=== PATIENT | female | born 1940 | race Caucasian/White ===

== ENCOUNTER → 2022-01-24 10:39 | Outpatient (CLI) | payer MEDICARE, OTHER, SELFPAY ==
--- NOTE | 2022-01-24 10:43 | DI.MRI.S_ITS ---
PROCEDURE: MR LUMBAR SPINE WO CON INDICATIONS: Lumbago with sciatica, right side TECHNIQUE: Noncontrast sagittal T1 spin echo and T2 fast echo, sagittal STIR, and T2 fast spin echo through the lumbar spine. In cases with scoliosis, additional coronal T2 fast spin echo may be performed. COMPARISON: CT, L-SPINE WITHOUT CONTRAST, 07/30/2016, 12:16. FINDINGS: Image quality: Excellent. Alignment and Curvature: There is trace anterolisthesis of L3 on L4, L4 on L5. Bone Marrow: Marrow is of normal overall signal. No acute vertebral body compression fractures. Spinal Cord: Conus medullaris terminates at the L1 level. Visualized cord demonstrates normal signal and size. Paraspinous Soft Tissues: No paravertebral masses. Discs: Severe desiccation is present at L2-3, mild to moderate throughout the remainder of the lumbar spine. L1-L2: No disc bulge or spinal stenosis. Mild bilateral foraminal narrowing, left greater than right with facet and ligamentum flavum hypertrophy. L2-L3: Mild disc bulge including a left foraminal/lateral component. Mild spinal stenosis. Severe left and moderate right foraminal narrowing with facet and ligamentum flavum hypertrophy. There is mild flattening of the left L2 nerve root. L3-L4: Mild disc bulge with moderate to severe spinal stenosis. Moderate to severe bilateral foraminal narrowing with facet and ligamentum flavum hypertrophy. L4-L5: Mild disc bulge with disc extension to the right lateral recess as well as foramina. There is severe right and moderate to severe left foraminal narrowing with nerve root compression of the exiting right L4 nerve roots. Epidural lipomatosis is present as well as significant facet and ligamentum flavum hypertrophy. Severe spinal stenosis is present. L5-S1: Mild disc bulge without spinal stenosis. [id number] left foraminal narrowing with facet hypertrophy. IMPRESSION: Prominent multilevel degenerative changes. Multilevel spinal stenosis most severe at L4-5 secondary to disc bulge with contributing affective facet/ligamentum flavum arthropathy and epidural lipomatosis. Multilevel foraminal narrowing is present most severe at L4-5 secondary to facet arthropathy. Dictated by: Peg Delgado M.D. on 01/25/2022 at 16:08 Approved by: Peg Delgado M.D. on 01/25/2022 at 16:15
== END ==
PROVIDERS: Referring Provider Physical Medicine & Rehabilitation Pain Medicine; Visit Provider Physical Medicine & Rehabilitation Pain Medicine
DX: M48.061 Spinal stenosis, lumbar region without neurogenic claudication (principal); M51.16 Intervertebral disc disorders with radiculopathy, lumbar region; M47.26 Other spondylosis with radiculopathy, lumbar region
CPT/HCPCS: 72148

== ENCOUNTER → 2022-08-13 11:24 | Outpatient (CLI) | payer MEDICARE, OTHER, SELFPAY ==
[2022-08-13 12:52] LABS: COVID19 -Nasal RAPID Negative (Negative)
== END ==
PROVIDERS: PCP Family Medicine; Referring Provider Internal Medicine; Visit Provider Internal Medicine
DX: Z20.822 Contact with and (suspected) exposure to COVID-19 (principal)
CPT/HCPCS: 87635; C9803

== ENCOUNTER → 2022-08-13 11:26 | Outpatient (CLI) | payer MEDICARE, OTHER, SELFPAY ==
--- NOTE | 2022-08-23 14:03 | PM.PFT.1 ---
Pulmonary Function Test Referral & Results Date Patient Seen: 08/13/22 Requesting provider: Rody Mijares Results: The spirometry demonstrates an FVC of 1.99 L which is 80% of predicted. The FEV1 was measured at 1.59 L which is 86% of predicted. The FEV1/FVC ratio was 80 which is 107% of predicted. Following the administration of bronchodilator there was a 27% improvement in FEF 25-75%. Lung volumes show an SVC of 2.80 L which is 109% of predicted. The diffusing capacity was measured at 12.90 which is 56% of predicted. No hemoglobin value was provided, so no correction for potential anemia could be made, if appropriate. The maximum voluntary ventilation was normal Interpretation: This study demonstrates probably normal forced spirometry although there is some minimal improvement in small airway flow after bronchodilator as noted above based on improvement in FEF 25-75% Lung volumes are normal There is a moderate reduction in diffusing capacity suggesting disease at the capillary alveolar level Clinical correlation suggested
== END ==
PROVIDERS: PCP Family Medicine; Referring Provider Family Medicine; Visit Provider Family Medicine
DX: R05.3 Chronic cough (principal); Z87.891 Personal history of nicotine dependence; Z20.822 Contact with and (suspected) exposure to COVID-19; J98.8 Other specified respiratory disorders
CPT/HCPCS: 87635; 94060; 94726; 94729; C9803

== ENCOUNTER → 2022-08-17 12:16 | Outpatient (CLI) | payer MEDICARE, OTHER, SELFPAY ==
--- NOTE | 2022-08-17 12:17 | DI.RAD.S_ITS ---
PROCEDURE: XR KNEE RT 3V INDICATIONS: pain TECHNIQUE: 3 views of the knee were acquired. COMPARISON: None. FINDINGS: Bones: Degenerative changes with tricompartmental osteophytes and medial joint space narrowing. Chondrocalcinosis is seen in the medial and lateral joint space. No fractures or dislocations. There is a well corticated ossification superior to the patella. No suspicious bony lesions. Soft tissues: No joint effusion. No suspicious soft tissue calcifications. IMPRESSION: 1. Tricompartmental degenerative changes consistent with osteoarthritis. 2. Chondrocalcinosis in the medial and lateral joint space. Dictated by: Eren Hoang M.D. on 08/17/2022 at 16:41 Approved by: Eren Hoang M.D. on 08/17/2022 at 16:42
== END ==
PROVIDERS: PCP Family Medicine; Referring Provider Family Medicine; Visit Provider Family Medicine
DX: M11.261 Other chondrocalcinosis, right knee (principal); M25.561 Pain in right knee
CPT/HCPCS: 73562

== ENCOUNTER → 2022-08-24 11:49 | Outpatient (CLI) | payer MEDICARE, OTHER, SELFPAY ==
[2022-08-24 12:38] LABS: Hemoglobin A1C% w Est Avg Glu 9.1 % (4.0-6.0)
--- NOTE | 2022-09-01 11:34 | DIAB.MNT ---
Initial Diabetes Medical Nutrition Therapy Assessment Name: Francia Moeller (Francia (11ah)) Date: 08/24/22 Time: 108-208p Dx: Type II Diabetes Provider: Tahirharsha Francia presents for initial diabetes visit. PMH of DM since 1993 per report. +FH of DM with paternal grandfather, maternal grandmother and uncle, unsure of mother since she young. Reports d/c of Metformin due to progressing CKD. GFR of 35 and GFR 1.5 in 05/2022. Endorses 40# weight lossin one year d/t daughter not allowing carb heavy snacks in the house, ie pretzels, ice cream, cheese. Worries about rising HgA1c recently, up from 8.6% to 9.1%, likely r/t d/c of Metformin to protect kidneys. In process of titrating Dm meds with PCP. Does not like insulin pens, uses syringe. Diet Recall: 630a: coffee with splenda, toast and PB OR soup OR fast food breakfast sausage with cheese no bread 12p: apple OR cottage cheese x0.5c with pineapple x 1/3c OR leftovers OR soup x 1c with crackers x2 5p: soup OR chicken with veggies and sometimes small potato OR 3/4c fried rice with chx or tofu OR pasta 8p: 2-4 crackers with one fruit Beverages; 24-32oz water, diet tonic water, 2-3c coffee, 1c tea Anthropometrics: Ht: 63 Wt: 239# Physical Activity: chair yoga 5 days per week, tires to walk. Barrier is knee/back pain. usually 2000 steps per day and aiming for more. Self-Monitoring Blood Glucose: Checks FBG once per week and sometimes later in the day. Sometimes after eating BG may be up to 200mg/dl per report. Date Pre Post Pre Post Pre Post HS 08/18 169 08/19 154 08/20 152 08/21 134 08/22 152 08/23 165 08/24 174 Diabetes Medications: 5mg Glipizide XR 48 (inc to 50 today) morning and 45u evening 70/30 NPH Pertinent Labs: Hemoglobin A1c 9.1 % (4.0-6.0) H 08/24/22 11:55 Past Medical History: (Last Updated 08/31/22 @ 16:03 by Everton Ibarra MD) Abnormal Pap smear of cervix (~1992) Adrenal adenoma Rt. Observation Asthma (~1989) Benign essential HTN Breast cancer (~2016) Bulimia (~1959) Carpal tunnel syndrome (~1991) Chicken pox (~1945) Chronic back pain (~1989) CKD (chronic kidney disease) CPAP (continuous positive airway pressure) dependence (~1999) Shallow breathing Diabetes mellitus type 2, insulin dependent (~1993) Fracture (~1986) Hemorrhoid (~1989) History of stent insertion of renal artery Rt. History of urinary incontinence (~1994) Hyperlipidemia Kidney stones (~2001) Knee osteoarthritis Measles (~1944) Mumps (~1970) OAB (overactive bladder) Sacrococcygeal disorders, not elsewhere classified Thyroid nodule Thyromegaly Nutrition Rx: Plate Method, CCD, CKD diet Nutrition Diagnosis: - Physical inactivity r/t back and knee pain aeb pt report - Predicted inadequate water intake r/t sub other beverages during the day aeb diet recall - Intervention: This participant was very receptive. Provided appropriate educational handouts. Discussed the following topics: Completed intake assessment. Discussed barriers to care. Pathophysiology of T2DM HgA1c, its correlation to blood glucose numbers, and rationale for goal Importance of self-monitoring, how often, and when to check. Suggested checking at different times to evaluate meals Plate Method, impact of macronutrients on blood sugar, meal timing, carbohydrate counting, pairing macronutrients and spreading out carbohydrates for better blood glucose management Recommended servings for carbohydrates at meals and snacks Heart health nutrition Brainstormed appropriate meal plan based on food preferences Role of physical activity and following provider guidelines for safety Created SMART goals for patient self-care and success. 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
== END ==
PROVIDERS: PCP Family Medicine; Referring Provider Family Medicine; Visit Provider Family Medicine
DX: E11.9 Type 2 diabetes mellitus without complications (principal)
CPT/HCPCS: 36415; 83036; 97802

== ENCOUNTER → 2022-08-26 13:54 | Outpatient (CLI) | payer MEDICARE, OTHER, SELFPAY ==
--- NOTE | 2022-08-26 13:56 | DI.ECHO.S_ITS ---
[facility] +---------+ : : [address] : : : : [id number] : : : : Phone: [phone]+ Echocardiogram Report + + :Name: ÁNGELA OSBORNE Study Date: 08/26/2022 Height: 63 in : :[facility] ReadingLocation: Weight: 235 lb : : Gender: Female BSA: 2.1 m2 : :: 1940 Age: 82 yrs BP: 148/92 mmHg: :Reason For Study: Dyspnea on exertion, hypertension : :Ordering Physician: HAL, : :TITI Performed By: Ofelia White : :Referring: TITI HONG : + + Interpretation Summary Normal sinus rhythm and uncontrolled hypertension. Normal LV size; mild concentric LVH; normal wall motion and LV systolic function. EF is 60-65%. Stage II diastolic dysfunction. Mild LA enlargement; otherwise normal chamber sizes. No significant valvular abnormalities. Estimated PA systolic pressure is 56 mm Hg assuming RA pressure of 15 mm Hg. No prior study available for comparison. Procedure: A two-dimensional transthoracic echocardiogram with color flow and Doppler was performed. The patient was in sinus rhythm with heart rates between 69-74 bpm during the exam. Left Ventricle: The left ventricle is normal in size. There is mild concentric left ventricular hypertrophy. The ejection fraction is estimated to be 60-65%. Diastolic parameters suggest a pseudonormalization pattern, consistent with probable elevated filling pressures. Right Ventricle: The right ventricle is normal in size and function. The right ventricular systolic function is normal. Atria: The left atrium is mildly dilated. The right atrium is normal in size. There is no Doppler evidence for an interatrial shunt. Mitral Valve: The mitral valve is normal in structure and function. There is mild mitral regurgitation. Aortic Valve: The aortic valve is normal in structure and function. There is trace aortic regurgitation. Tricuspid Valve: The tricuspid valve is normal in structure and function. Pulmonic Valve: The pulmonic valve leaflets are thin and pliable; valve motion is normal. There is a trace or physiologic amount of pulmonic regurgitation. Great Vessels: The ascending aorta is normal in size. The IVC is dilated (diameter is greater than 2.1 cm) and it collapses less than 50% with a sniff. This suggests a high right atrial pressure of 15 mm Hg. Pericardium/ Pleura There is a trivial to small pericardial effusion noted. There is no pleural effusion. MMode/2D Measurements & Calculations LVIDd: 5.3 cm LVOT diam: 2.0 cm LVIDs: 3.2 cm Ao root diam: 3.2 cm FS: 39.7 % asc Aorta Diam: 3.4 cm IVSd: 1.2 cm LVPWd: 1.2 cm LV hernadez. diameter/BSA (cm/m^2): 2.5 LV sys. diameter/BSA (cm/m^2): 1.5 LA A2 area: 19.5 cm2 RA long axis: 4.8 cm LA A4 area: 23.4 cm2 RA area: 16.9 cm2 LA length (vol): 5.6 cm RA vol: 50.3 ml LA vol: 69.6 ml RA : 24.3 ml/m2 LA vol index: 33.6 ml/m2 RVD1 (basal): 4.2 cm TAPSE: 1.3 cm Doppler Measurements & Calculations Ao V2 max: 139.8 cm/sec LVOT Max Ozzy: 106.5 cm/sec Ao V2 mean: 99.1 cm/sec LV V1 max P.5 mmHg Ao max P.8 mmHg LV V1 VTI: 23.8 cm Ao mean P.4 mmHg NAYELI(I,D): 2.2 cm2 Ao V2 VTI: 33.9 cm NAYELI(V,D): 2.4 cm2 sev ratio: 0.70 NAYELI indexed to BSA (cm^2/m^2): 1.1 MV E max ozzy: 114.0 cm/sec TR max ozzy: 307.5 cm/sec MV A max ozzy: 68.0 cm/sec TR max P.9 mmHg MV E/A: 1.7 PA V2 max: 104.5 cm/sec Med Peak E' Ozzy: 5.0 cm/sec PA V2 mean: 78.5 cm/sec E/E' med: 23.0 PA mean P.6 mmHg Lat Peak E' Ozzy: 8.0 cm/sec E/E' lat: 14.2 E/e' average: 18.6 MV dec time: 0.25 sec MVA(VTI): 1.9 cm2 MV V2 mean: 72.9 cm/sec SV(LVOT): 75.0 ml MV mean P.5 mmHg MV V2 VTI: 38.6 cm Electronically signed by: Mag Nguyen M.D. on Reading Physician:08/27/2022 03:39 AM
--- NOTE | 2022-08-26 13:56 | DI.MRI.S_ITS ---
PROCEDURE: MR LUMBAR SPINE WO CON INDICATIONS: low back pain, radiculopathy TECHNIQUE: Noncontrast sagittal T1 spin echo and T2 fast echo, sagittal STIR, and T2 fast spin echo through the lumbar spine. In cases with scoliosis, additional coronal T2 fast spin echo may be performed. COMPARISON: None. FINDINGS: Image quality: Excellent. Alignment and Curvature: Degenerative anterolisthesis of L4 on L5 measuring 3 millimeters. Otherwise normal alignment. Vertebral body heights maintained. Bone Marrow: No suspicious bone marrow signal abnormality or bone marrow edema. Spinal Cord: C normal position and appearance of the conus. Regional Soft Tissues: Prevertebral and paraspinous soft tissues are normal. T12-L1: No spinal canal or neural foraminal stenosis. L1-L2: No spinal canal or neural foraminal stenosis. L2-L3: Severe spinal canal stenosis due to diffuse disc bulge and a superimposed broad-based posterior disc protrusion along with buckling of the ligamentum flavum and bulky facet hypertrophy. These factors combine to produce severe left and moderate right neural foraminal narrowing. L3-L4: Severe spinal canal stenosis due to a combination of diffuse disc bulge and a superimposed broad-based posterior disc protrusion along with bulky facet hypertrophy and buckling of the ligamentum flavum. Moderate bilateral neural foraminal narrowing due to these factors. L4-L5: Moderate spinal canal and severe bilateral subarticular zone stenosis due to a diffuse disc bulge and superimposed broad-based posterior disc protrusion along with contribution from bulky facet hypertrophy and buckling of the ligamentum flavum. Severe bilateral neural foraminal narrowing due to these factors. L5-S1: Disc bulge flattens the ventral thecal sac and mildly displaces the descending S1 nerve roots in both subarticular zones. No neural foraminal stenosis. IMPRESSION: Severe spinal canal stenosis at L2-L3 and L3-L4. Moderate spinal canal and severe bilateral subarticular zone stenosis at L4-L5. Severe neural foraminal narrowing on the left at L2-L3 and bilaterally at L4-L5. Moderate neural foraminal narrowing on the right at L2-L3 and bilaterally at L3-L4. Dictated by: Thien Nelson M.D. on 08/27/2022 at 8:50 Approved by: Thien Nelson M.D. on 08/27/2022 at 8:53
--- NOTE | 2022-08-26 13:56 | DI.US.S_ITS ---
PROCEDURE: US THYROID INDICATIONS: THYROMEGALY TECHNIQUE: Real-time scanning was performed of the thyroid gland, with image documentation. COMPARISON: None. FINDINGS: Right: Thyroid lobe measures 9.2 x 4 x 3.9 cm, and is heterogeneous in echotexture. Left: Thyroid lobe measures 5.2 x 2.1 x 1.7 cm, and is heterogeneous in echotexture. Isthmus: 2.7 cm thick Nodule number: 1 Location: Right superior Size: 2.9 x 2.7 x 2.4 cm. Composition: Solid Echogenicity: Hypoechoic Shape: wider than tall. Margins: Smooth Echogenic foci: None Total points: 4 ACR TI-RADS category: TR 4, moderately suspicious Nodule number: 2 Location: Right mid Size: 3.8 x 2.9 x 2.9 cm. Composition: Mixed cystic and solid Echogenicity: Isoechoic Shape: wider than tall. Margins: Smooth Echogenic foci: None Total points: 2 ACR TI-RADS category: TR 2, not suspicious Nodule number: 3 Location: Left mid Size: 2 x 1.4 x 0.9 cm. Composition: Solid Echogenicity: Isoechoic Shape: wider than tall. Margins: Smooth Echogenic foci: None Total points: 3 ACR TI-RADS category: TR 3, mildly suspicious Nodule number: 4 Location: Isthmus Size: 3.5 x 2.5 x 2.4 cm. Composition: Solid Echogenicity: Isoechoic Shape: wider than tall. Margins: Smooth Echogenic foci: None Total points: 3 ACR TI-RADS category: TR 3, mildly suspicious. No enlarged lymph nodes. Incidental carotid bulb atherosclerotic plaque. IMPRESSION: 1. Enlarged heterogeneous thyroid gland. 2. Right superior thyroid nodule measuring 2.9 cm. TR 4, moderately suspicious. FNA recommended. 3. Isthmus thyroid nodule measuring 3.5 cm. TR 3, mildly suspicious. FNA is recommended. ACR TI-RADS definitions and recommendations: TI-RADS 1 (benign): 0 points. FNA not needed. TI-RADS 2 (not suspicious): 2 points. FNA not needed. TI-RADS 3 (mildly suspicious): 3 points. * FNA if 2.5 cm or larger, follow up if 1.5 cm or larger (at 1, 3, and 5 years). TI-RADS 4 (moderately suspicious): 4-6 points. * FNA if 1.5 cm or larger, follow up if 1 cm or larger (at 1, 2, 3, and 5 years). TI-RADS 5 (highly suspicious): 7 points or more. * FNA if 1 cm or larger, follow up if 0.5 cm or larger (every year for 5 years). Dictated by: Colin Corona M.D. on 08/31/2022 at 8:03 Approved by: Colin Corona M.D. on 08/31/2022 at 8:12
== END ==
PROVIDERS: PCP Family Medicine; Referring Provider Family Medicine; Visit Provider Family Medicine
DX: I34.0 Nonrheumatic mitral (valve) insufficiency (principal); I10 Essential (primary) hypertension; R06.09 Other forms of dyspnea; M48.061 Spinal stenosis, lumbar region without neurogenic claudication; M54.41 Lumbago with sciatica, right side; E01.0 Iodine-deficiency related diffuse (endemic) goiter; G89.29 Other chronic pain
CPT/HCPCS: 72148; 76536; 93306

== ENCOUNTER → 2022-09-14 07:56 | Outpatient (CLI) | payer MEDICARE, OTHER, SELFPAY ==
--- NOTE | 2022-09-14 07:58 | DI.NM.S_ITS ---
PROCEDURE: NM BONE 3 PHASE RADIOPHARMACEUTICAL: 21.8 mCi Tc-99m MDP IV. INDICATIONS: Right SIJ abnormality on MRI TECHNIQUE: Multiple bone scintigrams were obtained after intravenous injection of Tc-99m MDP, including flow, blood pool, and delayed images centered to the region of interest. COMPARISON: [facility], CR, XR LUMBAR SPINE WITH OBLIQUES PLUS FLEXION EXTENSION, 01/19/2022, 9:53. [facility], MR, MR LUMBAR SPINE WO CON, 01/24/2022, 11:03. [facility], CR, XR SACROILIAC JOINT MIN 3V, 09/14/2022, 8:00. [facility], MR, MR LUMBAR SPINE WO CON, 08/26/2022, 16:01. FINDINGS: The flow and blood pool images centered to the pelvis demonstrate symmetrical vascular activity. Delayed images demonstrate increased uptake in the right sacroiliac joint, correlating with radiographic and MRI abnormality. Lesser degree of increased activity is also seen left sacroiliac joint. Foci of increased uptake in lower lumbar spine is most likely secondary to degenerative disc and facet disease. IMPRESSION: 1. There is increased activity in the right sacroiliac joint compared to the left. The scintigraphic finding is nonspecific. Given the disease process appears to be centered to the joint, and inflammatory type arthritis is most likely. Recommend clinical correlation and follow-up. If clinically indicated, contrast-enhanced MRI may be helpful. Dictated by: Ham Handley M.D. on 09/14/2022 at 15:46 Approved by: Ham Handley M.D. on 09/16/2022 at 10:02
--- NOTE | 2022-09-14 07:58 | DI.RAD.S_ITS ---
PROCEDURE: XR SACROILIAC JOINT MIN 3V INDICATIONS: failed right SI fusion TECHNIQUE: 3 views of the sacroiliac joints were acquired. COMPARISON: None. FINDINGS: Bones: Dose partial ankylosis of the mid right SI joint. Both joints do show subchondral sclerosis without marginal osteophytes. Degenerative changes noted lower lumbar spine Soft tissues: Overlying bowel gas pattern is normal. No suspicious soft tissue densities. IMPRESSION: Partial mid right SI joint ankylosis Approved by: Elroy Conte M.D. on 09/14/2022 at 13:03
[2022-09-14 08:37] LABS: Add Manual Diff / Slide Review NO; Basophils Absolute Auto 100 /uL (0-100); Basophils Percent Auto 0.9 % (0-2); Eosinophils Absolute Auto 500 /uL (0-450); Eosinophils Percent Auto 4.9 % (2-4); Hematocrit 36.6 % (36-46); Hemoglobin 11.8 g/dL (12.0-16.0); Lymphocytes Absolute Auto 2200 /uL (1100-4500); Lymphocytes Percent Auto 22.6 % (25-40); Mean Corpuscular HGB Conc 32.3 % (30-36); Mean Corpuscular Hemoglobin 26.1 PG (26-34); Mean Corpuscular Volume 80.9 fL (80-100); Monocytes Absolute Auto 1200 /uL (0-900); Monocytes Percent Auto 12.4 % (3-14); Neutrophils Absolute Auto 5800 /uL (1500-7000); Neutrophils Percent Auto 59.2 % (50-75); Platelet Count 214 X10^3/uL (150-400); Red Blood Cell Count 4.53 X10^6/uL (4.0-5.2); Red Cell Distribution Width 15.6 % (11.6-14.8); White Blood Cell Count 9.7 X10^3/uL (4.5-11.0)
[2022-09-14 08:53] LABS: Erythrocyte Sedimentation Rate 19 MM/HR (0-20)
[2022-09-14 09:27] LABS: C-Reactive Protein Quant < 0.5 mg/dL (<1.0)
== END ==
PROVIDERS: PCP Family Medicine; Referring Provider Anesthesiology; Visit Provider Anesthesiology
DX: M54.41 Lumbago with sciatica, right side (principal); M53.3 Sacrococcygeal disorders, not elsewhere classified; M43.28 Fusion of spine, sacral and sacrococcygeal region; M47.816 Spondylosis without myelopathy or radiculopathy, lumbar region; G89.29 Other chronic pain
CPT/HCPCS: 36415; 72202; 78315; 85025; 85651; 86140; A9503

== ENCOUNTER → 2022-09-20 11:27 | Outpatient (CLI) | payer MEDICARE, OTHER, SELFPAY ==
[2022-09-20 12:47] LABS: BUN Creatinine Ratio 31.1 (6-22); Blood Urea Nitrogen 42 mg/dL (7-17); Calcium 9.3 mg/dL (8.4-10.2); Carbon Dioxide 27 mmol/L (22-32); Chloride 107 mmol/L (98-107); Estimated Glomerular Filt Rate 40 mL/min (>60); Glucose 71 mg/dL (80-110); HEMOLYSIS < 15 (0-50); Potassium 4.6 mmol/L (3.4-5.1); Sodium 142 mmol/L (137-145)
== END ==
PROVIDERS: PCP Family Medicine; Referring Provider Anesthesiology; Visit Provider Anesthesiology
DX: N18.9 Chronic kidney disease, unspecified (principal); M48.062 Spinal stenosis, lumbar region with neurogenic claudication; M53.3 Sacrococcygeal disorders, not elsewhere classified; M54.41 Lumbago with sciatica, right side; G89.29 Other chronic pain
CPT/HCPCS: 36415; 80048; 99214

== ENCOUNTER → 2022-09-21 08:14 | Outpatient (CLI) | payer MEDICARE, OTHER, SELFPAY ==
--- NOTE | 2022-09-21 | PATH_ITS ---
Note [facility] Accession Number: [id number] TESTS RESULT FLAG UNITS REF RANGE LAB Clinician Provided Cytology Information No. of containers..01 Other (Miscellaneous) No. of containers..02 Previously Prepared Cytology Slide Source: RIGHT SUPERIOR THYROID DIAGNOSIS: RIGHT SUPERIOR THYROID NEGATIVE FOR MALIGNANT CELLS. BETHESDA CATEGORY II. SPECIMEN CONSISTS OF BENIGN FOLLICULAR CELLS, HEMOSIDERIN-LADEN MACROPHAGES, COLLOID, AND BLOOD. THIS PATTERN IS MOST CONSISTENT WITH A BENIGN FOLLICULAR NODULE. Pathologist ICD10: 01 E04.1 Signed out by: Beronica Lara MD, Pathologist NPI- [id number] Performed by: Seamus Pierce, Cabinet Builder ([facility]) Gross description: 30 CC, PINK, HAZY RECEIVED IN CYTOLYT WHITE CAP CONTAINER RECEIVED 6 ALCOHOL FIXED SLIDES IN 2 GREEN CAP COFFINS RECEIVED 6 FIXED SLIDES IN 2 SLIDE HOLDERS RECEIVED 1 RNA VIAL /RZA 09/22/2022 1057 Local FLAG LEGEND: L-Low Normal,H-High Normal,LL-Alert Low,HH-Alert High <-Panic Low,>-Panic High,A-Abnormal,AA-Critical Abnormal Performed at: 01 =[facility] [address], [place] [address] Michael Contreras MD, Specimen Comment: [id number] Performed at: 01 [facility] [address] [place] [address] [address], [place], [place] [id number] MD Michael Contreras MD Phone: [phone]
--- NOTE | 2022-09-21 | PATH_ITS ---
Note [facility] Accession Number: [id number] TESTS RESULT FLAG UNITS REF RANGE LAB Clinician Provided Cytology Information No. of containers..01 Other (Miscellaneous) No. of containers..02 Previously Prepared Cytology Slide Source: ISTHMUS NODULE DIAGNOSIS: ISTHMUS NODULE NEGATIVE FOR MALIGNANT CELLS. BETHESDA CATEGORY II. SPECIMEN CONSISTS OF BENIGN FOLLICULAR CELLS, COLLOID, AND BLOOD. THIS PATTERN IS MOST CONSISTENT WITH A BENIGN FOLLICULAR NODULE. Pathologist ICD10: E04.1 Signed out by: Beronica Lara MD, Pathologist NPI- [id number] Performed by: Cesar Ghotra, Collateral Clerk ([facility]) Gross description: 30 CC, PINK, HAZY RECEIVED IN CYTOLYT WHITE CAP CONTAINER RECEIVED 6 ALOCHOL FIXED SLIDES IN 2 GREEN CAP COFFINS RECEIVED 6 FIXED SLIDES IN SLIDE HOLDERS RECEIVED 1 RNA VIAL /RZA 09/22/[address] [place] [address] FLAG LEGEND: L-Low Normal,H-High Normal,LL-Alert Low,HH-Alert High <-Panic Low,>-Panic High,A-Abnormal,AA-Critical Abnormal Performed at: 01 =[facility] [address], [place] [address] Michael Contreras MD, Specimen Comment: [id number] Performed at: 01 [facility] Cyt[facility] [address] [place] [address] [address], [place], [place] [id number] MD Michael Contreras MD Phone: [phone]
--- NOTE | 2022-09-21 08:15 | DI.US.S_ITS ---
PROCEDURE: US FINE NEEDLE ASPIRATION INDICATIONS: RIGHT SUPERIOR THYROID NODULE AND ISTHMUS NODULES TECHNIQUE: The indications, alternatives, benefits, risks, and complications of the procedure were explained to the patient. Written informed consent was obtained and placed in the chart. The thyroid region was examined sonographically and a site was chosen for ultrasound guided percutaneous sampling. The skin was prepared and draped in the usual fashion, and anesthetized with 1% lidocaine infiltrated from the skin down to the thyroid gland. Multiple passes were then performed, with contents emptied into an appropriate pathology specimen container. A bandage was applied to the area of access at completion of the study. COMPARISON: [facility], US, US THYROID, 08/26/2022, 15:12. FINDINGS: Location(s) of lesion(s) sampled: Nodule #1 (right upper thyroid) and nodule #5 (isthmus) described on the comparison ultrasound. [place]: 25 gauge hypodermic needles. Number of passes: 6 x each nodule Medications: 1% lidocaine for local anaesthesia. Complications: None. IMPRESSION: Successful ultrasound-guided thyroid nodule fine needle aspiration, with cytology results pending. Please see chart below for management recommendations based on cytology results. [facility] ReportingRecommendationsNon-diagnostic* Repeat US-guided FNA, with on-site cytology evaluation if possible. * Repeated non-diagnostic nodules without high suspicion US features: close observation vs surgical consult. * Consider surgery if nodule has high suspicion US features, grows >20% in 2 dimensions on followup, or patient has clinical risk factors for malignancy. Benign* If nodule has high suspicion US features: repeat US and FNA within 12 months. * If nodule has low to intermediate suspicion US features: repeat US at 12-24 months. If nodule grows (20% increase in at least 2 dimensions, with minimal increase of 2 mm or >50% change in volume), or development of new suspicious US features, then repeat FNA or continue followup. * If nodule has very low suspicion US features: followup US at >24 months. Atypia of undetermined significance, follicular lesion of undetermined significanceRepeat FNA, molecular testing, followup US, or surgical consult.Follicular neoplasm, suspicious for follicular neoplasmSurgical consult; also consider molecular testing. Suspicious for malignancySurgical consult.MalignantSurgical consult. Dictated by: Ham Handley M.D. on 09/21/2022 at 10:41 Approved by: Ham Handley M.D. on 09/21/2022 at 10:44
== END ==
PROVIDERS: PCP Family Medicine; Referring Provider Family Medicine; Visit Provider Family Medicine
DX: E04.1 Nontoxic single thyroid nodule (principal)
CPT/HCPCS: 10005; 10006

== ENCOUNTER → 2022-10-02 10:11 | Outpatient (CLI) | payer MEDICARE, OTHER, SELFPAY ==
--- NOTE | 2022-10-02 10:12 | DI.MRI.S_ITS ---
PROCEDURE: MR PELIS WO/W CON INDICATIONS: R SIJ ankylosis/inflammation; Sacrococcygeal disorders, NEC TECHNIQUE: Noncontrast axial and oblique coronal T1 spin echo and STIR through the sacroiliac joints. After the administration of intravenous contrast material, fat-suppressed T1 spin echo sequences were obtained in the axial and oblique coronal planes COMPARISON: [facility], NM, NM BONE 3 PHASE, 09/14/2022, 9:18. [facility], CR, XR SACROILIAC JOINT MIN 3V, 09/14/2022, 8:00. FINDINGS: Image quality: Excellent. Bones: Linear signal abnormality and foci of micro metallic artifact are seen in the right sacrum adjacent to the sacroiliac joint, corresponding to an area of sclerosis on prior radiographs. A subcutaneous tract is seen in the posterior skin. Findings are compatible with prior surgical instrumentation. No definite osseous bridging or ankylosis is seen across the sacroiliac joints. There are small foci of D2P-wzqdsbhkvwlc signal adjacent to the sacroiliac joints. Degenerative disc disease and facet hypertrophy are seen in the included lumbar spine with least moderate spinal canal narrowing. The left transverse process of L5 articulates with the left [place] sacrum without associated osseous edema. Soft tissues: No presacral masses. Rectum appears normal in caliber and wall thickness. No pathologic free pelvic fluid. No enhancing soft tissue mass. IMPRESSION: 1. Small foci of G4P-zwfaimdqpump signal along the sacroiliac joints are favored to represent mild degenerative changes rather than active sacroiliitis. No bony ankylosis is seen. 2. Signal abnormality in the lateral right [place] sacrum with micrometallic artifact is most likely related to prior surgical instrumentation. Approved by: Tanner Thompson M.D. on 10/04/2022 at 16:02
== END ==
PROVIDERS: PCP Family Medicine; Referring Provider Anesthesiology; Visit Provider Anesthesiology
DX: M53.3 Sacrococcygeal disorders, not elsewhere classified (principal)
CPT/HCPCS: 72197; A9579

== ENCOUNTER 2022-10-18 17:04 | Observation (INO) | payer MEDICARE, OTHER, SELFPAY ==
[2022-10-18] VITALS (20 sets, daily range): BP systolic 145–212; BP diastolic 63–98; PULSE 67–99; RESP 14–20; TEMP 37; O2SAT 89–95; BMI 41.6
--- NOTE | 2022-10-18 17:18 | DI.RAD.S_ITS ---
PROCEDURE: XR CHEST 1V INDICATIONS: Shortness of breath TECHNIQUE: One view of the chest was acquired. COMPARISON: [facility], , CHEST 1 VIEW, 09/28/2016, 21:32. FINDINGS: Surgical changes and devices: None. Lungs and pleura: Bilateral perihilar infiltrate. No pleural effusions or pneumothorax. Mediastinum: Mediastinal contours appear normal. Heart size is mildly increased. Bones and chest wall: No suspicious bony lesions. Overlying soft tissues appear unremarkable. IMPRESSION: 1. Bilateral perihilar infiltrates may be secondary to pulmonary edema or bilateral pneumonia. Dictated by: Ham Handley M.D. on 10/18/2022 at 17:35 Approved by: Ham Handley M.D. on 10/18/2022 at 17:35
--- NOTE | 2022-10-18 17:48 | PC.NURSE ---
Pt complains of pounding heart for the past couple of weeks, and chronic cough for past year. Pt becomes a little breathless with talking, but at rest is fine. RR 16, 95% on RA. Pt reports history of either asthma or COPD, I can't remember which. Denies chest pain. Encouraged to use call light. Call light within reach.
[2022-10-18 18:01] LABS: Add Manual Diff / Slide Review NO; Basophils Absolute Auto 100 /uL (0-100); Basophils Percent Auto 1.2 % (0-2); Eosinophils Absolute Auto 400 /uL (0-450); Eosinophils Percent Auto 3.4 % (2-4); Hematocrit 36.7 % (36-46); Hemoglobin 12.2 g/dL (12.0-16.0); Lymphocytes Absolute Auto 2200 /uL (1100-4500); Lymphocytes Percent Auto 21.4 % (25-40); Mean Corpuscular HGB Conc 33.2 % (30-36); Mean Corpuscular Hemoglobin 26.4 PG (26-34); Mean Corpuscular Volume 79.4 fL (80-100); Monocytes Absolute Auto 1500 /uL (0-900); Monocytes Percent Auto 14.4 % (3-14); Neutrophils Absolute Auto 6200 /uL (1500-7000); Neutrophils Percent Auto 59.6 % (50-75); Platelet Count 237 X10^3/uL (150-400); Red Blood Cell Count 4.62 X10^6/uL (4.0-5.2); White Blood Cell Count 10.4 X10^3/uL (4.5-11.0)
--- NOTE | 2022-10-18 18:10 | ED_ITS ---
HPI - Arrhythmia/Palpitations General Chief Complaint: Shortness of Breath/Dyspnea Stated Complaint: POUNDING [id number], HIGH BP, POXEMIA Time Seen by Provider: 10/18/22 17:50 Source: patient Mode of arrival: Wheelchair History of Present Illness HPI narrative: Patient is an 82-year-old female history of insulin-dependent diabetes hypert ension, remote history of breast cancer with bilateral mastectomy presenting today at the request of her physician for ongoing palpitations and increasing shortness of breath. She says over last 2 weeks she is had some palpitations both at rest and with exertion she gets short of breath slightly dizzy when this occurs. She says it lasts for only a couple minutes. She denies any fever chills or cough. She does not really have any chest pain. Nursing reports that with ambulation from triage to the room she got very short of breath. Patient denies any orthopnea she reports she might have some mild swelling in her legs. She had an echocardiogram in 08/26/2022 which showed an EF of 60-65% Related Data Home Medications Medication Instructions Recorded Confirmed montelukast 10 mg tablet 10 mg PO QDAY ##0 09/28/16 10/18/22 (Singulair) carboxymethylcellulose sodium 0.5 drp ophthalmic (eye) .prn 06/16/22 10/18/22 % eye drops (Refresh Tears) labetalol 100 mg tablet 100 mg PO BID 06/16/22 10/18/22 tamoxifen 20 mg tablet 20 mg PO DAILY 06/16/22 10/18/22 insulin human U-100 NPH-regulr 95 unit SUBCUT BID 10/06/22 10/18/22 70-30 mix 100 unit/mL subcutaneous susp (Novolin 70/30 U-100 Insulin) losartan 100 mg tablet 100 mg PO DAILY 10/06/22 10/18/22 Previous Rx's Medication Instructions Recorded atorvastatin 20 mg tablet (Lipitor) 20 mg PO BEDTIME cholesterol #90 06/16/22 tabs amlodipine 10 mg tablet (Norvasc) 10 mg PO DAILY #90 tabs 07/27/22 furosemide 40 mg tablet 40 mg PO DAILY PRN edema #90 tabs 08/24/22 glipizide 5 mg tablet, extended 5 mg PO DAILY diabetes #90 tabs 09/10/22 release 24 hr hydrochlorothiazide 25 mg tablet 25 mg PO BID for blood pressure 09/10/22 #180 tabs hydralazine 25 mg tablet 25 mg PO Q8H blood pressure #270 09/17/22 tabs Complex Power Wheelchair #1 ea 09/20/22 gabapentin 100 mg capsule 100 mg PO BID #60 caps 09/20/22 scopolamine base 1 mg over 3 days 1 patch transdermal Q3D PRN motion 09/28/22 transdermal patch sickness 1 month #4 ea oxybutynin chloride 5 mg 5 mg PO BID #180 tabs 10/18/22 tablet,extended release 24 hr (Ditropan XL) Allergies Allergy/AdvReac Type Severity Reaction Status Date / Time Sulfa (Sulfonamide Allergy Unknown Verified 10/18/22 17:17 Antibiotics) [SULFA (SULFONAMIDE ANTIBIOTICS)] Review of Systems Review of Systems ROS Unobtainable: All systems reviewed & are unremarkable except as noted in HPI and below Patient History Medical History Abnormal Pap smear of cervix (~1992) Adrenal adenoma Asthma (~1989) Benign essential HTN Breast cancer (~2016) Bulimia (~1959) Carpal tunnel syndrome (~1991) Chicken pox (~1945) Chronic back pain (~1989) CKD (chronic kidney disease) CPAP (continuous positive airway pressure) dependence (~1999) Diabetes mellitus type 2, insulin dependent (~1993) Fracture (~1986) Hemorrhoid (~1989) History of stent insertion of renal artery History of urinary incontinence (~1994) Hyperlipidemia Kidney stones (~2001) Knee osteoarthritis Measles (~1944) Mumps (~1970) OAB (overactive bladder) Sacrococcygeal disorders, not elsewhere classified Spinal stenosis, lumbar region with neurogenic claudication Thyroid nodule Thyromegaly Surgical History Anesthesia H/O bilateral mastectomy H/O umbilical hernia repair H/O: hysterectomy Hx of cholecystectomy S/P fusion of sacroiliac joint Status post hysterectomy Family History Father History of heart disease Hypertension Mother Cancer Brother Hypertension Brother Hypertension Brother History of heart disease Hypertension Grandfather History of heart disease Social History Smoking Status: Former smoker Smoking Status: Former smoker alcohol intake frequency: other Substance Use Type: does not use Exam Initial Vital Signs Initial Vital Signs: Vital Signs Temperature 98.6 F 10/18/22 17:14 Pulse Rate 77 10/18/22 17:14 Respiratory Rate 18 10/18/22 17:14 Blood Pressure 212/85 H 10/18/22 17:14 Pulse Oximetry 95 10/18/22 17:14 Oxygen Delivery Method Room Air 10/18/22 17:14 GENERAL: Alert pleasant 82-year-old female HEENT: Head atraumatic,EOMI, pupils reactive, face symmetric, [moist] mucous membranes CARDIOVASCULAR: Regular rate and rhythm without murmurs, rubs or gallops. RESPIRATORY: Breath sounds equal bilaterally, no wheezes rales or rhonchi. Mild conversational dyspnea ABDOMEN: Soft, nontender. Normoactive bowel sounds all 4 quadrants. No guarding or rebound. EXTREMITIES: Normal range of motion, no clubbing. No significant edema Neurovascularly intact NEUROLOGICAL: Alert and oriented x4.Normal gait and speec SKIN: Warm, dry, no laceration, no petechiae, no rashes or lesions. Course Orders Ordered: ED Orders 10/18/22 17:18 XR chest 1V Stat EKG-12 Lead Stat Measure peak expiratory flow ONCE RT Consult Eval and Treat NOW 10/18/22 17:36 Complete Blood Count AUTO DIFF Stat Comprehensive Metabolic Panel Stat Covid-19 + FLU A/B + RSV - PCR Stat D Dimer Stat Lactate (Lactic Acid) Stat NT-proBNP (BNP-Adult 18+) Stat Procalcitonin Stat Prothrombin Time INR Stat Troponin I Stat 10/18/22 18:48 CT angio chest PE protocol Stat 10/18/22 22:30 Lactate (Lactic Acid) Stat Discontinued Medications Furosemide (Furosemide 40 Mg/4 Ml Vial) 40 mg IV NOW ONE Stop: 10/18/22 18:49 Last Admin: 10/18/22 19:10 Dose: 40 mg Documented By: VALORIE Vital Signs Vital signs: Vital Signs - 8 hr 10/18/22 18:30 10/18/22 18:30 10/18/22 19:08 Pulse Rate 81 81 Respiratory Rate 19 Blood Pressure 169/72 H Pulse Oximetry 94 93 10/18/22 19:20 10/18/22 19:20 10/18/22 19:30 Pulse Rate 68 Respiratory Rate 20 Blood Pressure 184/73 H 186/79 H Pulse Oximetry 92 10/18/22 19:30 10/18/22 20:00 10/18/22 20:22 Pulse Rate 81 78 Respiratory Rate 20 Blood Pressure 206/98 H Pulse Oximetry 92 10/18/22 20:37 10/18/22 20:46 10/18/22 21:00 Pulse Rate 99 H 73 Respiratory Rate Blood Pressure 191/79 H Pulse Oximetry 93 10/18/22 21:30 10/18/22 22:00 10/18/22 20:00 Pulse Rate 68 84 Respiratory Rate Blood Pressure Pulse Oximetry 94 94 89 L 10/18/22 22:31 10/18/22 22:56 10/18/22 22:56 Pulse Rate 85 67 Respiratory Rate Blood Pressure 157/71 H Pulse Oximetry 91 92 10/18/22 22:57 10/18/22 22:57 10/18/22 23:00 Pulse Rate 69 Respiratory Rate Blood Pressure 148/66 H 146/65 H Pulse Oximetry 92 10/18/22 23:00 10/18/22 23:30 10/19/22 00:00 Pulse Rate 67 79 76 Respiratory Rate Blood Pressure Pulse Oximetry 92 93 MDM - Arrhythmia/Palpitations Lab Data 10/18/22 17:36 10/18/22 17:36 Labs: Lab Results 10/18/22 10/18/22 10/18/22 Range/Units 17:36 17:36 17:36 WBC 10.4 (4.5-11.0) X10^3/uL RBC 4.62 (4.0-5.2) X10^6/uL Hgb 12.2 (12.0-16.0) g/dL Hct 36.7 (36-46) % MCV 79.4 L (80-100) fL MCH 26.4 (26-34) PG MCHC 33.2 (30-36) % RDW 16.0 H (11.6-14.8) % Plt Count 237 (150-400) X10^3/uL Neut % (Auto) 59.6 (50-75) % Lymph % (Auto) 21.4 L (25-40) % [place] % (Auto) 14.4 H (3-14) % Eos % (Auto) 3.4 (2-4) % Baso % (Auto) 1.2 (0-2) % Neut # (Auto) 6200 (2982-9355) /uL Lymph # (Auto) 2200 (3948-3149) /uL [place] # (Auto) 1500 H (0-900) /uL Eos # (Auto) 400 (0-450) /uL Baso # (Auto) 100 (0-100) /uL PT 11.3 (10.1-12.7) SECONDS INR 1.0 (0.9-1.3) D-Dimer (<500) ng/ml Sodium 138 (137-145) mmol/L Potassium 3.9 (3.4-5.1) mmol/L Chloride 107 (98-107) mmol/L Carbon Dioxide 23 (22-32) mmol/L BUN 41 H (7-17) mg/dL Creatinine 1.23 H (0.52-1.04) mg/dL Estimated GFR 44 L (>60) mL/min BUN/Creatinine Ratio 33.3 H (6-22) Glucose 233 H (80-110) mg/dL Lactate (0.7-2.1) mmol/L Calcium 8.9 (8.4-10.2) mg/dL Total Bilirubin 0.3 (0.2-1.3) mg/dL AST 20 (14-36) IU/L ALT 20 (<35) IU/L Alkaline Phosphatase 95 (38-126) U/L Troponin I < 0.012 (0.01-0.034) ng/mL NT-Pro-B Natriuret Pep 1260 H (<450) pg/mL Total Protein 6.7 (6.3-8.2) g/dL Albumin 3.9 (3.5-5.0) g/dL Globulin 2.8 (1.7-4.1) g/dL Albumin/Globulin Ratio 1.4 (1.0-2.8) Procalcitonin (<0.5) ng/mL SARS-CoV-2 (PCR) (Negative) Influenza A (RT-PCR) (NEGATIVE) Influenza B (RT-PCR) (NEGATIVE) RSV (PCR) (Negative) 10/18/22 10/18/22 10/18/22 Range/Units 17:36 17:36 17:36 WBC (4.5-11.0) X10^3/uL RBC (4.0-5.2) X10^6/uL Hgb (12.0-16.0) g/dL Hct (36-46) % MCV (80-100) fL MCH (26-34) PG MCHC (30-36) % RDW (11.6-14.8) % Plt Count (150-400) X10^3/uL Neut % (Auto) (50-75) % Lymph % (Auto) (25-40) % [place] % (Auto) (3-14) % Eos % (Auto) (2-4) % Baso % (Auto) (0-2) % Neut # (Auto) (7094-9781) /uL Lymph # (Auto) (3880-5574) /uL [place] # (Auto) (0-900) /uL Eos # (Auto) (0-450) /uL Baso # (Auto) (0-100) /uL PT (10.1-12.7) SECONDS INR (0.9-1.3) D-Dimer 879 H (<500) ng/ml Sodium (137-145) mmol/L Potassium (3.4-5.1) mmol/L Chloride (98-107) mmol/L Carbon Dioxide (22-32) mmol/L BUN (7-17) mg/dL Creatinine (0.52-1.04) mg/dL Estimated GFR (>60) mL/min BUN/Creatinine Ratio (6-22) Glucose (80-110) mg/dL Lactate 1.5 (0.7-2.1) mmol/L Calcium (8.4-10.2) mg/dL Total Bilirubin (0.2-1.3) mg/dL AST (14-36) IU/L ALT (<35) IU/L Alkaline Phosphatase (38-126) U/L Troponin I (0.01-0.034) ng/mL NT-Pro-B Natriuret Pep (<450) pg/mL Total Protein (6.3-8.2) g/dL Albumin (3.5-5.0) g/dL Globulin (1.7-4.1) g/dL Albumin/Globulin Ratio (1.0-2.8) Procalcitonin (<0.5) ng/mL SARS-CoV-2 (PCR) Negative (Negative) Influenza A (RT-PCR) Flu a negative (NEGATIVE) Influenza B (RT-PCR) Flu b negative (NEGATIVE) RSV (PCR) Negative (Negative) 10/18/22 10/18/22 Range/Units 17:36 22:30 WBC (4.5-11.0) X10^3/uL RBC (4.0-5.2) X10^6/uL Hgb (12.0-16.0) g/dL Hct (36-46) % MCV (80-100) fL MCH (26-34) PG MCHC (30-36) % RDW (11.6-14.8) % Plt Count (150-400) X10^3/uL Neut % (Auto) (50-75) % Lymph % (Auto) (25-40) % [place] % (Auto) (3-14) % Eos % (Auto) (2-4) % Baso % (Auto) (0-2) % Neut # (Auto) (2457-4021) /uL Lymph # (Auto) (7032-7235) /uL [place] # (Auto) (0-900) /uL Eos # (Auto) (0-450) /uL Baso # (Auto) (0-100) /uL PT (10.1-12.7) SECONDS INR (0.9-1.3) D-Dimer (<500) ng/ml Sodium (137-145) mmol/L Potassium (3.4-5.1) mmol/L Chloride (98-107) mmol/L Carbon Dioxide (22-32) mmol/L BUN (7-17) mg/dL Creatinine (0.52-1.04) mg/dL Estimated GFR (>60) mL/min BUN/Creatinine Ratio (6-22) Glucose (80-110) mg/dL Lactate 0.9 (0.7-2.1) mmol/L Calcium (8.4-10.2) mg/dL Total Bilirubin (0.2-1.3) mg/dL AST (14-36) IU/L ALT (<35) IU/L Alkaline Phosphatase (38-126) U/L Troponin I (0.01-0.034) ng/mL NT-Pro-B Natriuret Pep (<450) pg/mL Total Protein (6.3-8.2) g/dL Albumin (3.5-5.0) g/dL Globulin (1.7-4.1) g/dL Albumin/Globulin Ratio (1.0-2.8) Procalcitonin 0.07 (<0.5) ng/mL SARS-CoV-2 (PCR) (Negative) Influenza A (RT-PCR) (NEGATIVE) Influenza B (RT-PCR) (NEGATIVE) RSV (PCR) (Negative) Point of Care Testing Glucose POC 174 Urine Dip Bedside Urine Glucose Negative Bedside Urine Bilirubin - Negative Bedside Urine Ketone - Negative Urine Specific [place] 1.010 Bedside Urine Occult Blood - Negative Bedside Urine pH 6.0 Bedside Urine Protein - Negative Bedside Urine Urobilinogen - Negative Bedside Urine Nitrite - Negative Bedside Urine Leukocytes - Negative Esterase Imaging Data Chest x-ray: Radiologist's Impresson: PROCEDURE:? XR CHEST 1V ? INDICATIONS:? Shortness of breath ? TECHNIQUE:? One view of the chest was acquired.? ? COMPARISON:? [facility], CHEST 1 VIEW, 09/28/2016, 21:32. ? FINDINGS:? ? Surgical changes and devices:? None.? ? Lungs and pleura:? Bilateral perihilar infiltrate.? No pleural effusions or pneu mothorax. ? ? Mediastinum:? Mediastinal contours appear normal.? Heart size is mildly increased.? ? Bones and chest wall:? No suspicious bony lesions.? Overlying soft tissues appear unremarkable.? ? IMPRESSION:? ? 1. Bilateral perihilar infiltrates may be secondary to pulmonary edema or bilateral pneumonia. ? ? Dictated by: Ham Handley M.D. on 10/18/2022 at 17:35? CT scan - chest: Radiologist's Impresson: PROCEDURE:? CT ANGIO CHEST PE PROTOCOL ? INDICATIONS:? short of breath, hx cancer ? TECHNIQUE:? After the administration of intravenous contrast, 2 mm thick sections acquired from the pulmonary apices to the posterior costophrenic angles.? 3-dimensional maximum intensity projection (MIP) coronal and sagittal reformats were then acquired through the thorax.? For radiation dose reduction, the following was used:? automated exposure control, adjustment of mA and/or kV according to patient size.? ? COMPARISON:? [facility], CR, CHEST 1 VIEW, 09/28/2016, 21:32.? [facility], US, US THYROID, 08/26/2022, 15:12.? [facility], CR, XR CHEST 1V, 10/18/2022, 17:22. ? FINDINGS:? Image quality:? Excellent.? ? Pulmonary arteries:? Pulmonary arteries are normal in size, and demonstrate no intraluminal filling defects to suggest central pulmonary embolism.? There is narrowing of the right main pulmonary artery, as well as the right upper lobe and middle lobe lobar artery by enlarged right hilar lymph nodes. ? Lungs and pleura:? There is an irregular right hilar/suprahilar mass, causing narrowing of the right bronchus measuring approximately 2.9 x 4.4 cm, suspicious for primary lung cancer.? There is obstruction of the right upper and right middle lobe bronchi and associated atelectasis.? Enhancing soft tissue along the right medial lobe bronchovascular bundle is suspicious for lymphangitic spread of tumor.? Multiple small lung nodules are seen lungs bilaterally, suspicious for pulmonary metastases.? For example, there is a 9 mm nodule in the right middle lobe (series 5, image 160).? A 0.8 x 1.2 cm nodule is seen in the right lower lobe.? There is a 6 mm nodule in the left upper lobe anterior medially (series 5, image 85). ? ? There are small pleural effusions bilaterally.? No? pneumothorax.? ? Mediastinum:? Heart size is normal.? There is a small pericardial effusion.? ? There is mediastinal and bilateral hilar consistent with metastasis.? For example, there is a 2 cm right hilar lymph node.? Mildly enlarged left hilar lymph node measures 1.3 cm. A 2 cm right paratracheal lymph node is identified.? There is a 1.4 x 2.6 cm AP window lymph node.? ? Thoracic aorta is normal in caliber and enhancement.? Esophagus is normal in caliber, without hiatal hernia.? ? Bones and chest wall:? There are small sclerotic lesions in sternum and manubrium, suspicious for osseous metastasis.? Ribs and thoracic spine appear intact throughout.? The right thyroid lobe is enlarged mass and heterogeneous suspicious for mass or masses.? No axillary or supraclavicular adenopathy.? ? Abdomen:? There is a 2.6 x 4.0 cm right adrenal mass.? Mild left adrenal thickening.? A 1.4 cm indeterminate hypodense nodule is seen in the right superior pole demonstrating CT density suggesting cyst ? IMPRESSION:? ? 1. There is an irregular mass in the right hilar/suprahilar area suspicious for primary lung cancer. ? 2. A linear soft tissue with enhancement along the right middle lobe bronchovascular bundle suspicious for lymphangitic spread of cancer. ? 3. Small pulmonary nodules are present bilaterally, suspicious for pulmonary metastases. ? 4. Small pleural effusions bilaterally. ? 5. Mosaic attenuation in lungs bilaterally, there may be mild superimposed pneumonitis or pulmonary edema. ? 6. Mediastinal and bilateral lymphadenopathy consistent with metastasis. ? 7. There is a right adrenal nodule suspicious for metastasis. ? 8. No evidence for acute pulmonary emboli.? There is external compression causing narrowing of the right upper lobe and middle lobe lobar pulmonary arteries by enlarged right hilar lymph nodes. ? 9. Large right thyroid mass.? Please correlate with thyroid ultrasound and fine- needle aspiration results. ? 10. Small sclerotic lesions in sternum and manubrium suspicious for osseous metastases. ? 11. Mild bilateral? Dictated by: Ham Handley M.D. on 10/18/2022 at 19:29 ? ? Approved by: Ham Handley M.D. on 10/18/2022 at 19:47? ECG Data Interpretation: Sinus rhythm rate 71 right bundle-branch block new from previous EKG in 2017 PVCs noted no obvious ST changes MDM Narrative Medical decision making narrative: Patient 82-year-old female history of diabetes, hypertension hyperlipidemia remote history of breast cancer with bilateral mastectomy presenting today with increasing shortness of breath and palpitations. She is little bit of dizziness. No leukocytosis or anemia. No electrolyte abnormality creatinine is 1.23 previous is 1.35 no significant change troponin is negative prior hemoglobin A1c in August was 9.1 she has a negative lactate negative procalcitonin. BNP today is 1260. She reports that she is Lasix at home that she supposed to take as needed but does not CT angio was done secondary to some shortness of breath and prior history of cancer. CT is concerning for new onset lung cancer with possible lymphatic s pread and possible bone involvement. There is also concerning for external compression causing narrowing of right upper lobe and middle lobe lobar pulmonary arteries by enlarged right hilar lymph nodes. Thyroid mass is also seen patient knows about the thyroid mass and there is already been a biopsy. Patient ambulation trial and up to commode O2 drops 89% at rest 93-94% Symptoms are likely combination of CT findings probable new lung cancer with possible obstruction, potential pulmonary hypertension, along with possible congestive heart failure with elevated BNP. Patient does report that she is supposed to take Lasix on a PRN basis she does not take it daily she has not taken it in a long time. Spoke with Dr. Camilo a concern that this is not purely congestive heart failure that shortness of breath may be secondary to compression and beginnings of pulmonary hypertension. Fluids status maybe difficult recommends talking to pin game machine inspector [facility]-does not have pulmonology on-call and does not have any beds available Count includes the [facility] does not have pulmonology on-call no beds available [place] attempting to call pin game machine inspector, no beds available. St[employer]rick Operator is not a pin game machine inspector on. Unable to speak with pin game machine inspector in regards to possible obstruction causing hypoxia. Dr. Camilo accepts patient Discharge Plan Departure Patient Disposition: Admitted as Observation Clinical Impression: Mass of lung, Congestive heart failure, Thyroid mass Admit Date/Time: 10/19/22 00:47 Admit Provider: Dat Camilo
[2022-10-18 18:13] LABS: Prothrombin Time 11.3 SECONDS (10.1-12.7)
[2022-10-18 18:19] LABS: Lactate (Lactic Acid) 1.5 mmol/L (0.7-2.1)
[2022-10-18 18:21] LABS: Alanine Aminotransferase 20 IU/L (<35); Albumin 3.9 g/dL (3.5-5.0); Albumin Globulin Ratio 1.4 (1.0-2.8); Alkaline Phosphatase 95 U/L (38-126); Aspartate Aminotransferase 20 IU/L (14-36); BUN Creatinine Ratio 33.3 (6-22); Bilirubin Total 0.3 mg/dL (0.2-1.3); Blood Urea Nitrogen 41 mg/dL (7-17); Calcium 8.9 mg/dL (8.4-10.2); Carbon Dioxide 23 mmol/L (22-32); Chloride 107 mmol/L (98-107); Estimated Glomerular Filt Rate 44 mL/min (>60); Globulin 2.8 g/dL (1.7-4.1); Glucose 233 mg/dL (80-110); HEMOLYSIS < 15 (0-50); Potassium 3.9 mmol/L (3.4-5.1); Sodium 138 mmol/L (137-145); Total Protein 6.7 g/dL (6.3-8.2)
[2022-10-18 18:32] LABS: D Dimer 879 ng/ml (<500)
[2022-10-18 18:33] LABS: NT-proBNP (BNP-Adult 18+) 1260 pg/mL (<450); Troponin I < 0.012 ng/mL (0.01-0.034)
[2022-10-18 18:37] LABS: Influenza A - CEPHEID Flu A NEGATIVE (NEGATIVE); Influenza B - CEPHEID Flu B NEGATIVE (NEGATIVE); Respiratory Syncytial Virus Negative (Negative)
--- NOTE | 2022-10-18 18:48 | DI.CT.S_ITS ---
PROCEDURE: CT ANGIO CHEST PE PROTOCOL INDICATIONS: short of breath, hx cancer TECHNIQUE: After the administration of intravenous contrast, 2 mm thick sections acquired from the pulmonary apices to the posterior costophrenic angles. 3-dimensional maximum intensity projection (MIP) coronal and sagittal reformats were then acquired through the thorax. For radiation dose reduction, the following was used: automated exposure control, adjustment of mA and/or kV according to patient size. COMPARISON: [facility], , CHEST 1 VIEW, 09/28/2016, 21:32. [facility], US, US THYROID, 08/26/2022, 15:12. [facility], CR, XR CHEST 1V, 10/18/2022, 17:22. FINDINGS: Image quality: Excellent. Pulmonary arteries: Pulmonary arteries are normal in size, and demonstrate no intraluminal filling defects to suggest central pulmonary embolism. There is narrowing of the right main pulmonary artery, as well as the right upper lobe and middle lobe lobar artery by enlarged right hilar lymph nodes. Lungs and pleura: There is an irregular right hilar/suprahilar mass, causing narrowing of the right bronchus measuring approximately 2.9 x 4.4 cm, suspicious for primary lung cancer. There is obstruction of the right upper and right middle lobe bronchi and associated atelectasis. Enhancing soft tissue along the right medial lobe bronchovascular bundle is suspicious for lymphangitic spread of tumor. Multiple small lung nodules are seen lungs bilaterally, suspicious for pulmonary metastases. For example, there is a 9 mm nodule in the right middle lobe (series 5, image 160). A 0.8 x 1.2 cm nodule is seen in the right lower lobe. There is a 6 mm nodule in the left upper lobe anterior medially (series 5, image 85). There are small pleural effusions bilaterally. No pneumothorax. Mediastinum: Heart size is normal. There is a small pericardial effusion. There is mediastinal and bilateral hilar consistent with metastasis. For example, there is a 2 cm right hilar lymph node. Mildly enlarged left hilar lymph node measures 1.3 cm. A 2 cm right paratracheal lymph node is identified. There is a 1.4 x 2.6 cm AP window lymph node. Thoracic aorta is normal in caliber and enhancement. Esophagus is normal in caliber, without hiatal hernia. Bones and chest wall: There are small sclerotic lesions in sternum and manubrium, suspicious for osseous metastasis. Ribs and thoracic spine appear intact throughout. The right thyroid lobe is enlarged mass and heterogeneous suspicious for mass or masses. No axillary or supraclavicular adenopathy. Abdomen: There is a 2.6 x 4.0 cm right adrenal mass. Mild left adrenal thickening. A 1.4 cm indeterminate hypodense nodule is seen in the right superior pole demonstrating CT density suggesting cyst IMPRESSION: 1. There is an irregular mass in the right hilar/suprahilar area suspicious for primary lung cancer. 2. A linear soft tissue with enhancement along the right middle lobe bronchovascular bundle suspicious for lymphangitic spread of cancer. 3. Small pulmonary nodules are present bilaterally, suspicious for pulmonary metastases. 4. Small pleural effusions bilaterally. 5. Mosaic attenuation in lungs bilaterally, there may be mild superimposed pneumonitis or pulmonary edema. 6. Mediastinal and bilateral lymphadenopathy consistent with metastasis. 7. There is a right adrenal nodule suspicious for metastasis. 8. No evidence for acute pulmonary emboli. There is external compression causing narrowing of the right upper lobe and middle lobe lobar pulmonary arteries by enlarged right hilar lymph nodes. 9. Large right thyroid mass. Please correlate with thyroid ultrasound and fine-needle aspiration results. 10. Small sclerotic lesions in sternum and manubrium suspicious for osseous metastases. 11. Mild bilateral Dictated by: Ham Handley M.D. on 10/18/2022 at 19:29 Approved by: Ham Handley M.D. on 10/18/2022 at 19:47
[2022-10-18 19:03] LABS: COVID-19 CEPHEID 4-PLEX PCR Negative (Negative)
[2022-10-18] MEDS: FUROSEMIDE 40 MG/4 ML VIAL IV (19:10)
[2022-10-18 22:21] LABS: Procalcitonin 0.07 ng/mL (<0.5)
--- NOTE | 2022-10-18 22:27 | PC.NURSE ---
Provider OK with patient taking home meds that she brought. Pt requests 1000 mg of Tylenol and 70/30 Novolin insulin, 45 units, that she normally takes at home, but does not have. Provider made aware. POC blood glucose is 174.
[2022-10-18 22:51] LABS: Lactate (Lactic Acid) 0.9 mmol/L (0.7-2.1)
[2022-10-19] VITALS (11 sets, daily range): BP systolic 148–173; BP diastolic 65–77; PULSE 66–76; RESP 18–35; TEMP 36.6–36.9; O2SAT 91–93; BMI 41.6
--- NOTE | 2022-10-19 00:24 | PC.NURSE ---
Bed linens changed.
--- NOTE | 2022-10-19 02:18 | DI.ECHO.S_ITS ---
[facility]---------+ [facility] +---------+ : : [address] : : : : [id number] : : : : Phone: [phone]+ Echocardiogram Report + + :Name: ÁNGELA OSBORNE Study Date: 10/19/2022 Height: 63 in : :[facility] ReadingLocation: Weight: 235 lb : : Gender: Female BSA: 2.1 m2 : :: 1940 Age: 82 yrs BP: 171/77 mmHg: :Reason For Study: CHF? NEW LUNG CANCER, PULMONARY ARTERY : :OBSTRUCTION, PULMONARY HYPERTENSION : :Ordering Physician: KRYSTAL, : :BRODIE Performed By: Ofelia Loredo : :Referring: BRODIE RICE : + + Interpretation Summary The left ventricle is normal in size and wall thickness. Left ventricular systolic function appears normal without focal wall motion abnormalities. The ejection fraction is estimated to be 65-70%. Diastolic parameters suggest probable normal left ventricular diastolic function and normal filling pressures. The right ventricle is normal in size and function. The right ventricular systolic pressure is estimated to be at least 34 mmHg based on an estimated right atrial pressure of 8 mm Hg. The left atrium is mildly dilated. Right atrial size is normal. There is no significant valvular heart disease. The aortic root is normal size. Procedure: A two-dimensional transthoracic echocardiogram with color flow and Doppler was performed. The study quality was technically adequate. Comparison is made with the echocardiogram of 08/26/2022. The patient was in sinus rhythm with heart rates between 58-68 bpm during the exam. Left Ventricle: The left ventricle is normal in size and wall thickness. Left ventricular systolic function appears normal without focal wall motion abnormalities. The ejection fraction is estimated to be 65-70%. Diastolic parameters suggest probable normal left ventricular diastolic function and normal filling pressures. Right Ventricle: The right ventricle is normal in size and function. Atria: The left atrium is mildly dilated. Right atrial size is normal. There is no Doppler evidence for an interatrial shunt. Mitral Valve: The mitral valve is normal in structure and function. There is trace mitral regurgitation. Aortic Valve: The aortic valve is trileaflet. The aortic valve opens well. There is no aortic valve stenosis. There is trace aortic regurgitation. Tricuspid Valve: The tricuspid valve is normal in structure and function. There is mild tricuspid regurgitation. The right ventricular systolic pressure is estimated to be at least 34 mmHg based on an estimated right atrial pressure of 8 mm Hg. Pulmonic Valve: The pulmonic valve leaflets are thin and pliable; valve motion is normal. There is trace pulmonic regurgitation. There is no significant valvular heart disease. Great Vessels: The aortic root is normal size. The dimensions of the ascending aorta are normal. The IVC is dilated (diameter is greater than 2.1 cm) yet it collapses greater than 50% with a sniff. This suggests a right atrial pressure of 8 mm Hg. Pericardium/ Pleura There is no pericardial effusion. There is no pleural effusion. MMode/2D Measurements & Calculations LVIDd: 5.3 cm LVOT diam: 2.0 cm LVIDs: 3.1 cm Ao root diam: 3.0 cm FS: 41.6 % asc Aorta Diam: 3.5 cm EPSS: 0.81 cm Ao Arch Diam (Prox Trans): 3.2 cm IVSd: 0.98 cm LVPWd: 0.94 cm LV hernadez. diameter/BSA (cm/m^2): 2.6 LV sys. diameter/BSA (cm/m^2): 1.5 LA A2 area: 28.4 cm2 RA long axis: 6.0 cm LA A4 area: 21.3 cm2 RA area: 18.3 cm2 LA length (vol): 5.9 cm RA vol: 47.6 ml LA vol: 87.7 ml RA : 23.0 ml/m2 LA vol index: 42.4 ml/m2 IVC diam: 2.1 cm RVD1 (basal): 3.0 cm RVD2 (mid): 2.8 cm TAPSE: 1.7 cm Doppler Measurements & Calculations Ao V2 max: 171.1 cm/sec LVOT Max Ozzy: 114.4 cm/sec Ao V2 mean: 123.1 cm/sec LV V1 max P.2 mmHg Ao max P.7 mmHg LV V1 VTI: 25.0 cm Ao mean P.6 mmHg NAYELI(I,D): 2.1 cm2 Ao V2 VTI: 38.4 cm NAYELI(V,D): 2.1 cm2 sev ratio: 0.65 NAYELI indexed to BSA (cm^2/m^2): 0.99 MV E max ozzy: 85.6 cm/sec TR max ozzy: 252.7 cm/sec MV A max ozzy: 70.1 cm/sec TR max P.5 mmHg MV E/A: 1.2 PA V2 max: 107.9 cm/sec Med Peak E' Ozzy: 4.7 cm/sec PA V2 mean: 75.2 cm/sec E/E' med: 18.3 PA mean P.5 mmHg Lat Peak E' Ozzy: 7.3 cm/sec PA pr(Accel): 37.9 mmHg E/E' lat: 11.8 E/e' average: 15.0 MV dec time: 0.24 sec SV(LVOT): 79.1 ml Reading Physician:10:29 AM
[2022-10-19] MEDS: ACETAMINOPHEN 325 MG TABLET 650 MG PO (03:21)
--- NOTE | 2022-10-19 04:21 | P.HP_ITS ---
History of Present Illness History of Present Illness Date Patient Seen: 10/19/22 Time Patient Seen: 05:00 Chief complaint: POUNDING [id number], HIGH BP, POXEMIA Narrative: Ms. Moeller is a 82W with PMH Type 2 diabetes on insulin, htn, ckd stage 2, breast cancer s/p mastectomies bilaterally who presents to the hospital with dizziness and shortness of breath. She went to see her PCP who directed her to the ED. She notes for the last coupdl weeks that she has been getting palpitations and along with this she is getting short of breath an dizzy. She has no chest pain. No fevers/chills, no cough. She has mild edema in her legs. She notes shortness of breath worsened with exertion. In the ED workup was done, vitals notable for afebrile, heart rate 70s-80, blood pressure elevated, sats dropped to the 80s with exertion. Labs notable for WBC 10.4, hgb 12.2, plts 237. Creatinine 1.23. Trop negative. BNP 1260. D-dimer 879. Lactate 1.5. Procal 0.07. UA negative. Chest xray read as bilateral perihilar infiltrates. CTA chest shows irregular mass in the right hilar area concerning for lung cancer with concern for pulmonary and bony metastases. Small pleural effusions bilaterally. Compression of right main, upper and middle pulmonary arteries. Obstruction of right upper and middle lobe bronchi with atelectasis. She was ordered for lasix and admitted for further treatment. Patient History Medical History Abnormal Pap smear of cervix (~1992) Adrenal adenoma Asthma (~1989) Benign essential HTN Breast cancer (~2016) Bulimia (~1959) Carpal tunnel syndrome (~1991) Chicken pox (~194) Chronic back pain (~1989) CKD (chronic kidney disease) CPAP (continuous positive airway pressure) dependence (~1999) Diabetes mellitus type 2, insulin dependent (~1993) Fracture (~1986) Hemorrhoid (~1989) History of stent insertion of renal artery History of urinary incontinence (~1994) Hyperlipidemia Kidney stones (~2001) Knee osteoarthritis Measles (~194) Mumps (~1970) OAB (overactive bladder) Sacrococcygeal disorders, not elsewhere classified Spinal stenosis, lumbar region with neurogenic claudication Thyroid nodule Thyromegaly Surgical History Anesthesia H/O bilateral mastectomy H/O umbilical hernia repair H/O: hysterectomy Hx of cholecystectomy S/P fusion of sacroiliac joint Status post hysterectomy Family & Social History Family History Father History of heart disease Hypertension Mother Cancer Brother Hypertension Brother Hypertension Brother History of heart disease Hypertension Grandfather History of heart disease Social History: household members children Prior Living Arrangements House Safety & Behavioral: Feels Safe in Current Yes Environment Been Physically Hurt or No Threatened By a Person Tobacco & Substance use: Smoking Status Former smoker alcohol intake frequency other Substance Use Type does not use Meds Home Medications and Allergies Home Medications Medication Instructions Recorded Confirmed Type montelukast 10 mg tablet 10 mg PO QDAY ##0 09/28/16 10/19/22 History (Singulair) atorvastatin 20 mg tablet (Lipitor) 20 mg PO BEDTIME cholesterol #90 06/16/22 10/19/22 Rx tabs carboxymethylcellulose sodium 0.5 1 drp ophthalmic (eye) .prn 06/16/22 10/19/22 History % eye drops (Refresh Tears) labetalol 100 mg tablet 100 mg PO BID 06/16/22 10/19/22 History tamoxifen 20 mg tablet 20 mg PO DAILY 06/16/22 10/19/22 History amlodipine 10 mg tablet (Norvasc) 10 mg PO DAILY #90 tabs 07/27/22 10/19/22 Rx furosemide 40 mg tablet 40 mg PO DAILY PRN edema #90 tabs 08/24/22 10/19/22 Rx glipizide 5 mg tablet, extended 5 mg PO DAILY diabetes #90 tabs 09/10/22 10/19/22 Rx release 24 hr hydrochlorothiazide 25 mg tablet 25 mg PO BID for blood pressure 09/10/22 10/19/22 Rx #180 tabs hydralazine 25 mg tablet 25 mg PO Q8H blood pressure #270 09/17/22 10/19/22 Rx tabs Complex Power Wheelchair #1 ea 09/20/22 10/19/22 Rx gabapentin 100 mg capsule 100 mg PO BID #60 caps 09/20/22 10/19/22 Rx scopolamine base 1 mg over 3 days 1 patch transdermal Q3D PRN motion 09/28/22 10/19/22 Rx transdermal patch sickness 1 month #4 ea insulin human U-100 NPH-regulr 95 unit SUBCUT BID 10/06/22 10/19/22 History 70-30 mix 100 unit/mL subcutaneous susp (Novolin 70/30 U-100 Insulin) losartan 100 mg tablet 100 mg PO DAILY 10/06/22 10/19/22 History oxybutynin chloride 5 mg 5 mg PO BID #180 tabs 10/18/22 10/19/22 Rx tablet,extended release 24 hr (Ditropan XL) Allergies Allergy/AdvReac Type Severity Reaction Status Date / Time Sulfa (Sulfonamide Allergy Unknown Verified 10/18/22 17:17 Antibiotics) [SULFA (SULFONAMIDE ANTIBIOTICS)] Review of Systems Review of Systems Narrative: 14 systems reviewed and negative aside from what is noted in HPI Exam Vital Signs (past 8 hours): - 10/18/22 20:22 10/18/22 20:37 10/18/22 20:46 Temperature Pulse Rate 99 H Respiratory Rate Blood Pressure 206/98 H 191/79 H Pulse Oximetry Oxygen Delivery Method Oxygen Flow Rate 10/18/22 21:00 10/18/22 21:30 10/18/22 22:00 Temperature Pulse Rate 73 68 84 Respiratory Rate Blood Pressure Pulse Oximetry 93 94 94 Oxygen Delivery Method Oxygen Flow Rate 10/18/22 22:31 10/18/22 22:56 10/18/22 22:56 Temperature Pulse Rate 85 67 Respiratory Rate Blood Pressure 157/71 H Pulse Oximetry 91 92 Oxygen Delivery Method Oxygen Flow Rate 10/18/22 22:57 10/18/22 22:57 10/18/22 23:00 Temperature Pulse Rate 69 Respiratory Rate Blood Pressure 148/66 H 146/65 H Pulse Oximetry 92 Oxygen Delivery Method Oxygen Flow Rate 10/18/22 23:00 10/18/22 23:30 10/19/22 00:00 Temperature Pulse Rate 67 79 76 Respiratory Rate Blood Pressure Pulse Oximetry 92 93 Oxygen Delivery Method Oxygen Flow Rate 10/19/22 01:13 10/19/22 01:14 10/19/22 01:14 Temperature Pulse Rate 69 70 Respiratory Rate Blood Pressure 148/65 H Pulse Oximetry 93 Oxygen Delivery Method Oxygen Flow Rate 10/19/22 01:54 10/19/22 02:18 10/19/22 01:30 Temperature 98.4 F Pulse Rate 68 66 Respiratory Rate 18 35 H Blood Pressure 171/77 H Pulse Oximetry 92 91 Oxygen Delivery Method Room Air Oxygen Flow Rate 0 Oxygen Delivery Method Room Air Oxygen Flow Rate 0 Narrative Exam Narrative: GEN: in respiratory distress HEENT: miost mucous membranes, PERRL Neck: trache midline, no JVD PULM: dyspneic with speaking, coarse sounds bilaterally CV: regular rate and rhythm, no murmurs ABD: soft, nontender, nondistended, no organomegaly EXT: warm and well perfused with no edema NEURO: awake, alert, oriented with no focal deficits Objective Labs 10/18/22 17:36 10/18/22 17:36 Labs: Laboratory Results - last 24 hr 10/18/22 10/18/22 10/18/22 17:36 17:36 17:36 WBC 10.4 RBC 4.62 Hgb 12.2 Hct 36.7 MCV 79.4 L MCH 26.4 MCHC 33.2 RDW 16.0 H Plt Count 237 Neut % (Auto) 59.6 Lymph % (Auto) 21.4 L [place] % (Auto) 14.4 H Eos % (Auto) 3.4 Baso % (Auto) 1.2 Neut # (Auto) 6200 Lymph # (Auto) 2200 [place] # (Auto) 1500 H Eos # (Auto) 400 Baso # (Auto) 100 PT 11.3 INR 1.0 D-Dimer Sodium 138 Potassium 3.9 Chloride 107 Carbon Dioxide 23 BUN 41 H Creatinine 1.23 H Estimated GFR 44 L BUN/Creatinine Ratio 33.3 H Glucose 233 H Lactate Calcium 8.9 Total Bilirubin 0.3 AST 20 ALT 20 Alkaline Phosphatase 95 Troponin I < 0.012 NT-Pro-B Natriuret Pep 1260 H Total Protein 6.7 Albumin 3.9 Globulin 2.8 Albumin/Globulin Ratio 1.4 Procalcitonin SARS-CoV-2 (PCR) Influenza A (RT-PCR) Influenza B (RT-PCR) RSV (PCR) 10/18/22 10/18/22 10/18/22 17:36 17:36 17:36 WBC RBC Hgb Hct MCV MCH MCHC RDW Plt Count Neut % (Auto) Lymph % (Auto) [place] % (Auto) Eos % (Auto) Baso % (Auto) Neut # (Auto) Lymph # (Auto) [place] # (Auto) Eos # (Auto) Baso # (Auto) PT INR D-Dimer 879 H Sodium Potassium Chloride Carbon Dioxide BUN Creatinine Estimated GFR BUN/Creatinine Ratio Glucose Lactate 1.5 Calcium Total Bilirubin AST ALT Alkaline Phosphatase Troponin I NT-Pro-B Natriuret Pep Total Protein Albumin Globulin Albumin/Globulin Ratio Procalcitonin SARS-CoV-2 (PCR) Negative Influenza A (RT-PCR) Flu a negative Influenza B (RT-PCR) Flu b negative RSV (PCR) Negative 10/18/22 10/18/22 17:36 22:30 WBC RBC Hgb Hct MCV MCH MCHC RDW Plt Count Neut % (Auto) Lymph % (Auto) [place] % (Auto) Eos % (Auto) Baso % (Auto) Neut # (Auto) Lymph # (Auto) [place] # (Auto) Eos # (Auto) Baso # (Auto) PT INR D-Dimer Sodium Potassium Chloride Carbon Dioxide BUN Creatinine Estimated GFR BUN/Creatinine Ratio Glucose Lactate 0.9 Calcium Total Bilirubin AST ALT Alkaline Phosphatase Troponin I NT-Pro-B Natriuret Pep Total Protein Albumin Globulin Albumin/Globulin Ratio Procalcitonin 0.07 SARS-CoV-2 (PCR) Influenza A (RT-PCR) Influenza B (RT-PCR) RSV (PCR) Assessment & Plan Assessment & Plan narrative: 1. Acute hypoxemic respiratory failure due to 2. Probable acute CHF exacerbation 3. Probable metastatic cancer with lung mass and likely mets to bone, lung and adrenal 4. Bronchial obstruction from malignancy 5. Pulmonary artery narrowing/obstruction -presented with o2 sats below 90% with exertion -imaging concerning for pleural effusions, pulmonary edema, and elevated bnp possibly consistent with chf exacerbation -however CT scan also showed probable lung mass and lung nodules with concern for lymphangitic spread and bony mets -previous ECHO showed RA pressure of 15, concern for possible RV dysfunction from pulmonary artery obstruction secondary to mass leading to pulmonary artery hypertension which may be the cause of her volume overload -order echo to evaluate if right sided dysfunction and evidence of PAH -start lasix 20IV BID -pleural effusions may be secondary to malignancy, too small to tap -atelectasis noted from bronchial obstruction and collapse, will order incentive spirometry, but may need bronch -will need oncology and pulmonary follow up 6. Type 2 Diabetes on insulin -ordered for 45U BID NPH, also start insulin sliding scale -appears she may be on 50U NPH in AM, 45PM so may need to increase dose -last a1c >8 -check glucose achs 7. Hypertension -continue amlodipine, losartan, labetalol, hydralazine -hold hctz as will be diuresing with lasix 8. CKD stage 2 -creatinine 1.23 on admit -appears at baseline of 1.1-1.3 based on previous labs 5. Hyperlipidemia -continue statin 6. History of breast cancer -s/p bilateral mastectomies -continue tamoxifen I have obtained history and discussed plan with the patient. I have discussed plan of care with ED physician and bedside nurse. I have reviewed labs, previous records, and chest xray and CT imaging. CODE: DNR/DNI Proxy: Velma Moeller, daughter Time Spent With Patient Critical Care time: I spent a total of [] minutes of critical care time on this patient's care today; this time is exclusive of procedural time. Quality [facility] - Meds 'Current medications' to include all prescriptions, [id number] products, herbals, cannabis/cannabidiol products, and vitamin/mineral/dietary (nutr itional) supplements. I have utilized all available resources to obtain, update, or review the patient?s current medications. [If Yes, STOP here]: Yes
[2022-10-19 05:49] LABS: Add Manual Diff / Slide Review NO; Basophils Absolute Auto 100 /uL (0-100); Basophils Percent Auto 1.2 % (0-2); Eosinophils Absolute Auto 300 /uL (0-450); Eosinophils Percent Auto 2.6 % (2-4); Hematocrit 33.9 % (36-46); Hemoglobin 11.1 g/dL (12.0-16.0); Lymphocytes Absolute Auto 2200 /uL (1100-4500); Lymphocytes Percent Auto 21.2 % (25-40); Mean Corpuscular HGB Conc 32.8 % (30-36); Mean Corpuscular Hemoglobin 26.2 PG (26-34); Mean Corpuscular Volume 79.8 fL (80-100); Monocytes Absolute Auto 1500 /uL (0-900); Monocytes Percent Auto 15.1 % (3-14); Neutrophils Absolute Auto 6100 /uL (1500-7000); Neutrophils Percent Auto 59.9 % (50-75); Platelet Count 204 X10^3/uL (150-400); Red Blood Cell Count 4.25 X10^6/uL (4.0-5.2); Red Cell Distribution Width 16.2 % (11.6-14.8); White Blood Cell Count 10.2 X10^3/uL (4.5-11.0)
[2022-10-19 06:03] LABS: BUN Creatinine Ratio 33.9 (6-22); Blood Urea Nitrogen 41 mg/dL (7-17); Calcium 8.9 mg/dL (8.4-10.2); Carbon Dioxide 23 mmol/L (22-32); Chloride 106 mmol/L (98-107); Estimated Glomerular Filt Rate 45 mL/min (>60); Glucose 242 mg/dL (80-110); HEMOLYSIS 17 (0-50); Magnesium 1.5 mg/dL (1.6-2.3); Potassium 3.7 mmol/L (3.4-5.1); Sodium 138 mmol/L (137-145)
[2022-10-19] MEDS: HYDRALAZINE 25 MG TABLET PO (07:07)
[2022-10-19] MEDS: INSULIN NPH/REG 70-30 100 UNIT/ML 3ML VIAL 45 UNIT SUBCUT (07:13)
[2022-10-19] MEDS: INSULIN LISPRO 100 UNIT/ML 3ML VIAL SUBCUT (07:14)
[2022-10-19] MEDS: FUROSEMIDE 20 MG/2 ML VIAL 40 MG IV (08:33)
[2022-10-19] MEDS: HEPARIN 5,000 UNIT/ML VIAL 5000 UNIT SUBCUT (08:34)
[2022-10-19] MEDS: AMLODIPINE 5 MG TABLET 10 MG PO (08:34)
[2022-10-19] MEDS: LOSARTAN 50 MG TABLET 100 MG PO (08:34)
[2022-10-19] MEDS: MONTELUKAST 10 MG TABLET PO (08:34)
--- NOTE | 2022-10-19 09:01 | PM.DS.1 ---
History of Present Illness History of Present Illness Date Patient Seen: 10/19/22 Time Patient Seen: 09:01 Chief complaint: POUNDING [id number], HIGH BP, POXEMIA Narrative: Per admitting provider, Ms. Moeller is a 82W with PMH Type 2 diabetes on insulin, htn, ckd stage 2, breast cancer s/p mastectomies bilaterally who presents to the hospital with dizziness and shortness of breath. She went to see her PCP who directed her to the ED. She notes for the last coupdl weeks that she has been getting palpitations and along with this she is getting short of breath an dizzy. She has no chest pain. No fevers/chills, no cough. She has mild edema in her legs. She notes shortness of breath worsened with exertion. In the ED workup was done, vitals notable for afebrile, heart rate 70s-80, blood pressure elevated, sats dropped to the 80s with exertion. Labs notable for WBC 10.4, hgb 12.2, plts 237. Creatinine 1.23. Trop negative. BNP 1260. D-dimer 879. Lactate 1.5. Procal 0.07. UA negative. Chest xray read as bilateral perihilar infiltrates. CTA chest shows irregular mass in the right hilar area concerning for lung cancer with concern for pulmonary and bony metastases. Small pleural effusions bilaterally. Compression of right main, upper and middle pulmonary arteries. Obstruction of right upper and middle lobe bronchi with atelectasis. She was ordered for lasix and admitted for further treatment. Discharge Providers Provider Date of admission: 10/19/22 00:47 Discharge Date: 10/19/22 Primary care physician: Rody Mijares DO Discharge provider: Julian Shen DO Summary Hospital Course Discharge Diagnosis: 1. Acute hypoxemic respiratory failure due to #2. 2. Acute diastolic heart failure 3. Probable metastatic cancer with lung mass and likely mets to bone 4. Bronchial obstruction from malignancy 5. Pulmonary artery narrowing/obstruction 6. Type 2 Diabetes on insulin 7. Hypertension 8. CKD stage 2 9. Hyperlipidemia 10. History of breast cancer Hospital Course: This is an 82 year old female admitted for acute respiratory failure with hypoxia, imaging showed findings consistent with CHF exacerbation, but also probable lung mass with lung nodules and bony metastases. Patient had rapid improvement in symptoms with diuresis, and the following morning she no longer was short of breath with exertion and O2 saturations with ambulation were >95% consistently. I recommend she hold hctz and take her home furosemide for a few days, and try to switch to this nursing home instead of HCTZ, but she is hesitant due to lifestyle difficulties with urination when going out in public after taking furosemide. Recommend further discussion as an outpatient with PCP. Echocardiogram did not show evidence of right ventricular failure, and was generally unremarkable despite concern given her lung findings. I recommend outpatient evaluation of her lung mass for probable malignancy, possible oncology referral but likely will need biopsy. Given improvement in symptoms with diuresis and normal appearing echocardiogram, and patient's desire to return home, this was not persued as an inpatient. Time Spent with Patient Time spent: Greater than 30 minutes Exam Vital Signs (past 8 hours): - 10/19/22 01:13 10/19/22 01:14 10/19/22 01:14 Temperature Pulse Rate 69 70 Respiratory Rate Blood Pressure 148/65 H Pulse Oximetry 93 Oxygen Delivery Method Oxygen Flow Rate 10/19/22 01:54 10/19/22 02:18 10/19/22 01:30 Temperature 98.4 F Pulse Rate 68 66 Respiratory Rate 18 35 H Blood Pressure 171/77 H Pulse Oximetry 92 91 Oxygen Delivery Method Room Air Oxygen Flow Rate 0 10/19/22 04:00 10/19/22 07:07 10/19/22 07:08 Temperature 98 F Pulse Rate 68 67 Respiratory Rate 19 Blood Pressure 160/69 H 160/69 H Pulse Oximetry 92 93 Oxygen Delivery Method Room Air Oxygen Flow Rate 0 10/19/22 07:00 10/19/22 07:57 10/19/22 08:34 Temperature 98.4 F Pulse Rate 72 69 Respiratory Rate 19 Blood Pressure 173/72 H 173/72 H Pulse Oximetry 92 Oxygen Delivery Method Room Air Oxygen Flow Rate 10/19/22 08:00 Temperature Pulse Rate Respiratory Rate Blood Pressure Pulse Oximetry 92 Oxygen Delivery Method Room Air Oxygen Flow Rate Oxygen Delivery Method Room Air Oxygen Flow Rate 0 Narrative Exam Narrative: GEN: elderly female, no acute distress HEENT: miost mucous membranes, PERRL Neck: trachea midline, no JVD PULM: CTA b/l no wheezing rhonchi or rales. CV: regular rate and rhythm, no murmurs ABD: soft, nontender, nondistended, no organomegaly EXT: warm and well perfused with no edema NEURO: awake, alert, oriented with no focal deficits Objective Labs 10/19/22 05:41 10/19/22 05:41 Labs: Laboratory Results - last 24 hr 10/18/22 10/18/22 10/18/22 17:36 17:36 17:36 WBC 10.4 RBC 4.62 Hgb 12.2 Hct 36.7 MCV 79.4 L MCH 26.4 MCHC 33.2 RDW 16.0 H Plt Count 237 Neut % (Auto) 59.6 Lymph % (Auto) 21.4 L Morehouse % (Auto) 14.4 H Eos % (Auto) 3.4 Baso % (Auto) 1.2 Neut # (Auto) 6200 Lymph # (Auto) 2200 [place]house # (Auto) 1500 H Eos # (Auto) 400 Baso # (Auto) 100 PT 11.3 INR 1.0 D-Dimer Sodium 138 Potassium 3.9 Chloride 107 Carbon Dioxide 23 BUN 41 H Creatinine 1.23 H Estimated GFR 44 L BUN/Creatinine Ratio 33.3 H Glucose 233 H Lactate Calcium 8.9 Magnesium Total Bilirubin 0.3 AST 20 ALT 20 Alkaline Phosphatase 95 Troponin I < 0.012 NT-Pro-B Natriuret Pep 1260 H Total Protein 6.7 Albumin 3.9 Globulin 2.8 Albumin/Globulin Ratio 1.4 Procalcitonin SARS-CoV-2 (PCR) Influenza A (RT-PCR) Influenza B (RT-PCR) RSV (PCR) 10/18/22 10/18/22 10/18/22 17:36 17:36 17:36 WBC RBC Hgb Hct MCV MCH MCHC RDW Plt Count Neut % (Auto) Lymph % (Auto) Morehouse % (Auto) Eos % (Auto) Baso % (Auto) Neut # (Auto) Lymph # (Auto) Morehouse # (Auto) Eos # (Auto) Baso # (Auto) PT INR D-Dimer 879 H Sodium Potassium Chloride Carbon Dioxide BUN Creatinine Estimated GFR BUN/Creatinine Ratio Glucose Lactate 1.5 Calcium Magnesium Total Bilirubin AST ALT Alkaline Phosphatase Troponin I NT-Pro-B Natriuret Pep Total Protein Albumin Globulin Albumin/Globulin Ratio Procalcitonin SARS-CoV-2 (PCR) Negative Influenza A (RT-PCR) Flu a negative Influenza B (RT-PCR) Flu b negative RSV (PCR) Negative 10/18/22 10/18/22 10/19/22 17:36 22:30 05:41 WBC 10.2 RBC 4.25 Hgb 11.1 L Hct 33.9 L MCV 79.8 L MCH 26.2 MCHC 32.8 RDW 16.2 H Plt Count 204 Neut % (Auto) 59.9 Lymph % (Auto) 21.2 L Morehouse % (Auto) 15.1 H Eos % (Auto) 2.6 Baso % (Auto) 1.2 Neut # (Auto) 6100 Lymph # (Auto) 2200 Morehouse # (Auto) 1500 H Eos # (Auto) 300 Baso # (Auto) 100 PT INR D-Dimer Sodium Potassium Chloride Carbon Dioxide BUN Creatinine Estimated GFR BUN/Creatinine Ratio Glucose Lactate 0.9 Calcium Magnesium Total Bilirubin AST ALT Alkaline Phosphatase Troponin I NT-Pro-B Natriuret Pep Total Protein Albumin Globulin Albumin/Globulin Ratio Procalcitonin 0.07 SARS-CoV-2 (PCR) Influenza A (RT-PCR) Influenza B (RT-PCR) RSV (PCR) 10/19/22 05:41 WBC RBC Hgb Hct MCV MCH MCHC RDW Plt Count Neut % (Auto) Lymph % (Auto) Morehouse % (Auto) Eos % (Auto) Baso % (Auto) Neut # (Auto) Lymph # (Auto) Morehouse # (Auto) Eos # (Auto) Baso # (Auto) PT INR D-Dimer Sodium 138 Potassium 3.7 Chloride 106 Carbon Dioxide 23 BUN 41 H Creatinine 1.21 H Estimated GFR 45 L BUN/Creatinine Ratio 33.9 H Glucose 242 H Lactate Calcium 8.9 Magnesium 1.5 L Total Bilirubin AST ALT Alkaline Phosphatase Troponin I NT-Pro-B Natriuret Pep Total Protein Albumin Globulin Albumin/Globulin Ratio Procalcitonin SARS-CoV-2 (PCR) Influenza A (RT-PCR) Influenza B (RT-PCR) RSV (PCR) [facility] Medical History Abnormal Pap smear of cervix (~1992) Adrenal adenoma Asthma (~1989) Benign essential HTN Breast cancer (~2016) Bulimia (~1959) Carpal tunnel syndrome (~1991) Chicken pox (~194) Chronic back pain (~1989) CKD (chronic kidney disease) CPAP (continuous positive airway pressure) dependence (~1999) Diabetes mellitus type 2, insulin dependent (~1993) Fracture (~1986) Hemorrhoid (~1989) History of stent insertion of renal artery History of urinary incontinence (~1994) Hyperlipidemia Kidney stones (~2001) Knee osteoarthritis Measles (~1944) Mumps (~1970) OAB (overactive bladder) Sacrococcygeal disorders, not elsewhere classified Spinal stenosis, lumbar region with neurogenic claudication Thyroid nodule Thyromegaly Surgical History Anesthesia H/O bilateral mastectomy H/O umbilical hernia repair H/O: hysterectomy Hx of cholecystectomy S/P fusion of sacroiliac joint Status post hysterectomy Family History Father History of heart disease Hypertension Mother Cancer Brother Hypertension Brother Hypertension Brother History of heart disease Hypertension Grandfather History of heart disease Social History household members: children Smoking Status: Former smoker Discharge Plan Discharge Plan Patient Disposition: Home Provider Discharge Comment: You were admitted to the hospital with shortness of breath and hypoxia. This improved with fluid removal. Ultrasound of your heart showed normal function. No medication changes are recommended at this time, but discuss whether or not to continue two diuretic medications (HCTZ and furosemide) with your primary care provider. Also recommend referral to oncology and / or pulmonology as an outpatient. Discharge orders & Medications Prescriptions: Continued montelukast [Singulair] 10 MG tablet 10 mg PO QDAY Qty: 0 hydralazine 25 mg tablet 25 mg PO Q8H Qty: 270 3RF scopolamine base 1 mg over 3 days patch 3 day 1 patch transdermal Q3D PRN (Reason: motion sickness) 30 Days Qty: 4 1RF Rx Instructions: Not currently taking oxybutynin chloride [Ditropan XL] 5 mg tablet extended release 24hr 5 mg PO BID Qty: 180 3RF glipizide 5 mg tablet extended release 24hr 5 mg PO DAILY Qty: 90 3RF hydrochlorothiazide 25 mg tablet 25 mg PO BID Qty: 180 3RF labetalol 100 mg tablet 100 mg PO BID tamoxifen 20 mg tablet 20 mg PO DAILY carboxymethylcellulose sodium [Refresh Tears] 0.5 % drops 1 drp ophthalmic (eye) .prn Patient Comments: Only when needed atorvastatin [Lipitor] 20 mg tablet 20 mg PO BEDTIME Qty: 90 3RF amlodipine [Norvasc] 10 mg tablet 10 mg PO DAILY Qty: 90 3RF furosemide 40 mg tablet 40 mg PO DAILY PRN (Reason: edema) Qty: 90 3RF Patient Comments: Pt states she takes when needed, holds when she has to go somewhere and does not want to have to urinate (DME) Complex Power Wheelchair See Rx Instructions .Route .MEDSUPPLY Qty: 1 0RF Rx Instructions: As directed gabapentin 100 mg capsule 100 mg PO BID Qty: 60 2RF Rx Instructions: Take one pill nightly for 3 days If tolerated, take one pill twice daily losartan 100 mg tablet 100 mg PO DAILY Novolin 70/30 U-100 Insulin 100 unit/mL (70-30) suspension 95 unit SUBCUT BID Rx Instructions: 50 units in AM, 45 units in PM Follow up/Referrals: Rody Mijares DO [Primary Care Provider] - 3-5 Days Diet/Activity/Treatments Diet: Diet as Tolerated Diet comment: Limit fluid intake to 1.5 L Activity: As tolerated Visit Report/Discharge Packet Stand Alone Forms: Patient Portal/API, Stroke Signs & Symptoms Discharge Data Primary Care Provider: Rody Mijares Attending Provider: Dat Camilo
--- NOTE | 2022-10-19 09:15 | CM.DANOTE ---
DCP: case received, EMR reviewed and met with patient. Introduced self and role. Was able to obtain information regarding patient's baseline activity level at home, as well as her current living situation. DCP assessment completed with information currently available. Patient is an 82 year old female who admitted early this morning to the care of the hospitalist team. PCP: Dr. Mijares. Payer: confirmed: Medicare/Commercial Insurance. Patient came to the hospital via private vehicle secondary to having heart palpitations, shortness of breath with exertion, and dizziness. Patient has history of type two diabetes, breast cancer with bilateral mastectomies. Patient was diagnosed with acute hypoxemic respiratory failure secondary to acute CHF exacerbation, probable metastatic cancer with lung mass. CXR noted pulmonary edema versus pleural effusion. She is getting diuresed. Met with patient in her room. She is pleasant, alert and oriented, and was sitting up on the edge of her bed having breakfast. She is on room air. She indicated, she is feeling better. Patient resides in [place] with her daughter, Velma. She is independent, drove herself here, uses a four wheel walker at home. P: Patient has discharge orders for home today. Daughter will be picking up patient today, should have no needs. Unclear if she will be getting automobile rental representative referral versus oncology. Wen Philip RN/Post Doctoral Researcher Discharge Planning/Care Management CM Discharge Assessment Start: 10/19/22 09:13 Freq: Status: Active Protocol: Document 10/19/22 09:14 (Rec: 10/19/22 09:15 [id number]) Discharge Planning Assessment Assigned Scratch Finisher Wen Philip RN/Post Doctoral Researcher Advance Directives? No: Has them, but does not know where the are at History Provided By Patient,Medical Record Prior Living Arrangements House Household Members children Type of transporation used prior to Drives own vehicle admit DME Already Rented / Owned Other Comment Has her own four wheel walker Barriers to Discharge No Discharge Plan Home Transportation Arrangement Daughter Referrals Initiated None needed Whiteboard Updated in Patient Room with Yes name and ext. # of Scratch Finisher Review Status In Process Next Review Type Continued Stay Review
[2022-10-19] MEDS: MAGNESIUM CHLORIDE 64 MG TABLET 128 MG PO (09:45)
== END 2022-10-19 11:54 | disposition home or self-care (01) ==
LOC: ED 19:28 → AC 10-19 00:48 → ICU 10-19 01:06
PROVIDERS: Emergency Medicine; Admitting Provider Internal Medicine; Emergency Provider Emergency Medicine; PCP Family Medicine; Visit Provider Internal Medicine
DX: J96.01 Acute respiratory failure with hypoxia (principal); I13.0 Hypertensive heart and chronic kidney disease with heart failure and stage 1 through stage 4 chronic kidney disease, or unspecified chronic kidney disease; I50.31 Acute diastolic (congestive) heart failure; N18.2 Chronic kidney disease, stage 2 (mild); E11.22 Type 2 diabetes mellitus with diabetic chronic kidney disease; R91.8 Other nonspecific abnormal finding of lung field; J90 Pleural effusion, not elsewhere classified; J98.11 Atelectasis; Z79.4 Long term (current) use of insulin; Z20.822 Contact with and (suspected) exposure to COVID-19; Z85.3 Personal history of malignant neoplasm of breast
CPT/HCPCS: 0241U; 36415; 71045; 71275; 80048; 80053; 81003; 82962; 83605; 83735; 83880; 84145; 84484; 85025; 85379; 85610; 93005; 93010; 93306; 94660; 96372; 96374; 96376; 99285; G0378; J1644; J1815; J1940; Q9967

== ENCOUNTER → 2023-01-06 13:39 | Outpatient (CLI) | payer MEDICARE, OTHER, SELFPAY ==
[2022-10-19 01:54] VITALS: BMI 41.6
[2023-01-04 14:26] VITALS: BMI 41.6
== END ==
PROVIDERS: PCP Family Medicine; Referring Provider Family Medicine; Visit Provider Family Medicine
DX: I48.91 Unspecified atrial fibrillation (principal); I48.92 Unspecified atrial flutter; M70.72 Other bursitis of hip, left hip; M25.561 Pain in right knee; G89.29 Other chronic pain; M17.11 Unilateral primary osteoarthritis, right knee
CPT/HCPCS: 93246; 99214

== ENCOUNTER 2023-01-22 15:15 | Emergency (ER) | payer MEDICARE, OTHER, SELFPAY ==
[2023-01-04 14:26] VITALS: BMI 41.6
[2023-01-22] VITALS (22 sets, daily range): BP systolic 150–176; BP diastolic 67–118; PULSE 68–89; RESP 13–29; TEMP 36.6–37.4; O2SAT 93–97; BMI 42.7
--- NOTE | 2023-01-22 15:30 | DI.RAD.S_ITS ---
PROCEDURE: INDICATIONS: chest pain TECHNIQUE: One view of the chest was acXR CHEST 1V COMPARISON: [facility], CR, XR CHEST 1V, 10/18/2022, 17:22. FINDINGS: Surgical changes and devices: None. Lungs and pleura: A wedge-shaped right perihilar consolidation is seen, likely atelectasis of the right middle lobe. Mediastinum: Mediastinal contours appear normal. Heart size is normal. Bones and chest wall: No suspicious bony lesions. Overlying soft tissues appear unremarkable. IMPRESSION: Consolidative atelectasis of the right middle lobe. Recommend CT of the chest for further evaluation and evaluate for mass or obstructing lesion. Dictated by: Eren Hoang M.D. on 01/22/2023 at 15:02 Approved by: Eren Hoang M.D. on 01/22/2023 at 15:03
--- NOTE | 2023-01-22 15:39 | DI.CT.S_ITS ---
PROCEDURE: CT HEAD/BRAIN WO CON INDICATIONS: fall/hit head TECHNIQUE: Noncontrast 4.5 mm thick angled axial sections acquired from the foramen magnum to the vertex, with coronal and sagittal reformats. For radiation dose reduction, the following was used: automated exposure control, adjustment of mA and/or kV according to patient size. COMPARISON: None. FINDINGS: Image quality: Excellent. CSF spaces: Basal cisterns are patent. No extra-axial fluid collections. The ventricles are symmetric in size and shape. Brain: No intracranial bleeds or masses. There is cerebral volume loss for age, with resultant ventricular and sulcal prominence. There are periventricular and deep white matter chronic small vessel ischemic changes. There is intracranial internal carotid artery atherosclerosis. Skull and face: Calvarium and visualized facial bones appear intact, without suspicious lesions. Sinuses: Visualized sinuses and mastoids are clear. IMPRESSION: 1. No acute intracranial abnormality. 2. Cerebral volume loss and small vessel ischemic changes. Dictated by: Eren Hoang M.D. on 01/22/2023 at 15:34 Approved by: Eren Hoang M.D. on 01/22/2023 at 15:35
[2023-01-22 16:02] LABS: Add Manual Diff / Slide Review NO; Basophils Absolute Auto 100 /uL (0-100); Basophils Percent Auto 0.9 % (0-2); Eosinophils Absolute Auto 400 /uL (0-450); Eosinophils Percent Auto 4.7 % (2-4); Hematocrit 36.1 % (36-46); Hemoglobin 11.8 g/dL (12.0-16.0); Lymphocytes Absolute Auto 2500 /uL (1100-4500); Lymphocytes Percent Auto 28.6 % (25-40); Mean Corpuscular HGB Conc 32.6 % (30-36); Mean Corpuscular Hemoglobin 26.7 PG (26-34); Mean Corpuscular Volume 81.9 fL (80-100); Monocytes Absolute Auto 1200 /uL (0-900); Monocytes Percent Auto 14.5 % (3-14); Neutrophils Absolute Auto 4400 /uL (1500-7000); Neutrophils Percent Auto 51.3 % (50-75); Platelet Count 212 X10^3/uL (150-400); Red Blood Cell Count 4.41 X10^6/uL (4.0-5.2); Red Cell Distribution Width 17.1 % (11.6-14.8); White Blood Cell Count 8.6 X10^3/uL (4.5-11.0)
[2023-01-22 16:05] LABS: INR 0.9 (0.9-1.3); Prothrombin Time 10.6 SECONDS (10.1-12.7)
[2023-01-22 16:08] LABS: PTT Partial Thromboplastin Tim 24 SECONDS (26-36)
[2023-01-22 16:11] LABS: Alanine Aminotransferase 18 IU/L (<35); Albumin 3.7 g/dL (3.5-5.0); Albumin Globulin Ratio 1.5 (1.0-2.8); Alkaline Phosphatase 72 U/L (38-126); Aspartate Aminotransferase 21 IU/L (14-36); BUN Creatinine Ratio 28.1 (6-22); Bilirubin Total 0.3 mg/dL (0.2-1.3); Blood Urea Nitrogen 39 mg/dL (7-17); Calcium 9.1 mg/dL (8.4-10.2); Carbon Dioxide 24 mmol/L (22-32); Chloride 107 mmol/L (98-107); Creatine Kinase 84 U/L (30-135); Estimated Glomerular Filt Rate 38 mL/min (>60); Globulin 2.4 g/dL (1.7-4.1); Glucose 238 mg/dL (80-110); HEMOLYSIS < 15 (0-50); Lipase 73 U/L (23-300); Magnesium 1.7 mg/dL (1.6-2.3); Potassium 4.3 mmol/L (3.4-5.1); Sodium 138 mmol/L (137-145); Total Protein 6.1 g/dL (6.3-8.2)
[2023-01-22 16:22] LABS: Troponin I < 0.012 ng/mL (0.01-0.034)
--- NOTE | 2023-01-22 20:18 | ED_ITS ---
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 She reports that she let the dog out side and then walked back she needed to lay down on the floor for about 30 minutes due to dizziness. She sat up and was still dizzy. She eventually got to her bed took a nap got dizzy again when she sat up. She may have passed out she is sure. She was nauseous but no vomiting. She denies any chest pain or palpitations. No new numbness tingling or weakness. No blurry vision or double vision. She denies any abdominal pain. She was recently diagnosed with lung mass that is compressing the pulmonary artery. She is had a bronchoscopy which was found to be metastatic breast cancer. She is followed in [place] by stefanie Ang. She is not yet started treatment for this. They are waiting for insurance. Related Data Home Medications Medication Instructions Recorded Confirmed montelukast 10 mg tablet 10 mg PO QDAY ##0 09/28/16 01/13/23 (Singulair) carboxymethylcellulose sodium 0.5 1 drp ophthalmic (eye) .prn 06/16/22 01/13/23 % eye drops (Refresh Tears) valsartan 320 mg tablet 320 mg PO DAILY 01/06/23 01/13/23 Previous Rx's Medication Instructions Recorded atorvastatin 20 mg tablet (Lipitor) 20 mg PO BEDTIME cholesterol #90 06/16/22 tabs amlodipine 10 mg tablet (Norvasc) 10 mg PO DAILY #90 tabs 07/27/22 furosemide 40 mg tablet 40 mg PO DAILY PRN edema #90 tabs 08/24/22 glipizide 5 mg tablet, extended 5 mg PO DAILY diabetes #90 tabs 09/10/22 release 24 hr hydrochlorothiazide 25 mg tablet 25 mg PO BID for blood pressure 09/10/22 #180 tabs hydralazine 25 mg tablet 25 mg PO Q8H blood pressure #270 09/17/22 tabs Complex Power Wheelchair #1 ea 09/20/22 oxybutynin chloride 5 mg tablet 5 mg PO BID #180 tabs 10/21/22 insulin human U-100 NPH-regulr 105 unit (1.05 mL) SUBCUT BID #90 12/28/22 70-30 mix 100 unit/mL subcutaneous mL susp (Novolin 70/30 U-100 Insulin) letrozole 2.5 mg tablet 2.5 mg PO DAILY #90 tabs 12/28/22 nystatin 100,000 unit/gram topical 1 applic topical DAILY PRN rash 12/28/22 powder #30 grams gabapentin 100 mg capsule 100 mg PO BID #60 caps 01/04/23 tramadol 50 mg tablet 50 mg PO BID PRN pain #60 tabs 01/06/23 labetalol 100 mg tablet See Rx Instructions .Route 01/13/23 .COMPLEX #180 tabs Allergies Allergy/AdvReac Type Severity Reaction Status Date / Time Sulfa (Sulfonamide Allergy Unknown Verified 01/13/23 15:20 Antibiotics) [SULFA (SULFONAMIDE ANTIBIOTICS)] Review of Systems Review of Systems ROS Unobtainable: All systems reviewed & are unremarkable except as noted in HPI and below Patient History Medical History Abnormal Pap smear of cervix (~1992) Adrenal adenoma Asthma (~1989) Benign essential HTN Breast cancer (~2016) Bulimia (~1959) Carpal tunnel syndrome (~1991) Chicken pox (~1945) Chronic back pain (~1989) CKD (chronic kidney disease) CPAP (continuous positive airway pressure) dependence (~1999) Diabetes mellitus type 2, insulin dependent (~1993) Diabetes mellitus with hyperglycemia, with long-term current use of insulin Fracture (~1986) Hemorrhoid (~1989) History of stent insertion of renal artery History of urinary incontinence (~1994) Hyperlipidemia Ischiogluteal bursitis Kidney stones (~2001) Knee osteoarthritis Measles (~194) Mumps (~1970) OAB (overactive bladder) Paroxysmal A-fib Right knee pain Sacrococcygeal disorders, not elsewhere classified Spinal stenosis, lumbar region with neurogenic claudication Thyroid nodule Surgical History Anesthesia H/O bilateral mastectomy H/O umbilical hernia repair H/O: hysterectomy Hx of cholecystectomy S/P fusion of sacroiliac joint Status post hysterectomy Family History Father History of heart disease Hypertension Mother Cancer Brother Hypertension Brother Hypertension Brother History of heart disease Hypertension Grandfather History of heart disease Social History household members: children Smoking Status: Former smoker Smoking Status: Former smoker alcohol intake frequency: other Substance Use Type: does not use Exam Initial Vital Signs Initial Vital Signs: Vital Signs Temperature 98 F 01/22/23 15:18 Pulse Rate 81 01/22/23 15:18 Respiratory Rate 20 01/22/23 15:18 Blood Pressure 168/79 H 01/22/23 15:18 Pulse Oximetry 96 01/22/23 15:18 Oxygen Delivery Method Room Air 01/22/23 15:18 GENERAL: Alert 82-year-old female BMI 42 and in no acute distress. HEENT: Head atraumatic,EOMI, pupils reactive, face symmetric, moist mucous membranes CARDIOVASCULAR: Regular rate and rhythm without murmurs, rubs or gallops. RESPIRATORY: Breath sounds equal bilaterally, no wheezes rales or rhonchi. ABDOMEN: Soft, nontender. Normoactive bowel sounds all 4 quadrants. No guarding or rebound. EXTREMITIES: Normal range of motion, no clubbing or edema. Neurovascularly intact NEUROLOGICAL: Alert and oriented x4.Normal gait and speech. Cranial nerves II through XII grossly intact. Good cjleuc-re-vjcf, good gjht-md-pmas, strength equal bilaterally, no dysarthria or aphasia, sensation in tact to soft touch bilaterally, no visual changes, no facial droop SKIN: Warm, dry, no laceration, no petechiae, no rashes or lesions. Course Orders Ordered: Discontinued Medications Aspirin (Aspirin 81 Mg Chew Tab) 324 mg PO NOW ONE Stop: 01/22/23 15:31 Last Admin: 01/22/23 17:11 Dose: Not Given Documented By: KLS Sodium Chloride (Normal Saline 0.9%) 1,000 mls @ 1,000 mls/hr IV BOLUS ONE Stop: 01/22/23 21:46 Last Infusion: 01/22/23 22:00 Dose: 0 mls/hr Documented By: Admin: 01/22/23 21:00 Dose: 1,000 mls/hr Documented By: GC Vital Signs Vital signs: Vital Signs - 8 hr 01/22/23 15:18 01/22/23 15:39 01/22/23 15:40 Temperature 98 F Pulse Rate 81 72 72 Respiratory Rate 20 22 18 Blood Pressure 168/79 H Pulse Oximetry 96 96 96 Oxygen Delivery Method Room Air 01/22/23 15:40 01/22/23 16:01 01/22/23 16:30 Temperature Pulse Rate 73 68 Respiratory Rate 23 18 Blood Pressure 152/68 H Pulse Oximetry 96 94 Oxygen Delivery Method 01/22/23 17:00 01/22/23 17:30 01/22/23 18:00 Temperature Pulse Rate 72 68 70 Respiratory Rate 19 17 16 Blood Pressure Pulse Oximetry 96 94 95 Oxygen Delivery Method 01/22/23 18:30 01/22/23 18:30 01/22/23 19:00 Temperature Pulse Rate 72 72 Respiratory Rate 17 13 Blood Pressure 167/75 H Pulse Oximetry 95 93 Oxygen Delivery Method 01/22/23 19:01 01/22/23 19:01 Temperature Pulse Rate 74 Respiratory Rate 13 Blood Pressure 150/67 H Pulse Oximetry 94 Oxygen Delivery Method MDM - Syncope Lab Data 01/22/23 15:51 01/22/23 15:51 Labs: Lab Results 01/22/23 01/22/23 01/22/23 Range/Units 15:51 15:51 15:51 WBC 8.6 (4.5-11.0) X10^3/uL RBC 4.41 (4.0-5.2) X10^6/uL Hgb 11.8 L (12.0-16.0) g/dL Hct 36.1 (36-46) % MCV 81.9 (80-100) fL MCH 26.7 (26-34) PG MCHC 32.6 (30-36) % RDW 17.1 H (11.6-14.8) % Plt Count 212 (150-400) X10^3/uL Neut % (Auto) 51.3 (50-75) % Lymph % (Auto) 28.6 (25-40) % [place] % (Auto) 14.5 H (3-14) % Eos % (Auto) 4.7 H (2-4) % Baso % (Auto) 0.9 (0-2) % Neut # (Auto) 4400 (2971-9535) /uL Lymph # (Auto) 2500 (1556-7764) /uL [place] # (Auto) 1200 H (0-900) /uL Eos # (Auto) 400 (0-450) /uL Baso # (Auto) 100 (0-100) /uL PT 10.6 (10.1-12.7) SECONDS INR 0.9 (0.9-1.3) APTT 24 L (26-36) SECONDS Sodium 138 (137-145) mmol/L Potassium 4.3 (3.4-5.1) mmol/L Chloride 107 (98-107) mmol/L Carbon Dioxide 24 (22-32) mmol/L BUN 39 H (7-17) mg/dL Creatinine 1.39 H (0.52-1.04) mg/dL Estimated GFR 38 L (>60) mL/min BUN/Creatinine Ratio 28.1 H (6-22) Glucose 238 H (80-110) mg/dL Calcium 9.1 (8.4-10.2) mg/dL Magnesium 1.7 (1.6-2.3) mg/dL Total Bilirubin 0.3 (0.2-1.3) mg/dL AST 21 (14-36) IU/L ALT 18 (<35) IU/L Alkaline Phosphatase 72 (38-126) U/L Total Creatine Kinase 84 (30-135) U/L CK-MB (CK-2) TNP CK-MB (CK-2) Rel Index TNP Troponin I < 0.012 (0.01-0.034) ng/mL Total Protein 6.1 L (6.3-8.2) g/dL Albumin 3.7 (3.5-5.0) g/dL Globulin 2.4 (1.7-4.1) g/dL Albumin/Globulin Ratio 1.5 (1.0-2.8) Lipase 73 (23-300) U/L Urine Dip Bedside Urine Glucose Negative Bedside Urine Bilirubin - Negative Bedside Urine Ketone - Negative Urine Specific [place] 1.015 Bedside Urine Occult Blood - Negative Bedside Urine pH 6 Bedside Urine Protein - Negative Bedside Urine Urobilinogen - Negative Bedside Urine Nitrite - Negative Bedside Urine Leukocytes - Negative Esterase Imaging Data Chest x-ray: Radiologist's Impression: PROCEDURE:? ? INDICATIONS:? chest pain ? TECHNIQUE:? One view of the chest was acXR CHEST 1V ? COMPARISON:? [facility], CR, XR CHEST 1V, 10/18/2022, 17:22. ? FINDINGS:? ? Surgical changes and devices:? None.? ? Lungs and pleura:? A wedge-shaped right perihilar consolidation is seen, likely atelectasis of the right middle lobe. ? Mediastinum:? Mediastinal contours appear normal.? Heart size is normal.? ? Bones and chest wall:? No suspicious bony lesions.? Overlying soft tissues appear unremarkable.? ? IMPRESSION:? Consolidative atelectasis of the right middle lobe.? Recommend CT of the chest for further evaluation and evaluate for mass or obstructing lesion. ? ? Dictated by: Eren Hoang M.D. on 01/22/2023 at 15:02 ? ? CT scan - head: Radiologist's Impression: PROCEDURE:? CT HEAD/BRAIN WO CON ? INDICATIONS:? fall/hit head ? TECHNIQUE:? Noncontrast 4.5 mm thick angled axial sections acquired from the foramen magnum to the vertex, with coronal and sagittal reformats.? For radiation dose reduction, the following was used:? automated exposure control, adjustment of mA and/or kV according to patient size.? ? COMPARISON:? None. ? FINDINGS:? Image quality:? Excellent.? ? CSF spaces:? Basal cisterns are patent.? No extra-axial fluid collections.? The ventricles are symmetric in size and shape.? ? Brain:? No intracranial bleeds or masses.? There is cerebral volume loss for age, with resultant ventricular and sulcal prominence.? There are periventricular and deep white matter chronic small vessel ischemic changes.? There is intracranial internal carotid artery atherosclerosis.? ? Skull and face:? Calvarium and visualized facial bones appear intact, without suspicious lesions.? ? Sinuses:? Visualized sinuses and mastoids are clear.? ? IMPRESSION:? 1. No acute intracranial abnormality. 2. Cerebral volume loss and small vessel ischemic changes.? Dictated by: Eren Hoang M.D. on 01/22/2023 at 15:34 ?? CT scan - chest: Radiologist's Impression: PROCEDURE:? CT ANGIO CHEST PE PROTOCOL ? INDICATIONS:? mass in chest with syncope ? TECHNIQUE:? After the administration of intravenous contrast, 2 mm thick sections acquired from the pulmonary apices to the posterior costophrenic angles.? 3-dimensional maximum intensity projection (MIP) coronal and sagittal reformats were then acquired through the thorax.? For radiation dose reduction, the following was used:? automated exposure control, adjustment of mA and/or kV according to patient size.? ? COMPARISON:? [facility], CT, CT ANGIO CHEST PE PROTOCOL, 10/18/2022, 18:54. ? FINDINGS:? Image quality:? Excellent.? ? Pulmonary arteries:? Pulmonary arteries and demonstrate no intraluminal filling defects to suggest central pulmonary embolism.? Right hilar mass lesion does surround the right lower lobe pulmonary arteries resulting in dural stenosis, similar to the prior ? Lungs and pleura:? Right middle lobe mass lesion extending to the right hilum probably involving the subcarinal mediastinum remains similar to the prior exam.? Mediastinal pretracheal node measures 1.1 cm bilateral pulmonary nodules are also similar.? Scattered ground-glass density has improved from the prior.? Prior pleural effusions has resolved ? Mediastinum:? Heart size is normal, without pericardial effusion.? Thoracic aorta is normal in caliber and enhancement.? Esophagus is normal in caliber, without hiatal hernia.? ? Bones and chest wall:? No suspicious bony lesions.? Ribs and thoracic spine appear intact throughout.? Thyroid gland again shows multiple large nodules extending into the superior mediastinum, unchanged.? No axillary or supraclavicular adenopathy.? Stable small sclerotic densities in the manubrium and sternum.? Differential would include enostosis and osteoblastic metastatic disease ? Abdomen:? Stable ovoid low-density right adrenal mass lesion ? IMPRESSION:? ? No evidence of pulmonary embolism, aortic dissection or aneurysm. ? Stable right middle lobe mass lesion extending to the right hilum and encasing the right-sided pulmonary arteries with stenosis. ? Bilateral pulmonary nodules stable. ? Improving patchy bilateral ground-glass density consistent with pulmonary edema or pneumonitis ? ? ? Approved by: Elroy Conte M.D. on 01/22/2023 at 20:51? ECG Data Interpretation: Sinus rhythm rate 7160 QRS [address] changes T-wave inversions similar to previous EKGs MDM Narrative Medical decision making narrative: Patient 82-year-old female multiple comorbidities with a known right-sided lung mass presenting today with dizziness. Was vertigo and positional she is no focal deficits. On anticoagulation head CT is negative NIH stroke scale is also 0. Blood work is overall reassuring. No clinical significant abnormalities. Concern for possible worsening compression on the pulmonary artery causing some dizziness. CT angio was done ruled out PE and shows a stable mass. At this t armando patient is able to sit up she received a L bolus sign of infection. No indication for admission Discharge Plan Departure Patient Disposition: Home Clinical Impression: Vertigo Instructions: DI for Vertigo Activity Restrictions/Additional Instructions: *You have been diagnosed with vertigo *What to do: At this time workup in the emergency department is reassuring. You had been given a disc and images happened pushed the [facility]. Please Oncology as needed. *Continue to take medications as directed *Follow up with your primary care provider in 2-3 days or call [phone] *Return to ER if you should have increasing dizziness falls weakness confusion or any new, worsening or concerning symptoms Prescriptions: No Action montelukast [Singulair] 10 MG tablet 10 mg PO QDAY Qty: 0 hydralazine 25 mg tablet 25 mg PO Q8H Qty: 270 3RF gabapentin 100 mg capsule 100 mg PO BID Qty: 60 2RF Rx Instructions: Take one pill nightly for 3 days If tolerated, take one pill twice daily labetalol 100 mg tablet See Rx Instructions .ROUTE .COMPLEX Qty: 180 0RF Dose Instruction: TAKE 1 TABLET BY MOUTH TWICE DAILY Rx Instructions: TAKE 1 TABLET BY MOUTH TWICE DAILY glipizide 5 mg tablet extended release 24hr 5 mg PO DAILY Qty: 90 3RF hydrochlorothiazide 25 mg tablet 25 mg PO BID Qty: 180 3RF oxybutynin chloride 5 mg tablet 5 mg PO BID Qty: 180 3RF carboxymethylcellulose sodium [Refresh Tears] 0.5 % drops 1 drp ophthalmic (eye) .prn Patient Comments: Only when needed atorvastatin [Lipitor] 20 mg tablet 20 mg PO BEDTIME Qty: 90 3RF amlodipine [Norvasc] 10 mg tablet 10 mg PO DAILY Qty: 90 3RF furosemide 40 mg tablet 40 mg PO DAILY PRN (Reason: edema) Qty: 90 3RF Patient Comments: Pt states she takes when needed, holds when she has to go somewhere and does not want to have to urinate letrozole 2.5 mg tablet 2.5 mg PO DAILY Qty: 90 3RF nystatin 100,000 unit/gram powder 1 applic topical DAILY PRN (Reason: rash) Qty: 30 0RF Rx Instructions: to affected areas Novolin 70/30 U-100 Insulin 100 unit/mL (70-30) suspension 105 unit SUBCUT BID Qty: 90 0RF Rx Instructions: up to 55 units in AM & 50 units in PM (DME) Complex Power Wheelchair See Rx Instructions .Route .MEDSUPPLY Qty: 1 0RF Rx Instructions: As directed valsartan 320 mg tablet 320 mg PO DAILY tramadol 50 mg tablet 50 mg PO BID PRN (Reason: pain) Qty: 60 2RF Referrals: Rody Mijares DO [Primary Care Provider] - Stand Alone Forms: Patient Portal/API
--- NOTE | 2023-01-22 20:47 | DI.CT.S_ITS ---
PROCEDURE: CT ANGIO CHEST PE PROTOCOL INDICATIONS: mass in chest with syncope TECHNIQUE: After the administration of intravenous contrast, 2 mm thick sections acquired from the pulmonary apices to the posterior costophrenic angles. 3-dimensional maximum intensity projection (MIP) coronal and sagittal reformats were then acquired through the thorax. For radiation dose reduction, the following was used: automated exposure control, adjustment of mA and/or kV according to patient size. COMPARISON: [facility], CT, CT ANGIO CHEST PE PROTOCOL, 10/18/2022, 18:54. FINDINGS: Image quality: Excellent. Pulmonary arteries: Pulmonary arteries and demonstrate no intraluminal filling defects to suggest central pulmonary embolism. Right hilar mass lesion does surround the right lower lobe pulmonary arteries resulting in dural stenosis, similar to the prior Lungs and pleura: Right middle lobe mass lesion extending to the right hilum probably involving the subcarinal mediastinum remains similar to the prior exam. Mediastinal pretracheal node measures 1.1 cm bilateral pulmonary nodules are also similar. Scattered ground-glass density has improved from the prior. Prior pleural effusions has resolved Mediastinum: Heart size is normal, without pericardial effusion. Thoracic aorta is normal in caliber and enhancement. Esophagus is normal in caliber, without hiatal hernia. Bones and chest wall: No suspicious bony lesions. Ribs and thoracic spine appear intact throughout. Thyroid gland again shows multiple large nodules extending into the superior mediastinum, unchanged. No axillary or supraclavicular adenopathy. Stable small sclerotic densities in the manubrium and sternum. Differential would include enostosis and osteoblastic metastatic disease Abdomen: Stable ovoid low-density right adrenal mass lesion IMPRESSION: No evidence of pulmonary embolism, aortic dissection or aneurysm. Stable right middle lobe mass lesion extending to the right hilum and encasing the right-sided pulmonary arteries with stenosis. Bilateral pulmonary nodules stable. Improving patchy bilateral ground-glass density consistent with pulmonary edema or pneumonitis Approved by: Elroy Conte M.D. on 01/22/2023 at 20:51
[2023-01-22] MEDS: SODIUM CHLORIDE 0.9% 1,000 ML 1000 ML IV (21:00)
== END 2023-01-22 22:37 | disposition home or self-care (01) ==
PROVIDERS: Emergency Medicine; Emergency Provider Emergency Medicine; PCP Family Medicine
DX: R42 Dizziness and giddiness (principal); R07.9 Chest pain, unspecified; S09.90XA Unspecified injury of head, initial encounter
CPT/HCPCS: 36415; 70450; 71045; 71275; 80053; 81003; 82550; 83690; 83735; 84484; 85025; 85610; 85730; 93005; 99284; Q9967

== ENCOUNTER 2023-02-23 10:31 | Outpatient (CLI) | payer MEDICARE, OTHER, SELFPAY ==
[2023-01-04 14:26] VITALS: BMI 41.6
--- NOTE | 2023-02-23 10:33 | DI.RAD.S_ITS ---
PROCEDURE: PAIN GENICULAR NERVE BLOCK RT INDICATIONS: RIGHT KNEE OSTEOARTHRITIS COMPARISON: [facility], CR, XR KNEE RT 3V, 08/17/2022, 13:34. FINDINGS: Fluoroscopic spot filming was performed to verify placement of spinal needles along the medial and lateral aspects of the distal femur as well as along the proximal medial aspect the tibia. Appropriate location of the needle tips was confirmed by injection of iodinated contrast. IMPRESSION: Intraprocedural examination demonstrating appropriate positions of the needles. Dictated by: Yadiel Briones M.D. on 02/25/2023 at 22:53 Approved by: Yadiel Briones M.D. on 02/25/2023 at 22:55
[2023-02-23 10:39] VITALS: BP 138/73; PULSE 71; RESP 20; TEMP 36.7; O2SAT 95
[2023-02-23 11:04] VITALS: BP 155/65; PULSE 71; RESP 16; O2SAT 95
[2023-02-23 11:09] VITALS: BP 128/62; PULSE 68; RESP 22; O2SAT 97
[2023-02-23 11:14] VITALS: BP 135/63; PULSE 67; RESP 22; O2SAT 92
[2023-02-23 11:19] VITALS: BP 141/65; PULSE 67; RESP 20; O2SAT 92
[2023-02-23 11:25] VITALS: BP 148/65; PULSE 65; RESP 14; O2SAT 96
--- NOTE | 2023-02-23 11:44 | PC.NURSE ---
Patient received from procedure in NAD. VSS, monitor showing SR with occasional PVCs and a BBB. Per records no change in rhythm. EKG ordered, no changes noted. Ok to discharge home.
--- NOTE | 2023-02-23 12:23 | P.PCN_ITS ---
Date/Time/Diagnoses Date of procedure: 02/23/23 Time of procedure: 11:00 Procedure Notes Physician: Everton Ibarra Total Fluoroscopy time (seconds): 18 Total sedation minutes: 0 Procedure in detail & Post-procedure care: Right Genicular Nerve Injections Indications: Francia is presenting for treatment of right knee osteoarthritis with knee pain. Preoperative diagnosis: Right knee osteoarthritis Postoperative diagnosis: Same Focused Examination: Ax3 Mood and affect are normal Vital Signs: VSS Consent: Following review of allergies and potential side effects/complications, including, but not necessarily limited to, infection, allergic reaction, local tissue breakdown, stroke, temporary or permanent nerve injury, paralysis, and possible , the patient indicated that they understood and agreed to proceed.? An informed consent document was signed by the patient, witnessed by a nurse and placed in the patient's chart.? Additionally, other treatment options including medications and physical therapy were reviewed with the patient. All questions were answered. Site was then marked. Anesthesia: Local Position: Prone Monitoring: NIBP, Pulse oximetry, 3 lead EKG Needle used: 22 ga, 3.5 inch spinal Contrast: Isovue 300-M 2 mL Injectate: 0.5% bupivacaine 1 mL per site Technique: The skin was prepped with chloraprep and then draped in a sterile fashion. Time out was performed as per protocol. Oxygen applied via NC. Skin and subcutaneous structures of the needle entry sites were then infiltrated with 5 mL of lidocaine 1% divided among the 3 injection sites. Under AP and lateral fluoroscopic control, the needles were guided into the expected location of the superomedial, superolateral and inferomedial genicular nerves. Isovue 300-M was then injected and the spread confirmed proper needle location. There was no evidence for intravascular uptake. After negative aspiration, the above- mentioned injectate was then slowly administered to each site and the needles withdrawn. The patient expressed no unusual discomfort or paresthesias during t he injection. Band-Aids applied to injection sites. EBL: less than 1 ml Complications: None Post Procedure: Patient was taken to the recovery and monitored. The patient was provided a Pain Log to continue to record the patient's response to the target- specific procedure prior to the patient's follow-up visit with the referring physician. Patient was stable upon discharge. Detailed post procedure instructions were provided. Patient was asked to call in the event of worsening pain, fever, weakness, numbness or bladder or bowel incontinence. Postoperatively, today patient demonstrates the following changes: Right Knee Directly before the block ?VAS (0-10) = 7/10 5 minutes after the block VAS (0-10) = 2/10 Percentage relief obtained with this diagnostic block 71 % Any improved physical functioning directly after the blocks? Range of motion, ambulation
== END 2023-02-23 11:55 | disposition home or self-care (01) ==
LOC: RAD 10:32
PROVIDERS: PCP Family Medicine; Referring Provider Anesthesiology; Visit Provider Anesthesiology
DX: M17.11 Unilateral primary osteoarthritis, right knee; I49.9 Cardiac arrhythmia, unspecified; M25.561 Pain in right knee
CPT/HCPCS: 64454; 93005

== ENCOUNTER 2023-03-09 10:16 | Outpatient (CLI) | payer MEDICARE, OTHER, SELFPAY ==
[2023-01-04 14:26] VITALS: BMI 41.6
--- NOTE | 2023-03-09 10:18 | DI.RAD.S_ITS ---
PROCEDURE: PAIN BURSA/JOINT INJECT WO US INDICATIONS: BURSITIS COMPARISON: [facility], XA, PAIN GENICULAR NERVE BLOCK RT, 02/23/2023, 10:58. FINDINGS: Fluoroscopic spot filming was performed to verify placement of spinal needles at the left ischial tuberosity. Appropriate location(s) of the needle tip(s) was confirmed by injection of iodinated contrast. IMPRESSION: Intraprocedural examination within normal limits. Dictated by: Yadiel Briones M.D. on 03/09/2023 at 19:28 Approved by: Yadiel Briones M.D. on 03/09/2023 at 19:28
[2023-03-09 10:35] VITALS: BP 143/67; PULSE 75; RESP 20; TEMP 36.7; O2SAT 96
[2023-03-09 11:00] VITALS: BP 177/81; PULSE 73; RESP 17; O2SAT 96
[2023-03-09] MEDS: DEXAMETHASONE 10 MG/ML VIAL INJ (11:01)
[2023-03-09] MEDS: IOPAMIDOL 15 ML VIAL 3 ML INJ (11:01)
[2023-03-09 11:05] VITALS: BP 161/70; PULSE 70; RESP 16; O2SAT 94
--- NOTE | 2023-03-09 11:12 | P.PCN_ITS ---
Date/Time/Diagnoses Date of procedure: 03/09/23 Time of procedure: 10:30 Procedure Notes Physician: Everton Ibarra Total Fluoroscopy time (seconds): 13 Total sedation minutes: 0 Procedure in detail & Post-procedure care: Left Ischial Bursa Injection Indications: Francia is presenting for treatment of ischial bursitis with buttock pain. Preoperative diagnosis: Left ischial bursitis Postoperative diagnosis: Same Focused Examination: Ax3 Mood and affect are normal Vital Signs: VSS Consent: Following review of allergies and potential side effects/complications, including, but not necessarily limited to, infection, allergic reaction, local tissue breakdown, stroke, temporary or permanent nerve injury, paralysis, and possible , the patient indicated that they understood and agreed to proceed.? An informed consent document was signed by the patient, witnessed by a nurse and placed in the patient's chart.? Additionally, other treatment options including medications and physical therapy were reviewed with the patient. All questions were answered. Site was then marked. Anesthesia: Local Position: Prone Monitoring: NIBP, Pulse oximetry, 3 lead EKG Needle used: 22 gauge, 5 inch spinal needle Contrast: Isovue 300-M 3mL Injectate: Dexamethasone 7.5 mg with 1% lidocaine 2 mL Technique: The skin was prepped with chloraprep and then draped in a sterile fashion. Time out was performed as per protocol. Oxygen applied via NC. The location of the left ischial bursa was identified at the inferior aspect of the ischium using fluoroscopy. Skin and subcutaneous structures of the needle entry sites were then infiltrated with 5 mL of lidocaine 1% using a 25 gauge, 1.5 in needle. Under AP and lateral control, the needle was guided to the inferolateral aspect of the left ischium. Contrast was injected and the spread was consistent with appropriate needle location. There was no evidence for intravascular uptake. After negative aspiration, the above-mentioned injectate was then slowly administered and the needle withdrawn. The patient expressed no unusual discomfort or paresthesias during needle positioning or injection. Band-Aids applied to injection sites. EBL: less than 1 ml Complications: None Post Procedure: Patient was taken to the recovery and monitored. The patient was provided a Pain Log to continue to record the patient's response to the target- specific procedure prior to the patient's follow-up visit with the referring physician. Patient was stable upon discharge. Detailed post procedure instructions were provided. Patient was asked to call in the event of worsening pain, fever, weakness, numbness or bladder/bowel incontinence.
[2023-03-09 11:15] VITALS: BP 131/73; PULSE 78; RESP 16; O2SAT 96
== END 2023-03-09 11:15 | disposition home or self-care (01) ==
LOC: RAD 10:17
PROVIDERS: PCP Family Medicine; Referring Provider Anesthesiology; Visit Provider Anesthesiology
DX: M70.72 Other bursitis of hip, left hip (principal)
CPT/HCPCS: 20610; 77002; 82962; J1100

== ENCOUNTER 2023-04-01 17:18 | Emergency (ER) | payer MEDICARE, OTHER, SELFPAY ==
[2023-01-04 14:26] VITALS: BMI 41.6
[2023-04-01 17:27] VITALS: BP 137/58; PULSE 83; RESP 16; TEMP 36.9; O2SAT 94; BMI 43.0
== END 2023-04-01 20:22 | disposition left against medical advice (07) ==
PROVIDERS: Emergency Provider Emergency Medicine; PCP Family Medicine
DX: H57.11 Ocular pain, right eye (principal)
CPT/HCPCS: 99281

== ENCOUNTER 2023-04-02 11:27 | Emergency (ER) | payer MEDICARE, OTHER, SELFPAY ==
[2023-01-04 14:26] VITALS: BMI 41.6
[2023-04-02 11:42] VITALS: BP 120/56; PULSE 66; RESP 18; TEMP 36.8; O2SAT 95; BMI 43.0
--- NOTE | 2023-04-02 12:11 | ED_ITS ---
HPI - Eye Problem <Katheryn Gillis DATA TECHNICAL LEAD - Last Filed: 04/02/23 13:17> General Chief complaint: Eye Problems Stated complaint: hemorrhage in RT eye/HX cancer Time Seen by Provider: 04/02/23 11:56 Source: patient Mode of arrival: Ambulatory History of Present Illness HPI Narrative: This is an 83-year-old female presents to the emergency department with right eye redness which started yesterday and is without trauma. She denies any eye irritation but complains of mild pain to the right eye. Complains of blurred vision and wears glasses at baseline. Denies any dizziness, headache, weakness, endorses some nasal congestion and a scratchy voice. States that she had COVID in October after cruise, she was at a restaurant yesterday when her daughter noticed that her right eye was turning red. She states that now it is better than it was last night but the whole [place] part of [place] has turned red. She denies any discharge from the right eye, complains of some discharge coming from the left eye. Related Data Home Medications Medication Instructions Recorded Confirmed carboxymethylcellulose sodium 0.5 1 drp ophthalmic (eye) .prn 06/16/22 03/02/23 % eye drops (Refresh Tears) palbociclib 125 mg tablet (Ibrance) 125 mg PO DAILY 01/31/23 03/02/23 hydralazine 25 mg tablet 12.5 mg PO TID blood pressure 03/02/23 03/02/23 Previous Rx's Medication Instructions Recorded Complex Power Wheelchair #1 ea 09/20/22 oxybutynin chloride 5 mg tablet 5 mg PO BID #180 tabs 10/21/22 letrozole 2.5 mg tablet 2.5 mg PO DAILY #90 tabs 12/28/22 nystatin 100,000 unit/gram topical 1 applic topical DAILY PRN rash 12/28/22 powder #30 grams gabapentin 100 mg capsule 100 mg PO BID #60 caps 01/04/23 tramadol 50 mg tablet 50 mg PO BID PRN pain #60 tabs 01/06/23 amlodipine 10 mg tablet (Norvasc) 10 mg PO DAILY #90 tabs 03/02/23 atorvastatin 20 mg tablet (Lipitor) 20 mg PO BEDTIME cholesterol #90 03/02/23 tabs furosemide 40 mg tablet 40 mg PO DAILY PRN edema #90 tabs 03/02/23 glipizide 5 mg tablet, extended 5 mg PO DAILY diabetes #90 tabs 03/02/23 release 24 hr hydrochlorothiazide 25 mg tablet 25 mg PO BID for blood pressure 03/02/23 #180 tabs insulin human U-100 NPH-regulr 50 unit (0.5 mL) SUBCUT BID #90 mL 03/02/23 70-30 mix 100 unit/mL subcutaneous susp (Novolin 70/30 U-100 Insulin) labetalol 100 mg tablet See Rx Instructions .Route 03/02/23 .COMPLEX #180 tabs montelukast 10 mg tablet See Rx Instructions .Route 03/02/23 .COMPLEX #90 tabs valsartan 320 mg tablet 320 mg PO DAILY #90 tabs 03/02/23 Allergies Allergy/AdvReac Type Severity Reaction Status Date / Time Sulfa (Sulfonamide Allergy Unknown Verified 04/02/23 11:42 Antibiotics) [SULFA (SULFONAMIDE ANTIBIOTICS)] Review of Systems <LOLIS Munoz - Last Filed: 04/02/23 13:17> Review of Systems ROS Unobtainable: All systems reviewed & are unremarkable except as noted in HPI and below Patient History <LOLIS Munoz - Last Filed: 04/02/23 13:17> Medical History Abnormal Pap smear of cervix (~1992) Adrenal adenoma Asthma (~1989) Benign essential HTN Breast cancer (~2016) Bulimia (~1959) Carpal tunnel syndrome (~1991) Chicken pox (~1945) Chronic back pain (~1989) CKD (chronic kidney disease) CPAP (continuous positive airway pressure) dependence (~1999) Diabetes mellitus type 2, insulin dependent (~1993) Diabetes mellitus with hyperglycemia, with long-term current use of insulin Fracture (~1986) Hemorrhoid (~1989) History of stent insertion of renal artery History of urinary incontinence (~1994) Hyperlipidemia Ischiogluteal bursitis Kidney stones (~2001) Knee osteoarthritis Measles (~194) Mumps (~1970) OAB (overactive bladder) Osteoarthritis of right knee Paroxysmal A-fib Right knee pain Sacrococcygeal disorders, not elsewhere classified Spinal stenosis, lumbar region with neurogenic claudication Thyroid nodule Surgical History Anesthesia H/O bilateral mastectomy H/O umbilical hernia repair H/O: hysterectomy Hx of cholecystectomy S/P fusion of sacroiliac joint Status post hysterectomy Family History Father History of heart disease Hypertension Mother Cancer Brother Hypertension Brother Hypertension Brother History of heart disease Hypertension Grandfather History of heart disease Social History household members: children Smoking Status: Former smoker Smoking Status: Former smoker alcohol intake frequency: other Substance Use Type: does not use Exam <LOLIS Munoz - Last Filed: 04/02/23 13:17> Narrative Exam Narrative: HEENT: Pupils are equal, round and reactive to light bilaterally. IOP to the ri ght eye is an average of 11, IOP to the left eye is 12, right sclera injection, left with mild central injection, left eye with discharge, right eye with no discharge, EOMI bilaterally, no visual field cut, visual acuity with corrective lenses on the left is 20/50, on the right is 20/25, bilaterally 20/25 Initial Vital Signs Initial Vital Signs: Vital Signs Temperature 98.2 F 04/02/23 11:42 Pulse Rate 66 04/02/23 11:42 Respiratory Rate 18 04/02/23 11:42 Blood Pressure 120/56 L 04/02/23 11:42 Pulse Oximetry 95 04/02/23 11:42 Oxygen Delivery Method Room Air 04/02/23 11:42 <Kalia Smith DO - Last Filed: 04/03/23 09:25> Initial Vital Signs Initial Vital Signs: Vital Signs Temperature 98.2 F 04/02/23 11:42 Pulse Rate 66 04/02/23 11:42 Respiratory Rate 18 04/02/23 11:42 Blood Pressure 120/56 L 04/02/23 11:42 Pulse Oximetry 95 04/02/23 11:42 Oxygen Delivery Method Room Air 04/02/23 11:42 Course <LOLIS Munoz - Last Filed: 04/02/23 13:17> Orders Ordered: Discontinued Medications Proparacaine HCl (Proparacaine 0.5% Ophth Karen) 1 drops EYE-LEFT NOW ONE Stop: 04/02/23 12:11 Last Admin: 04/02/23 12:24 Dose: 1 drop Documented By: ISMAEL Vital Signs Vital signs: Vital Signs - 8 hr 04/02/23 11:42 Temperature 98.2 F Pulse Rate 66 Respiratory Rate 18 Blood Pressure 120/56 L Pulse Oximetry 95 Oxygen Delivery Method Room Air <Kalia Smith DO - Last Filed: 04/03/23 09:25> Orders Ordered: Discontinued Medications Proparacaine HCl (Proparacaine 0.5% Ophth Karen) 1 drops EYE-LEFT NOW ONE Stop: 04/02/23 12:11 Last Admin: 04/02/23 12:24 Dose: 1 drop Documented By: ISMAEL Vital Signs Vital signs: Vital Signs - 8 hr 04/02/23 11:42 Temperature 98.2 F Pulse Rate 66 Respiratory Rate 18 Blood Pressure 120/56 L Pulse Oximetry 95 Oxygen Delivery Method Room Air MDM - Eye Problem <LOLIS Munoz - Last Filed: 04/02/23 13:17> Lab Data 04/02/23 12:25 Labs: Lab Results 04/02/23 04/02/23 Range/Units 12:25 12:32 WBC 5.3 (4.5-11.0) X10^3/uL RBC 3.59 L (4.0-5.2) X10^6/uL Hgb 11.0 L (12.0-16.0) g/dL Hct 32.4 L (36-46) % MCV 90.1 (80-100) fL MCH 30.7 (26-34) PG MCHC 34.0 (30-36) % RDW 23.8 H (11.6-14.8) % Plt Count 230 (150-400) X10^3/uL Neut % (Auto) 32.3 L (50-75) % Lymph % (Auto) 37.3 (25-40) % Swift % (Auto) 24.1 H (3-14) % Eos % (Auto) 4.2 H (2-4) % Baso % (Auto) 2.1 H (0-2) % Neut # (Auto) 1700 (7345-5278) /uL Lymph # (Auto) 2000 (6339-5543) /uL Swift # (Auto) 1300 H (0-900) /uL Eos # (Auto) 200 (0-450) /uL Baso # (Auto) 100 (0-100) /uL RBC Morphology See below Anisocytosis 2+ H SARS-CoV-2 (PCR) Negative (Negative) MDM Narrative Medical decision making narrative: Chief Complaint: eye redness Multiple etiologies for patient's complaint considered including, but not limited to: Hyphema, thrombocytopenia, conjunctivitis, iritis, scleral hemorrhage, acute viral illness, Covid I have independently reviewed the patient's vital signs and nursing notes as well as prior records if available. Patient presents with scleral injection. No recent eye trauma or suspected microtrauma (dust, sand, etc). Negative Abbie sign, no sign of corneal abrasion/ulcer. Patient complains of right eye pain but does not describe it as dull, stinging or sharp, does not worsen with eye movement, she complains of mild blurred vision in the right eye. States that something is starting to change in her left eye as well as she is had discharge coming from her left eye. She endorses having nasal congestion, hoarse voice, had a negative COVID test yesterday but considered this may be a symptom so she took a test. She denies having a cough, fever chills. Denies having a headache, inappropriate bleeding, she is not anticoagulated. Her symptoms have gradually come on over the last 24 hours. Pupils are equal, round and reactive to light bilaterally. IOP to the right eye is an average of 11, IOP to the left eye is 12, so doubt acute angle closure glaucoma. Given history and exam I have low suspicion for globe rupture, uveitis, HSV keratitis, Foreign Body. This is likely subconjunctival hemorrhage although I have not ruled out a viral cause. Her COVID PCR was negative. CBC shows mild anemia, consistent with prior lab work, no new thrombocytopenia or other evidence of infection. I gave her contact information for Dr. Suzy rodriguez for follow-up, strict return precautions for any vision changes come back to the emergency department. Today she complained of mildly blurred vision but this is coming out of the left eye and not the right eye. Funduscopic exam was normal except for injected sclera. Social considerations that may affect disposition: none Questions are addressed and there is agreement with the plan and for follow-up*. I consulted with the ED attending physician * as needed for higher level of care considerations and they were available for discussion and recommendations regarding plan of care and diagnostic testing. Patient is appropriate for outpatient management. <Kalia Smith, DO - Last Filed: 04/03/23 09:25> Lab Data Labs: Lab Results 04/02/23 04/02/23 Range/Units 12:25 12:32 WBC 5.3 (4.5-11.0) X10^3/uL RBC 3.59 L (4.0-5.2) X10^6/uL Hgb 11.0 L (12.0-16.0) g/dL Hct 32.4 L (36-46) % MCV 90.1 (80-100) fL MCH 30.7 (26-34) PG MCHC 34.0 (30-36) % RDW 23.8 H (11.6-14.8) % Plt Count 230 (150-400) X10^3/uL Neut % (Auto) 32.3 L (50-75) % Lymph % (Auto) 37.3 (25-40) % Swift % (Auto) 24.1 H (3-14) % Eos % (Auto) 4.2 H (2-4) % Baso % (Auto) 2.1 H (0-2) % Neut # (Auto) 1700 (3764-5987) /uL Lymph # (Auto) 2000 (2480-4790) /uL Swift # (Auto) 1300 H (0-900) /uL Eos # (Auto) 200 (0-450) /uL Baso # (Auto) 100 (0-100) /uL RBC Morphology See below Anisocytosis 2+ H SARS-CoV-2 (PCR) Negative (Negative) Discharge Plan Departure Patient Disposition: Home Clinical Impression: Conjunctival hemorrhage of right eye Instructions: DI for Subconjunctival Hemorrhage Activity Restrictions/Additional Instructions: *You have been diagnosed with injection to your right eye which could be due to a viral cause, spontaneous, or another eye problem that does not appear to be dangerous at this time. Please schedule follow-up with ophthalmology, call the number below for follow-up appointment. If your vision changes get worse, pl ease come back to the hospital, if you develop any changes to your vision please come back to the hospital, your COVID test today was negative. Your blood counts were stable, your platelet count was normal and everything looks similar to her prior lab work. It is okay to use saline tears for dry eye, or eye lubricant, please avoid putting any medications into your eye. *What to do: *Please continue to take your regular medications as directed. [ ] New medication prescriptions sent to your pharmacy: [ ] [ ] New medication written as a paper prescription [ x] No new medications given Please call and schedule follow up with your primary care provider in 2-3 days, at least for an update. Let them know you were seen in the Emergency Department for the above problem. We will electronically transmit a record of today's note if your PCP or specialist is in our system. *If you do not have a primary care provider please contact [phone] to establish care with one of the [facility] primary care providers. *Return to the Emergency Department for worsening symptoms, inability to keep liquids down, fever greater than 101F, chills, or other concerning symptom. Prescriptions: No Action gabapentin 100 mg capsule 100 mg PO BID Qty: 60 2RF Rx Instructions: Take one pill nightly for 3 days If tolerated, take one pill twice daily oxybutynin chloride 5 mg tablet 5 mg PO BID Qty: 180 3RF hydralazine 25 mg tablet 12.5 mg PO TID amlodipine [Norvasc] 10 mg tablet 10 mg PO DAILY Qty: 90 3RF atorvastatin [Lipitor] 20 mg tablet 20 mg PO BEDTIME Qty: 90 3RF furosemide 40 mg tablet 40 mg PO DAILY PRN (Reason: edema) Qty: 90 3RF Patient Comments: Pt states she takes when needed, holds when she has to go somewhere and does not want to have to urinate glipizide 5 mg tablet extended release 24hr 5 mg PO DAILY Qty: 90 3RF hydrochlorothiazide 25 mg tablet 25 mg PO BID Qty: 180 3RF Novolin 70/30 U-100 Insulin 100 unit/mL (70-30) suspension 50 unit SUBCUT BID Qty: 90 11RF labetalol 100 mg tablet See Rx Instructions .ROUTE .COMPLEX Qty: 180 3RF Dose Instruction: TAKE 1 TABLET BY MOUTH TWICE DAILY Rx Instructions: TAKE 1 TABLET BY MOUTH TWICE DAILY montelukast 10 mg tablet See Rx Instructions .ROUTE .COMPLEX Qty: 90 3RF Dose Instruction: TAKE 1 TABLET BY MOUTH EVERY DAY Rx Instructions: TAKE 1 TABLET BY MOUTH EVERY DAY valsartan 320 mg tablet 320 mg PO DAILY Qty: 90 3RF Ibrance 125 mg tablet 125 mg PO DAILY Rx Instructions: administer on days 1 through 21 of a 28-day treatment cycle carboxymethylcellulose sodium [Refresh Tears] 0.5 % drops 1 drp ophthalmic (eye) .prn Patient Comments: Only when needed letrozole 2.5 mg tablet 2.5 mg PO DAILY Qty: 90 3RF nystatin 100,000 unit/gram powder 1 applic topical DAILY PRN (Reason: rash) Qty: 30 0RF Rx Instructions: to affected areas (DME) Complex Power Wheelchair See Rx Instructions .Route .MEDSUPPLY Qty: 1 0RF Rx Instructions: As directed tramadol 50 mg tablet 50 mg PO BID PRN (Reason: pain) Qty: 60 2RF Referrals: Suzy Rodriguez MD [Physician] - Rody Mijares DO [Primary Care Provider] - Stand Alone Forms: Patient Portal/API <Kalia Smith DO - Last Filed: 04/03/23 09:25> Cosign ED Attending Alba Attestation: I was immediately available in the department for consultation. Documentation has been reviewed. I agree with assessment and plan.
[2023-04-02] MEDS: PROPARACAINE 0.5% OPHTH SOL 1 DROPS EYE-LEFT (12:24)
[2023-04-02 12:38] LABS: Add Manual Diff / Slide Review NO; Basophils Absolute Auto 100 /uL (0-100); Basophils Percent Auto 2.1 % (0-2); Eosinophils Absolute Auto 200 /uL (0-450); Eosinophils Percent Auto 4.2 % (2-4); Hematocrit 32.4 % (36-46); Lymphocytes Absolute Auto 2000 /uL (1100-4500); Lymphocytes Percent Auto 37.3 % (25-40); Mean Corpuscular Hemoglobin 30.7 PG (26-34); Mean Corpuscular Volume 90.1 fL (80-100); Monocytes Absolute Auto 1300 /uL (0-900); Monocytes Percent Auto 24.1 % (3-14); Neutrophils Absolute Auto 1700 /uL (1500-7000); Neutrophils Percent Auto 32.3 % (50-75); Platelet Count 230 X10^3/uL (150-400); Red Blood Cell Count 3.59 X10^6/uL (4.0-5.2); Red Cell Distribution Width 23.8 % (11.6-14.8); White Blood Cell Count 5.3 X10^3/uL (4.5-11.0)
[2023-04-02 12:54] LABS: COVID19 -Nasal RAPID Negative (Negative)
[2023-04-02 13:19] LABS: Anisocytosis 2+
[2023-04-02 13:20] VITALS: BP 128/78; PULSE 72; RESP 16; O2SAT 99
== END 2023-04-02 13:21 | disposition home or self-care (01) ==
PROVIDERS: Emergency Medicine; Emergency Provider Nurse Practitioner Critical Care Medicine; PCP Family Medicine
DX: H11.31 Conjunctival hemorrhage, right eye (principal); Z79.899 Other long term (current) drug therapy; Z20.822 Contact with and (suspected) exposure to COVID-19
CPT/HCPCS: 36415; 85025; 87635; 99283; C9803

== ENCOUNTER 2023-04-06 07:28 | Outpatient (CLI) | payer MEDICARE, OTHER, SELFPAY ==
[2023-01-04 14:26] VITALS: BMI 41.6
[2023-04-06] VITALS (8 sets, daily range): BP systolic 129–205; BP diastolic 61–83; PULSE 68–79; RESP 12–20; TEMP 36.7; O2SAT 93–97
--- NOTE | 2023-04-06 07:30 | DI.RAD.S_ITS ---
PROCEDURE: PAIN GENICULAR NERVE BLOCK RT INDICATIONS: PRIMARY OSTEOARTHRITIS COMPARISON: [facility], , PAIN GENICULAR NERVE BLOCK RT, 02/23/2023, 10:58. FINDINGS: Fluoroscopic spot filming was performed to verify placement of spinal needles adjacent to the knee. Appropriate location(s) of the needle tip(s) was confirmed by injection of iodinated contrast. IMPRESSION: Intraprocedural examination within normal limits. Dictated by: Yadiel Briones M.D. on 04/06/2023 at 9:58 Approved by: Yadiel Briones M.D. on 04/06/2023 at 9:59
[2023-04-06] MEDS: MIDAZOLAM 2 MG/2 ML VIAL 1 MG IV (08:08)
[2023-04-06] MEDS: LIDOCAINE 2% INJ MDV 20ML 5 ML INJ (08:14)
[2023-04-06] MEDS: IOPAMIDOL 15 ML VIAL 3 ML INJ (08:15)
--- NOTE | 2023-04-06 08:24 | P.PCN_ITS ---
Date/Time/Diagnoses Date of procedure: 04/06/23 Time of procedure: 08:00 Procedure Notes Physician: Everton Ibarra Total Fluoroscopy time (seconds): 12 Total sedation minutes: 11 Procedure in detail & Post-procedure care: Right Genicular Nerve Injections Indications: Francia is presenting for treatment of right knee osteoarthritis with knee pain. Preoperative diagnosis: Right knee osteoarthritis Postoperative diagnosis: Same Focused Examination: Ax3 Mood and affect are normal Vital Signs: VSS Consent: Following review of allergies and potential side effects/complications, including, but not necessarily limited to, infection, allergic reaction, local tissue breakdown, stroke, temporary or permanent nerve injury, paralysis, and possible , the patient indicated that they understood and agreed to proceed.? An informed consent document was signed by the patient, witnessed by a nurse and placed in the patient's chart.? Additionally, other treatment options including medications and physical therapy were reviewed with the patient. All questions were answered. Site was then marked. Anesthesia: After review of previous anesthetic history and IV conscious sedation, the patient was deemed safe to proceed with today's procedure with IV conscious sedation. IV sedation was accomplished with midazolam 1 mg administered by the RN after order by Dr. Ibarra. Sedation was titrated to patient comfort during the course of the procedure. Patient remained responsive to all verbal commands. Position: Prone Monitoring: NIBP, Pulse oximetry, 3 lead EKG Needle used: 22 ga, 3.5 inch spinal Contrast: Isovue 300-M 2 mL Injectate: 2% lidocaine 1 mL per site Technique: The skin was prepped with chloraprep and then draped in a sterile fashion. Time out was performed as per protocol. Oxygen applied via NC. Skin and subcutaneous structures of the needle entry sites were then infiltrated with 5 mL of lidocaine 1% divided among the 3 injection sites. Under AP and lateral fluoroscopic control, the needles were guided into the expected location of the superomedial, superolateral and inferomedial genicular nerves. Isovue 300-M was then injected and the spread confirmed proper needle location. There was no evidence for intravascular uptake. After negative aspiration, the above- mentioned injectate was then slowly administered to each site and the needles withdrawn. The patient expressed no unusual discomfort or paresthesias during the injection. Band-Aids applied to injection sites. EBL: less than 1 ml Complications: None Post Procedure: Patient was taken to the recovery and monitored. The patient was provided a Pain Log to continue to record the patient's response to the target- specific procedure prior to the patient's follow-up visit with the referring physician. Patient was stable upon discharge. Detailed post procedure instructions were provided. Patient was asked to call in the event of worsening pain, fever, weakness, numbness or bladder or bowel incontinence. Postoperatively, today patient demonstrates the following changes: Right Knee Directly before the block ?VAS (0-10) = 4/10 Directly after the block VAS (0-10) = 4/10 Percentage relief obtained with this diagnostic block 0% Any improved physical functioning directly after the blocks? [id number], ambulation
== END 2023-04-06 08:47 | disposition home or self-care (01) ==
LOC: RAD 07:29
PROVIDERS: PCP Family Medicine; Referring Provider Anesthesiology; Visit Provider Anesthesiology
DX: M17.11 Unilateral primary osteoarthritis, right knee (principal)
CPT/HCPCS: 64454; 99152; J2250

== ENCOUNTER → 2023-04-18 12:17 | Outpatient (CLI) | payer MEDICARE, OTHER, SELFPAY ==
[2023-01-04 14:26] VITALS: BMI 41.6
--- NOTE | 2023-04-18 12:25 | DI.RAD.S_ITS ---
PROCEDURE: XR CHEST 2V INDICATIONS: ACUTE COUGH TECHNIQUE: 2 views of the chest were acquired. COMPARISON: [facility], CR, XR CHEST 1V, 01/22/2023, 15:27. [facility], CR, XR CHEST 1V, 10/18/2022, 17:22. FINDINGS: Surgical changes and devices: None. 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 Prominent interstitial markings are noted, most pronounced centrally, findings may represent pulmonary edema. Mediastinum: Mediastinal contours are normal. Heart size is normal. Bones and chest wall: No suspicious bony abnormalities. Soft tissues appear unremarkable. IMPRESSION: Redemonstration of right middle lobe mass, appears mildly increased in size compared to prior x-ray, this can be further evaluated with CT if clinically indicated. Prominent interstitial markings may represent pulmonary edema. Dictated by: Pacheco Anderson M.D. on 04/18/2023 at 15:42 Approved by: Pacheco Anderson M.D. on 04/18/2023 at 15:44
== END ==
PROVIDERS: PCP Family Medicine
DX: R05.1 Acute cough (principal); R91.8 Other nonspecific abnormal finding of lung field
CPT/HCPCS: 71046

== ENCOUNTER → 2023-05-03 08:03 | Outpatient (CLI) | payer MEDICARE, OTHER, SELFPAY ==
[2023-01-04 14:26] VITALS: BMI 41.6
--- NOTE | 2023-05-03 | DI.US.S_ITS ---
PROCEDURE: US THYROID INDICATIONS: NONTOXIC GOITER TECHNIQUE: Real-time scanning was performed of the thyroid gland, with image documentation. COMPARISON: [facility], US, US FINE NEEDLE ASPIRATION, 09/21/2022, 8:46. [facility], US, US THYROID, 08/26/2022, 15:12. FINDINGS: Right: Thyroid lobe measures 9.5 x 4.3 x 3.0 cm, and is homogeneous in echotexture. Left: Thyroid lobe measures 5.7 x 1.8 x 2.0 cm, and is homogenous in echotexture. Isthmus: 22.5 mm thick. Nodule number: 1 Location: Right superior Size: 3.0 x 3.7 x 2.2 cm. Previously measured 2.9 x 2.7 x 2.4 Composition: Solid Echogenicity: Isoechoic Shape: wider than tall. Margins: Smooth Echogenic foci: None Total points: 3 ACR TI-RADS category: 3 Nodule number: 2 Location: Right mid Size: 3.8 x 4.0 x 3.0 cm. Previously 2.9 x 3.8 x 2.9 cm. Composition: Predominantly solid Echogenicity: Isoechoic Shape: wider than tall. Margins: Irregular Echogenic foci: None Total points: 5 ACR TI-RADS category: 4 Nodule number: 3 Location: Left mid/posterior Size: 2.0 x 1.1 x 1.3 cm. Previously 2.0 x 0.9 x 1.3 cm. Composition: Predominantly solid Echogenicity: Isoechoic Shape: wider than tall. Margins: Smooth Echogenic foci: None Total points: 3 ACR TI-RADS category: 3 Nodule number: 4 Location: Left mid Size: 1.0 x 0.8 x 0.7 cm. Previously 0.8 x 0.8 x 0.6 cm. Composition: Predominantly solid Echogenicity: Hypoechoic Shape: wider than tall. Margins: Smooth Echogenic foci: None Total points: 4 ACR TI-RADS category: 4 Nodule number: 5 Location: Isthmus Size: 3.1 x 2.4 x 2.0 cm. Previously 3.5 x 2.5 x 2.4 cm. Composition: Predominantly solid Echogenicity: Isoechoic Shape: wider than tall. Margins: Smooth Echogenic foci: Punctate Total points: 6 ACR TI-RADS category: 4 IMPRESSION: 1. Questionable enlargement of the right mid thyroid nodule (#2) when compared with the prior ultrasound from August 26, 2022. It is unclear whether there is true interval growth or simply inter observer error (measurement is only increased in 1 dimension). Continued attention should be directed to this nodule on future surveillance scans. 2. Otherwise stable thyroid nodules when compared with the prior study. Multiple bilateral thyroid nodules requiring continued follow-up at 1, 2, 3, and 5 years. ACR TI-RADS definitions and recommendations: TI-RADS 1 (benign): 0 points. FNA not needed. TI-RADS 2 (not suspicious): 2 points. FNA not needed. TI-RADS 3 (mildly suspicious): 3 points. * FNA if 2.5 cm or larger, follow up if 1.5 cm or larger (at 1, 3, and 5 years). TI-RADS 4 (moderately suspicious): 4-6 points. * FNA if 1.5 cm or larger, follow up if 1 cm or larger (at 1, 2, 3, and 5 years). TI-RADS 5 (highly suspicious): 7 points or more. * FNA if 1 cm or larger, follow up if 0.5 cm or larger (every year for 5 years). Dictated by: Gabbi Flaherty M.D. on 05/03/2023 at 12:37 Approved by: Gabbi Flaherty M.D. on 05/03/2023 at 12:47
--- NOTE | 2023-05-03 | DI.CT.S_ITS ---
PROCEDURE: CT CHEST HIGH RESOLUTION INDICATIONS: Multilobar lung infiltrate TECHNIQUE: Noncontrast 1.0 and 5.0 mm thick contiguous axial sections from the pulmonary apex to the posterior costophrenic angles, with 7 mm thick coronal and sagittal MIP reformats. 1 mm thick dynamic expiratory images acquired through the upper, mid, and lower lungs. 1.0 mm thick axial sections acquired from the jovani to the posterior costophrenic angles in the prone end-inspiration position. For radiation dose reduction, the following was used: automated exposure control, adjustment of mA and/or kV according to patient size. COMPARISON: [facility], CT, CT ANGIO CHEST PE PROTOCOL, 01/22/2023, 20:54. FINDINGS: Image quality: Excellent. Lungs: Similar near complete atelectasis of the right middle lobe. The airway is obscured (series 2, image 137). Central predominant consolidation with superimposed ground-glass and smooth interstitial thickening. Pleura: Small right and trace left pleural effusion. Mediastinum: Heart size is normal. No pericardial effusion. Thoracic aorta and central pulmonary arteries are normal in size. Esophagus is normal in caliber. Three-vessel coronary artery calcifications. Bones and chest wall: Sclerotic osseous lesions of the sternum and spine. No vertebral body compression fractures. Large, heterogeneous thyroid. Right mastectomy. Abdomen: 4.0 cm right adrenal nodule, similar to prior (series 3, image 53). Abnormal, rounded gastrohepatic lymph node measuring 1.4 cm short axis (series 3, image 52). IMPRESSION: Similar near complete atelectasis of the right middle lobe, with collapse of the distal right middle lobar airway. Obstructing mass not excluded. New moderate pulmonary edema, with smooth interstitial thickening, bronchial thickening, central ground-glass. Multifocal perihilar consolidation, could represent multifocal pneumonia, pneumonitis, or possibly related to underlying pulmonary edema. Sclerotic osseous metastatic disease. Similar right adrenal nodule measuring 4.0 cm, possibly malignant. Abnormal, rounded gastrohepatic lymph node also concerning for malignancy. Dictated by: Bear Cobb M.D. on 05/03/2023 at 9:53 Approved by: Bear Cobb M.D. on 05/03/2023 at 10:04
== END ==
PROVIDERS: PCP Family Medicine; Referring Provider Internal Medicine; Visit Provider Internal Medicine
DX: C79.51 Secondary malignant neoplasm of bone (principal); C80.1 Malignant (primary) neoplasm, unspecified; J98.11 Atelectasis; J81.1 Chronic pulmonary edema; E27.9 Disorder of adrenal gland, unspecified; R59.0 Localized enlarged lymph nodes; J90 Pleural effusion, not elsewhere classified; E04.9 Nontoxic goiter, unspecified; R91.8 Other nonspecific abnormal finding of lung field
CPT/HCPCS: 71250; 76536

== ENCOUNTER → 2023-05-16 12:39 | Outpatient (CLI) | payer MEDICARE, OTHER, SELFPAY ==
[2023-01-04 14:26] VITALS: BMI 41.6
--- NOTE | 2023-05-16 | DI.US.S_ITS ---
PROCEDURE: US THYROID INDICATIONS: GOITER TECHNIQUE: Real-time scanning was performed of the thyroid gland, with image documentation. COMPARISON: [facility], US, US THYROID, 05/03/2023, 8:40. FINDINGS: A bilateral thyroid biopsy was planned for today on nodule 1 and 5. Prior to the biopsy, the nodules were re-evaluated. Nodule one demonstrate slightly decreased size, measuring 2.5 x 1.5 x 2.2 centimeters, previously 2.9 x 2.4 x 2.7 centimeters on 08/26/2022. Given prior biopsy and a decrease in size, re-biopsy is not warranted. Nodule five demonstrated similar size, measuring 3.3 x 1.7 x 3.2 centimeters, previously 3.5 x 2.5 x 2.4 centimeters on 08/26/2022. The previously reported punctate echogenic foci were determined to be colloid cysts at time of exam. Therefore, this nodule would score TI-RADS 3, and re-biopsy is not warranted. IMPRESSION: No biopsy is indicated for this exam. Please see notes above. ACR TI-RADS definitions and recommendations: TI-RADS 1 (benign): 0 points. FNA not needed. TI-RADS 2 (not suspicious): 2 points. FNA not needed. TI-RADS 3 (mildly suspicious): 3 points. * FNA if 2.5 cm or larger, follow up if 1.5 cm or larger (at 1, 3, and 5 years). TI-RADS 4 (moderately suspicious): 4-6 points. * FNA if 1.5 cm or larger, follow up if 1 cm or larger (at 1, 2, 3, and 5 years). TI-RADS 5 (highly suspicious): 7 points or more. * FNA if 1 cm or larger, follow up if 0.5 cm or larger (every year for 5 years). Dictated by: Bear Cobb M.D. on 05/16/2023 at 14:38 Approved by: Bear Cobb M.D. on 05/16/2023 at 14:41
--- NOTE | 2023-05-16 15:47 | DI.MRI.S_ITS ---
PROCEDURE: MR HEAD/BRAIN WO/W CON INDICATIONS: Breast cancer TECHNIQUE: Noncontrast axial T1 spin echo, axial T2 fast spin echo, sagittal and axial FLAIR, coronal T2 fast spin echo, axial gradient echo, axial diffusion and ADC through the brain. After the administration of contrast, axial and coronal and sagittal 3D VIBE or T1 spin echo with fat saturation through the brain. COMPARISON: None. FINDINGS: Image quality: Mild motion artifact CSF Spaces: Basal cisterns are patent. No extra-axial fluid collections. Ventricles are normal in size and shape. Brain: No intracranial masses or hemorrhage. Goldman/white matter interface is normal. Brainstem appears normal. Diffusion-weighted sequence is unremarkable without evidence of acute infarct. Normal intravascular flow voids are present. Skull and face: Calvarial marrow is normal in signal. Orbits appear normal. Sinuses: Sinuses and mastoids appear clear. IMPRESSION: Mild age-appropriate atrophy and chronic ischemic change without acute infarct, hemorrhage or mass lesion. No evidence of metastatic disease. Approved by: Elroy Conte M.D. on 05/16/2023 at 15:50
== END ==
PROVIDERS: PCP Family Medicine; Referring Provider Internal Medicine; Visit Provider Internal Medicine
DX: E04.2 Nontoxic multinodular goiter (principal); G31.9 Degenerative disease of nervous system, unspecified
CPT/HCPCS: 70553; 76536; A9579

== ENCOUNTER 2023-07-08 13:44 | Emergency (ER) | payer MEDICARE, OTHER, SELFPAY ==
[2023-01-04 14:26] VITALS: BMI 41.6
[2023-07-08] VITALS (18 sets, daily range): BP systolic 130–176; BP diastolic 56–88; PULSE 65–75; RESP 10–23; TEMP 36.1; O2SAT 91–96; BMI 43.5
--- NOTE | 2023-07-08 14:34 | DI.RAD.S_ITS ---
PROCEDURE: XR CHEST 1V INDICATIONS: chest pain TECHNIQUE: One view of the chest was acquired. COMPARISON: [facility], CT, CT CHEST HIGH RESOLUTION, 05/03/2023, 8:11. [facility], CR, XR CHEST 2V, 04/18/2023, 12:48. FINDINGS: Surgical changes and devices: None. Lungs and pleura: Persistent airspace opacities are present within the right mid lung similar to the plain film dated April 18, 2023. There is diffuse interstitial prominence bilaterally. No pleural effusion or pneumothorax. Mediastinum: Mediastinal contours appear normal. Heart size is enlarged. Bones and chest wall: No suspicious bony lesions. Overlying soft tissues appear unremarkable. IMPRESSION: 1. Persistent right midlung pulmonary radiopacity which likely represents collapse of the right middle lobe as seen on the comparison CT dated May 03, 2023. These findings are suspicious for a centrally obstructing lesion. Nonemergent CT of the chest with contrast is recommended to further characterize this finding. 2. Interstitial prominence and cardiomegaly suspicious for congestive failure. Dictated by: Gabbi Flaherty M.D. on 07/08/2023 at 15:42 Approved by: Gabbi Flaherty M.D. on 07/08/2023 at 15:44
[2023-07-08 15:18] LABS: INR 0.9 (0.9-1.3); Prothrombin Time 10.8 SECONDS (9.4-12.5)
[2023-07-08 15:20] LABS: Hematocrit 29.6 % (36-46); Mean Corpuscular HGB Conc 33.8 % (30-36); Mean Corpuscular Hemoglobin 32.9 PG (26-34); Mean Corpuscular Volume 97.4 fL (80-100); Platelet Count 179 X10^3/uL (150-400); Red Blood Cell Count 3.03 X10^6/uL (4.0-5.2); Red Cell Distribution Width 16.8 % (11.6-14.8)
[2023-07-08 15:21] LABS: PTT Partial Thromboplastin Tim 26 SECONDS (25.1-36.5)
[2023-07-08 15:22] LABS: Add Manual Diff / Slide Review YES
[2023-07-08 15:23] LABS: Alanine Aminotransferase 18 IU/L (<35); Albumin 3.7 g/dL (3.5-5.0); Albumin Globulin Ratio 1.4 (1.0-2.8); Alkaline Phosphatase 87 U/L (38-126); Aspartate Aminotransferase 20 IU/L (14-36); BUN Creatinine Ratio 26.3 (6-22); Bilirubin Total 0.4 mg/dL (0.2-1.3); Blood Urea Nitrogen 69 mg/dL (7-17); Calcium 9.4 mg/dL (8.4-10.2); Carbon Dioxide 25 mmol/L (22-32); Chloride 103 mmol/L (98-107); Creatine Kinase 154 U/L (30-135); Estimated Glomerular Filt Rate 18 mL/min (>60); Globulin 2.7 g/dL (1.7-4.1); Glucose 179 mg/dL (80-110); HEMOLYSIS < 15 (0-50); Lipase 37 U/L (23-300); Potassium 4.4 mmol/L (3.4-5.1); Sodium 137 mmol/L (137-145); Total Protein 6.4 g/dL (6.3-8.2)
[2023-07-08 15:33] LABS: Troponin I < 0.012 ng/mL (0.01-0.034)
[2023-07-08 15:42] LABS: Neutrophils Absolute Manual 1440 /uL (3000-5900); Total Cells Counted 100
[2023-07-08 15:43] LABS: Anisocytosis 1+
--- NOTE | 2023-07-08 18:35 | ED.GENADULT ---
HPI - General Adult General Chief complaint: Dizziness Stated complaint: sent by pcp, low bp Time Seen by Provider: 07/08/23 15:23 Source: patient Mode of arrival: Ambulatory Limitations: no limitations History of Present Illness HPI narrative: Patient is a 83-year-old female. History of hypertension. Is on multiple antihypertensive medications. Also has a history of heart failure. Is on Lasix. Is an insulin-dependent diabetic. Also has known history of lung cancer. Is being followed by Oncology. She was sent here to the emergency department from the walk-in clinic. She was sent to be evaluated by her primary doctor. Over the past several days/weeks she is had periodic episodes where she is become lightheaded. She takes her blood pressures during this time and states that the systolic blood pressure has been in the 90s to low 100s. She does take her blood pressure every morning on a regular basis. She took her blood pressure this morning in the systolic blood pressure was in the 90s. She was feeling somewhat lightheaded of the time. When she feels this way she sits down and approximately 15 minutes later symptoms seemed to improve. She takes her blood pressure medicines in the morning and at night. She takes her blood pressure in the morning before her morning blood pressure medicines. Yesterday her oncologist told her to stop taking the hydrochlorothiazide. She called her primary doctor today to let them know of this change in medications and when she told them she was having lightheadedness this morning is what prompted her to be told to come and have an evaluation. Currently she states she feels better. She is no chest pain. No palpitations. No change in respiratory status. No abdominal pain. Related Data Home Medications Medication Instructions Recorded Confirmed carboxymethylcellulose sodium 0.5 1 drp ophthalmic (eye) .prn 06/16/22 06/03/23 % eye drops (Refresh Tears) palbociclib 125 mg tablet (Ibrance) 125 mg PO DAILY 01/31/23 06/03/23 Previous Rx's Medication Instructions Recorded Complex Power Wheelchair #1 ea 09/20/22 oxybutynin chloride 5 mg tablet 5 mg PO BID #180 tabs 10/21/22 letrozole 2.5 mg tablet 2.5 mg PO DAILY #90 tabs 12/28/22 amlodipine 10 mg tablet (Norvasc) 10 mg PO DAILY #90 tabs 03/02/23 atorvastatin 20 mg tablet (Lipitor) 20 mg PO BEDTIME cholesterol #90 03/02/23 tabs furosemide 40 mg tablet 40 mg PO DAILY PRN edema #90 tabs 03/02/23 glipizide 5 mg tablet, extended 5 mg PO DAILY diabetes #90 tabs 03/02/23 release 24 hr hydrochlorothiazide 25 mg tablet 25 mg PO BID for blood pressure 03/02/23 #180 tabs labetalol 100 mg tablet See Rx Instructions .Route 03/02/23 .COMPLEX #180 tabs montelukast 10 mg tablet See Rx Instructions .Route 03/02/23 .COMPLEX #90 tabs valsartan 320 mg tablet 320 mg PO DAILY #90 tabs 03/02/23 blood sugar diagnostic (Contour #200 ea 04/18/23 Next Test Strips) albuterol sulfate 90 mcg/actuation 1 - 2 inh inhalation Q4-6H PRN 05/06/23 aerosol inhaler shortness of breath or wheezing #8.5 grams cpap auto pap with humidifier #1 ea 05/06/23 gabapentin 100 mg capsule 100 - 200 mg (1 - 2 x 100 mg) PO 06/03/23 TID PRN pain #180 caps insulin human U-100 NPH-regulr 60 unit (0.6 mL) SUBCUT BID #90 mL 06/03/23 70-30 mix 100 unit/mL subcutaneous susp (Novolin 70/30 U-100 Insulin) Allergies Allergy/AdvReac Type Severity Reaction Status Date / Time Sulfa (Sulfonamide Allergy Unknown Verified 06/03/23 11:36 Antibiotics) [SULFA (SULFONAMIDE ANTIBIOTICS)] Review of Systems Review of Systems ROS Unobtainable: All systems reviewed & are unremarkable except as noted in HPI and below Patient History Medical History MIRIAN (obstructive sleep apnea) Osteoarthritis of right knee Right knee pain Ischiogluteal bursitis Diabetes mellitus with hyperglycemia, with long-term current use of insulin Paroxysmal A-fib Spinal stenosis, lumbar region with neurogenic claudication Knee osteoarthritis Sacrococcygeal disorders, not elsewhere classified Thyroid nodule Abnormal Pap smear of cervix (~1992) History of urinary incontinence (~1994) Kidney stones (~2001) Hemorrhoid (~1989) CPAP (continuous positive airway pressure) dependence (~1999) Asthma (~1989) Bulimia (~1959) Fracture (~1986) Chronic back pain (~1989) Carpal tunnel syndrome (~1991) Mumps (~1970) Measles (~1944) Chicken pox (~1945) Adrenal adenoma History of stent insertion of renal artery Breast cancer (~2016) Hyperlipidemia OAB (overactive bladder) Benign essential HTN CKD (chronic kidney disease) Diabetes mellitus type 2, insulin dependent (~1993) Surgical History Anesthesia S/P fusion of sacroiliac joint H/O umbilical hernia repair H/O bilateral mastectomy H/O: hysterectomy Hx of cholecystectomy Status post hysterectomy Family History Father History of heart disease Hypertension Mother Cancer Brother Hypertension Brother Hypertension Brother History of heart disease Hypertension Grandfather History of heart disease Social History household members: children Smoking Status: Former smoker Smoking Status: Former smoker alcohol intake frequency: other Substance Use Type: does not use Exam Initial Vital Signs Initial Vital Signs: Vital Signs Temperature 97.0 F L 07/08/23 13:47 Pulse Rate 70 07/08/23 13:47 Respiratory Rate 16 07/08/23 13:47 Blood Pressure 130/56 L 07/08/23 13:47 Pulse Oximetry 96 07/08/23 13:47 Oxygen Delivery Method Room Air 07/08/23 13:47 HENMT Head: normal to inspection and normocephalic Resp Effort & Inspection: normal respiratory effort Auscultation: clear to auscultation bilaterally Cardio Rate: regular rate Rhythm: regular rhythm GI Inspection: normal to inspection and non-distended Skin General: no rashes or lesions noted Neuro General: patient alert, patient awake and moves all extremities Extrem General: capillary refill normal Scores GCS Crystal coma scale eye opening: Spontaneous Eden coma scale verbal response: Orientated Crystal coma scale motor response: Obey commands Crystal coma scale total score: 15 Course Orders Ordered: ED Orders 07/08/23 14:34 XR chest 1V Stat 07/08/23 14:45 Complete Blood Count AUTO DIFF Stat Comprehensive Metabolic Panel Stat Lipase Stat Magnesium Stat PTT Partial Thromboplastin Vj Stat Prothrombin Time INR Stat Troponin & CK Cardiac Panel Stat 07/08/23 14:59 EKG-12 Lead Stat Vital Signs Vital signs: Vital Signs - 8 hr 07/08/23 17:00 07/08/23 17:01 07/08/23 17:01 Pulse Rate 69 68 Respiratory Rate 17 21 Blood Pressure 169/74 H Pulse Oximetry 92 92 07/08/23 17:11 07/08/23 17:11 07/08/23 17:30 Pulse Rate 75 66 Respiratory Rate 23 15 Blood Pressure 176/74 H Pulse Oximetry 94 93 07/08/23 17:31 07/08/23 17:31 07/08/23 18:00 Pulse Rate 67 68 Respiratory Rate 15 20 Blood Pressure 150/67 H Pulse Oximetry 92 91 07/08/23 18:01 07/08/23 18:01 07/08/23 18:30 Pulse Rate 67 69 Respiratory Rate 20 16 Blood Pressure 160/76 H Pulse Oximetry 92 93 07/08/23 18:31 Pulse Rate 69 Respiratory Rate 14 Blood Pressure Pulse Oximetry 93 Medical Decision Making Lab Data Lab results reviewed: Yes I reviewed the patient's lab results. 07/08/23 14:45 07/08/23 14:45 Labs: Lab Results 07/08/23 Range/Units 14:45 WBC 4.0 L (4.5-11.0) X10^3/uL RBC 3.03 L (4.0-5.2) X10^6/uL Hgb 10.0 L (12.0-16.0) g/dL Hct 29.6 L (36-46) % MCV 97.4 (80-100) fL MCH 32.9 (26-34) PG MCHC 33.8 (30-36) % RDW 16.8 H (11.6-14.8) % Plt Count 179 (150-400) X10^3/uL Neut % (Auto) Not Reportable Lymph % (Auto) Not Reportable Custer % (Auto) Not Reportable Eos % (Auto) Not Reportable Baso % (Auto) Not Reportable Lymph # (Auto) Not Reportable Custer # (Auto) Not Reportable Baso # (Auto) Not Reportable Total Counted 100 Seg Neutrophils % 35.0 L (38-70) % Band Neutrophils % 1.0 L (3-7) % Lymphocytes % (Manual) 51.0 H (25-45) % Monocytes % (Manual) 9.0 (2-11) % Eosinophils % (Manual) 2.0 (2-4) % Basophils % (Manual) 2.0 H (0-1) % Neutrophils # (Manual) 1440 L (7448-8905) /uL RBC Morphology See below Anisocytosis 1+ H PT 10.8 (9.4-12.5) SECONDS INR 0.9 (0.9-1.3) APTT 26 (25.1-36.5) SECONDS Sodium 137 (137-145) mmol/L Potassium 4.4 (3.4-5.1) mmol/L Chloride 103 (98-107) mmol/L Carbon Dioxide 25 (22-32) mmol/L BUN 69 H (7-17) mg/dL Creatinine 2.62 H (0.52-1.04) mg/dL Estimated GFR 18 L (>60) mL/min BUN/Creatinine Ratio 26.3 H (6-22) Glucose 179 H (80-110) mg/dL Calcium 9.4 (8.4-10.2) mg/dL Magnesium 2.0 (1.6-2.3) mg/dL Total Bilirubin 0.4 (0.2-1.3) mg/dL AST 20 (14-36) IU/L ALT 18 (<35) IU/L Alkaline Phosphatase 87 (38-126) U/L Total Creatine Kinase 154 H (30-135) U/L Troponin I < 0.012 (0.01-0.034) ng/mL Total Protein 6.4 (6.3-8.2) g/dL Albumin 3.7 (3.5-5.0) g/dL Globulin 2.7 (1.7-4.1) g/dL Albumin/Globulin Ratio 1.4 (1.0-2.8) Lipase 37 (23-300) U/L Imaging Data Chest x-ray: Radiologist's Impression: PROCEDURE: XR CHEST 1V INDICATIONS: chest pain TECHNIQUE: One view of the chest was acquired. COMPARISON: [facility], CT, CT CHEST HIGH RESOLUTION, 05/03/2023, 8:11. [facility], CR, XR CHEST 2V, 04/18/2023, 12:48. FINDINGS: Surgical changes and devices: None. Lungs and pleura: Persistent airspace opacities are present within the right mid lung similar to the plain film dated April 18, 2023. There is diffuse interstitial prominence bilaterally. No pleural effusion or pneumothorax. Mediastinum: Mediastinal contours appear normal. Heart size is enlarged. Bones and chest wall: No suspicious bony lesions. Overlying soft tissues appear unremarkable. IMPRESSION: 1. Persistent right midlung pulmonary radiopacity which likely represents collapse of the right middle lobe as seen on the comparison CT dated May 03, 2023. These findings are suspicious for a centrally obstructing lesion. Nonemergent CT of the chest with contrast is recommended to further characterize this finding. 2. Interstitial prominence and cardiomegaly suspicious for congestive failure. MDM Narrative Medical decision making narrative: Tolerating oral intake. Is not hypotensive here in the ER. No chest pain. No shortness of breath. No palpitations. She recently had a change in her blood pressure medicines per recommendation of her oncologist. Had a discussion with her regarding her symptoms. I wonder if she potentially is on too much antihypertensive medicines she states that sometimes in the morning her blood pressure is actually low. She does not get lightheaded every day. Her workup here in the emergency department is relatively unremarkable. The findings on the chest x-ray are not new and she knows about these in his being followed by Oncology. Since she just had a change in her antihypertensive medicines within the past 24 hours we will hold on any further changes for now. Advised that she take her blood pressure in the morning and also at evening to see whether or not potentially her evening antihypertensives are causing her to have low blood pressure. Will have her contact her primary doctor for a follow-up. She was given return precautions. She expressed understanding and agreement. Discharge Plan Departure Patient Disposition: Home Clinical Impression: Hypotension Instructions: How to Monitor Your Blood Pressure at Home Activity Restrictions/Additional Instructions: I do recommend that you continue to take all of your medications as directed except for stopping the hydrochlorothiazide that was recommended by her oncologist this evening. Contact your primary care doctor for a follow-up. Continue to take your blood pressure at home like we discussed. Return to the emergency department for new symptoms. Prescriptions: No Action (DME) Contour Next Test Strips Strip See Rx Instructions .Route Qty: 200 11RF Rx Instructions: As directed oxybutynin chloride 5 mg tablet 5 mg PO BID Qty: 180 3RF amlodipine [Norvasc] 10 mg tablet 10 mg PO DAILY Qty: 90 3RF atorvastatin [Lipitor] 20 mg tablet 20 mg PO BEDTIME Qty: 90 3RF furosemide 40 mg tablet 40 mg PO DAILY PRN (Reason: edema) Qty: 90 3RF Patient Comments: Pt states she takes when needed, holds when she has to go somewhere and does not want to have to urinate glipizide 5 mg tablet extended release 24hr 5 mg PO DAILY Qty: 90 3RF hydrochlorothiazide 25 mg tablet 25 mg PO BID Qty: 180 3RF labetalol 100 mg tablet See Rx Instructions .ROUTE .COMPLEX Qty: 180 3RF Dose Instruction: TAKE 1 TABLET BY MOUTH TWICE DAILY Rx Instructions: TAKE 1 TABLET BY MOUTH TWICE DAILY montelukast 10 mg tablet See Rx Instructions .ROUTE .COMPLEX Qty: 90 3RF Dose Instruction: TAKE 1 TABLET BY MOUTH EVERY DAY Rx Instructions: TAKE 1 TABLET BY MOUTH EVERY DAY valsartan 320 mg tablet 320 mg PO DAILY Qty: 90 3RF Ibrance 125 mg tablet 125 mg PO DAILY Rx Instructions: administer on days 1 through 21 of a 28-day treatment cycle Novolin 70/30 U-100 Insulin 100 unit/mL (70-30) suspension 60 unit SUBCUT BID Qty: 90 11RF gabapentin 100 mg capsule 100 - 200 mg PO TID PRN (Reason: pain) Qty: 180 2RF carboxymethylcellulose sodium [Refresh Tears] 0.5 % drops 1 drp ophthalmic (eye) .prn Patient Comments: Only when needed letrozole 2.5 mg tablet 2.5 mg PO DAILY Qty: 90 3RF (DME) cpap auto pap with humidifier See Rx Instructions .Route .MEDSUPPLY Qty: 1 0RF Rx Instructions: use nightly as directed for MIRIAN. please provider mask, tubing, supplies as well. albuterol sulfate 90 mcg/actuation HFA aerosol inhaler 1 - 2 inh inhalation Q4-6H PRN (Reason: shortness of breath or wheezing) Qty: 8.5 11RF (DME) Complex Power Wheelchair See Rx Instructions .Route .MEDSUPPLY Qty: 1 0RF Rx Instructions: As directed Referrals: Rody Mijares DO [Primary Care Provider] - Stand Alone Forms: Patient Portal/API
== END 2023-07-08 18:55 | disposition home or self-care (01) ==
PROVIDERS: Emergency Medicine; Emergency Provider Emergency Medicine; PCP Family Medicine
DX: I95.9 Hypotension, unspecified (principal); I13.0 Hypertensive heart and chronic kidney disease with heart failure and stage 1 through stage 4 chronic kidney disease, or unspecified chronic kidney disease; I50.9 Heart failure, unspecified; N18.9 Chronic kidney disease, unspecified; E11.22 Type 2 diabetes mellitus with diabetic chronic kidney disease; Z79.899 Other long term (current) drug therapy; Z79.4 Long term (current) use of insulin
CPT/HCPCS: 36415; 71045; 80053; 82550; 83690; 83735; 84484; 85007; 85025; 85610; 85730; 93005; 93010; 99283; 99284

== ENCOUNTER → 2023-09-21 09:26 | Outpatient (CLI) | payer MEDICARE, OTHER, SELFPAY ==
[2023-01-04 14:26] VITALS: BMI 41.6
--- NOTE | 2023-09-21 09:28 | DI.ECHO.S_ITS ---
[facility] +---------+ : : [address] : [address] : : : : [id number] : : : : Phone: [phone]+ Echocardiogram Report + + :Name: ÁNGELA OSBORNE Study Date: 09/21/2023 Height: 62 in : :[facility] ReadingLocation: Weight: 241 lb : : Gender: Female BSA: 2.1 m2 : :: 1940 Age: 83 yrs BP: 132/55 mmHg: :Reason For Study: SHORTNESS OF BREATH : :Ordering Physician: EUGENIE FRAGOSO : :Grant BUSTILLO Performed By: Ofelia Loredo : :Referring: EUGENIE FRAGOSO MD : + + Interpretation Summary The left ventricle is normal in size. There is mild concentric left ventricular hypertrophy. The left ventricular ejection fraction is normal. The ejection fraction is estimated to be 60-65%. Previous LVEF 65 to 70%. Diastolic parameters suggest a pseudonormalization pattern, consistent with probable elevated filling pressures. Worsening diastolic function. The right ventricle is normal in size and function. There is mild tricuspid regurgitation. Compared to the prior echo exam, there has been no change in TR severity. The right ventricular systolic pressure is estimated to be at least 41 mmHg based on an estimated right atrial pressure of 8 mm Hg. Previously 34 mmHg. There is mild luminal irregularity and echogenicity in the abdominal aorta, suggestive of aortic atherosclerotic disease. Mild atherosclerotic plaque(s) in the aortic arch. Procedure: A two-dimensional transthoracic echocardiogram with color flow and Doppler was performed. The study quality was technically adequate. Comparison is made with the echocardiogram of 10/19/2022. The patient was in sinus rhythm with heart rates between 65-70 bpm during the exam. Left Ventricle: The left ventricle is normal in size. There is mild concentric left ventricular hypertrophy. There is no thrombus. The ejection fraction is estimated to be 60-65%. The left ventricular ejection fraction is normal. There are no focal wall motion abnormalities. Diastolic parameters suggest a pseudonormalization pattern, consistent with probable elevated filling pressures. Right Ventricle: The right ventricle is normal in size and function. Atria: The left atrium is mildly dilated. There has been no significant change since the previous study. Right atrial size is normal. There is no Doppler evidence for an interatrial shunt. Mitral Valve: There is mild mitral annular calcification. There is trace mitral regurgitation. Aortic Valve: The aortic valve is trileaflet. The aortic valve opens well. The aortic valve is slightly calcified. There is no aortic valve stenosis. There is trace aortic regurgitation. Tricuspid Valve: There is tricuspid annular calcification. There is mild tricuspid regurgitation. The right ventricular systolic pressure is estimated to be at least 41 mmHg based on an estimated right atrial pressure of 8 mm Hg. Compared to the prior echo exam, there has been no change in TR severity. Pulmonic Valve: The pulmonic valve leaflets are thin and pliable; valve motion is normal. There is trace pulmonic regurgitation. Great Vessels: The aortic root is normal size. There is aortic root sclerosis/calcification. The dimensions of the ascending aorta are normal. There is mild luminal irregularity and echogenicity in the abdominal aorta, suggestive of aortic atherosclerotic disease. Mild atherosclerotic plaque(s) in the aortic arch. The IVC is dilated (diameter is greater than 2.1 cm) yet it collapses greater than 50% with a sniff. This suggests a right atrial pressure of 8 mm Hg. Pericardium/ Pleura There is no pericardial effusion. There is no pleural effusion. MMode/2D Measurements & Calculations LVIDd: 4.6 cm LVOT diam: 2.1 cm LVIDs: 2.8 cm Ao root diam: 3.1 cm FS: 38.8 % asc Aorta Diam: 3.5 cm EPSS: 0.89 cm Ao Arch Diam (Prox Trans): 2.8 cm IVSd: 1.3 cm LVPWd: 1.2 cm LV hernadez. diameter/BSA (cm/m^2): 2.2 LV sys. diameter/BSA (cm/m^2): 1.4 LA A2 area: 22.6 cm2 RA long axis: 6.1 cm LA A4 area: 22.0 cm2 RA area: 19.3 cm2 LA length (vol): 5.9 cm RA vol: 51.7 ml LA vol: 71.2 ml RA : 25.0 ml/m2 LA vol index: 34.4 ml/m2 IVC diam: 2.3 cm RVD1 (basal): 4.0 cm TAPSE: 2.2 cm Doppler Measurements & Calculations Ao V2 max: 161.0 cm/sec LVOT Max Ozzy: 101.1 cm/sec Ao V2 mean: 116.5 cm/sec LV V1 max P.1 mmHg Ao max P.4 mmHg LV V1 VTI: 24.9 cm Ao mean P.0 mmHg NAYELI(I,D): 2.2 cm2 Ao V2 VTI: 40.8 cm NAYELI(V,D): 2.2 cm2 sev ratio: 0.61 NAYELI indexed to BSA (cm^2/m^2): 1.0 MV E max ozzy: 103.6 cm/sec TR max ozzy: 289.0 cm/sec MV A max ozzy: 78.1 cm/sec TR max P.4 mmHg MV E/A: 1.3 PA V2 max: 96.7 cm/sec Med Peak E' Ozzy: 5.5 cm/sec PA V2 mean: 72.5 cm/sec E/E' med: 18.8 PA mean P.3 mmHg Lat Peak E' Ozzy: 7.3 cm/sec PA pr(Accel): 46.5 mmHg E/E' lat: 14.2 E/e' average: 16.5 MV dec time: 0.25 sec MVA(VTI): 2.6 cm2 MV V2 mean: 66.6 cm/sec SV(LVOT): 88.5 ml MV mean P.0 mmHg MV V2 VTI: 33.5 cm Reading Physician:05:45 PM
== END ==
LOC: ECHO 09:27
PROVIDERS: PCP Family Medicine; Referring Provider Nuclear Medicine Nuclear Cardiology; Visit Provider Nuclear Medicine Nuclear Cardiology
DX: I08.1 Rheumatic disorders of both mitral and tricuspid valves (principal); I70.0 Atherosclerosis of aorta; R06.02 Shortness of breath
CPT/HCPCS: 93306

== ENCOUNTER 2023-10-03 12:45 | Inpatient (IN) | payer MEDICARE, OTHER, SELFPAY ==
[2023-01-04 14:26] VITALS: BMI 41.6
[2023-10-03] VITALS (17 sets, daily range): BP systolic 86–146; BP diastolic 49–90; PULSE 64–76; RESP 14–34; TEMP 36.3–36.4; O2SAT 88–96; BMI 45.3; BMI 45.1
--- NOTE | 2023-10-03 13:11 | DI.RAD.S_ITS ---
PROCEDURE: XR CHEST 1V INDICATIONS: Shortness of breath TECHNIQUE: One view of the chest was acquired. COMPARISON: CT, CT CHEST HIGH RESOLUTION, 05/03/2023, 8:11. [facility], CR, XR CHEST 1V, 01/22/2023, 15:27. [facility], CR, XR CHEST 1V, 07/08/2023, 15:02. FINDINGS: Surgical changes and devices: None. Lungs and pleura: Increased vascularity is present. Patchy pulmonary opacity within the right lung/perihilar region is more prominent when compared to prior exam. Mediastinum: Mediastinal contours appear normal. Heart size is normal. Bones and chest wall: No suspicious bony lesions. Overlying soft tissues appear unremarkable. IMPRESSION: Progressive appearance of edema and perihilar opacities. While this all could be related to focal edema, developing areas of underlying pneumonia/atelectasis should be considered. Additionally, mass lesion of other etiology should be considered. Dictated by: Peg Delgado M.D. on 10/03/2023 at 14:43 Approved by: Peg Delgado M.D. on 10/03/2023 at 14:44
--- NOTE | 2023-10-03 13:27 | ED.GENADULT ---
HPI - General Adult General Chief complaint: Shortness of Breath/Dyspnea Stated complaint: sent by steward/stewardess dining room, fluid retention Time Seen by Provider: 10/03/23 13:23 Source: patient and family Mode of arrival: Wheelchair History of Present Illness HPI narrative: 83-year-old female with history of COPD, CKD, diabetes, atrial fibrillation, CHF, metastatic lung cancer, asthma, hyperlipidemia presents with shortness of breath. She was sent by cardiology team with concern for fluid overload. heart and to call me prior to her arrival. They stated they felt she was gaining weight rapidly and had CHF exacerbation. She has sulfa and penicillin allergy. Patient and daughter at bedside provide history. Patient states that due to elevated creatinine recently, her Lasix dose was adjusted from 80 mg twice daily to 60 mg in the morning and 40 mg at night. She states since then she has had gradually worsening orthopnea, with cough with clear sputum, and shortness of breath. She denies chest pain. No back or abdominal or flank pain, fevers or chills, nausea or vomiting, dysuria, hematuria, urinary frequency, lightheadedness or syncope, palpitations, trauma, or other new concerns. No bleeding. She is consistent with her medications. She is on oral chemotherapy and immunotherapy for breast cancer. Per chart review, she was seen outpatient September 29 reported hypoxia at night, with suspicion of contribution of COPD, heart failure. Lasix had recently been decreased, with plan for Cardiology follow up. She also follows up with oncology. Related Data Home Medications Medication Instructions Recorded Confirmed carboxymethylcellulose sodium 0.5 1 drp ophthalmic (eye) .prn 06/16/22 09/15/23 % eye drops (Refresh Tears) palbociclib 125 mg tablet (Ibrance) 125 mg PO DAILY 01/31/23 09/15/23 umeclidinium 62.5 mcg-vilanterol 1 ea inhalation DAILY 08/22/23 09/15/23 25 mcg/actuation powdr for inhalation (Anoro Ellipta) Previous Rx's Medication Instructions Recorded Complex Power Wheelchair #1 ea 09/20/22 oxybutynin chloride 5 mg tablet 5 mg PO BID #180 tabs 10/21/22 letrozole 2.5 mg tablet 2.5 mg PO DAILY #90 tabs 12/28/22 amlodipine 10 mg tablet (Norvasc) 10 mg PO DAILY #90 tabs 03/02/23 atorvastatin 20 mg tablet (Lipitor) 20 mg PO BEDTIME cholesterol #90 03/02/23 tabs furosemide 40 mg tablet 40 mg PO DAILY PRN edema #90 tabs 03/02/23 glipizide 5 mg tablet, extended 5 mg PO DAILY diabetes #90 tabs 03/02/23 release 24 hr labetalol 100 mg tablet See Rx Instructions .Route 03/02/23 .COMPLEX #180 tabs montelukast 10 mg tablet See Rx Instructions .Route 03/02/23 .COMPLEX #90 tabs valsartan 320 mg tablet 320 mg PO DAILY #90 tabs 03/02/23 blood sugar diagnostic (Contour #200 ea 04/18/23 Next Test Strips) albuterol sulfate 90 mcg/actuation 1 - 2 inh inhalation Q4-6H PRN 05/06/23 aerosol inhaler shortness of breath or wheezing #8.5 grams cpap auto pap with humidifier #1 ea 05/06/23 gabapentin 100 mg capsule 100 - 200 mg (1 - 2 x 100 mg) PO 06/03/23 TID PRN pain #180 caps insulin human U-100 NPH-regulr 60 unit (0.6 mL) SUBCUT BID #90 mL 06/03/23 70-30 mix 100 unit/mL subcutaneous susp (Novolin 70/30 U-100 Insulin) blood-glucose meter,continuous #2 ea 08/19/23 (Dexcom G6 Food Service Driver) blood-glucose sensor (Dexcom G6 #3 ea 08/19/23 Sensor device) blood-glucose transmitter (Dexcom #2 ea 08/19/23 G6 Transmitter device) citalopram 10 mg tablet (Celexa) 10 mg PO DAILY #30 tabs 08/22/23 Allergies Allergy/AdvReac Type Severity Reaction Status Date / Time Sulfa (Sulfonamide Allergy Unknown Verified 10/03/23 13:10 Antibiotics) [SULFA (SULFONAMIDE ANTIBIOTICS)] Review of Systems Review of Systems Narrative: Constitutional: no fever, no chills Eyes: no visual disturbance, no discharge Ears, Nose, Mouth, Throat: no rhinorrhea, no sore throat Cardiovascular: no chest pain, no palpitations Respiratory: + cough, + shortness of breath Gastrointestinal: no abdominal pain, no vomiting, no diarrhea Genitourinary: no dysuria, no hematuria Musculoskeletal: no back pain, no neck stiffness Skin: no rash, no wound Neurological: no focal weakness, no focal numbness Patient History Medical History (Updated 10/03/23 @ 14:46 by Gordo Best MD) Major depressive disorder, single episode, mild COPD (chronic obstructive pulmonary disease) CKD stage 3 due to type 2 diabetes mellitus MIRIAN (obstructive sleep apnea) Osteoarthritis of right knee Right knee pain Ischiogluteal bursitis Diabetes mellitus with hyperglycemia, with long-term current use of insulin Paroxysmal A-fib Spinal stenosis, lumbar region with neurogenic claudication Knee osteoarthritis Sacrococcygeal disorders, not elsewhere classified Thyroid nodule Abnormal Pap smear of cervix (~1992) History of urinary incontinence (~1994) Kidney stones (~2001) Hemorrhoid (~1989) CPAP (continuous positive airway pressure) dependence (~1999) Asthma (~1989) Bulimia (~1959) Fracture (~1986) Chronic back pain (~1989) Carpal tunnel syndrome (~1991) Mumps (~1970) Measles (~1944) Chicken pox (~1945) Adrenal adenoma History of stent insertion of renal artery Breast cancer (~2016) Hyperlipidemia OAB (overactive bladder) Benign essential HTN CKD (chronic kidney disease) Diabetes mellitus type 2, insulin dependent (~1993) Surgical History Anesthesia S/P fusion of sacroiliac joint H/O umbilical hernia repair H/O bilateral mastectomy H/O: hysterectomy Hx of cholecystectomy Status post hysterectomy Family History Father History of heart disease Hypertension Mother Cancer Brother Hypertension Brother Hypertension Brother History of heart disease Hypertension Grandfather History of heart disease Social History household members: children Smoking Status: Former smoker Smoking Status: Former smoker alcohol intake frequency: other Substance Use Type: does not use Exam Narrative Exam Narrative: Const: no acute distress, non toxic appearing; calm, conversant, pleasant; she is currently on 3 L nasal cannula, having been satting mid 80s on 2 L, which is her home level Eyes: PERRLA, EOMI ENT: mucous membranes moist Neck: supple, non-tender Resp: no respiratory distress, crackles bilateral bases Card: regular rate and rhythm, no murmurs Abd: non tender diffusely, no rigidity or rebound or guarding Back: no T or L spine tenderness, no CVA tenderness bilaterally Extrem: no deformities, 1+ pitting edema to bilateral lower extremities, 2+ distal pulses all extremities Neuro: ANOx4, administrative specialist grossly intact, grossly intact sensation and strength all extremities Skin: no rash, warm and dry Initial Vital Signs Initial Vital Signs: Vital Signs Temperature 97.6 F 10/03/23 12:46 Pulse Rate 70 10/03/23 12:46 Respiratory Rate 24 10/03/23 12:46 Blood Pressure 86/54 L 10/03/23 12:46 Pulse Oximetry 88 L 10/03/23 12:46 Oxygen Delivery Method Nasal Cannula 10/03/23 12:46 Oxygen Flow Rate 2 10/03/23 12:46 Course Course Course Narrative: This presentation is highly suggestive of volume overload in the setting of CHF exacerbation, in a patient who had recent reduction Lasix, who has clear history and exam supportive of this. I have still considered broad differential including but not limited to pneumonia, viral syndrome, symptomatic anemia, ACS, pulmonary embolism, pneumothorax, COPD exacerbation among others. We are obtaining EKG, labs, chest x-ray, viral swab. I anticipate after this I will give Lasix pending labs then reassess. She is currently stable. EKG shows normal sinus rhythm without acute ischemia, with QTC prolonged in the setting of bifascicular block. Note morphology including bifascicular block similar to July 08, 2023 EKG. Labs: CBC with leukopenia in the setting of oral chemotherapy, anemia similar to prior, mild thrombocytopenia with no clear bleeding currently. Chemistry with renal function slightly improved from July, though elevated from last December, currently at 2.33, with BUN 46, mild hypocalcemia, no LFT elevation. I am ordering 40 mg IV Lasix to assist this patient, as I feel her respiratory failure requires diuresis currently. BNP increased from prior. Viral swab negative. I am adding blood cultures and antibiotics. Note patient initially had low blood pressure, but this rapidly resolved prior to substantial intervention. While I think sepsis is less likely, she is receiving broad antibiotics in case of concurrent bacterial infection. I suspect chest x-ray shows volume overload, though concurrent pneumonia is possible. Formal read pending. Patient given antibiotics, oxygen, diuretics and remained stable, though with substantial weakness and rapid decrease in oxygenation with any attempts to ambulate. In this setting, I spoke with Dr. Darling who kindly accepted for admission. Patient remains otherwise stable and well-perfused, in no respiratory distress. She understands plan. Orders Ordered: ED Orders 10/03/23 13:00 Complete Blood Count AUTO DIFF Stat Comprehensive Metabolic Panel Stat Covid-19 + FLU A/B + RSV - PCR Stat NT-proBNP (BNP-Adult 18+) Stat Troponin I Stat 10/03/23 13:11 XR chest 1V Stat EKG-12 Lead Stat Measure peak expiratory flow ONCE RT Consult Eval and Treat NOW 10/03/23 14:28 Blood Culture Stat Discontinued Medications Doxycycline Hyclate (Doxycycline Hyclate 100 Mg Tablet) 100 mg PO NOW ONE Stop: 10/03/23 14:29 Furosemide (Furosemide 40 Mg/4 Ml Vial) 40 mg IV NOW ONE Stop: 10/03/23 14:01 Last Admin: 10/03/23 14:10 Dose: 40 mg Documented By: VALORIE Ceftriaxone Sodium 1,000 mg/ (Sodium Chloride) 100 mls @ 200 mls/hr IV NOW ONE Stop: 10/03/23 14:29 Vital Signs Vital signs: Vital Signs - 8 hr 10/03/23 12:46 10/03/23 12:59 10/03/23 13:00 Temperature 97.6 F Pulse Rate 70 75 75 Respiratory Rate 24 Blood Pressure 86/54 L Pulse Oximetry 88 L 88 L Oxygen Delivery Method Nasal Cannula Nasal Cannula Oxygen Flow Rate 2 2 10/03/23 13:01 10/03/23 13:01 10/03/23 13:03 Temperature Pulse Rate 70 74 Respiratory Rate 23 28 H Blood Pressure 86/54 L Pulse Oximetry 92 93 Oxygen Delivery Method Nasal Cannula Nasal Cannula Oxygen Flow Rate 3 3 10/03/23 13:03 10/03/23 13:30 10/03/23 14:00 Temperature Pulse Rate 64 66 Respiratory Rate 26 H Blood Pressure 133/63 Pulse Oximetry 93 95 Oxygen Delivery Method Oxygen Flow Rate 10/03/23 14:30 Temperature Pulse Rate 66 Respiratory Rate Blood Pressure Pulse Oximetry 96 Oxygen Delivery Method Nasal Cannula Oxygen Flow Rate 3 Medical Decision Making Lab Data 10/03/23 13:00 10/03/23 13:00 Labs: Lab Results 10/03/23 Range/Units 13:00 WBC 3.7 L (4.5-11.0) X10^3/uL RBC 3.09 L (4.0-5.2) X10^6/uL Hgb 10.0 L (12.0-16.0) g/dL Hct 30.5 L (36-46) % MCV 98.7 (80-100) fL MCH 32.4 (26-34) PG MCHC 32.8 (30-36) % RDW 19.1 H (11.6-14.8) % Plt Count 149 L (150-400) X10^3/uL Neut % (Auto) 48.5 L (50-75) % Lymph % (Auto) 33.4 (25-40) % Coal % (Auto) 13.3 (3-14) % Eos % (Auto) 1.9 L (2-4) % Baso % (Auto) 2.9 H (0-2) % Neut # (Auto) 1800 (8482-7716) /uL Lymph # (Auto) 1200 (8514-7476) /uL Coal # (Auto) 500 (0-900) /uL Eos # (Auto) 100 (0-450) /uL Baso # (Auto) 100 (0-100) /uL Sodium 142 (137-145) mmol/L Potassium 4.5 (3.4-5.1) mmol/L Chloride 111 H (98-107) mmol/L Carbon Dioxide 24 (22-32) mmol/L BUN 46 H (7-17) mg/dL Creatinine 2.33 H (0.52-1.04) mg/dL Estimated GFR 21 L (>60) mL/min BUN/Creatinine Ratio 19.7 (6-22) Glucose 114 H (80-110) mg/dL Calcium 8.1 L (8.4-10.2) mg/dL Total Bilirubin 0.4 (0.2-1.3) mg/dL AST 18 (14-36) IU/L ALT 14 (<35) IU/L Alkaline Phosphatase 62 (38-126) U/L Troponin I < 0.012 (0.01-0.034) ng/mL NT-Pro-B Natriuret Pep 1370 H (<450) pg/mL Total Protein 7.0 (6.3-8.2) g/dL Albumin 4.1 (3.5-5.0) g/dL Globulin 2.9 (1.7-4.1) g/dL Albumin/Globulin Ratio 1.4 (1.0-2.8) SARS-CoV-2 (PCR) Negative (Negative) Influenza A (RT-PCR) Flu a negative (NEGATIVE) Influenza B (RT-PCR) Flu b negative (NEGATIVE) RSV (PCR) Negative (Negative) Discharge Plan Departure Patient Disposition: Admitted As Inpatient Clinical Impression: Congestive heart failure, Dyspnea Prescriptions: No Action (DME) Contour Next Test Strips Strip See Rx Instructions .Route Qty: 200 11RF Rx Instructions: As directed (DME) Dexcom G6 Food Service Driver Misc See Rx Instructions .Route Qty: 2 12RF Rx Instructions: check blood sugar four times daily (DME) Dexcom G6 Sensor Device See Rx Instructions .Route Qty: 3 12RF Rx Instructions: check blood sugars 4 times daily (DME) Dexcom G6 Transmitter Device See Rx Instructions .Route Qty: 2 11RF Rx Instructions: check blood sugar four times daily oxybutynin chloride 5 mg tablet 5 mg PO BID Qty: 180 3RF amlodipine [Norvasc] 10 mg tablet 10 mg PO DAILY Qty: 90 3RF atorvastatin [Lipitor] 20 mg tablet 20 mg PO BEDTIME Qty: 90 3RF furosemide 40 mg tablet 40 mg PO DAILY PRN (Reason: edema) Qty: 90 3RF Patient Comments: Pt states she takes when needed, holds when she has to go somewhere and does not want to have to urinate glipizide 5 mg tablet extended release 24hr 5 mg PO DAILY Qty: 90 3RF labetalol 100 mg tablet See Rx Instructions .ROUTE .COMPLEX Qty: 180 3RF Dose Instruction: TAKE 1 TABLET BY MOUTH TWICE DAILY Rx Instructions: TAKE 1 TABLET BY MOUTH TWICE DAILY montelukast 10 mg tablet See Rx Instructions .ROUTE .COMPLEX Qty: 90 3RF Dose Instruction: TAKE 1 TABLET BY MOUTH EVERY DAY Rx Instructions: TAKE 1 TABLET BY MOUTH EVERY DAY valsartan 320 mg tablet 320 mg PO DAILY Qty: 90 3RF Ibrance 125 mg tablet 125 mg PO DAILY Rx Instructions: administer on days 1 through 21 of a 28-day treatment cycle Novolin 70/30 U-100 Insulin 100 unit/mL (70-30) suspension 60 unit SUBCUT BID Qty: 90 11RF gabapentin 100 mg capsule 100 - 200 mg PO TID PRN (Reason: pain) Qty: 180 2RF Anoro Ellipta 62.5-25 mcg/actuation blister with device 1 ea inhalation DAILY citalopram [Celexa] 10 mg tablet 10 mg PO DAILY Qty: 30 11RF carboxymethylcellulose sodium [Refresh Tears] 0.5 % drops 1 drp ophthalmic (eye) .prn Patient Comments: Only when needed letrozole 2.5 mg tablet 2.5 mg PO DAILY Qty: 90 3RF (DME) cpap auto pap with humidifier See Rx Instructions .Route .MEDSUPPLY Qty: 1 0RF Rx Instructions: use nightly as directed for MIRIAN. please provider mask, tubing, supplies as well. albuterol sulfate 90 mcg/actuation HFA aerosol inhaler 1 - 2 inh inhalation Q4-6H PRN (Reason: shortness of breath or wheezing) Qty: 8.5 11RF (DME) Complex Power Wheelchair See Rx Instructions .Route .MEDSUPPLY Qty: 1 0RF Rx Instructions: As directed Referrals: Rody Mijares DO [Primary Care Provider] -
[2023-10-03 13:36] LABS: Add Manual Diff / Slide Review NO; Basophils Absolute Auto 100 /uL (0-100); Basophils Percent Auto 2.9 % (0-2); Eosinophils Absolute Auto 100 /uL (0-450); Eosinophils Percent Auto 1.9 % (2-4); Hematocrit 30.5 % (36-46); Lymphocytes Absolute Auto 1200 /uL (1100-4500); Lymphocytes Percent Auto 33.4 % (25-40); Mean Corpuscular HGB Conc 32.8 % (30-36); Mean Corpuscular Hemoglobin 32.4 PG (26-34); Mean Corpuscular Volume 98.7 fL (80-100); Monocytes Absolute Auto 500 /uL (0-900); Monocytes Percent Auto 13.3 % (3-14); Neutrophils Absolute Auto 1800 /uL (1500-7000); Neutrophils Percent Auto 48.5 % (50-75); Platelet Count 149 X10^3/uL (150-400); Red Blood Cell Count 3.09 X10^6/uL (4.0-5.2); Red Cell Distribution Width 19.1 % (11.6-14.8); White Blood Cell Count 3.7 X10^3/uL (4.5-11.0)
[2023-10-03 13:48] LABS: Alanine Aminotransferase 14 IU/L (<35); Albumin 4.1 g/dL (3.5-5.0); Albumin Globulin Ratio 1.4 (1.0-2.8); Alkaline Phosphatase 62 U/L (38-126); Aspartate Aminotransferase 18 IU/L (14-36); BUN Creatinine Ratio 19.7 (6-22); Bilirubin Total 0.4 mg/dL (0.2-1.3); Blood Urea Nitrogen 46 mg/dL (7-17); Calcium 8.1 mg/dL (8.4-10.2); Carbon Dioxide 24 mmol/L (22-32); Chloride 111 mmol/L (98-107); Estimated Glomerular Filt Rate 21 mL/min (>60); Globulin 2.9 g/dL (1.7-4.1); Glucose 114 mg/dL (80-110); HEMOLYSIS < 15 (0-50); Potassium 4.5 mmol/L (3.4-5.1); Sodium 142 mmol/L (137-145)
[2023-10-03 13:59] LABS: NT-proBNP (BNP-Adult 18+) 1370 pg/mL (<450); Troponin I < 0.012 ng/mL (0.01-0.034)
[2023-10-03] MEDS: FUROSEMIDE 40 MG/4 ML VIAL IV ×2 (14:10→15:57)
[2023-10-03 14:21] LABS: COVID-19 CEPHEID 4-PLEX PCR Negative (Negative); Influenza A - CEPHEID Flu A NEGATIVE (NEGATIVE); Influenza B - CEPHEID Flu B NEGATIVE (NEGATIVE); Respiratory Syncytial Virus Negative (Negative)
--- NOTE | 2023-10-03 14:37 | PC.NURSE ---
When transferring pt from wheelchair to stretcher at 1245 pt was clearly SOB and O2 saturations at that time were between 82-85% on 2L NC. Pt was then increased to 3L NC and able to recover back to 92% once resting in the bed. Pt then endorsed that she has gained 9lbs since yesterday. BLE 2+ Edema and abdomen distended, fine crackles heard bilaterally at lung bases. Hx of CHF
[2023-10-03] MEDS: cefTRIAXone 1,000 MG in SODIUM CHLORIDE 0.9% 100 ML 200 MG IV (14:50)
[2023-10-03] MEDS: DOXYCYCLINE HYCLATE 100 MG TABLET PO (14:50)
[2023-10-03 15:41] LABS: TSH w/ Reflex to FT4 0.88 uIU/mL (0.47-4.68)
--- NOTE | 2023-10-03 18:20 | P.HP_ITS ---
History of Present Illness History of Present Illness Date Patient Seen: 10/03/23 Chief complaint: sent by topographical field assistant, fluid retention Narrative: Francia Moeller is an 83yo F with PMH of metastatic lung cancer on daily immunotherapy, chronic resp failure on 2L NC, paroxysmal A-fib, COPD, CKD, depression, asthma, DM2 on insulin, HTN, HLD, HFpEF, and breast cancer who presents with dyspnea. Patient notes increased cough and SOB with weight gain over the past few days. She was sent to the ED by cardiology for increasing orthopnea and dyspnea. She is normally on 2-3L NC and was requiring baseline O2. In the ED found to have perihilar opacities which appeared to be fluid vs PNA on CXR. Will be admitted for diuresis. Last echo just 1 month ago showed EF 60-65%. Patient describes some hypoglycemic episodes lately at home. She recently raised her insulin per PCP. Patient denies CP, NV, and abd pain. [facility] Medical History (Updated 10/03/23 @ 14:46 by Gordo Best MD) Major depressive disorder, single episode, mild COPD (chronic obstructive pulmonary disease) CKD stage 3 due to type 2 diabetes mellitus MIRIAN (obstructive sleep apnea) Osteoarthritis of right knee Right knee pain Ischiogluteal bursitis Diabetes mellitus with hyperglycemia, with long-term current use of insulin Paroxysmal A-fib Spinal stenosis, lumbar region with neurogenic claudication Knee osteoarthritis Sacrococcygeal disorders, not elsewhere classified Thyroid nodule Abnormal Pap smear of cervix (~1992) History of urinary incontinence (~1994) Kidney stones (~2001) Hemorrhoid (~1989) CPAP (continuous positive airway pressure) dependence (~1999) Asthma (~1989) Bulimia (~1959) Fracture (~1986) Chronic back pain (~1989) Carpal tunnel syndrome (~1991) Mumps (~1970) Measles (~194) Chicken pox (~1945) Adrenal adenoma History of stent insertion of renal artery Breast cancer (~2016) Hyperlipidemia OAB (overactive bladder) Benign essential HTN CKD (chronic kidney disease) Diabetes mellitus type 2, insulin dependent (~1993) Surgical History Anesthesia S/P fusion of sacroiliac joint H/O umbilical hernia repair H/O bilateral mastectomy H/O: hysterectomy Hx of cholecystectomy Status post hysterectomy Family History Father History of heart disease Hypertension Mother Cancer Brother Hypertension Brother Hypertension Brother History of heart disease Hypertension Grandfather History of heart disease Social History household members: children Smoking Status: Former smoker alcohol intake: former Meds Home Medications and Allergies Home Medications Medication Instructions Recorded Confirmed Type oxybutynin chloride 5 mg tablet 5 mg PO BID #180 tabs 10/21/22 10/03/23 Rx letrozole 2.5 mg tablet 2.5 mg PO DAILY #90 tabs 12/28/22 10/03/23 Rx palbociclib 125 mg tablet (Ibrance) 125 mg PO DAILY 01/31/23 10/03/23 History amlodipine 10 mg tablet (Norvasc) 10 mg PO DAILY #90 tabs 03/02/23 10/03/23 Rx atorvastatin 20 mg tablet (Lipitor) 20 mg PO BEDTIME cholesterol #90 03/02/23 10/03/23 Rx tabs furosemide 40 mg tablet 40 mg PO DAILY PRN edema #90 tabs 03/02/23 10/03/23 Rx glipizide 5 mg tablet, extended 5 mg PO DAILY diabetes #90 tabs 03/02/23 10/03/23 Rx release 24 hr valsartan 320 mg tablet 320 mg PO DAILY #90 tabs 03/02/23 10/03/23 Rx albuterol sulfate 90 mcg/actuation 1 - 2 inh inhalation Q4-6H PRN 05/06/23 10/03/23 Rx aerosol inhaler shortness of breath or wheezing #8.5 grams gabapentin 100 mg capsule 100 - 200 mg (1 - 2 x 100 mg) PO 06/03/23 10/03/23 Rx TID PRN pain #180 caps citalopram 10 mg tablet (Celexa) 10 mg PO DAILY #30 tabs 08/22/23 10/03/23 Rx umeclidinium 62.5 mcg-vilanterol 1 ea inhalation DAILY 08/22/23 10/03/23 History 25 mcg/actuation powdr for inhalation (Anoro Ellipta) calcium carbonate 600 mg-vitamin 1 tab PO DAILY 10/03/23 10/03/23 History D3 5 mcg (200 unit) tablet furosemide 80 mg tablet 80 mg PO BID 10/03/23 10/03/23 History insulin human U-100 NPH-regulr 50 unit SUBCUT BID 10/03/23 10/03/23 History 70-30 mix 100 unit/mL subcutaneous susp (Novolin 70/30 U-100 Insulin) labetalol 100 mg tablet 100 mg PO BID 10/03/23 10/03/23 History montelukast 10 mg tablet 10 mg PO BEDTIME 10/03/23 10/03/23 History Allergies Allergy/AdvReac Type Severity Reaction Status Date / Time Sulfa (Sulfonamide Allergy Unknown Verified 10/03/23 13:10 Antibiotics) [SULFA (SULFONAMIDE ANTIBIOTICS)] Review of Systems Review of Systems Narrative: All other systems reviewed with the patient and are negative unless otherwise stated. Exam Vital Signs (past 8 hours): - 10/03/23 12:46 10/03/23 12:59 10/03/23 13:00 Temperature 97.6 F Pulse Rate 70 75 75 Respiratory Rate 24 Blood Pressure 86/54 L Pulse Oximetry 88 L 88 L Oxygen Delivery Method Nasal Cannula Nasal Cannula Oxygen Flow Rate 2 2 10/03/23 13:01 10/03/23 13:01 10/03/23 13:03 Temperature Pulse Rate 70 74 Respiratory Rate 23 28 H Blood Pressure 86/54 L Pulse Oximetry 92 93 Oxygen Delivery Method Nasal Cannula Nasal Cannula Oxygen Flow Rate 3 3 10/03/23 13:03 10/03/23 13:30 10/03/23 14:00 Temperature Pulse Rate 64 66 Respiratory Rate 26 H Blood Pressure 133/63 Pulse Oximetry 93 95 Oxygen Delivery Method Oxygen Flow Rate 10/03/23 14:30 10/03/23 15:00 10/03/23 15:30 Temperature Pulse Rate 66 66 68 Respiratory Rate 23 34 H Blood Pressure Pulse Oximetry 96 95 94 Oxygen Delivery Method Nasal Cannula Oxygen Flow Rate 3 10/03/23 15:32 10/03/23 15:32 10/03/23 16:00 Temperature Pulse Rate 71 69 Respiratory Rate 24 25 H Blood Pressure 132/59 L Pulse Oximetry 94 95 Oxygen Delivery Method Oxygen Flow Rate 10/03/23 16:30 10/03/23 16:45 10/03/23 17:07 Temperature 97.3 F L Pulse Rate 68 72 Respiratory Rate 14 22 Blood Pressure 140/55 L Pulse Oximetry 95 93 Oxygen Delivery Method Nasal Cannula Oxygen Flow Rate 3 Oxygen Delivery Method Nasal Cannula Oxygen Flow Rate 3 Narrative Exam Narrative: GEN: no acute distress, obese HEENT: moist mucous membranes, PERRL NECK: trachea midline, no JVD CV: regular rate and rhythm, no murmurs PULM: fine scattered crackles ABD: soft, nontender, distended, no organomegaly EXT: warm and well perfused with 2+ edema to knees NEURO: awake, alert, oriented, no focal deficits Objective Labs 10/04/23 04:45 10/04/23 04:45 Labs: Laboratory Results - last 24 hr 10/03/23 13:00 WBC 3.7 L RBC 3.09 L Hgb 10.0 L Hct 30.5 L MCV 98.7 MCH 32.4 MCHC 32.8 RDW 19.1 H Plt Count 149 L Neut % (Auto) 48.5 L Lymph % (Auto) 33.4 Mckean % (Auto) 13.3 Eos % (Auto) 1.9 L Baso % (Auto) 2.9 H Neut # (Auto) 1800 Lymph # (Auto) 1200 Mckean # (Auto) 500 Eos # (Auto) 100 Baso # (Auto) 100 Sodium 142 Potassium 4.5 Chloride 111 H Carbon Dioxide 24 BUN 46 H Creatinine 2.33 H Estimated GFR 21 L BUN/Creatinine Ratio 19.7 Glucose 114 H Calcium 8.1 L Magnesium 2.0 Total Bilirubin 0.4 AST 18 ALT 14 Alkaline Phosphatase 62 Troponin I < 0.012 NT-Pro-B Natriuret Pep 1370 H Total Protein 7.0 Albumin 4.1 Globulin 2.9 Albumin/Globulin Ratio 1.4 TSH 0.88 SARS-CoV-2 (PCR) Negative Influenza A (RT-PCR) Flu a negative Influenza B (RT-PCR) Flu b negative RSV (PCR) Negative Assessment & Plan Assessment & Plan narrative: # acute on chronic HFpEF vs PNA -presents with orthopnea, dypsnea, LE swelling and pulm edema on CXR -will diurese with IV lasix, if not improving will get CT to assess for PNA -had echo just 1mo ago with EF 60-65%, will not repeat -IV lasix 60mg BID # acute on chronic hypoxic resp failure -requiring 3L NC, normally on 2L all the time -treat as above # metastatic lung cancer -followed by oncology at -currently on daily Ibrance, and patient notes her recent scans showed no progression of lung tumor -continue ibrance # DM2 -continue NPH 40u BID, hold glipizide -SSI -check A1c -carb diet # HTN -continue amlodipine, valsartan and labetalol # HLD -continue lipitor # depression -continue celexa # asthma -continue singulair Code status is DNR. DVT prophylaxis with heparin subq. Proxy is daughter Velma. I have reviewed home meds and used all available resources to reconcile the home meds. Case discussed with ED physician/APC and patient will be admitted to the hospitalist service for further workup and management. This patient will be admitted as inpatient and will require greater than 2 midnights of hospital time to treat CHF exacerbation. Quality VTE Deep Vein Thrombosis/Pulmonary Embolism Present on Admission: No
[2023-10-03] MEDS: ACETAMINOPHEN 325 MG TABLET 650 MG PO (19:57)
[2023-10-03] MEDS: INSULIN NPH 100 UNIT/ML 10ML VIAL 40 UNIT SUBCUT (20:35)
[2023-10-03] MEDS: LABETALOL 100 MG TABLET PO (20:52)
[2023-10-03] MEDS: OXYBUTYNIN 5 MG TABLET PO (20:52)
[2023-10-03] MEDS: HEPARIN 5,000 UNIT/ML VIAL 5000 UNIT SUBCUT (20:52)
[2023-10-03] MEDS: ATORVASTATIN 20 MG TABLET PO (20:52)
[2023-10-03] MEDS: MONTELUKAST 10 MG TABLET PO (21:55)
[2023-10-03] MEDS: GABAPENTIN 100 MG CAPSULE 200 MG PO (21:55)
[2023-10-03] MEDS: INSULIN LISPRO 100 UNIT/ML 3ML VIAL SUBCUT (21:57)
[2023-10-04] VITALS (7 sets, daily range): BP systolic 117–162; BP diastolic 47–61; PULSE 68–77; RESP 16–22; TEMP 36.2–36.6; O2SAT 93–97
[2023-10-04] MEDS: ACETAMINOPHEN 325 MG TABLET 650 MG PO ×2 (03:10→10:35)
--- NOTE | 2023-10-04 05:14 | PC.NURSE ---
Patient stated she is on 70/30 insulin 50 units sq BID with dinner and breakfast. NPH 40 units sq BID ordered. This RN notified DR Brown and inquired if this is a substitution for closer BG control. Dr Brown responded to give NPH as ordered and reconfirm insulin orders in AM with day hospitalist. BG at 1938 = 196. NPH insulin given as ordered with a snack. HS BG recheck = 239. Lispro 2 units given per ss. At 0410 pt A&Ox4, diaphoretic and c/o nausea. BG = 46. OJ and saltine crackers taken. Recheck = 57, more OG taken. Recheck = 97, symptoms resolved. Patient states she has been having some hypoglycemic episodes lately.
[2023-10-04 05:48] LABS: BUN Creatinine Ratio 20.7 (6-22); Blood Urea Nitrogen 46 mg/dL (7-17); Calcium 8.2 mg/dL (8.4-10.2); Carbon Dioxide 24 mmol/L (22-32); Chloride 112 mmol/L (98-107); Estimated Glomerular Filt Rate 22 mL/min (>60); Glucose 93 mg/dL (80-110); HEMOLYSIS < 15 (0-50); Potassium 4.4 mmol/L (3.4-5.1); Sodium 142 mmol/L (137-145)
[2023-10-04 05:55] LABS: Hematocrit 29.7 % (36-46); Hemoglobin 9.8 g/dL (12.0-16.0); Mean Corpuscular HGB Conc 33.1 % (30-36); Mean Corpuscular Hemoglobin 32.7 PG (26-34); Mean Corpuscular Volume 98.6 fL (80-100); Platelet Count 134 X10^3/uL (150-400); Red Blood Cell Count 3.02 X10^6/uL (4.0-5.2); Red Cell Distribution Width 19.3 % (11.6-14.8)
[2023-10-04 05:57] LABS: Add Manual Diff / Slide Review YES
[2023-10-04 06:19] LABS: Neutrophils Absolute Manual 960 /uL (3000-5900); RBC Morphology Normal Morphology; Total Cells Counted 100
[2023-10-04] MEDS: OXYBUTYNIN 5 MG TABLET PO ×2 (08:26→20:40)
[2023-10-04] MEDS: LABETALOL 100 MG TABLET PO (08:26)
[2023-10-04] MEDS: CALCIUM CARBONATE 500 MG TAB PO ×2 (08:26→20:40)
[2023-10-04] MEDS: FUROSEMIDE 60 MG in SODIUM CHLORIDE 0.9% 50 ML 112 MG IV ×2 (08:26→16:49)
[2023-10-04] MEDS: HEPARIN 5,000 UNIT/ML VIAL 5000 UNIT SUBCUT ×2 (08:26→20:39)
[2023-10-04] MEDS: CITALOPRAM 10 MG TABLET PO (08:26)
[2023-10-04] MEDS: AMLODIPINE 5 MG TABLET 10 MG PO (08:27)
[2023-10-04] MEDS: LETROZOLE 2.5 MG TABLET PO (08:27)
[2023-10-04] MEDS: CHOLECALCIFEROL (VITAMIN D3) 400 UNIT TABLET 800 UNIT PO ×2 (08:27→20:39)
[2023-10-04] MEDS: VALSARTAN 80 MG TABLET 320 MG PO (08:27)
[2023-10-04] MEDS: GABAPENTIN 100 MG CAPSULE 200 MG PO ×3 (08:27→20:39)
[2023-10-04] MEDS: INSULIN LISPRO 100 UNIT/ML 3ML VIAL SUBCUT ×4 (08:28→20:38)
[2023-10-04] MEDS: INSULIN NPH 100 UNIT/ML 10ML VIAL 20 UNIT SUBCUT ×2 (08:29→20:41)
[2023-10-04] MEDS: UMECLIDINIUM INH (08:36)
[2023-10-04] MEDS: [UNRECOGNIZED DRUG - OTHER] INH (08:36)
[2023-10-04] MEDS: VILANTEROL INH (08:36)
--- NOTE | 2023-10-04 09:27 | CM.DANOTE ---
Patient is an 83 yo female who was admitted OBS Status on 10/03/23 for SOB/weakness. Pt has [facility] and [facility] for insurance and her PCP is Dr. Rody Mijares. EMR was reviewed. Per MD, pt with hx of breast CA with mets to her lungs and on 2LO2 at baseline and currently taking immunotherapy. Pt requiring increased oxygen and awaiting further labs. SW met bedside with pt and explained role and she confirms that she lives in [place] with her Dtr Velma and is mostly independent with ADLs but does not drive and Dtr provides transport to appointments. Pt has a 4WW at baseline and oxygen at home. Pt denies any hx of SNF or HH. Pt states she completed POLST form at and plans to bring a copy of the POLST to her PCP and [facility] to be scanned. Pt denies any DPOA but states she plans to have her 3 adult Dtrs as her DPOAs. SW provided DPOA brochure and blank copy and pt plans to complete. Dtr Velma works two jobs, one in [place] and one at [employer] in [place], and pt and Dtr have been talking about maybe looking into a CG who could check on pt sometimes when Dtr is working long hours. Pt states she is a member of the [place] [employer] and that she has already tried calling CG agencies but they required a certain amount of hours a day and days a week and &40 an hour. Pt does not think she will qualify for Medicaid [id number] due to her 's benefits and SS. SW provided private CG list to review and recommended calling the [facility] [employer] [facility] for possible options. Pt confirms her Workers' Compensation Claims Supervisor and Oncologist are both at and Dtr drives pt to Oncology appointments once a month. Pt preference is to d/c home with Dtr to transport and agreeable with HH if recommended but unclear if pt will meet homebound status at this time. Plan: SW to follow closely for likely discharge home with Dtr and r/o HH needs closer to discharge. JAMIE Lewis Discharge Planning/Care Management CM Discharge Assessment Start: 10/04/23 09:24 Freq: Status: Active Protocol: Document 10/04/23 09:24 BF (Rec: 10/04/23 09:27 BF [id number]) Discharge Planning Assessment Assigned Clinical Educator JAMIE Vegas DPOA/Assigned Designee Name none, provided pwk Advance Directives? Yes: SAMSON, will try to get us a copy Advance Directives on File Yes History Provided By Patient,Medical Record Has Patient been admitted in last 30 No days? Comment Last admit a year ago September 2022 and discharged home Prior Living Arrangements House Household Members children Comment Pt and Dtr Velma live together, Dtr works 2 jobs Type of transporation used prior to Relies on Others admit Comment Dtr provides transport Independent with ADL's Yes Is patient alert and oriented? Yes Needs Assistance With Meal Prep,Home Chores / Shopping Caregiver for Another No Community Services used prior to IV Therapy admission: Comment immunotherapy for Oncology DME Already Rented / Owned FWW / Walker Comment Has her own four wheel walker Comment r/o HH Barriers to Discharge No Discharge Plan Home Transportation Arrangement Daughter Additional Comment r/o possible HH Whiteboard Updated in Patient Room with Yes name and ext. # of Clinical Educator Review Status In Process Please Provide Date Initial DC 10/04/23 Assessment Was Performed Next Review Type Continued Stay Review
[2023-10-04 10:55] LABS: Hemoglobin A1C% w Est Avg Glu 8.3 % (4.0-6.0)
--- NOTE | 2023-10-04 12:20 | DI.CT.S_ITS ---
PROCEDURE: CT CHEST ABD PEL WO CON INDICATIONS: h/o lung cancer, r/o PNA vs cancer, also abd pain/distension TECHNIQUE: After the administration of oral contrast, 5 mm thick sections acquired from the lung apices to the symphysis pubis. 5 mm thick coronal and sagittal reformats acquired, with additional 7 mm coronal MIP reformats through the lungs. For radiation dose reduction, the following was used: automated exposure control, adjustment of mA and/or kV according to patient size. COMPARISON: [facility], CT, CT ANGIO CHEST PE PROTOCOL, 10/18/2022, 18:54. [facility], CR, XR CHEST 1V, 10/03/2023, 13:38. FINDINGS: Image quality: Diagnostic sensitivity study limited secondary to lack of IV contrast. CHEST: Lower Neck: No enlarged lymph nodes. Thyroid: 4.7 by 3.8 x 6.5 centimeter complex right thyroid nodule. Axillae: No enlarged lymph nodes. Chest Wall: Unremarkable. Bones: Unremarkable. Lungs and Pleura: Small right pleural effusion. Patchy consolidation in the right upper lobe and right lower lobe suspicious for pneumonia. Right hilar mass without significant change compared to prior exam. Right middle lobe atelectasis related to middle lobe bronchial obstruction stable compared to prior exam. Small bilateral lung nodules without significant change compared to prior exam. Heart: Heart size is normal. No pericardial effusion. Thoracic Vessels: The aorta and pulmonary arteries demonstrate normal size. Mediastinum and Madalyn: No enlarged lymph nodes. Esophagus: No wall thickening. Small hiatal hernia. ABDOMEN: Liver: No solid mass. Gallbladder: Gallbladder is surgically absent. Biliary ducts: No biliary dilation. Pancreas: No ductal dilation. Spleen: Size is within normal limits. Adrenal Glands: Stable right adrenal mass. Kidneys and Ureters: No hydronephrosis. No solid mass. No complex renal cystic lesion which requires follow up. Right renal artery stent. Stomach and Bowel: Normal colonic caliber, without significant wall thickening. Colonic diverticula without evidence of diverticulitis. No evidence of appendicitis. Peritoneum: No abnormal intraperitoneal fluid. No free air. Ventral Wall: No hernia. Abdominal Nodes: No retroperitoneal or mesenteric adenopathy by size criteria. Vessels: Aorta and inferior vena cava are normal in size. PELVIS: Pelvic Organs: Unremarkable. Bladder: Unremarkable. Pelvic Nodes: No enlarged lymph nodes. Miscellaneous: No inguinal hernias are seen. Bones: Small sclerotic lesions scattered throughout the osseous skeleton compatible with metastatic disease. Spine degenerative disc disease and facet arthropathy. IMPRESSION: Right upper lobe and right lower lobe pneumonia. Small right pleural effusion. Large complex right thyroid mass. Recommend nonemergent thyroid ultrasound. No acute disease process involving the abdomen or pelvis. Skeletal metastatic disease. Dictated by: Nivia Melvin MD, PhD on 10/04/2023 at 13:04 Approved by: Nivia Melvin MD, PhD on 10/04/2023 at 13:18
--- NOTE | 2023-10-04 14:22 | PC.NURSE ---
Patient is alert and oriented x4, she denies pain after getting tylenol for soar back. Blood sugars today 203 and 220. Patient has tolerated her insulin well today. She is also getting some iv antibiotics and iv lasix. Patient has been using a pure wick when she naps in bed. Bs with some wheezes, patient is on 3l of oxygen and tolerating well. She does have cough that is non productive at times.
--- NOTE | 2023-10-04 14:30 | PT.IIE ---
Current Diagnoses Acute on chronic diastolic (congestive) heart failure (10/03/23) Surgical History (Last Reviewed 04/12/23 @ 10:05 by Everton Ibarra MD) Anesthesia H/O bilateral mastectomy H/O umbilical hernia repair H/O: hysterectomy Hx of cholecystectomy S/P fusion of sacroiliac joint Status post hysterectomy Medical History (Last Updated 10/01/23 @ 13:12 by Rody Mijares DO) Abnormal Pap smear of cervix (~1992) Adrenal adenoma Asthma (~1989) Benign essential HTN Breast cancer (~2016) Bulimia (~1959) Carpal tunnel syndrome (~1991) Chicken pox (~1945) Chronic back pain (~1989) CKD (chronic kidney disease) CKD stage 3 due to type 2 diabetes mellitus COPD (chronic obstructive pulmonary disease) CPAP (continuous positive airway pressure) dependence (~1999) Diabetes mellitus type 2, insulin dependent (~1993) Diabetes mellitus with hyperglycemia, with long-term current use of insulin Fracture (~1986) Hemorrhoid (~1989) History of stent insertion of renal artery History of urinary incontinence (~1994) Hyperlipidemia Ischiogluteal bursitis Kidney stones (~2001) Knee osteoarthritis Major depressive disorder, single episode, mild Measles (~1944) Mumps (~1970) OAB (overactive bladder) MIRIAN (obstructive sleep apnea) Osteoarthritis of right knee Paroxysmal A-fib Right knee pain Sacrococcygeal disorders, not elsewhere classified Spinal stenosis, lumbar region with neurogenic claudication Thyroid nodule Physical Therapy Inpatient Evaluation/Re-Eval M1 PT/OT-IP Prior Functional Status Start: 10/04/23 16:25 Freq: NEEDED Status: Active Protocol: Document 10/04/23 14:30 AB (Rec: 10/04/23 16:42 AB [id number]) Medical Review Prior Functional Status Medical History Reviewed Yes Communication able to make needs known Mobility and Gait pt stated that she was modified independent with all mobilities and ambulation using a 4WW Prior Functional Level (Other details) pt stated that she uses O2 at home: 2L/min Social History Household Members children Living Arrangements House Number of Floors (Floors) Two Floors Number of Stairs To Enter/Railing? pt stays on main level of the house ramp to enter Home Environment High Toilet,Walk in Shower Home Equipment Four Wheel Walker,Shower Seat without Backrest,Hand Held Shower Additional Social History Comment pt lives with her daughter and daughter works 2 jobs and will not be available to assist pt M2 PT-IP Current Condition Start: 10/04/23 16:25 Freq: NEEDED Status: Active Protocol: Document 10/04/23 14:30 AB (Rec: 10/04/23 16:42 AB [id number]) Physical Therapy Current Condition Current Condition Evaluation Date 10/04/23 Treatment Diagnosis lung CA with mets; difficulty in walking Onset Date 10/03/23 M3 PT-IP Subjective Start: 10/04/23 16:25 Freq: NEEDED Status: Active Protocol: Document 10/04/23 14:30 AB (Rec: 10/04/23 16:42 AB [id number]) Subjective Physical Therapy Visit Type Type Initial Evaluation Visit Start Time 14:30 Visit Stop Time 15:05 Number of STORAGE WORKER Visits 0 Physical Therapy Visit Comments Patient Comments agreeable to do PT Therapy Pain Assessment Pain When Pain Assessed During Mobility Location Right Hip Scale Used pain scale not stated M4 PT-IP Mobility and Gait Start: 10/04/23 16:25 Freq: NEEDED Status: Active Protocol: Document 10/04/23 14:30 AB (Rec: 10/04/23 16:42 AB [id number]) PT-Bed Mobility Assessment Supine to Sit Supine to Sit Standby Assistance PT-Transfer Assessment Sit to and From Stand Sit to and from Stand Contact Guard Assistance,1 Person Assistance,Use of Upper Extremities Equipment Transfer Assistive Device Gait Belt,Front Wheeled Walker Orthotic/Prosthetic Devices or Brace: No Transfers Transfer Destination Chair Transfer Technique ambulated Transfer Ability Level of Assist Contact Guard Assistance, Minimal Assistance,1 Person Assistance,Use of Upper Extremities Comments Mobility Comments pt supine in bed and agreeble to do PT. obtained PLOF and home set up from pt. BP in supine: 141/60 . pt found to have nasal cannula on but O2 was off. O2 sat at RA: 92%. informed nurse and pt given 1L /min O2. nurse stated that O2 can go up to 2-3 L if O2 sat decreases. O2 sat with 1L/min O2: 93-94%. pt completed supine to sit SBA. able to sit on EOB SBA. no c/o dizziness. (+) SOB. O2 sat: 92%. completed sit to stand CGA and ambulated in room using FWW CGA to min A ~ 30 ft cued for deep breathing in between walking. presents with unsteady antalgic gait. pt with c/o R hip pain and stated that she had hip and knee problems for a long time and usually takes tylenol and gabapentin for pain. pt sat on the chair and agreed to stay up on the chair. O2 sat checked after ambulation: 81%. O2 increased to 2L/min and cued pt for deep breathing. O2 sat increased to 88% in ~ 15 sec. informed nurse. positioned pt on the chair. call light and table placed within reach. nurse said to leave O2 at 2L/min. O2 sat at end of PT session: 95%. informed pt regarding assistance at home. pt stated that her daughter works 2 jobs and will not be available. Gait Assessment Gait Gait Assistance Required: Contact Guard Assist,Minimum Assistance,1 Person Assist Distance (Feet) 30 Able to Maintain Weight Bearing Status Yes During Gait Assistive Devices Assistive Device Gait Belt,Front Wheeled Walker Orthotic/Prosthetic Devices or Brace: No Gait Deviations General Gait Pattern Antalgic,Decreased Stride Length,Decreased Feet Clearance,Step-to Gait Factors Limiting Gait Function Factors Limiting Gait Function Decreased Activity Tolerance, Decreased Strength,Difficulty Following Directions,Limited Range of Motion,Pain,Poor Balance,Poor Safety Awareness, Respiratory Distress PT-Balance Assessment Sitting Balance and Reactions Static Sitting Balance Ability Good Dynamic Sitting Balance Ability Good Standing Balance and Reactions Static Standing Balance Ability Fair Dynamic Standing Balance Ability Fair Device Used FWW M5 PT-IP Objective Assessments Start: 10/04/23 16:25 Freq: NEEDED Status: Active Protocol: Document 10/04/23 14:30 AB (Rec: 10/04/23 16:42 AB [id number]) Orientation Orientation/Cognition Level of Alertness Alert Orientation Name,Place,Situation Language Function Ability No Deficits Noted Safety Awareness Decreased Safety Awareness Memory Description Short Term Impaired Gross Range of Motion Lower Extremity ROM Assessment Within Functional Limits Strength Lower Extremity Strength Hip 4-/5 Knee 4-/5 Coordination Assessment Gross Coordination Gross Coordination WNL Muscle Tone Muscle Tone WNL Yes M6 PT-IP Treatment Start: 10/04/23 16:25 Freq: NEEDED Status: Active Protocol: Document 10/04/23 14:30 AB (Rec: 10/04/23 16:42 AB [id number]) Physical Therapy Treatment Education Education Provided Safety M7 PT-IP Assessment and Plan Start: 10/04/23 16:25 Freq: NEEDED Status: Active Protocol: Document 10/04/23 14:30 AB (Rec: 10/04/23 16:42 AB [id number]) PT Summary Assessment and Plan Potential Rehabilitation Potential Fair Status of Condition at Evaluation Evolving Summary Impairments Pain,ROM,Strength,Balance, Coordination,Sensation,Tone, Cognition,Bed Mobility, Transfers,Gait,Activity Tolerance Assessment Summary pt is an 83y/o F who was sent by her shock absorption floor layer for fluid retention. pt admitted for acute on chronic hypoxic respiratory failure. pt with lung CA with mets and has been using O2 at home. pt requiring CGA to min A with mobility and presents with decrease activity tolerance affecting independent with decrease O2 sat to 81% after ambulation at 1L/min O2. pt will require 24/7 assist at this time and may require SNF rehab. will continue to asssess progress. Goals Bed Mobility Goal Independent Transfer Goal Independent,Front Wheeled Walker Gait Goal Independent,Front Wheel Walker Gait Distance 100 Other Goals improve transfers and ambulation using 4WW ~ 150 ft mod I Days to Meet Goals 10 Frequency of Treatment Frequency Of Treatment Once a Day Treatment Plan Physical Therapy Treatment Plan Bed Mobility Training,Transfer Training,Gait Training, Therapeutic Exercise,Balance Retraining,Discharge Planning, Hot or Cold Pack,Neuromuscular Re-ed,Coordination Retraining Precautions Other Precautions O2 sat Recommendations To Nursing Amount of Assist Needed 1 Person Assist Discharge Recommendations PT Discharge Recommendations Home with 24/7 Assist Available,Home Health,SNF Rehab,Home vs SNF Equipment Needed for Home Before FWW if not safe with 4WW Discharge Transportation Needs at Discharge Private Vehicle,Wheelchair/ Cabulance
[2023-10-04] MEDS: CEFEPIME 1 GM in SODIUM CHLORIDE 0.9% 100 ML IV (14:36)
[2023-10-04] MEDS: VANCOMYCIN 1,000 MG/200 ML PIGGYBACK 200 MG IV (15:37)
--- NOTE | 2023-10-04 17:16 | PM.PN.1 ---
Subjective Subjective Interval history: Patient on 3L NC, and feels her LE swelling has improved. Still with a cough and having some abd distention. Exam Vital Signs (past 8 hours): - 10/04/23 12:00 Temperature 97.5 F L Pulse Rate 72 Respiratory Rate 16 Blood Pressure 134/52 L Pulse Oximetry 96 Oxygen Flow Rate 3 Oxygen Delivery Method Nasal Cannula Oxygen Flow Rate 3 Narrative Exam Narrative: GEN: no acute distress, obese HEENT: moist mucous membranes, PERRL NECK: trachea midline, no JVD CV: regular rate and rhythm, no murmurs PULM: fine scattered crackles ABD: soft, nontender, distended, no organomegaly EXT: warm and well perfused with 1+ edema to knees NEURO: awake, alert, oriented, no focal deficits Objective Labs 10/04/23 04:45 10/04/23 04:45 Labs: Laboratory Results - last 24 hr 10/03/23 10/04/23 13:00 04:45 WBC 3.0 L RBC 3.02 L Hgb 9.8 L Hct 29.7 L MCV 98.6 MCH 32.7 MCHC 33.1 RDW 19.3 H Plt Count 134 L Neut % (Auto) Not Reportable Lymph % (Auto) Not Reportable [place] % (Auto) Not Reportable Eos % (Auto) Not Reportable Baso % (Auto) Not Reportable Lymph # (Auto) Not Reportable [place] # (Auto) Not Reportable Baso # (Auto) Not Reportable Total Counted 100 Seg Neutrophils % 32.0 L Lymphocytes % (Manual) 50.0 H Monocytes % (Manual) 12.0 H Eosinophils % (Manual) 4.0 Basophils % (Manual) 2.0 H Neutrophils # (Manual) 960 L RBC Morphology Normal morphology Sodium 142 Potassium 4.4 Chloride 112 H Carbon Dioxide 24 BUN 46 H Creatinine 2.22 H Estimated GFR 22 L BUN/Creatinine Ratio 20.7 Glucose 93 Hemoglobin A1c 8.3 H Calcium 8.2 L PFS Medical History (Updated 10/03/23 @ 14:46 by Gordo Best MD) Major depressive disorder, single episode, mild COPD (chronic obstructive pulmonary disease) CKD stage 3 due to type 2 diabetes mellitus MIRIAN (obstructive sleep apnea) Osteoarthritis of right knee Right knee pain Ischiogluteal bursitis Diabetes mellitus with hyperglycemia, with long-term current use of insulin Paroxysmal A-fib Spinal stenosis, lumbar region with neurogenic claudication Knee osteoarthritis Sacrococcygeal disorders, not elsewhere classified Thyroid nodule Abnormal Pap smear of cervix (~1992) History of urinary incontinence (~1994) Kidney stones (~2001) Hemorrhoid (~1989) CPAP (continuous positive airway pressure) dependence (~1999) Asthma (~1989) Bulimia (~1959) Fracture (~1986) Chronic back pain (~1989) Carpal tunnel syndrome (~1991) Mumps (~1970) Measles (~1944) Chicken pox (~1945) Adrenal adenoma History of stent insertion of renal artery Breast cancer (~2016) Hyperlipidemia OAB (overactive bladder) Benign essential HTN CKD (chronic kidney disease) Diabetes mellitus type 2, insulin dependent (~1993) Surgical History Anesthesia S/P fusion of sacroiliac joint H/O umbilical hernia repair H/O bilateral mastectomy H/O: hysterectomy Hx of cholecystectomy Status post hysterectomy Family History Father History of heart disease Hypertension Mother Cancer Brother Hypertension Brother Hypertension Brother History of heart disease Hypertension Grandfather History of heart disease Social History household members: children Smoking Status: Former smoker alcohol intake: former Assessment & Plan Assessment & Plan narrative: # acute on chronic HFpEF, with likely PNA -presents with orthopnea, dypsnea, LE swelling and pulm edema on CXR -CT chest shows multifocal PNA -had echo just 1mo ago with EF 60-65%, will not repeat -IV lasix 60mg BID -start cefepime and vanc due to immunosuppressed state # acute on chronic hypoxic resp failure -requiring 3L NC, normally on 2L all the time -treat as above # HUNTER on CKD -Cr 2.6, baseline 1.2 -improving with diuresis # metastatic lung cancer -followed by oncology at -currently on daily Ibrance, and patient notes her recent scans showed no progression of lung tumor -continue ibrance # DM2 -change NPH from 40u to 20u BID due to hypoglycemia -SSI -A1c 8.3% -carb diet # HTN -continue amlodipine, valsartan and labetalol # HLD -continue lipitor # depression -continue celexa # asthma -continue singulair Code status is DNR. DVT prophylaxis with heparin subq. Proxy is daughter Velma. I have reviewed home meds and used all available resources to reconcile the home meds. Dispo: Home in 1-2 days pending PT eval and improvement in PNA. Quality VTE Deep Vein Thrombosis/Pulmonary Embolism Present on Admission: No
[2023-10-04] MEDS: MONTELUKAST 10 MG TABLET PO (20:40)
[2023-10-04] MEDS: ATORVASTATIN 20 MG TABLET PO (20:40)
[2023-10-05] VITALS (7 sets, daily range): BP systolic 110–139; BP diastolic 44–51; PULSE 51–91; RESP 14–22; TEMP 35.8–36.8; O2SAT 91–95
[2023-10-05] MEDS: ACETAMINOPHEN 325 MG TABLET 650 MG PO ×2 (03:40→17:22)
[2023-10-05 05:36] LABS: Add Manual Diff / Slide Review NO; Basophils Absolute Auto 100 /uL (0-100); Basophils Percent Auto 3.1 % (0-2); Eosinophils Absolute Auto 100 /uL (0-450); Eosinophils Percent Auto 2.1 % (2-4); Hemoglobin 9.7 g/dL (12.0-16.0); Lymphocytes Absolute Auto 1100 /uL (1100-4500); Lymphocytes Percent Auto 33.3 % (25-40); Mean Corpuscular HGB Conc 33.7 % (30-36); Mean Corpuscular Hemoglobin 32.8 PG (26-34); Mean Corpuscular Volume 97.5 fL (80-100); Monocytes Absolute Auto 500 /uL (0-900); Monocytes Percent Auto 16.1 % (3-14); Neutrophils Absolute Auto 1400 /uL (1500-7000); Neutrophils Percent Auto 45.4 % (50-75); Platelet Count 109 X10^3/uL (150-400); Red Blood Cell Count 2.97 X10^6/uL (4.0-5.2); Red Cell Distribution Width 19.6 % (11.6-14.8); White Blood Cell Count 3.2 X10^3/uL (4.5-11.0)
[2023-10-05 05:39] LABS: BUN Creatinine Ratio 22.3 (6-22); Blood Urea Nitrogen 51 mg/dL (7-17); Calcium 8.5 mg/dL (8.4-10.2); Carbon Dioxide 25 mmol/L (22-32); Chloride 108 mmol/L (98-107); Estimated Glomerular Filt Rate 21 mL/min (>60); Glucose 191 mg/dL (80-110); HEMOLYSIS < 15 (0-50); Potassium 4.5 mmol/L (3.4-5.1); Sodium 138 mmol/L (137-145)
[2023-10-05] MEDS: INSULIN NPH 100 UNIT/ML 10ML VIAL 20 UNIT SUBCUT ×2 (06:06→20:45)
[2023-10-05] MEDS: CHOLECALCIFEROL (VITAMIN D3) 400 UNIT TABLET 800 UNIT PO ×2 (08:44→20:50)
[2023-10-05] MEDS: INSULIN LISPRO 100 UNIT/ML 3ML VIAL SUBCUT ×4 (08:44→20:45)
[2023-10-05] MEDS: LABETALOL 100 MG TABLET PO (08:45)
[2023-10-05] MEDS: CALCIUM CARBONATE 500 MG TAB PO ×2 (08:45→20:50)
[2023-10-05] MEDS: GABAPENTIN 100 MG CAPSULE 200 MG PO ×3 (08:45→20:50)
[2023-10-05] MEDS: VALSARTAN 80 MG TABLET 320 MG PO (08:46)
[2023-10-05] MEDS: HEPARIN 5,000 UNIT/ML VIAL 5000 UNIT SUBCUT ×2 (08:46→20:50)
[2023-10-05] MEDS: CITALOPRAM 10 MG TABLET PO (08:46)
[2023-10-05] MEDS: OXYBUTYNIN 5 MG TABLET PO ×2 (08:47→20:50)
[2023-10-05] MEDS: AMLODIPINE 5 MG TABLET 10 MG PO (08:47)
[2023-10-05] MEDS: LETROZOLE 2.5 MG TABLET PO (09:00)
[2023-10-05] MEDS: FUROSEMIDE 60 MG in SODIUM CHLORIDE 0.9% 50 ML 112 MG IV (09:00)
--- NOTE | 2023-10-05 13:02 | PT.IPTN ---
Current Diagnoses Acute on chronic diastolic (congestive) heart failure (10/05/23) Physical Therapy Treatment Note M2 PT-IP Current Condition Start: 10/04/23 16:25 Freq: NEEDED Status: Active Protocol: Document 10/04/23 14:30 AB (Rec: 10/04/23 16:42 AB [id number]) Physical Therapy Current Condition Current Condition Evaluation Date 10/04/23 Treatment Diagnosis lung CA with mets; difficulty in walking Onset Date 10/03/23 M3 PT-IP Subjective Start: 10/04/23 16:25 Freq: NEEDED Status: Active Protocol: Document 10/05/23 13:41 TS (Rec: 10/05/23 13:49 TS [id number]) Subjective Physical Therapy Visit Type Type Treatment Note Visit Start Time 13:02 Visit Stop Time 13:40 Number of SAFEMAKER Visits 1 Physical Therapy Visit Comments Patient Comments Pt found resting on 2L of o2, Spo2 96%, pt agreeable to PT. M4 PT-IP Mobility and Gait Start: 10/04/23 16:25 Freq: NEEDED Status: Active Protocol: Document 10/05/23 13:41 TS (Rec: 10/05/23 13:49 TS [id number]) PT-Bed Mobility Assessment Supine to Sit Supine to Sit Standby Assistance Scooting Scooting to Edge of Bed Standby Assistance PT-Transfer Assessment Sit to and From Stand Sit to and from Stand Standby Assistance,Use of Upper Extremities Equipment Transfer Assistive Device Gait Belt,Front Wheeled Walker Orthotic/Prosthetic Devices or Brace: No Comments Mobility Comments Supine to sit HOB elevated SBA with BUE support. STS from bed SBA with use of FWW, pt has no retroleaning. She ambulated 2x50'SBA with FWW, x1 on RA, Spo2 desat to 78%, x1 on 2L o2, Spo2 desat to 86% . Pt requires ~1-2mins to recover to low to mid 90's. pt was left in chair, all needs met. Gait Assessment Gait Gait Assistance Required: Standby Assistance,1 Person Assist Distance (Feet) 100 Able to Maintain Weight Bearing Status Yes During Gait Assistive Devices Assistive Device Gait Belt,Front Wheeled Walker Orthotic/Prosthetic Devices or Brace: No Gait Deviations General Gait Pattern Antalgic,Decreased Stride Length,Decreased Feet Clearance,Step-to Gait Factors Limiting Gait Function Factors Limiting Gait Function Decreased Activity Tolerance, Decreased Strength,Difficulty Following Directions,Limited Range of Motion,Pain,Poor Balance,Poor Safety Awareness, Respiratory Distress Comments Gait Comments See mobility comments PT-Balance Assessment Sitting Balance and Reactions Static Sitting Balance Ability Good Dynamic Sitting Balance Ability Good Standing Balance and Reactions Static Standing Balance Ability Fair Dynamic Standing Balance Ability Fair Device Used FWW M5 PT-IP Objective Assessments Start: 10/04/23 16:25 Freq: NEEDED Status: Active Protocol: Document 10/04/23 14:30 AB (Rec: 10/04/23 16:42 AB [id number]) Orientation Orientation/Cognition Level of Alertness Alert Orientation Name,Place,Situation Language Function Ability No Deficits Noted Safety Awareness Decreased Safety Awareness Memory Description Short Term Impaired Gross Range of Motion Lower Extremity ROM Assessment Within Functional Limits Strength Lower Extremity Strength Hip 4-/5 Knee 4-/5 Coordination Assessment Gross Coordination Gross Coordination WNL Muscle Tone Muscle Tone WNL Yes M6 PT-IP Treatment Start: 10/04/23 16:25 Freq: NEEDED Status: Active Protocol: Document 10/05/23 13:41 TS (Rec: 10/05/23 13:49 TS [id number]) Physical Therapy Treatment Education Education Provided Safety M7 PT-IP Assessment and Plan Start: 10/04/23 16:25 Freq: NEEDED Status: Active Protocol: Document 10/05/23 13:41 TS (Rec: 10/05/23 13:49 TS [id number]) PT Summary Assessment and Plan Potential Rehabilitation Potential Fair Summary Impairments Pain,ROM,Strength,Balance, Coordination,Sensation,Tone, Cognition,Bed Mobility, Transfers,Gait,Activity Tolerance Progress Towards Goals Progressing Toward Goals Assessment Summary Francia is making progress with her mobility this session. She is SBA for all bed mobility and does not require cues. She ambulated 2x~50' SBA with FWW , x1 on RA, Spo2 desat to 78%, x1 2L, Spo2 desat to 86%. She does require cues for PLB, she recovers her o2 to lowto mid 90's after ~1-2Mins. PT is recommending pt return home with 24/7 assist and HHPT. Goals Bed Mobility Goal Independent Transfer Goal Independent,Front Wheeled Walker Gait Goal Independent,Front Wheel Walker Gait Distance 100 Other Goals improve transfers and ambulation using 4WW ~ 150 ft mod I Days to Meet Goals 10 Frequency of Treatment Frequency Of Treatment Once a Day Treatment Plan Physical Therapy Treatment Plan Bed Mobility Training,Transfer Training,Gait Training, Therapeutic Exercise,Balance Retraining,Discharge Planning, Hot or Cold Pack,Neuromuscular Re-ed,Coordination Retraining Precautions Other Precautions O2 sat Recommendations To Nursing Amount of Assist Needed 1 Person Assist Discharge Recommendations PT Discharge Recommendations Home with 24/ Assist Available,Home Health Equipment Needed for Home Before FWW if not safe with 4WW Discharge Transportation Needs at Discharge Private Vehicle
[2023-10-05] MEDS: VILANTEROL INH (13:56)
[2023-10-05] MEDS: [UNRECOGNIZED DRUG - OTHER] INH (13:56)
[2023-10-05] MEDS: UMECLIDINIUM INH (13:56)
[2023-10-05] MEDS: CEFEPIME 1 GM in SODIUM CHLORIDE 0.9% 100 ML IV (16:37)
--- NOTE | 2023-10-05 17:28 | P.PN_ITS ---
Subjective Subjective Interval history: Patient feeling better today but still has cruddy cough. She would like to stay one more night to continue IV abx and go home tomorrow. Exam Vital Signs (past 8 hours): - 10/05/23 12:30 Temperature 97.2 F L Pulse Rate 91 H Respiratory Rate 14 Blood Pressure 139/51 L Pulse Oximetry 91 Oxygen Flow Rate 2 Oxygen Delivery Method Nasal Cannula Oxygen Flow Rate 2 Narrative Exam Narrative: GEN: no acute distress, obese, on supp O2 HEENT: moist mucous membranes, PERRL NECK: trachea midline, no JVD CV: regular rate and rhythm, no murmurs PULM: fine scattered crackles ABD: soft, nontender, distended with likely ventral hernia present, no organomegaly EXT: warm and well perfused with 1+ edema to knees NEURO: awake, alert, oriented, no focal deficits Objective Labs 10/05/23 04:40 10/05/23 04:40 Labs: Laboratory Results - last 24 hr 10/05/23 04:40 WBC 3.2 L RBC 2.97 L Hgb 9.7 L Hct 29.0 L MCV 97.5 MCH 32.8 MCHC 33.7 RDW 19.6 H Plt Count 109 L Neut % (Auto) 45.4 L Lymph % (Auto) 33.3 [place] % (Auto) 16.1 H Eos % (Auto) 2.1 Baso % (Auto) 3.1 H Neut # (Auto) 1400 L Lymph # (Auto) 1100 [place] # (Auto) 500 Eos # (Auto) 100 Baso # (Auto) 100 Sodium 138 Potassium 4.5 Chloride 108 H Carbon Dioxide 25 BUN 51 H Creatinine 2.29 H Estimated GFR 21 L BUN/Creatinine Ratio 22.3 H Glucose 191 H Calcium 8.5 PFSH Medical History (Updated 10/03/23 @ 14:46 by Gordo Best MD) Major depressive disorder, single episode, mild COPD (chronic obstructive pulmonary disease) CKD stage 3 due to type 2 diabetes mellitus MIRIAN (obstructive sleep apnea) Osteoarthritis of right knee Right knee pain Ischiogluteal bursitis Diabetes mellitus with hyperglycemia, with long-term current use of insulin Paroxysmal A-fib Spinal stenosis, lumbar region with neurogenic claudication Knee osteoarthritis Sacrococcygeal disorders, not elsewhere classified Thyroid nodule Abnormal Pap smear of cervix (~1992) History of urinary incontinence (~1994) Kidney stones (~2001) Hemorrhoid (~1989) CPAP (continuous positive airway pressure) dependence (~1999) Asthma (~1989) Bulimia (~1959) Fracture (~1986) Chronic back pain (~1989) Carpal tunnel syndrome (~1991) Mumps (~1970) Measles (~1944) Chicken pox (~1945) Adrenal adenoma History of stent insertion of renal artery Breast cancer (~2016) Hyperlipidemia OAB (overactive bladder) Benign essential HTN CKD (chronic kidney disease) Diabetes mellitus type 2, insulin dependent (~1993) Surgical History Anesthesia S/P fusion of sacroiliac joint H/O umbilical hernia repair H/O bilateral mastectomy H/O: hysterectomy Hx of cholecystectomy Status post hysterectomy Family History Father History of heart disease Hypertension Mother Cancer Brother Hypertension Brother Hypertension Brother History of heart disease Hypertension Grandfather History of heart disease Social History household members: children Smoking Status: Former smoker alcohol intake: former Assessment & Plan Assessment & Plan narrative: # acute on chronic HFpEF, with likely PNA -presents with orthopnea, dypsnea, LE swelling and pulm edema on CXR -CT chest shows multifocal PNA -had echo just 1mo ago with EF 60-65%, will not repeat -IV lasix 60mg BID initially given, now off -start cefepime and vanc due to immunosuppressed state, check MRSA swab -can dc on po abx on 10/05 # acute on chronic hypoxic resp failure, now resolving -requiring 3L NC, normally on 2L all the time -treat as above # HUNTER on CKD -Cr 2.6, baseline 1.2 -improving with diuresis # metastatic lung cancer -followed by oncology at -currently on daily Ibrance, and patient notes her recent scans showed no progression of lung tumor -continue ibrance -CT chest shows stable lung mass and metastatic lesions # DM2 -change NPH from 40u to 20u BID due to hypoglycemia -SSI -A1c 8.3% -carb diet # HTN -continue amlodipine, valsartan and labetalol # HLD -continue lipitor # depression -continue celexa # asthma -continue singulair Code status is DNR. DVT prophylaxis with heparin subq. Proxy is daughter Velma. I have reviewed home meds and used all available resources to reconcile the home meds. Dispo: Home on 10/05 on po abx. Quality VTE Deep Vein Thrombosis/Pulmonary Embolism Present on Admission: No
[2023-10-05] MEDS: ATORVASTATIN 20 MG TABLET PO (20:50)
[2023-10-05] MEDS: MONTELUKAST 10 MG TABLET PO (20:50)
[2023-10-06] VITALS (7 sets, daily range): BP systolic 106–137; BP diastolic 40–68; PULSE 71–83; RESP 16–20; TEMP 36–36.1; O2SAT 92–95
[2023-10-06] MEDS: ACETAMINOPHEN 325 MG TABLET 650 MG PO ×2 (02:26→09:17)
[2023-10-06 04:08] LABS: MRSA (Nasal) PCR Not Detected (Not Detect)
[2023-10-06 06:19] LABS: BUN Creatinine Ratio 24.7 (6-22); Blood Urea Nitrogen 54 mg/dL (7-17); Calcium 9.4 mg/dL (8.4-10.2); Carbon Dioxide 24 mmol/L (22-32); Chloride 106 mmol/L (98-107); Estimated Glomerular Filt Rate 22 mL/min (>60); Glucose 186 mg/dL (80-110); HEMOLYSIS < 15 (0-50); Potassium 4.5 mmol/L (3.4-5.1); Sodium 137 mmol/L (137-145)
[2023-10-06 06:21] LABS: Hematocrit 31.2 % (36-46); Hemoglobin 10.4 g/dL (12.0-16.0); Mean Corpuscular HGB Conc 33.4 % (30-36); Mean Corpuscular Hemoglobin 32.8 PG (26-34); Mean Corpuscular Volume 98.2 fL (80-100); Platelet Count 102 X10^3/uL (150-400); Red Blood Cell Count 3.17 X10^6/uL (4.0-5.2); Red Cell Distribution Width 18.8 % (11.6-14.8); White Blood Cell Count 3.5 X10^3/uL (4.5-11.0)
[2023-10-06 06:23] LABS: Add Manual Diff / Slide Review YES
[2023-10-06] MEDS: INSULIN NPH 100 UNIT/ML 10ML VIAL 20 UNIT SUBCUT (06:29)
[2023-10-06 06:38] LABS: Neutrophils Absolute Manual 1680 /uL (3000-5900); Platelet Estimate Decreased on smear; Total Cells Counted 100
[2023-10-06 06:39] LABS: Anisocytosis 1+
[2023-10-06] MEDS: CHOLECALCIFEROL (VITAMIN D3) 400 UNIT TABLET 800 UNIT PO (08:00)
[2023-10-06] MEDS: VALSARTAN 80 MG TABLET 320 MG PO (08:02)
[2023-10-06] MEDS: CITALOPRAM 10 MG TABLET PO (08:02)
[2023-10-06] MEDS: CALCIUM CARBONATE 500 MG TAB PO (08:03)
[2023-10-06] MEDS: OXYBUTYNIN 5 MG TABLET PO (08:03)
[2023-10-06] MEDS: AMLODIPINE 5 MG TABLET 10 MG PO (08:04)
[2023-10-06] MEDS: GABAPENTIN 100 MG CAPSULE 200 MG PO (08:04)
[2023-10-06] MEDS: HEPARIN 5,000 UNIT/ML VIAL 5000 UNIT SUBCUT (08:05)
[2023-10-06] MEDS: LABETALOL 100 MG TABLET PO (08:07)
[2023-10-06] MEDS: UMECLIDINIUM INH (08:09)
[2023-10-06] MEDS: [UNRECOGNIZED DRUG - OTHER] INH (08:09)
[2023-10-06] MEDS: VILANTEROL INH (08:09)
[2023-10-06] MEDS: INSULIN LISPRO 100 UNIT/ML 3ML VIAL SUBCUT ×2 (08:11→12:04)
[2023-10-06] MEDS: LETROZOLE 2.5 MG TABLET PO (08:19)
--- NOTE | 2023-10-06 10:27 | PM.DS.1 ---
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 Patient notes increased cough and SOB with weight gain over the past few days. She was sent to the ED by cardiology for increasing orthopnea and dyspnea. She is normally on 2-3L NC and was requiring baseline O2. In the ED found to have perihilar opacities which appeared to be fluid vs PNA on CXR. Will be admitted for diuresis. Last echo just 1 month ago showed EF 60-65%. Patient describes some hypoglycemic episodes lately at home. She recently raised her insulin per PCP. Patient denies CP, NV, and abd pain. Discharge Providers Provider Date of admission: 10/05/23 13:01 Discharge Date: 10/06/23 Primary care physician: Rody Mijares DO Consults: 10/04/23 10:40 Consult to Physical Therapy Evaluate & Treat Comment: Physician Instructions: Evaluate and Treat Discharge provider: Yosef Hanks MD Summary Hospital Course Discharge Diagnosis: 1. Pneumonia, present on admission and improved. 2. Acute on chronic hypoxic respiratory failure, present on admission and improved. 3. HUNTER on chronic kidney disease, present on admission and improved. 4. DM 2, present on admission and stable. 5. Hypertension, present on admission and stable. 6. Hyperlipidemia, present on admission and stable. 7. Asthma, stable. Hospital Course: She was admitted with acute hypoxic failure and leg swelling as well as a cough. She was treated with antibiotics for pneumonia. A CT was consistent with a multifocal pneumonia. Recent echo from a month ago revealed an EF of 60-65%. She was diuresed for general volume overload. She did improve and was at or near baseline on the day of discharge. She is able to ambulate without difficulty using a walker. Her creatinine was improving at 2.19. She is being treated for known metastatic breast cancer. She is currently living with her daughter in the [place] area is able to perform all ADLs with minimal difficulty. She had no fevers on the day preceding discharge and no pain issues. Status at Discharge Cognitive/behavioral status at discharge: oriented Functional status at discharge: uses cane/walker Overall status at discharge: patient is back to baseline Time Spent with Patient Time spent: Greater than 30 minutes Exam Vital Signs (past 8 hours): - 10/06/23 03:08 10/06/23 08:00 10/06/23 08:07 Temperature 96.8 F L 96.9 F L Pulse Rate 71 74 78 Respiratory Rate 20 16 Blood Pressure 106/49 L 127/49 L 137/68 Pulse Oximetry 92 95 Oxygen Delivery Method Oxygen Flow Rate 2 2 10/06/23 08:12 10/06/23 09:00 10/06/23 09:39 Temperature Pulse Rate 71 Respiratory Rate Blood Pressure 122/58 L Pulse Oximetry 95 Oxygen Delivery Method Nasal Cannula Nasal Cannula Oxygen Flow Rate 2 10/06/23 09:39 10/06/23 09:39 Temperature Pulse Rate 83 Respiratory Rate 19 Blood Pressure 122/58 L Pulse Oximetry 92 92 Oxygen Delivery Method Nasal Cannula Oxygen Flow Rate 2 2 Oxygen Delivery Method Nasal Cannula Oxygen Flow Rate 2 Narrative Exam Narrative: NAD, alert and oriented, fluent speech, calm. Normocephalic skull, EOMI, anicteric sclera, symmetric pupils. Oropharynx unremarkable, no droop. Neck supple, midline trachea, no adenopathy. Lungs clear, normal rate and effort. No rhonchi or wheezing appreciated. Heart regular, no murmur gallop or rub. Abdomen is soft, non distended and non tender. Extremities are free of edema. Skin is free of rash or lesions. Joints are not swollen or deformed. Judgment appears to be normal. Objective Labs 10/06/23 05:45 10/06/23 05:45 Labs: Laboratory Results - last 24 hr 10/06/23 10/06/23 02:45 05:45 WBC 3.5 L RBC 3.17 L Hgb 10.4 L Hct 31.2 L MCV 98.2 MCH 32.8 MCHC 33.4 RDW 18.8 H Plt Count 102 L Neut % (Auto) Not Reportable Lymph % (Auto) Not Reportable [place] % (Auto) Not Reportable Eos % (Auto) Not Reportable Baso % (Auto) Not Reportable Lymph # (Auto) Not Reportable [place] # (Auto) Not Reportable Baso # (Auto) Not Reportable Total Counted 100 Seg Neutrophils % 47.0 Band Neutrophils % 1.0 L Lymphocytes % (Manual) 40.0 Monocytes % (Manual) 7.0 Eosinophils % (Manual) 2.0 Basophils % (Manual) 3.0 H Neutrophils # (Manual) 1680 L Platelet Estimate Decreased on smear RBC Morphology See below Anisocytosis 1+ H Sodium 137 Potassium 4.5 Chloride 106 Carbon Dioxide 24 BUN 54 H Creatinine 2.19 H Estimated GFR 22 L BUN/Creatinine Ratio 24.7 H Glucose 186 H Calcium 9.4 Nasal Screen MRSA (PCR) Not detected [facility] Medical History Major depressive disorder, single episode, mild COPD (chronic obstructive pulmonary disease) CKD stage 3 due to type 2 diabetes mellitus MIRIAN (obstructive sleep apnea) Osteoarthritis of right knee Right knee pain Ischiogluteal bursitis Diabetes mellitus with hyperglycemia, with long-term current use of insulin Paroxysmal A-fib Spinal stenosis, lumbar region with neurogenic claudication Knee osteoarthritis Sacrococcygeal disorders, not elsewhere classified Thyroid nodule Abnormal Pap smear of cervix (~1992) History of urinary incontinence (~1994) Kidney stones (~2001) Hemorrhoid (~1989) CPAP (continuous positive airway pressure) dependence (~1999) Asthma (~1989) Bulimia (~1959) Fracture (~1986) Chronic back pain (~1989) Carpal tunnel syndrome (~1991) Mumps (~1970) Measles (~1944) Chicken pox (~1945) Adrenal adenoma History of stent insertion of renal artery Breast cancer (~2016) Hyperlipidemia OAB (overactive bladder) Benign essential HTN CKD (chronic kidney disease) Diabetes mellitus type 2, insulin dependent (~1993) Surgical History Anesthesia S/P fusion of sacroiliac joint H/O umbilical hernia repair H/O bilateral mastectomy H/O: hysterectomy Hx of cholecystectomy Status post hysterectomy Family History Father History of heart disease Hypertension Mother Cancer Brother Hypertension Brother Hypertension Brother History of heart disease Hypertension Grandfather History of heart disease Social History household members: children Smoking Status: Former smoker alcohol intake: former Discharge Assessment & Plan Assessment and Plan Assessment: 1. Pneumonia, present on admission and improved. 2. Acute on chronic hypoxic respiratory failure, present on admission and improved. 3. HUNTER on chronic kidney disease, present on admission and improved. 4. DM 2, present on admission and stable. 5. Hypertension, present on admission and stable. 6. Hyperlipidemia, present on admission and stable. 7. Asthma, stable. Plan of Treatment: She will be discharged with usual medications and doxycycline 5 more days at b.i.d. dosing. She will continue to look for private caregiver assistance at home as her daughter works 1-08/02 jobs currently. The patient uses a walker at home and has all of her equipment that she needs and we will follow up with her PCP within a week. She uses oxygen 2 L at home. Discharge Plan Discharge Plan Patient Disposition: Home Provider Discharge Comment: Stable for discharge on PO antibiotics with close PCP follow up. Discharge orders & Medications Prescriptions: New doxycycline hyclate 100 mg capsule 100 mg PO BID Qty: 10 0RF Continued oxybutynin chloride 5 mg tablet 5 mg PO BID Qty: 180 3RF amlodipine [Norvasc] 10 mg tablet 10 mg PO DAILY Qty: 90 3RF atorvastatin [Lipitor] 20 mg tablet 20 mg PO BEDTIME Qty: 90 3RF furosemide 40 mg tablet 40 mg PO DAILY PRN (Reason: edema) Qty: 90 3RF Patient Comments: Pt states she takes when needed, holds when she has to go somewhere and does not want to have to urinate glipizide 5 mg tablet extended release 24hr 5 mg PO DAILY Qty: 90 3RF valsartan 320 mg tablet 320 mg PO DAILY Qty: 90 3RF Ibrance 125 mg tablet 125 mg PO DAILY Rx Instructions: administer on days 1 through 21 of a 28-day treatment cycle. 10/06 starts her 7 days off gabapentin 100 mg capsule 100 - 200 mg PO TID PRN (Reason: pain) Qty: 180 2RF Anoro Ellipta 62.5-25 mcg/actuation blister with device 1 ea inhalation DAILY citalopram [Celexa] 10 mg tablet 10 mg PO DAILY Qty: 30 11RF Rx Instructions: takes at 1300 letrozole 2.5 mg tablet 2.5 mg PO DAILY Qty: 90 3RF albuterol sulfate 90 mcg/actuation HFA aerosol inhaler 1 - 2 inh inhalation Q4-6H PRN (Reason: shortness of breath or wheezing) Qty: 8.5 11RF calcium carbonate-vitamin D3 600 mg-5 mcg (200 unit) Tablet 1 tab PO DAILY furosemide 80 mg tablet 80 mg PO BID montelukast 10 mg tablet 10 mg PO BEDTIME labetalol 100 mg tablet 100 mg PO BID Novolin 70/30 U-100 Insulin 100 unit/mL (70-30) suspension 50 unit SUBCUT BID Rx Instructions: does 55 in AM 50 Pm Medication counseling provided by Pharmacist: No Follow up/Referrals: Rody Mijares DO [Primary Care Provider] - Discharge Health Status Multidrug resistant organism: No MDRO Diet/Activity/Treatments Diet: Carb-consistent/Diabetic Skin/Wound/Dressing Care Report to your healthcare provider any signs of infection, such as:: chills, fever and increased pain Visit Report/Discharge Packet Instructions: DI for Heart Failure, DI for Chronic Obstructive Pulmonary Disease, DI for Pneumonia -- Adult Stand Alone Forms: Congestive Heart Failure, Patient Portal/API, Stroke Signs & Symptoms Discharge Data Primary Care Provider: Rody Mijares VTE Deep Vein Thrombosis/Pulmonary Embolism Present on Admission: No
--- NOTE | 2023-10-06 13:23 | PC.NURSE ---
Pt's clothing, cell phone and coffin maker, glasses, shoes, and jewerly/watch sent with pt at the time of discharge. Pt verbalized understanding of D/C instructions, when to follow up with PCP, how to take all medications and complete the full course of antibiotics for her pneumonia. This RN recommended that the pt follow up with her PCP for questions on insulin dosage changes, pt verbalized understanding.
== END 2023-10-06 12:59 | disposition home or self-care (01) | DRG 193 ==
LOC: ED 14:46 → AC 16:02
PROVIDERS: Admitting Provider Student in an Organized Health Care Education/Training Program; Emergency Provider Emergency Medicine; PCP Family Medicine; Referring Provider Emergency Medicine; Visit Provider Student in an Organized Health Care Education/Training Program
DX: J18.9 Pneumonia, unspecified organism (principal); I50.33 Acute on chronic diastolic (congestive) heart failure; J96.21 Acute and chronic respiratory failure with hypoxia; I13.0 Hypertensive heart and chronic kidney disease with heart failure and stage 1 through stage 4 chronic kidney disease, or unspecified chronic kidney disease; N17.9 Acute kidney failure, unspecified; D84.9 Immunodeficiency, unspecified; J44.0 Chronic obstructive pulmonary disease with (acute) lower respiratory infection; E78.5 Hyperlipidemia, unspecified; F32.A Depression, unspecified; E11.22 Type 2 diabetes mellitus with diabetic chronic kidney disease; N18.9 Chronic kidney disease, unspecified; C50.919 Malignant neoplasm of unspecified site of unspecified female breast; G47.33 Obstructive sleep apnea (adult) (pediatric); Z79.84 Long term (current) use of oral hypoglycemic drugs; Z99.81 Dependence on supplemental oxygen; Z87.891 Personal history of nicotine dependence; Z79.4 Long term (current) use of insulin; Z66 Do not resuscitate
CPT/HCPCS: 0241U; 36415; 71045; 71250; 74176; 80048; 80053; 82962; 83036; 83735; 83880; 84443; 84484; 85007; 85025; 87040; 87797; 93005; 93010; 94660; 94760; 96365; 96375; 96376; 97116; 97163; 97530; 99284; 99285; G0378; J0692; J0696; J1644; J1815; J1940

== ENCOUNTER 2023-11-07 01:09 | Inpatient (IN) | payer MEDICARE, OTHER, SELFPAY ==
[2023-10-03 14:51] VITALS: BMI 45.1
[2023-11-07] VITALS (13 sets, daily range): BP systolic 123–165; BP diastolic 50–70; PULSE 75–85; RESP 17–29; TEMP 36.3–36.7; O2SAT 80–96; BMI 43.9; BMI 45.3
--- NOTE | 2023-11-07 01:22 | DI.RAD.S_ITS ---
PROCEDURE: XR CHEST 1V INDICATIONS: dyspnea, cough, low O2 TECHNIQUE: One view of the chest was acquired. COMPARISON: [facility], CT, CT CHEST ABD PEL WO CON, 10/04/2023, 12:36. [facility], CR, XR CHEST 1V, 10/03/2023, 13:38. [facility], CR, XR CHEST 1V, 07/08/2023, 15:02. FINDINGS: Surgical changes and devices: None. Lungs and pleura: Bilateral perihilar and interstitial infiltrates suspicious for pulmonary edema secondary to congestive heart failure. Mole confluent opacity in the right infrahilar area, suspicious for pneumonia. No pleural effusions or pneumothorax. Mediastinum: Mediastinal contours appear normal. Heart size is mildly enlarged. Bones and chest wall: No suspicious bony lesions. Overlying soft tissues appear unremarkable. IMPRESSION: 1. Congestive heart failure. 2. Superimposed right infrahilar pneumonia. Dictated by: Ham Hadnley M.D. on 11/07/2023 at 1:38 Approved by: Ham Handley M.D. on 11/07/2023 at 1:41
--- NOTE | 2023-11-07 01:26 | ED.SOB ---
HPI - SOB/Dyspnea General Chief Complaint: Shortness of Breath/Dyspnea Stated Complaint: trouble breathing, low oxy Time Seen by Provider: 11/07/23 01:15 History of Present Illness HPI Narrative: 83-year-old female with history of metastatic breast cancer, COPD on chronic 2 L O2, congestive heart failure presents by private vehicle from home for shortness of breath. Patient states that for the last several days she was felt more winded and tired, but at approximately 9:00 p.m. it became much worse. She called her daughter over to help her. Patient's oxygen saturations were in the 80s at home on her usual 2 L nasal cannula. They attempted to increase her nasal cannula to 3 L, but oxygen saturations remained low and they decided to present for evaluation. Triage vitals note 78% on 2L. Patient reports compliance with lasix, however states that it didnt' work this morning. Also states she was unable to fruit picker one of her nebulizers this week due to insurance issues Related Data Home Medications Medication Instructions Recorded Confirmed palbociclib 125 mg tablet (Ibrance) 125 mg PO DAILY 01/31/23 10/18/23 calcium carbonate 600 mg-vitamin 1 tab PO DAILY 10/03/23 10/18/23 D3 5 mcg (200 unit) tablet insulin human U-100 NPH-regulr 50 unit SUBCUT BID 10/03/23 10/18/23 70-30 mix 100 unit/mL subcutaneous susp (Novolin 70/30 U-100 Insulin) labetalol 100 mg tablet 100 mg PO BID 10/03/23 10/18/23 montelukast 10 mg tablet 10 mg PO BEDTIME 10/03/23 10/18/23 Previous Rx's Medication Instructions Recorded letrozole 2.5 mg tablet 2.5 mg PO DAILY #90 tabs 12/28/22 amlodipine 10 mg tablet (Norvasc) 10 mg PO DAILY #90 tabs 03/02/23 atorvastatin 20 mg tablet (Lipitor) 20 mg PO BEDTIME cholesterol #90 03/02/23 tabs glipizide 5 mg tablet, extended 5 mg PO DAILY diabetes #90 tabs 03/02/23 release 24 hr valsartan 320 mg tablet 320 mg PO DAILY #90 tabs 03/02/23 albuterol sulfate 90 mcg/actuation 1 - 2 inh inhalation Q4-6H PRN 05/06/23 aerosol inhaler shortness of breath or wheezing #8.5 grams citalopram 10 mg tablet (Celexa) 10 mg PO DAILY #30 tabs 08/22/23 furosemide 20 mg tablet (Lasix) 20 mg PO DAILY #90 tabs 10/11/23 furosemide 40 mg tablet 40 mg PO DAILY PRN edema #90 tabs 10/11/23 gabapentin 100 mg capsule 100 - 200 mg (1 - 2 x 100 mg) PO 10/17/23 TID PRN pain #180 caps benzonatate 200 mg capsule 200 mg PO TID #30 caps 10/18/23 guaifenesin 1,200 mg tablet, 1,200 mg PO BID #30 tabs 10/18/23 extended release 12 hr oxybutynin chloride 5 mg tablet 5 mg PO BID #180 tabs 10/31/23 tiotropium bromide 18 mcg capsule 1 cap inhalation DAILY #90 11/04/23 with inhalation device (Spiriva inhalations with HandiHaler) Allergies Allergy/AdvReac Type Severity Reaction Status Date / Time Sulfa (Sulfonamide Allergy Unknown Verified 10/18/23 15:51 Antibiotics) [SULFA (SULFONAMIDE ANTIBIOTICS)] Review of Systems Review of Systems Narrative: Negative except as noted above Patient History Medical History Major depressive disorder, single episode, mild COPD (chronic obstructive pulmonary disease) CKD stage 3 due to type 2 diabetes mellitus MIRIAN (obstructive sleep apnea) Osteoarthritis of right knee Right knee pain Ischiogluteal bursitis Diabetes mellitus with hyperglycemia, with long-term current use of insulin Paroxysmal A-fib Spinal stenosis, lumbar region with neurogenic claudication Knee osteoarthritis Sacrococcygeal disorders, not elsewhere classified Thyroid nodule Abnormal Pap smear of cervix (~1992) History of urinary incontinence (~1994) Kidney stones (~2001) Hemorrhoid (~1989) CPAP (continuous positive airway pressure) dependence (~1999) Asthma (~1989) Bulimia (~1959) Fracture (~1986) Chronic back pain (~1989) Carpal tunnel syndrome (~1991) Mumps (~1970) Measles (~194) Chicken pox (~1945) Adrenal adenoma History of stent insertion of renal artery Breast cancer (~2016) Hyperlipidemia OAB (overactive bladder) Benign essential HTN CKD (chronic kidney disease) Diabetes mellitus type 2, insulin dependent (~1993) Surgical History Anesthesia S/P fusion of sacroiliac joint H/O umbilical hernia repair H/O bilateral mastectomy H/O: hysterectomy Hx of cholecystectomy Status post hysterectomy Family History Father History of heart disease Hypertension Mother Cancer Brother Hypertension Brother Hypertension Brother History of heart disease Hypertension Grandfather History of heart disease Social History household members: children Smoking Status: Former smoker alcohol intake: former Smoking Status: Former smoker alcohol intake frequency: other Substance Use Type: does not use Exam Initial Vital Signs Initial Vital Signs: Vital Signs Pulse Rate 84 11/07/23 01:25 Pulse Oximetry 96 11/07/23 01:25 Const: Awake, alert, appears chronically unwell, mild respiratory distress Cardiac: regular rate, regular rhythm RESP: Increased work of breathing, tachypnea, expiratory rales GI: Soft, nontender, nondistended MSK: No pitting edema, full range of motion Skin: Warm, Dry, intact, no rashes Neuro: AO x3, CN II-XII grossly intact, moves all extremities Course Orders Ordered: ED Orders 11/07/23 01:22 Chest [XR chest 1V] Stat EKG-12 Lead Stat 11/07/23 01:45 BNP [NT-proBNP (BNP-Adult 18+)] Stat CBC Auto Diff [Complete Blood Count AUTO DIFF] Stat CMP [Comprehensive Metabolic Panel] Stat Lactate (Lactic Acid) Stat PT [Prothrombin Time INR] Stat Procalcitonin Stat Troponin & CK Cardiac Panel Stat 11/07/23 01:56 Blood Culture Stat 11/07/23 02:20 Respiratory Panel (Film Array) Stat 11/07/23 03:16 ABG [Arterial Blood Gas] Stat Discontinued Medications Albuterol/Ipratropium (Albuterol/Ipratropium 3 Ml Ampul) 9 ml INH NOW ONE Stop: 11/07/23 01:22 Last Admin: 11/07/23 01:49 Dose: 9 ml Documented By: BRIANNE Budesonide (Budesonide 0.5 Mg/2 Ml Neb) 0.5 mg INH NOW ONE Stop: 11/07/23 01:28 Last Admin: 11/07/23 01:50 Dose: 0.5 mg Documented By: BRIANNE Furosemide (Furosemide 40 Mg/4 Ml Vial) 40 mg IV NOW ONE Stop: 11/07/23 01:42 Last Admin: 11/07/23 02:08 Dose: 40 mg Documented By: LEAH Ceftriaxone Sodium 2,000 mg/ (Sodium Chloride) 100 mls @ 200 mls/hr IV NOW ONE Stop: 11/07/23 01:22 Last Infusion: 11/07/23 02:50 Dose: Infused Documented By: Admin: 11/07/23 02:08 Dose: 200 mls/hr Documented By: LEAH Azithromycin 500 mg/ Dextrose 250 mls @ 250 mls/hr IV NOW ONE Stop: 11/07/23 01:22 Last Admin: 11/07/23 02:51 Dose: 250 mls/hr Documented By: BELLA Methylprednisolone (Methylprednisolone 125 Mg/2 Ml Vial) 125 mg IV NOW ONE Stop: 11/07/23 01:22 Last Admin: 11/07/23 02:08 Dose: 125 mg Documented By: LEAH Vital Signs Vital signs: Vital Signs - 8 hr 11/07/23 01:25 11/07/23 01:26 11/07/23 01:30 Temperature 97.4 F L Pulse Rate 84 83 75 Respiratory Rate 25 H Blood Pressure 164/70 H Pulse Oximetry 96 80 L 95 Oxygen Delivery Method Nasal Cannula Oxygen Flow Rate 3 11/07/23 01:52 11/07/23 02:00 11/07/23 02:12 Temperature Pulse Rate 80 Respiratory Rate 29 H Blood Pressure 163/69 H Pulse Oximetry 91 Oxygen Delivery Method Nasal Cannula Oximask Oxygen Flow Rate 6 8 11/07/23 02:12 Temperature Pulse Rate 79 Respiratory Rate Blood Pressure Pulse Oximetry 93 Oxygen Delivery Method Oxygen Flow Rate MDM - SOB/Dyspnea Lab Data 11/07/23 01:45 11/07/23 01:45 Labs: Lab Results 11/07/23 11/07/23 Range/Units 01:45 02:20 WBC 4.1 L (4.5-11.0) X10^3/uL RBC 3.06 L (4.0-5.2) X10^6/uL Hgb 10.2 L (12.0-16.0) g/dL Hct 30.4 L (36-46) % MCV 99.2 (80-100) fL MCH 33.3 (26-34) PG MCHC 33.6 (30-36) % RDW 19.9 H (11.6-14.8) % Plt Count 142 L (150-400) X10^3/uL Neut % (Auto) 53.6 (50-75) % Lymph % (Auto) 23.6 L (25-40) % [place] % (Auto) 17.7 H (3-14) % Eos % (Auto) 2.6 (2-4) % Baso % (Auto) 2.5 H (0-2) % Neut # (Auto) 2200 (0977-8886) /uL Lymph # (Auto) 1000 L (1738-5174) /uL [place] # (Auto) 700 (0-900) /uL Eos # (Auto) 100 (0-450) /uL Baso # (Auto) 100 (0-100) /uL PT 11.0 (9.4-12.5) SECONDS INR 1.0 (0.9-1.3) Sodium 142 (137-145) mmol/L Potassium 4.4 (3.4-5.1) mmol/L Chloride 114 H (98-107) mmol/L Carbon Dioxide 25 (22-32) mmol/L BUN 43 H (7-17) mg/dL Creatinine 1.65 H (0.52-1.04) mg/dL Estimated GFR 31 L (>60) mL/min BUN/Creatinine Ratio 26.1 H (6-22) Glucose 145 H (80-110) mg/dL Lactate 1.0 (0.7-2.1) mmol/L Calcium 8.9 (8.4-10.2) mg/dL Total Bilirubin 0.5 (0.2-1.3) mg/dL AST 21 (14-36) IU/L ALT 16 (<35) IU/L Alkaline Phosphatase 68 (38-126) U/L Total Creatine Kinase 127 (30-135) U/L Troponin I < 0.012 (0.01-0.034) ng/mL NT-Pro-B Natriuret Pep 1680 H (<450) pg/mL Total Protein 6.7 (6.3-8.2) g/dL Albumin 3.9 (3.5-5.0) g/dL Globulin 2.8 (1.7-4.1) g/dL Albumin/Globulin Ratio 1.4 (1.0-2.8) Procalcitonin 0.07 (<0.5) ng/mL Chlamy pneumoniae PCR Not detected (Not Detect) Adenovirus (PCR) Not detected (Not Detect) B.parapertussis DNA PCR Not detected (Not Detecte) Coronavirus OC43 (PCR) Not detected (Not Detect) Coronavirus HKU1 (PCR) Not detected (Not Detect) Coronavirus 229E (PCR) Not detected (Not Detect) SARS-CoV-2 (PCR) Not detected (Not Detecte) Coronavirus NL63 (PCR) Not detected (Not Detect) Human Metapneumovir PCR Not detected (Not Detect) Influenza Type A (PCR) Not detected (Not Detect) Influenza Type B (PCR) Not detected (Not Detect) M. pneumoniae (PCR) Not detected (Not Detect) Parainfluenza 1 (PCR) Not detected (Not Detect) Parainfluenza 2 (PCR) Not detected (Not Detect) Parainfluenza 3 (PCR) Not detected (Not Detect) Parainfluenza 4 (PCR) Not detected (Not Detect) RSV (PCR) Not detected (Not Detect) Entero/Rhino (PCR) Not detected (Not Detect) MDM Narrative Medical decision making narrative: Several days of shortness of breath with worsening this evening. Found to be 70% on her usual nasal cannula in triage and taken quickly to ER room. Respiratory therapy paged and patient placed on non-rebreather for improved oxygen delivery. Lung sounds are coarse bilaterally, there is audible expiratory wheeze. Patient isn't certain if this is congestive heart failure or if this is COPD. Reports recently being treated for pneumonia. Broad treatment initiated with steroids, nebulizers, Rocephin, azithromycin, lasix. Patient does have history of breast cancer, however based on the duration in nature of patient's symptoms I am less suspicious of a process such as PE. Laboratory work is significant for WBC count 4.1, hemoglobin 10.2, platelets 142. These are all chronic for the patient. Sodium 142, potassium 4.4, creatinine 1.65, GFR 31. Patient's GFR is actually improved since her last visit. Troponin undetectable, BNP 1680. Patient diuresing, currently on a PureWick. Resting comfortably and saturating 93-94% on 8 L Oxymizer mask. Chest x-ray shows pulmonary edema and possible right-sided pneumonia. Patient counseled on lab and imaging findings, she states that she has a known metastasis to her long on the right-hand side, so this could be what is seen on the x-ray. Either way patient should receive antibiotics for COPD exacerbation. Patient amenable to hospitalization at this time Critical Care Time Critical Care Time Critical Care Time: Yes Total Critical Care Time: 42 Attestation: COPD and CHF exacerbation requiring multiple nebulizers, diuretics, advanced oxygen requirements. Discharge Plan Departure Patient Disposition: Admitted As Inpatient Clinical Impression: Acute and chronic respiratory failure with hypoxia, Volume overload, Metastatic primary lung cancer, CKD (chronic kidney disease) Admit Date/Time: 11/07/23 03:19 Admit Provider: Awais Gil
[2023-11-07] MEDS: ALBUTEROL/IPRATROPIUM 3 ML AMPUL 9 ML INH (01:49)
[2023-11-07] MEDS: BUDESONIDE 0.5 MG/2 ML NEB INH (01:50)
[2023-11-07] MEDS: cefTRIAXone 2,000 MG in SODIUM CHLORIDE 0.9% 100 ML 200 MG IV (02:08)
[2023-11-07] MEDS: FUROSEMIDE 40 MG/4 ML VIAL IV ×2 (02:08→08:40)
[2023-11-07] MEDS: methylPREDNISolone 125 MG/2 ML VIAL IV (02:08)
[2023-11-07 02:14] LABS: Add Manual Diff / Slide Review NO; Basophils Absolute Auto 100 /uL (0-100); Basophils Percent Auto 2.5 % (0-2); Eosinophils Absolute Auto 100 /uL (0-450); Eosinophils Percent Auto 2.6 % (2-4); Hematocrit 30.4 % (36-46); Hemoglobin 10.2 g/dL (12.0-16.0); Lymphocytes Absolute Auto 1000 /uL (1100-4500); Lymphocytes Percent Auto 23.6 % (25-40); Mean Corpuscular HGB Conc 33.6 % (30-36); Mean Corpuscular Hemoglobin 33.3 PG (26-34); Mean Corpuscular Volume 99.2 fL (80-100); Monocytes Absolute Auto 700 /uL (0-900); Monocytes Percent Auto 17.7 % (3-14); Neutrophils Absolute Auto 2200 /uL (1500-7000); Neutrophils Percent Auto 53.6 % (50-75); Platelet Count 142 X10^3/uL (150-400); Red Blood Cell Count 3.06 X10^6/uL (4.0-5.2); Red Cell Distribution Width 19.9 % (11.6-14.8); White Blood Cell Count 4.1 X10^3/uL (4.5-11.0)
[2023-11-07 02:17] LABS: Creatine Kinase 127 U/L (30-135)
[2023-11-07 02:19] LABS: Alanine Aminotransferase 16 IU/L (<35); Albumin 3.9 g/dL (3.5-5.0); Albumin Globulin Ratio 1.4 (1.0-2.8); Alkaline Phosphatase 68 U/L (38-126); Aspartate Aminotransferase 21 IU/L (14-36); BUN Creatinine Ratio 26.1 (6-22); Bilirubin Total 0.5 mg/dL (0.2-1.3); Blood Urea Nitrogen 43 mg/dL (7-17); Calcium 8.9 mg/dL (8.4-10.2); Carbon Dioxide 25 mmol/L (22-32); Chloride 114 mmol/L (98-107); Estimated Glomerular Filt Rate 31 mL/min (>60); Globulin 2.8 g/dL (1.7-4.1); Glucose 145 mg/dL (80-110); HEMOLYSIS < 15 (0-50); Potassium 4.4 mmol/L (3.4-5.1); Sodium 142 mmol/L (137-145); Total Protein 6.7 g/dL (6.3-8.2)
[2023-11-07 02:31] LABS: NT-proBNP (BNP-Adult 18+) 1680 pg/mL (<450); Troponin I < 0.012 ng/mL (0.01-0.034)
[2023-11-07 02:35] LABS: Procalcitonin 0.07 ng/mL (<0.5)
[2023-11-07] MEDS: AZITHROMYCIN 500 MG in DEXTROSE 5% IN WATER 250 ML 250 MG IV (02:51)
[2023-11-07 03:16] LABS: Adenovirus Not Detected (Not Detect); B. parapertussis Not Detected (Not Detecte); Bordetella pertussis Not Detected (Not Detect); Chlamydophila pneumoniae Not Detected (Not Detect); Coronavirus 229E Not Detected (Not Detect); Coronavirus HKU1 Not Detected (Not Detect); Coronavirus NL 63 Not Detected (Not Detect); Coronavirus OC43 Not Detected (Not Detect); Human Metapneumovirus Not Detected (Not Detect); Human Rhinovirus/Enterovirus Not Detected (Not Detect); Influenza A Not Detected (Not Detect); Influenza B Not Detected (Not Detect); Mycoplasma pneumoniae Not Detected (Not Detect); Parainfluenza Virus 1 Not Detected (Not Detect); Parainfluenza Virus 2 Not Detected (Not Detect); Parainfluenza Virus 3 Not Detected (Not Detect); Parainfluenza Virus 4 Not Detected (Not Detect); Respiratory Syncytial Virus Not Detected (Not Detect); SARS- CoV-2 Not Detected (Not Detecte)
--- NOTE | 2023-11-07 04:20 | P.HP_ITS ---
History of Present Illness History of Present Illness Chief complaint: trouble breathing, low oxy Narrative: 83 y/o with PMH of breast cancer with lung metastases, on daily immunotherapy, chronic hypoxemic respiratory failure on 2L NC, paroxysmal A-fib, COPD, CKD, depression, DM, HTN, HLD, HFpEF, recent hospitalization for CHF and PNA, a month ago, presented to ED with severe dyspnea, cough desaturating in 70-ies and 80- ies on 2 L. Given Lasix, Solumedrol, Zithromax and Rocephin in the ED and admitted on 8 L of oxygen with another PNA and CHF exacerbation. [facility] Medical History Major depressive disorder, single episode, mild COPD (chronic obstructive pulmonary disease) CKD stage 3 due to type 2 diabetes mellitus MIRIAN (obstructive sleep apnea) Osteoarthritis of right knee Right knee pain Ischiogluteal bursitis Diabetes mellitus with hyperglycemia, with long-term current use of insulin Paroxysmal A-fib Spinal stenosis, lumbar region with neurogenic claudication Knee osteoarthritis Sacrococcygeal disorders, not elsewhere classified Thyroid nodule Abnormal Pap smear of cervix (~1992) History of urinary incontinence (~1994) Kidney stones (~2001) Hemorrhoid (~1989) CPAP (continuous positive airway pressure) dependence (~1999) Asthma (~1989) Bulimia (~1959) Fracture (~1986) Chronic back pain (~1989) Carpal tunnel syndrome (~1991) Mumps (~1970) Measles (~194) Chicken pox (~194) Adrenal adenoma History of stent insertion of renal artery Breast cancer (~2016) Hyperlipidemia OAB (overactive bladder) Benign essential HTN CKD (chronic kidney disease) Diabetes mellitus type 2, insulin dependent (~1993) Surgical History Anesthesia S/P fusion of sacroiliac joint H/O umbilical hernia repair H/O bilateral mastectomy H/O: hysterectomy Hx of cholecystectomy Status post hysterectomy Family History Father History of heart disease Hypertension Mother Cancer Brother Hypertension Brother Hypertension Brother History of heart disease Hypertension Grandfather History of heart disease Social History household members: children Smoking Status: Former smoker alcohol intake: former Meds Home Medications and Allergies Home Medications Medication Instructions Recorded Confirmed Type letrozole 2.5 mg tablet 2.5 mg PO DAILY #90 tabs 12/28/22 11/07/23 Rx palbociclib 125 mg tablet (Ibrance) 125 mg PO DAILY 01/31/23 11/07/23 History amlodipine 10 mg tablet (Norvasc) 10 mg PO DAILY #90 tabs 03/02/23 11/07/23 Rx atorvastatin 20 mg tablet (Lipitor) 20 mg PO BEDTIME cholesterol #90 03/02/23 11/07/23 Rx tabs glipizide 5 mg tablet, extended 5 mg PO DAILY diabetes #90 tabs 03/02/23 11/07/23 Rx release 24 hr valsartan 320 mg tablet 320 mg PO DAILY #90 tabs 03/02/23 11/07/23 Rx albuterol sulfate 90 mcg/actuation 1 - 2 inh inhalation Q4-6H PRN 05/06/23 11/07/23 Rx aerosol inhaler shortness of breath or wheezing #8.5 grams citalopram 10 mg tablet (Celexa) 10 mg PO DAILY #30 tabs 08/22/23 11/07/23 Rx calcium carbonate 600 mg-vitamin 1 tab PO DAILY 10/03/23 11/07/23 History D3 5 mcg (200 unit) tablet insulin human U-100 NPH-regulr 50 unit SUBCUT DAILY 10/03/23 11/07/23 History 70-30 mix 100 unit/mL subcutaneous susp (Novolin 70/30 U-100 Insulin) labetalol 100 mg tablet 100 mg PO BID 10/03/23 11/07/23 History montelukast 10 mg tablet 10 mg PO BEDTIME 10/03/23 11/07/23 History furosemide 20 mg tablet (Lasix) 20 mg PO DAILY #90 tabs 10/11/23 11/07/23 Rx oxybutynin chloride 5 mg tablet 5 mg PO BID #180 tabs 10/31/23 11/07/23 Rx tiotropium bromide 18 mcg capsule 1 cap inhalation DAILY #90 11/04/23 11/07/23 Rx with inhalation device (Spiriva inhalations with HandiHaler) furosemide 40 mg tablet 40 mg PO DAILY 11/07/23 11/07/23 History gabapentin 100 mg capsule 100 mg PO PRN PRN pain 11/07/23 11/07/23 History gabapentin 100 mg capsule 200 mg PO BID 11/07/23 11/07/23 History insulin NPH-reg human insulin 100 40 unit SUBCUT 1700 11/07/23 11/07/23 History unit/mL (70-30) subcutaneous syringe Allergies Allergy/AdvReac Type Severity Reaction Status Date / Time Sulfa (Sulfonamide Allergy Unknown Verified 10/18/23 15:51 Antibiotics) [SULFA (SULFONAMIDE ANTIBIOTICS)] Review of Systems Constitutional Comments: Fatigued Cardiovascular Comments: w/o palpitations or chest pain Respiratory Comments: severe shortness of breath, non-productive cough, wheezy Exam Vital Signs (past 8 hours): - 11/07/23 01:25 11/07/23 01:26 11/07/23 01:30 Temperature 97.4 F L Pulse Rate 84 83 75 Respiratory Rate 25 H Blood Pressure 164/70 H Pulse Oximetry 96 80 L 95 Oxygen Delivery Method Nasal Cannula Oxygen Flow Rate 3 11/07/23 01:52 11/07/23 02:00 11/07/23 02:12 Temperature Pulse Rate 80 Respiratory Rate 29 H Blood Pressure 163/69 H Pulse Oximetry 91 Oxygen Delivery Method Nasal Cannula Oximask Oxygen Flow Rate 6 8 11/07/23 02:12 Temperature Pulse Rate 79 Respiratory Rate Blood Pressure Pulse Oximetry 93 Oxygen Delivery Method Oxygen Flow Rate Oxygen Delivery Method Oximask Oxygen Flow Rate 8 Const Other: in no distress on 7.5 L of oxygen Resp Other: limited flow b/l with wheezes and rales Cardio Other: RRR Skin Other: not cyanotic Extrem Other: bipedal edema Psych Other: lucid, appropriate mood Objective Labs 11/07/23 05:12 11/07/23 05:12 Labs: Laboratory Results - last 24 hr 11/07/23 11/07/23 01:45 02:20 WBC 4.1 L RBC 3.06 L Hgb 10.2 L Hct 30.4 L MCV 99.2 MCH 33.3 MCHC 33.6 RDW 19.9 H Plt Count 142 L Neut % (Auto) 53.6 Lymph % (Auto) 23.6 L [place] % (Auto) 17.7 H Eos % (Auto) 2.6 Baso % (Auto) 2.5 H Neut # (Auto) 2200 Lymph # (Auto) 1000 L [place] # (Auto) 700 Eos # (Auto) 100 Baso # (Auto) 100 PT 11.0 INR 1.0 Sodium 142 Potassium 4.4 Chloride 114 H Carbon Dioxide 25 BUN 43 H Creatinine 1.65 H Estimated GFR 31 L BUN/Creatinine Ratio 26.1 H Glucose 145 H Lactate 1.0 Calcium 8.9 Total Bilirubin 0.5 AST 21 ALT 16 Alkaline Phosphatase 68 Total Creatine Kinase 127 Troponin I < 0.012 NT-Pro-B Natriuret Pep 1680 H Total Protein 6.7 Albumin 3.9 Globulin 2.8 Albumin/Globulin Ratio 1.4 Procalcitonin 0.07 Chlamy pneumoniae PCR Not detected Adenovirus (PCR) Not detected B.parapertussis DNA PCR Not detected Coronavirus OC43 (PCR) Not detected Coronavirus HKU1 (PCR) Not detected Coronavirus 229E (PCR) Not detected SARS-CoV-2 (PCR) Not detected Coronavirus NL63 (PCR) Not detected Human Metapneumovir PCR Not detected Influenza Type A (PCR) Not detected Influenza Type B (PCR) Not detected M. pneumoniae (PCR) Not detected Parainfluenza 1 (PCR) Not detected Parainfluenza 2 (PCR) Not detected Parainfluenza 3 (PCR) Not detected Parainfluenza 4 (PCR) Not detected RSV (PCR) Not detected Entero/Rhino (PCR) Not detected Assessment & Plan Assessment and plan (1) Acute and chronic respiratory failure with hypoxia: Status: Acute (2) PNA (pneumonia): Status: Acute (3) Acute on chronic diastolic (congestive) heart failure: Status: Acute Assessment & Plan narrative: 1. Acute on Chronic Hypoxemic Respiratory Failure - oxygen requirement up to 8 L, from usual 2 - 2nd to CHF and PNA/COPD 2. PNA, COPD Exacerbation, HFpEF exacerbation - Rocephin, bronchodilators, steroids - not septic - had difficulties with prescribed inhalers due to high copay - diuresis with Lasix 3. Metastatic Breast Cancer - followed by oncology, on immunoTx 4. HTN - Labetalol, Valsartan 5. Urinary Incontinence - Oxybutynin 6. DM - Insulin 70/30, SS, Glipizide DVT prophylaxis - Lovenox
[2023-11-07] MEDS: ACETAMINOPHEN 325 MG TABLET 650 MG PO ×3 (04:49→20:33)
[2023-11-07 05:38] LABS: Add Manual Diff / Slide Review NO; Basophils Absolute Auto 100 /uL (0-100); Basophils Percent Auto 1.7 % (0-2); Eosinophils Absolute Auto 0 /uL (0-450); Eosinophils Percent Auto 0.5 % (2-4); Hematocrit 33.8 % (36-46); Hemoglobin 11.3 g/dL (12.0-16.0); Lymphocytes Absolute Auto 600 /uL (1100-4500); Lymphocytes Percent Auto 13.4 % (25-40); Mean Corpuscular HGB Conc 33.5 % (30-36); Mean Corpuscular Hemoglobin 33.2 PG (26-34); Mean Corpuscular Volume 99.2 fL (80-100); Monocytes Absolute Auto 200 /uL (0-900); Monocytes Percent Auto 5.7 % (3-14); Neutrophils Absolute Auto 3400 /uL (1500-7000); Neutrophils Percent Auto 78.7 % (50-75); Platelet Count 146 X10^3/uL (150-400); Red Blood Cell Count 3.41 X10^6/uL (4.0-5.2); Red Cell Distribution Width 19.9 % (11.6-14.8); White Blood Cell Count 4.3 X10^3/uL (4.5-11.0)
[2023-11-07 05:44] LABS: BUN Creatinine Ratio 26.6 (6-22); Blood Urea Nitrogen 42 mg/dL (7-17); Calcium 9.1 mg/dL (8.4-10.2); Carbon Dioxide 23 mmol/L (22-32); Chloride 111 mmol/L (98-107); Estimated Glomerular Filt Rate 33 mL/min (>60); Glucose 207 mg/dL (80-110); HEMOLYSIS < 15 (0-50); Potassium 4.3 mmol/L (3.4-5.1); Sodium 141 mmol/L (137-145)
--- NOTE | 2023-11-07 06:19 | PC.ADMIT ---
[email or web address] Edin Soler Admission Note: The patient,Francia Moeller,83 y/o, was given written information regarding hospital policies, unit procedures and contact persons. Patient's smoking status: Former smoker. Vital Signs - 8 hr 11/07/23 01:25 11/07/23 01:26 11/07/23 01:30 Temperature 97.4 F L Pulse Rate 84 83 75 Respiratory Rate 25 H Blood Pressure 164/70 H Pulse Oximetry 96 80 L 95 Oxygen Delivery Method Nasal Cannula Oxygen Flow Rate 3 11/07/23 01:52 11/07/23 02:00 11/07/23 02:12 Temperature Pulse Rate 80 Respiratory Rate 29 H Blood Pressure 163/69 H Pulse Oximetry 91 Oxygen Delivery Method Nasal Cannula Oximask Oxygen Flow Rate 6 8 11/07/23 02:12 11/07/23 04:05 11/07/23 06:12 Temperature 98.1 F Pulse Rate 79 84 Respiratory Rate 22 Blood Pressure 123/59 L Pulse Oximetry 93 93 Oxygen Delivery Method Oximask Oxygen Flow Rate Patient admitted to room 211 at 0405 from ER per stretcher and transferred to bed using slider board. She states she came to the ER as she couldn't breathe. Is alert and oriented and able to speak in complete sentences but does seem SOB at rest and reports it worsens with activity. On oxygen at 7L/min with sat of 91% so increased oxygen to 8L with sat of 94% so decreased down to 7.5L with sat of 94% and is now asleep with sat of 98% so decreased further to 6.5L/min (typically uses 2L oxygen at home as well as CPAP at night for sleep); on continuous oximetry HRR w/telemetry reading of SR-BBB with occasional PVC's. Denied nausea. BT present and abdomen is soft. Reports she is incontinent of urine so external catheter is in place. Is able to move herself in bed. Gait not assessed but states at home was using FWW to ambulate independently. Generalized weakness. Bilateral calf SCD's applied. Skin is dry and fragile. Bruise to left great toe (states she dropped O2 canister on her foot on ). Fall risk score is high and bed alarm is activated. Educated on plan of care. She spoke with Dr. Kovachevich via tele conference and he listened to heart and lung sounds and looked at bilateral LE for edema. Oriented to call light, bed controls and fall prevention. Did complain of chronic back pain which radiates down her leg to her foot; medicated with Tylenol as did not want to take anything stronger.
[2023-11-07 06:57] LABS: Fractionated Inspired Oxygen 50; HCO3 ABG 22 mmol/L (23-27); Oxygen Saturation ABG 91 % (95-100); PCO2 ABG 35.6 mmHg (35-45); PO2 ABG 62 mmHg (80-100); TCO2 ABG 23 mmol/L (23-27)
[2023-11-07 06:58] LABS: Allen Test for ABG Passed? Yes, Passed; Blood Gas Collection Site Left Radial
[2023-11-07] MEDS: ALBUTEROL/IPRATROPIUM 3 ML AMPUL INH ×2 (07:24→21:38)
[2023-11-07] MEDS: INSULIN LISPRO 100 UNIT/ML 3ML VIAL SUBCUT ×4 (08:34→21:56)
[2023-11-07] MEDS: INSULIN 70-30 KwikPen 100 UNIT/ML INSULN.PEN 50 UNIT SUBCUT (08:36)
[2023-11-07] MEDS: ENOXAPARIN 30 MG/0.3 ML SYRINGE SUBCUT (08:39)
[2023-11-07] MEDS: LETROZOLE 2.5 MG TABLET PO (08:39)
[2023-11-07] MEDS: VALSARTAN 80 MG TABLET 320 MG PO (08:39)
[2023-11-07] MEDS: LABETALOL 100 MG TABLET PO ×2 (08:40→20:22)
[2023-11-07] MEDS: GABAPENTIN 100 MG CAPSULE 200 MG PO ×2 (08:40→20:23)
[2023-11-07] MEDS: predniSONE 20 MG TABLET 40 MG PO (08:40)
[2023-11-07] MEDS: OXYBUTYNIN 5 MG TABLET PO ×2 (08:41→20:22)
[2023-11-07] MEDS: CITALOPRAM 10 MG TABLET PO (08:41)
[2023-11-07] MEDS: SODIUM CHLORIDE 0.9% FLUSH 10 ML IV ×2 (08:43→21:57)
--- NOTE | 2023-11-07 08:44 | P.HP_ITS ---
History of Present Illness History of Present Illness Chief complaint: trouble breathing, low oxy Narrative: From overnight provider: 83 y/o with PMH of breast cancer with lung metastases, on daily immunotherapy, chronic hypoxemic respiratory failure on 2L NC, paroxysmal A-fib, COPD, CKD, depression, DM, HTN, HLD, HFpEF, recent hospitalization for CHF and PNA, a month ago, presented to ED with severe dyspnea, cough desaturating in 70-ies and 80- ies on 2 L. Given Lasix, Solumedrol, Zithromax and Rocephin in the ED and admitted on 8 L of oxygen with another PNA and CHF exacerbation. [facility] Medical History Major depressive disorder, single episode, mild COPD (chronic obstructive pulmonary disease) CKD stage 3 due to type 2 diabetes mellitus MIRIAN (obstructive sleep apnea) Osteoarthritis of right knee Right knee pain Ischiogluteal bursitis Diabetes mellitus with hyperglycemia, with long-term current use of insulin Paroxysmal A-fib Spinal stenosis, lumbar region with neurogenic claudication Knee osteoarthritis Sacrococcygeal disorders, not elsewhere classified Thyroid nodule Abnormal Pap smear of cervix (~1992) History of urinary incontinence (~1994) Kidney stones (~2001) Hemorrhoid (~1989) CPAP (continuous positive airway pressure) dependence (~1999) Asthma (~1989) Bulimia (~1959) Fracture (~1986) Chronic back pain (~1989) Carpal tunnel syndrome (~1991) Mumps (~1970) Measles (~194) Chicken pox (~1945) Adrenal adenoma History of stent insertion of renal artery Breast cancer (~2016) Hyperlipidemia OAB (overactive bladder) Benign essential HTN CKD (chronic kidney disease) Diabetes mellitus type 2, insulin dependent (~1993) Surgical History Anesthesia S/P fusion of sacroiliac joint H/O umbilical hernia repair H/O bilateral mastectomy H/O: hysterectomy Hx of cholecystectomy Status post hysterectomy Family History Father History of heart disease Hypertension Mother Cancer Brother Hypertension Brother Hypertension Brother History of heart disease Hypertension Grandfather History of heart disease Social History household members: children Smoking Status: Former smoker alcohol intake: former Meds Home Medications and Allergies Home Medications Medication Instructions Recorded Confirmed Type letrozole 2.5 mg tablet 2.5 mg PO DAILY #90 tabs 12/28/22 11/07/23 Rx palbociclib 125 mg tablet (Ibrance) 125 mg PO DAILY 01/31/23 11/07/23 History amlodipine 10 mg tablet (Norvasc) 10 mg PO DAILY #90 tabs 03/02/23 11/07/23 Rx atorvastatin 20 mg tablet (Lipitor) 20 mg PO BEDTIME cholesterol #90 03/02/23 11/07/23 Rx tabs glipizide 5 mg tablet, extended 5 mg PO DAILY diabetes #90 tabs 03/02/23 11/07/23 Rx release 24 hr valsartan 320 mg tablet 320 mg PO DAILY #90 tabs 03/02/23 11/07/23 Rx albuterol sulfate 90 mcg/actuation 1 - 2 inh inhalation Q4-6H PRN 05/06/23 11/07/23 Rx aerosol inhaler shortness of breath or wheezing #8.5 grams citalopram 10 mg tablet (Celexa) 10 mg PO DAILY #30 tabs 08/22/23 11/07/23 Rx calcium carbonate 600 mg-vitamin 1 tab PO DAILY 10/03/23 11/07/23 History D3 5 mcg (200 unit) tablet insulin human U-100 NPH-regulr 50 unit SUBCUT DAILY 10/03/23 11/07/23 History 70-30 mix 100 unit/mL subcutaneous susp (Novolin 70/30 U-100 Insulin) labetalol 100 mg tablet 100 mg PO BID 10/03/23 11/07/23 History montelukast 10 mg tablet 10 mg PO BEDTIME 10/03/23 11/07/23 History furosemide 20 mg tablet (Lasix) 20 mg PO DAILY #90 tabs 10/11/23 11/07/23 Rx oxybutynin chloride 5 mg tablet 5 mg PO BID #180 tabs 10/31/23 11/07/23 Rx tiotropium bromide 18 mcg capsule 1 cap inhalation DAILY #90 11/04/23 11/07/23 Rx with inhalation device (Spiriva inhalations with HandiHaler) furosemide 40 mg tablet 40 mg PO DAILY 11/07/23 11/07/23 History gabapentin 100 mg capsule 100 mg PO PRN PRN pain 11/07/23 11/07/23 History gabapentin 100 mg capsule 200 mg PO BID 11/07/23 11/07/23 History insulin NPH-reg human insulin 100 40 unit SUBCUT 1700 11/07/23 11/07/23 History unit/mL (70-30) subcutaneous syringe Allergies Allergy/AdvReac Type Severity Reaction Status Date / Time Sulfa (Sulfonamide Allergy Unknown Verified 10/18/23 15:51 Antibiotics) [SULFA (SULFONAMIDE ANTIBIOTICS)] Review of Systems Constitutional Comments: Fatigued Cardiovascular Comments: w/o palpitations or chest pain Respiratory Comments: non-productive cough, wheezy Exam Vital Signs (past 8 hours): - 11/07/23 01:25 11/07/23 01:26 11/07/23 01:30 Temperature 97.4 F L Pulse Rate 84 83 75 Respiratory Rate 25 H Blood Pressure 164/70 H Pulse Oximetry 96 80 L 95 Oxygen Delivery Method Nasal Cannula Oxygen Flow Rate 3 Fraction of Inspired Oxygen 11/07/23 01:52 11/07/23 02:00 11/07/23 02:12 Temperature Pulse Rate 80 Respiratory Rate 29 H Blood Pressure 163/69 H Pulse Oximetry 91 Oxygen Delivery Method Nasal Cannula Oximask Oxygen Flow Rate 6 8 Fraction of Inspired Oxygen 11/07/23 02:12 11/07/23 04:05 11/07/23 04:05 Temperature 98.1 F Pulse Rate 79 84 Respiratory Rate 22 Blood Pressure 123/59 L Pulse Oximetry 93 93 Oxygen Delivery Method Oxygen Flow Rate 7.5 Fraction of Inspired Oxygen 11/07/23 06:12 11/07/23 07:27 Temperature Pulse Rate 85 Respiratory Rate 18 Blood Pressure Pulse Oximetry 91 Oxygen Delivery Method Oximask Oximask Oxygen Flow Rate 6 Fraction of Inspired Oxygen 44 Fraction of Inspired Oxygen 44 SaO2/FiO2 Ratio 206 Oxygen Delivery Method Oximask Oxygen Flow Rate 6 Const Other: in no distress on 6L O2 Resp Other: limited flow b/l with wheezes and rales Cardio Other: RRR Skin Other: not cyanotic Extrem Other: bipedal edema Psych Other: lucid, appropriate mood Objective Labs 11/07/23 05:12 11/07/23 05:12 Labs: Laboratory Results - last 24 hr 11/07/23 11/07/23 11/07/23 01:45 02:20 03:18 WBC 4.1 L RBC 3.06 L Hgb 10.2 L Hct 30.4 L MCV 99.2 MCH 33.3 MCHC 33.6 RDW 19.9 H Plt Count 142 L Neut % (Auto) 53.6 Lymph % (Auto) 23.6 L [place] % (Auto) 17.7 H Eos % (Auto) 2.6 Baso % (Auto) 2.5 H Neut # (Auto) 2200 Lymph # (Auto) 1000 L [place] # (Auto) 700 Eos # (Auto) 100 Baso # (Auto) 100 PT 11.0 INR 1.0 ABG Sample Site Left radial ABG pH 7.40 ABG pCO2 35.6 ABG pO2 62 L ABG HCO3 22 L ABG Total CO2 23 ABG O2 Saturation 91 L ABG Base Excess -3.0 L FiO2 50 Sodium 142 Potassium 4.4 Chloride 114 H Carbon Dioxide 25 BUN 43 H Creatinine 1.65 H Estimated GFR 31 L BUN/Creatinine Ratio 26.1 H Glucose 145 H Lactate 1.0 Calcium 8.9 Total Bilirubin 0.5 AST 21 ALT 16 Alkaline Phosphatase 68 Total Creatine Kinase 127 Troponin I < 0.012 NT-Pro-B Natriuret Pep 1680 H Total Protein 6.7 Albumin 3.9 Globulin 2.8 Albumin/Globulin Ratio 1.4 Procalcitonin 0.07 Chlamy pneumoniae PCR Not detected Adenovirus (PCR) Not detected B.parapertussis DNA PCR Not detected Coronavirus OC43 (PCR) Not detected Coronavirus HKU1 (PCR) Not detected Coronavirus 229E (PCR) Not detected SARS-CoV-2 (PCR) Not detected Coronavirus NL63 (PCR) Not detected Human Metapneumovir PCR Not detected Influenza Type A (PCR) Not detected Influenza Type B (PCR) Not detected M. pneumoniae (PCR) Not detected Parainfluenza 1 (PCR) Not detected Parainfluenza 2 (PCR) Not detected Parainfluenza 3 (PCR) Not detected Parainfluenza 4 (PCR) Not detected RSV (PCR) Not detected Entero/Rhino (PCR) Not detected 11/07/23 05:12 WBC 4.3 L RBC 3.41 L Hgb 11.3 L Hct 33.8 L MCV 99.2 MCH 33.2 MCHC 33.5 RDW 19.9 H Plt Count 146 L Neut % (Auto) 78.7 H D Lymph % (Auto) 13.4 L [place] % (Auto) 5.7 Eos % (Auto) 0.5 L Baso % (Auto) 1.7 Neut # (Auto) 3400 Lymph # (Auto) 600 L [place] # (Auto) 200 Eos # (Auto) 0 Baso # (Auto) 100 PT INR ABG Sample Site ABG pH ABG pCO2 ABG pO2 ABG HCO3 ABG Total CO2 ABG O2 Saturation ABG Base Excess FiO2 Sodium 141 Potassium 4.3 Chloride 111 H Carbon Dioxide 23 BUN 42 H Creatinine 1.58 H Estimated GFR 33 L BUN/Creatinine Ratio 26.6 H Glucose 207 H Lactate Calcium 9.1 Total Bilirubin AST ALT Alkaline Phosphatase Total Creatine Kinase Troponin I NT-Pro-B Natriuret Pep Total Protein Albumin Globulin Albumin/Globulin Ratio Procalcitonin Chlamy pneumoniae PCR Adenovirus (PCR) B.parapertussis DNA PCR Coronavirus OC43 (PCR) Coronavirus HKU1 (PCR) Coronavirus 229E (PCR) SARS-CoV-2 (PCR) Coronavirus NL63 (PCR) Human Metapneumovir PCR Influenza Type A (PCR) Influenza Type B (PCR) M. pneumoniae (PCR) Parainfluenza 1 (PCR) Parainfluenza 2 (PCR) Parainfluenza 3 (PCR) Parainfluenza 4 (PCR) RSV (PCR) Entero/Rhino (PCR) Assessment & Plan Assessment & Plan narrative: # Acute on Chronic Hypoxemic Respiratory Failure - oxygen requirement up to 8 L, from usual 2L -now weaned to 6L -2nd to CHF and PNA/COPD -continue abx, steroids and lasix as below # PNA, COPD Exacerbation, HFpEF exacerbation - Rocephin, bronchodilators, steroids - not septic - had difficulties with prescribed inhalers due to high copay - diuresis with Lasix # Metastatic lung cancer -followed by oncology at -currently on daily Ibrance, and patient notes her recent scans showed no progression of lung tumor -holding ibrance due to infection # Urinary Incontinence - Oxybutynin # DM2 - Insulin 70/30, SS, Glipizide # HTN -continue amlodipine, valsartan and labetalol # HLD -continue lipitor # depression -continue celexa # asthma -continue singulair Code status is DNR. DVT prophylaxis with lovenox Proxy is daughter Velma. I have reviewed home meds and used all available resources to reconcile the home meds.
[2023-11-07] MEDS: GLIPIZIDE 5 MG 5 EACH PO (13:40)
[2023-11-07] MEDS: CALCIUM CARBONATE 500 MG TAB PO (13:42)
[2023-11-07] MEDS: CHOLECALCIFEROL (VITAMIN D3) 400 UNIT TABLET 800 UNIT PO (13:42)
--- NOTE | 2023-11-07 14:24 | CM.DANOTE ---
Patient is an 83 yo female who was admitted INPT Status on 11/07/23 for SOB/weakness. Pt has [facility] and [facility] for insurance and her PCP is Dr. Rody Mijares. EMR was reviewed. Per MD, pt with hx of breast CA with mets to her lungs and on 2LO2 at baseline and currently taking immunotherapy. Pt requiring increased oxygen and awaiting further labs and admitted for recurrent pneumonia/resp failure. SW met bedside with pt and Dtr Velma and explained role and she confirms that she lives in [place] with her Dtr Velma and is mostly independent with ADLs but does not drive and Dtr provides transport to appointments. Pt has a 4WW at baseline and oxygen at home. Pt denies any hx of SNF or HH. Pt states she completed POLST form at and plans to bring a copy of the POLST to her PCP and [facility] to be scanned. Pt denies any DPOA but states she plans to have her 3 adult Dtrs as her DPOAs. SW provided DPOA brochure again as she had not completed it at last admission last month and blank copy and pt and Dtr plans to complete. Dtr Velma works two jobs, one in [place] and one at [employer] in [place], but states she recently stopped working at [employer] for now to provide increased assist to patient and pt. Pt states she is a member of the [place] [employer] and that she has already tried calling CG agencies but they required a certain amount of hours a day and days a week and &40 an hour. Pt does not think she will qualify for Medicaid [id number] due to her 's benefits and SS. SW provided private CG list to review and recommended calling the [facility] for possible options and pt states she is considering calling the [employer] on [address] for possible PP CG there. Pt confirms her Juvenile Officer and Oncologist are both at and Dtr drives pt to Oncology appointments once a month. Pt preference is to d/c home with Dtr to transport and agreeable with HH if recommended and SW provided HH Choice List and no preference between [facility]. [facility] a few days out so [facility] referral made. F2F still needed. Plan: SW to follow closely for likely discharge home with Dtr and follow for PT/OT eval and recommendations. Pt hopeful to make it to her planned trip to her other Dtr's home in another state this coming weekend. JAMIE Lewis Discharge Planning/Care Management CM Discharge Assessment Start: 11/07/23 14:20 Freq: Status: Active Protocol: Document 11/07/23 14:20 BF (Rec: 11/07/23 14:24 BF [id number]) Discharge Planning Assessment Assigned Contact And Service Clerks Supervisor JAMIE [place] DPOA/Assigned Designee Name informally Dtr eVlma, provided pwk Advance Directives? Yes Advance Directives on File No: Dtr will bring in copy of POLST History Provided By Patient,Family Member,Medical Record Has Patient been admitted in last 30 No days? Comment Recently here about a month ago for similar in September 2023 Prior Living Arrangements House Household Members children Type of transporation used prior to Relies on Others admit Independent with ADL's Yes Is patient alert and oriented? Yes Needs Assistance With Managing Medications,Home Chores / Shopping Caregiver for Another No Community Services used prior to Oxygen Therapy admission: Comment Home O2 2L at baseline DME Already Rented / Owned FWW / Walker Comment Has her own four wheel walker Patient/Family Preference Home with Home Health Barriers to Discharge No Discharge Plan Home with Home Health Community Services Oxygen Therapy,Physical Therapy,Home Health Nurse Transportation Arrangement Daughter Referrals Initiated Home Health Additional Comment r/o possible HH Medicare Choice List Provided Yes Medicare choice list reviewed on patient,family electronic tablet with SNF/HH Preference No HH choice at this time, vendor calendar Whiteboard Updated in Patient Room with Yes name and ext. # of Contact And Service Clerks Supervisor Review Status In Process Please Provide Date Initial DC 11/07/23 Assessment Was Performed Next Review Type Continued Stay Review
--- NOTE | 2023-11-07 15:18 | OT.IP.EVAL ---
Current Diagnoses Acute on chronic diastolic (congestive) heart failure (11/07/23) Pneumonia, unspecified organism (11/07/23) Acute and chronic respiratory failure with hypoxia (11/07/23) Past Medical History (Last Reviewed 11/07/23 @ 06:13 by Awais Felix MD) Abnormal Pap smear of cervix (~1992) Adrenal adenoma Asthma (~1989) Benign essential HTN Breast cancer (~2016) Bulimia (~1959) Carpal tunnel syndrome (~1991) Chicken pox (~1945) Chronic back pain (~1989) CKD (chronic kidney disease) CKD stage 3 due to type 2 diabetes mellitus COPD (chronic obstructive pulmonary disease) CPAP (continuous positive airway pressure) dependence (~1999) Diabetes mellitus type 2, insulin dependent (~1993) Diabetes mellitus with hyperglycemia, with long-term current use of insulin Fracture (~1986) Hemorrhoid (~1989) History of stent insertion of renal artery History of urinary incontinence (~1994) Hyperlipidemia Ischiogluteal bursitis Kidney stones (~2001) Knee osteoarthritis Major depressive disorder, single episode, mild Measles (~1944) Mumps (~1970) OAB (overactive bladder) MIRIAN (obstructive sleep apnea) Osteoarthritis of right knee Paroxysmal A-fib Right knee pain Sacrococcygeal disorders, not elsewhere classified Spinal stenosis, lumbar region with neurogenic claudication Thyroid nodule Surgical History (Last Reviewed 11/07/23 @ 06:13 by Awais Felix MD) Anesthesia H/O bilateral mastectomy H/O umbilical hernia repair H/O: hysterectomy Hx of cholecystectomy S/P fusion of sacroiliac joint Status post hysterectomy Occupational Therapy Inpatient Evaluation/Re-Eval M1 PT/OT-IP Prior Functional Status Start: 11/07/23 15:21 Freq: NEEDED Status: Active Protocol: Document 11/07/23 15:21 CGR (Rec: 11/07/23 15:32 CGR [id number]) Medical Review Prior Functional Status Medical History Reviewed Yes Communication Pt is an effective verbal communicator Mobility and Gait Pt was MOD I with use of 4ww at baseline Activities of Daily Living and IADL's Pt was IND for all ADLs and IADLs. 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 She does not do any major cleaning . Social History Household Members children Living Arrangements House Number of Floors (Floors) Two Floors Number of Stairs To Enter/Railing? ramp to enter and stays on the main level Home Environment Ramp Home Equipment Four Wheel Walker,Straight Cane,Power Wheelchair/Scooter, Shower Seat without Backrest, Hand Held Shower,Corporate Planner,Grab Bars Near Toilet Employment Status Retired Additional Social History Comment Pt lives with her very supportive daughter in [place]. M2 OT-IP Current Condition Start: 11/07/23 15:21 Freq: Status: Active Protocol: Document 11/07/23 15:21 CGR (Rec: 11/07/23 15:32 CGR [id number]) Occupational Therapy Current Condition Current Condition Evaluation Date 11/07/23 Treatment Diagnosis PNA, CHF, COPD exacerbation Diagnosis Onset Date 11/07/23 M3 OT- IP Subjective and Pain Start: 11/07/23 15:21 Freq: Status: Active Protocol: Document 11/07/23 15:21 CGR (Rec: 11/07/23 15:32 CGR [id number]) OT- Subjective Occupational Therapy Visit Type Type Initial Evaluation Visit Start Time 14:40 Visit Stop Time 15:18 Notes Daughter present throughout session. OT Pain Assessment Pain When Pain Assessed At Rest Pain Present Pain Present Pain Reported Location Right Knee Scale Used did not rate Management Techniques Distraction,Modification of Treatment,Re-positioning M4 OT- IP ADL's Start: 11/07/23 15:21 Freq: Status: Active Protocol: Document 11/07/23 15:21 CGR (Rec: 11/07/23 15:32 CGR [id number]) OT [id number] Comments OT Self-Feeding Comments not meal time OT ADL-Grooming Comments OT Grooming Comments pt declined OT ADL-Oral Care Comments Oral Care Comments pt declined OT ADL-Dressing General Eval Lower Body Dressing Ability Standby Assistance Areas Needing Assistance Socks Comments OT Dressing Comments with some difficulty sitting EOB OT ADL-Toileting Comments OT Toileting Comments Removed periwick prior to mobility. OT ADL-Bathing Comments OT Bathing Comments not performed M5 OT- IP IADL's Start: 11/07/23 15:21 Freq: Status: Active Protocol: Document 11/07/23 15:21 CGR (Rec: 11/07/23 15:32 CGR [id number]) OT-Instrumental Activities of Daily Living Deficits IADL Deficits Identified No Deficits Home Safety Awareness Awareness of Need for Assistance at Home Good Awareness Ability to Problem Solve Emergency Able to Problem Solve Situations Medication Management Medication Management No Deficits Identified, Caregiver Administers Money Management Money Management No Deficits Identified, Caregiver Provides Assistance Meal Preparation Meal Preparation Caregiver Provides Assist Home Builder Home Builder Caregiver Provides Assist Driving Driving Comments 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 M6 OT- IP Functional Cognition Start: 11/07/23 15:21 Freq: Status: Active Protocol: Document 11/07/23 15:21 CGR (Rec: 11/07/23 15:32 CGR [id number]) Cognitive Factors Limiting Selfcare Function Cognitive Ability Level of Alertness Alert Patient Orientation Name,Age,Birthday,Month,Date, Year,Day of Week,Place, Situation Attention Span Ability Capable of Focused Attention, Capable of Sustained Attention OT- Vision and Hearing OT- Hearing Assessment OT- Hearing Assessment WFL OT- Vision Assessment Visual Acuity Glasses All The Time Visual Attentiveness WFL Occular Pursuits WFL Visual Convergence WFL M7 OT- IP Mobility and Balance Start: 11/07/23 15:21 Freq: Status: Active Protocol: Document 11/07/23 15:21 CGR (Rec: 11/07/23 15:32 CGR [id number]) OT- Bed Mobility Assessment Supine to Sit Supine to Sit Assist Independent Scooting Scooting to Edge of Bed Independent OT-Transfer Assessment Sit to and From Stand Sit to and from Stand Standby Assistance Transfers Transfer Ability Standby Assistance Technique Transfer Destination Bed,Chair Transfer Technique Stand Step Pivot Devices Transfer Assistive Devices Gait Belt,Front Wheeled Walker Comments Mobility Comments mobility around the room with FWW OT- Gait Assessment Gait Gait Assistance Required: Standby Assistance Assistive Devices Assistive Device Gait Belt,Front Wheeled Walker Comments Gait Ability Comments mobility around the room with FWW OT- Balance Assessment Sitting Balance and Reactions Static Sitting Balance Ability Normal Dynamic Sitting Balance Ability Normal M8 OT- IP Objective Assessments Start: 11/07/23 15:21 Freq: Status: Active Protocol: Document 11/07/23 15:21 CGR (Rec: 11/07/23 15:32 CGR [id number]) OT Gross Range of Motion Upper Extremity Range of Motion Assessment Within Functional Limits OT Strength Upper Extremity Strength Assessment Within Functional Limits Hand Baller Tender Strength Hand Dominance Right Comments Strength Comments RUE grossly 4/5 LUE grossly 4+/5 OT- Coordination Assessment Upper Extremity Finger to Nose Test Within Functional Limits Finger Tapping Test Within Functional Limits OT-Muscle Tone Assessment Muscle Tone WNL Yes OT Sensation Assessment Comments Summary Comments Pt states numbness to B feet and newer onset numbness to the R thumb, pointer, middle, and ring fingers. Edema Edema Absent M9 OT- IP Assessment and Plan Start: 11/07/23 15:21 Freq: Status: Active Protocol: Document 11/07/23 15:21 CGR (Rec: 11/07/23 15:32 CGR [id number]) OT Summary Assessment and Plan Potential Rehabilitation Potential Good Analytic Complexity at Evaluation Low Summary OT Impairments Pain,Strength,Functional Mobility,Dressing,Toileting, Bathing,Toilet Transfers, Shower Transfers,Activity Tolerance Progress Towards Goals Slow Progress due to Activity Tolerance Assessment Summary Pt presents as a low complexity evaluation s/p admit for PNA, CHR, and COPE exacerbations. Pt now requiring 6.5 L o2 but stating at 97% sitting up in chair. Pt's biggest barrier is her endurance, however, pt is use to managing her endurance at home and is fairly IND. Pt is close to her baseline but may benefit from 1-2 OT sessions to address energy conservation , LB dressing, and home safety . Recommend d/c home with supportive daughter. Goals Self-Feeding Goal Independent Grooming Goal Independent Dressing Goal Independent Toileting Goal Independent Bathing Goal Independent Toilet Transfer Goal Independent Shower Transfer Goal Independent Days to Meet Goals 2 Frequency of Treatment Frequency Of Treatment Once a Day Treatment Plan OT Treatment Plan ADL Training,Functional Mobility,Patient/Family Education,Discharge Planning Other Treatment Recommendations and Next energy conservation, LB Treatment Focus dressing Discharge Recommendations OT Discharge Recommendations Home with Assistance Transportation Needs at Discharge Private Vehicle
[2023-11-07] MEDS: INSULIN 70-30 KwikPen 100 UNIT/ML INSULN.PEN 40 UNIT SUBCUT (17:19)
[2023-11-07] MEDS: cefTRIAXone 1,000 MG in SODIUM CHLORIDE 0.9% 100 ML 200 MG IV (20:21)
[2023-11-07] MEDS: MONTELUKAST 10 MG TABLET PO (20:22)
[2023-11-07] MEDS: ENOXAPARIN 40 MG/0.4 ML SYRINGE SUBCUT (20:23)
[2023-11-07] MEDS: ATORVASTATIN 20 MG TABLET PO (21:56)
[2023-11-08] VITALS (8 sets, daily range): BP systolic 133–151; BP diastolic 57–80; PULSE 74–79; RESP 16–18; TEMP 36.7–37; O2SAT 93–97
[2023-11-08 08:03] LABS: Add Manual Diff / Slide Review NO; Basophils Absolute Auto 0 /uL (0-100); Basophils Percent Auto 0.3 % (0-2); Eosinophils Absolute Auto 0 /uL (0-450); Eosinophils Percent Auto 0.1 % (2-4); Hematocrit 30.1 % (36-46); Lymphocytes Absolute Auto 1200 /uL (1100-4500); Lymphocytes Percent Auto 19.7 % (25-40); Mean Corpuscular HGB Conc 33.2 % (30-36); Mean Corpuscular Hemoglobin 33.2 PG (26-34); Monocytes Absolute Auto 1200 /uL (0-900); Neutrophils Absolute Auto 3500 /uL (1500-7000); Neutrophils Percent Auto 59.9 % (50-75); Platelet Count 144 X10^3/uL (150-400); Red Blood Cell Count 3.01 X10^6/uL (4.0-5.2); Red Cell Distribution Width 20.3 % (11.6-14.8); White Blood Cell Count 5.8 X10^3/uL (4.5-11.0)
[2023-11-08 08:13] LABS: Anisocytosis 1+
[2023-11-08 08:16] LABS: BUN Creatinine Ratio 31.2 (6-22); Blood Urea Nitrogen 49 mg/dL (7-17); Calcium 9.3 mg/dL (8.4-10.2); Carbon Dioxide 25 mmol/L (22-32); Chloride 107 mmol/L (98-107); Estimated Glomerular Filt Rate 33 mL/min (>60); Glucose 156 mg/dL (80-110); HEMOLYSIS < 15 (0-50); Potassium 4.3 mmol/L (3.4-5.1); Sodium 138 mmol/L (137-145)
[2023-11-08] MEDS: ALBUTEROL/IPRATROPIUM 3 ML AMPUL INH (08:55)
[2023-11-08] MEDS: VALSARTAN 80 MG TABLET 320 MG PO (08:59)
[2023-11-08] MEDS: predniSONE 20 MG TABLET 40 MG PO (08:59)
[2023-11-08] MEDS: SODIUM CHLORIDE 0.9% FLUSH 10 ML IV (08:59)
[2023-11-08] MEDS: CITALOPRAM 10 MG TABLET PO (09:00)
[2023-11-08] MEDS: ENOXAPARIN 40 MG/0.4 ML SYRINGE SUBCUT (09:00)
[2023-11-08] MEDS: OXYBUTYNIN 5 MG TABLET PO (09:00)
[2023-11-08] MEDS: CALCIUM CARBONATE 500 MG TAB PO (09:00)
[2023-11-08] MEDS: AZITHROMYCIN 250 MG TABLET 500 MG PO (09:00)
[2023-11-08] MEDS: GABAPENTIN 100 MG CAPSULE 200 MG PO (09:01)
[2023-11-08] MEDS: FUROSEMIDE 40 MG/4 ML VIAL IV (09:01)
[2023-11-08] MEDS: CHOLECALCIFEROL (VITAMIN D3) 400 UNIT TABLET 800 UNIT PO (09:03)
[2023-11-08] MEDS: GLIPIZIDE 5 MG 5 EACH PO (09:03)
[2023-11-08] MEDS: LETROZOLE 2.5 MG TABLET PO (09:03)
[2023-11-08] MEDS: INSULIN 70-30 KwikPen 100 UNIT/ML INSULN.PEN 50 UNIT SUBCUT (09:05)
[2023-11-08] MEDS: INSULIN LISPRO 100 UNIT/ML 3ML VIAL SUBCUT ×2 (09:08→16:59)
[2023-11-08] MEDS: LABETALOL 100 MG TABLET PO (09:09)
[2023-11-08] MEDS: ACETAMINOPHEN 325 MG TABLET 650 MG PO (09:17)
--- NOTE | 2023-11-08 12:00 | PT.IIE ---
Current Diagnoses Acute on chronic diastolic (congestive) heart failure (11/07/23) Pneumonia, unspecified organism (11/07/23) Acute and chronic respiratory failure with hypoxia (11/07/23) Surgical History (Last Reviewed 11/07/23 @ 06:13 by Awais Felix MD) Anesthesia H/O bilateral mastectomy H/O umbilical hernia repair H/O: hysterectomy Hx of cholecystectomy S/P fusion of sacroiliac joint Status post hysterectomy Medical History (Last Reviewed 11/07/23 @ 06:13 by Awais Felix MD) Abnormal Pap smear of cervix (~1992) Adrenal adenoma Asthma (~1989) Benign essential HTN Breast cancer (~2016) Bulimia (~1959) Carpal tunnel syndrome (~1991) Chicken pox (~1945) Chronic back pain (~1989) CKD (chronic kidney disease) CKD stage 3 due to type 2 diabetes mellitus COPD (chronic obstructive pulmonary disease) CPAP (continuous positive airway pressure) dependence (~1999) Diabetes mellitus type 2, insulin dependent (~1993) Diabetes mellitus with hyperglycemia, with long-term current use of insulin Fracture (~1986) Hemorrhoid (~1989) History of stent insertion of renal artery History of urinary incontinence (~1994) Hyperlipidemia Ischiogluteal bursitis Kidney stones (~2001) Knee osteoarthritis Major depressive disorder, single episode, mild Measles (~1944) Mumps (~1970) OAB (overactive bladder) MIRIAN (obstructive sleep apnea) Osteoarthritis of right knee Paroxysmal A-fib Right knee pain Sacrococcygeal disorders, not elsewhere classified Spinal stenosis, lumbar region with neurogenic claudication Thyroid nodule Physical Therapy Inpatient Evaluation/Re-Eval M1 PT/OT-IP Prior Functional Status Start: 11/08/23 13:40 Freq: NEEDED Status: Active Protocol: Document 11/08/23 12:00 AB (Rec: 11/08/23 13:54 AB [id number]) Medical Review Prior Functional Status Medical History Reviewed Yes Communication able to make needs known Mobility and Gait pt stated that she was modified independent with all mobilities and ambulation using a 4WW Activities of Daily Living and IADL's per OT note: Pt was IND for all ADLs and IADLs. 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 She does not do any major cleaning. Social History Household Members children Living Arrangements House Number of Floors (Floors) Two Floors Number of Stairs To Enter/Railing? ramp to enter and stays on the main level Home Environment High Toilet,Ramp Home Equipment Four Wheel Walker,Straight Cane,Power Wheelchair/Scooter, Shower Seat without Backrest, Hand Held Shower,Canvas Worker,Grab Bars Near Toilet Employment Status Retired Additional Social History Comment Pt lives with her very supportive daughter in [place]. M2 PT-IP Current Condition Start: 11/08/23 13:40 Freq: NEEDED Status: Active Protocol: Document 11/08/23 12:00 AB (Rec: 11/08/23 13:54 AB [id number]) Physical Therapy Current Condition Current Condition Evaluation Date 11/08/23 Treatment Diagnosis respiratory failure; COPD exacerbation; difficulty in walking Onset Date 11/07/23 M3 PT-IP Subjective Start: 11/08/23 13:40 Freq: NEEDED Status: Active Protocol: Document 11/08/23 12:00 AB (Rec: 11/08/23 13:54 AB [id number]) Subjective Physical Therapy Visit Type Type Initial Evaluation Visit Start Time 12:00 Visit Stop Time 12:30 Number of TRIMMER AND BORER MACHINE OPERATOR Visits 0 Physical Therapy Visit Comments Patient Comments agreeable to do PT M4 PT-IP Mobility and Gait Start: 11/08/23 13:40 Freq: NEEDED Status: Active Protocol: Document 11/08/23 12:00 AB (Rec: 11/08/23 13:54 AB [id number]) PT-Transfer Assessment Sit to and From Stand Sit to and from Stand Standby Assistance,1 Person Assistance,Use of Upper Extremities Equipment Transfer Assistive Device Gait Belt,Front Wheeled Walker ,4 Wheeled Walker Orthotic/Prosthetic Devices or Brace: No Transfers Transfer Destination Chair,Toilet Transfer Technique ambulated Transfer Ability Level of Assist Standby Assistance,1 Person Assistance,Use of Upper Extremities Comments Mobility Comments pt was able to get up and use the toilet with NAC. PT took over pt's care. pt ambulated using FWW SBA to the toilet. pt able to complete toileting without PT assisting. (+) SOB and has 2L/min O2. pt ambulated from the toilet towards the sink using fWW SBA . pt is impulsive. able to maintain standing SBA while completing handwashing. pt ambulated towards the chair using fWW sBA. O2 sat checked : 84%. cued for PLB and O2 sat increased to ~ 88-89% in ~ 15 sec. pt rested for a few more minutes. obtained PLOF and home set up from pt. assessed ambulation using 4WW. educated pt on safety and slowing down and PLB in between activities. pt also stated that she tends to lean on her L forearm onto the 4WW due to her R hip pain. educated pt on postural alignment and safety and pt understood. pt completed sit to stand from the chair SBA and ambulated in room using 4WW ~ 30 ft SBA cues to slow down and paused to take PLB in between walking . pt sat back on the chair. O2 sat checked: 88-89%. positioned pt on the chair. Set up lunch tray for pt. call light and table placed within reach. Gait Assessment Gait Gait Assistance Required: Standby Assistance Distance (Feet) 30 Able to Maintain Weight Bearing Status Yes During Gait Assistive Devices Assistive Device Gait Belt,Front Wheeled Walker ,4 Wheeled Walker Orthotic/Prosthetic Devices or Brace: No Gait Deviations General Gait Pattern Decreased Stride Length, Decreased Feet Clearance Factors Limiting Gait Function Factors Limiting Gait Function Decreased Activity Tolerance, Decreased Strength,Pain,Poor Balance,Poor Safety Awareness, Respiratory Distress PT-Balance Assessment Sitting Balance and Reactions Static Sitting Balance Ability Normal Dynamic Sitting Balance Ability Good Standing Balance and Reactions Static Standing Balance Ability Good Dynamic Standing Balance Ability Fair Device Used 4WW M5 PT-IP Objective Assessments Start: 11/08/23 13:40 Freq: NEEDED Status: Active Protocol: Document 11/08/23 12:00 AB (Rec: 11/08/23 13:54 [id number]) Orientation Orientation/Cognition Level of Alertness Alert Orientation Name,Place,Situation Safety Awareness Decreased Safety Awareness Memory Description No Deficits Noted Gross Range of Motion Lower Extremity ROM Assessment Within Functional Limits Strength Lower Extremity Strength Assessment Within Functional Limits Coordination Assessment Gross Coordination Gross Coordination WNL Muscle Tone Muscle Tone WNL Yes M6 PT-IP Treatment Start: 11/08/23 13:40 Freq: NEEDED Status: Active Protocol: Document 11/08/23 12:00 AB (Rec: 11/08/23 13:54 [id number]) Physical Therapy Treatment Education Education Provided Safety M7 PT-IP Assessment and Plan Start: 11/08/23 13:40 Freq: NEEDED Status: Active Protocol: Document 11/08/23 12:00 AB (Rec: 11/08/23 13:54 AB [id number]) PT Summary Assessment and Plan Potential Rehabilitation Potential Good Status of Condition at Evaluation Evolving Summary Impairments Pain,ROM,Strength,Balance, Coordination,Sensation,Tone, Cognition,Bed Mobility, Transfers,Gait,Activity Tolerance Assessment Summary pt is an 83y/o F who presented to the ED due to SOB. pt admitted for respiratory failure; COPD exacerbation. pt also has h/o breast CA and lung mets. pt requiring SBA with ambulation using fWW/4WW but with decrease in O2 sat to 84% with 2L/min O2. pt plans to go home and her daughter will be able to assist her at home. will continue PT in hospital to improve overall activity tolerance and also safety education and energy conservation techniques. will continue to assess progress. Goals Bed Mobility Goal Independent Transfer Goal Independent,Four Wheeled Walker Gait Goal Independent,Four Wheel Walker Gait Distance 200 Days to Meet Goals 10 Frequency of Treatment Frequency Of Treatment Once a Day Treatment Plan Physical Therapy Treatment Plan Bed Mobility Training,Transfer Training,Gait Training, Therapeutic Exercise,Balance Retraining,Discharge Planning, Hot or Cold Pack,Neuromuscular Re-ed,Coordination Retraining Precautions Other Precautions O2 sat Recommendations To Nursing Amount of Assist Needed Standby Assistance Discharge Recommendations PT Discharge Recommendations Home with Assistance Transportation Needs at Discharge Private Vehicle
--- NOTE | 2023-11-08 15:28 | OT.IP.TRT ---
Current Diagnoses Acute on chronic diastolic (congestive) heart failure (11/07/23) Pneumonia, unspecified organism (11/07/23) Acute and chronic respiratory failure with hypoxia (11/07/23) Occupational Therapy Treatment Note M2 OT-IP Current Condition Start: 11/07/23 15:21 Freq: Status: Active Protocol: Document 11/07/23 15:21 CGR (Rec: 11/07/23 15:32 CGR [id number]) Occupational Therapy Current Condition Current Condition Evaluation Date 11/07/23 Treatment Diagnosis PNA, CHF, COPD exacerbation Diagnosis Onset Date 11/07/23 M3 OT- IP Subjective and Pain Start: 11/07/23 15:21 Freq: Status: Active Protocol: Document 11/08/23 15:29 CCC (Rec: 11/08/23 15:46 CCC [id number]) OT- Subjective Occupational Therapy Visit Type Type Treatment Note Visit Start Time 14:50 Visit Stop Time 15:28 Occupational Therapy Visit Comments Patient Comments Pt agreed to work with OT and talk about energy conservation strategies Patient/Caregiver Goals To go home. OT Pain Assessment Pain When Pain Assessed During Mobility Pain Present Pain Present Pain Reported M4 OT- IP ADL's Start: 11/07/23 15:21 Freq: Status: Active Protocol: Document 11/08/23 15:29 CCC (Rec: 11/08/23 15:46 CCC [id number]) OT [id number] Comments OT Self-Feeding Comments not meal time OT ADL-Grooming Comments OT Grooming Comments not performed OT ADL-Oral Care Comments Oral Care Comments pt declined OT ADL-Dressing Comments OT Dressing Comments Not performed. OT ADL-Toileting General Evaluation Toileting Ability Standby Assistance Comments OT Toileting Comments Distant SBA to be able to use the bathroom on her own. Suggested pt put the BSC next to her bed as pt states usually takes off her O2 at night to use the bathroom. OT ADL-Bathing Comments OT Bathing Comments not performed M5 OT- IP IADL's Start: 11/07/23 15:21 Freq: Status: Active Protocol: Document 11/07/23 15:21 CGR (Rec: 11/07/23 15:32 CGR [id number]) OT-Instrumental Activities of Daily Living Deficits IADL Deficits Identified No Deficits Home Safety Awareness Awareness of Need for Assistance at Home Good Awareness Ability to Problem Solve Emergency Able to Problem Solve Situations Medication Management Medication Management No Deficits Identified, Caregiver Administers Money Management Money Management No Deficits Identified, Caregiver Provides Assistance Meal Preparation Meal Preparation Caregiver Provides Assist Sponge Diver Sponge Diver Caregiver Provides Assist Driving Driving Comments 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 M6 OT- IP Functional Cognition Start: 11/07/23 15:21 Freq: Status: Active Protocol: Document 11/08/23 15:29 [facility] (Rec: 11/08/23 15:46 [facility] [id number]) Cognitive Factors Limiting Selfcare Function Cognitive Ability Level of Alertness Alert Patient Orientation Name,Age,Birthday,Month,Date, Year,Day of Week,Place, Situation Attention Span Ability Capable of Focused Attention, Capable of Sustained Attention Cognitive Comments Cognitive Assessment Comments Pt scored 100 seconds on [place] Making Part B which implies mild impairments for visual attention, speed of processing , task switching, executive functioning, and mental flexibility. Pt's scored 70th percentile for her age.Pt is aware not to drive if not feeling well and plans on taking a driving test to appease her daughter. M7 OT- IP Mobility and Balance Start: 11/07/23 15:21 Freq: Status: Active Protocol: Document 11/08/23 15:29 [facility] (Rec: 11/08/23 15:46 [facility] [id number]) OT- Bed Mobility Assessment Supine to Sit Supine to Sit Assist Independent Sit to Supine Sit to Supine Assist Independent OT-Transfer Assessment Sit to and From Stand Sit to and from Stand Standby Assistance Transfers Transfer Ability Standby Assistance Technique Transfer Destination Bed,Toilet Transfer Technique Stand Step Pivot Devices Transfer Assistive Devices None Comments Mobility Comments SBA OT- Gait Assessment Comments Gait Ability Comments Pt wanting to try to walk to the bathroom without a device and able to manage the O2 line and use of surfaces to touch for balance. Pt able to do with SBA for safety. Encouraged pt to call for assist when having to get up. OT- Balance Assessment Sitting Balance and Reactions Static Sitting Balance Ability Normal Dynamic Sitting Balance Ability Normal Standing Balance and Reactions Static Standing Balance Ability Good Dynamic Standing Balance Ability Fair M8 OT- IP Objective Assessments Start: 11/07/23 15:21 Freq: Status: Active Protocol: Document 11/07/23 15:21 CGR (Rec: 11/07/23 15:32 CGR [id number]) OT Gross Range of Motion Upper Extremity Range of Motion Assessment Within Functional Limits OT Strength Upper Extremity Strength Assessment Within Functional Limits Hand Front End Ui Developer Strength Hand Dominance Right Comments Strength Comments RUE grossly 4/5 LUE grossly 4+/5 OT- Coordination Assessment Upper Extremity Finger to Nose Test Within Functional Limits Finger Tapping Test Within Functional Limits OT-Muscle Tone Assessment Muscle Tone WNL Yes OT Sensation Assessment Comments Summary Comments Pt states numbness to B feet and newer onset numbness to the R thumb, pointer, middle, and ring fingers. Edema Edema Absent M9 OT- IP Assessment and Plan Start: 11/07/23 15:21 Freq: Status: Active Protocol: Document 11/08/23 15:29 [facility] (Rec: 11/08/23 15:46 [facility] [id number]) OT Summary Assessment and Plan Potential Rehabilitation Potential Good Analytic Complexity at Evaluation Low Summary OT Impairments Pain,Strength,Functional Mobility,Dressing,Toileting, Bathing,Toilet Transfers, Shower Transfers,Activity Tolerance Progress Towards Goals Slow Progress due to Activity Tolerance Assessment Summary Pt on 2L and dropped to mid 80 's when getting back from using the toilet. Pt needing to take a minute to rest and O2 up to 90%. Able to talk about energy conservation strategies and to make a list and but sure to have everything lined up and prepared as pt plans on going to fly to [place] to see her daughter. Pt is aware that even enough the doctor said she can go that has good awareness not to go if not feeling well. Pt to go home when medically stable. Goals Self-Feeding Goal Independent Grooming Goal Independent Dressing Goal Independent Toileting Goal Independent Bathing Goal Independent Toilet Transfer Goal Independent Shower Transfer Goal Independent Days to Meet Goals 1 Frequency of Treatment Frequency Of Treatment Once a Day Treatment Plan OT Treatment Plan ADL Training,Functional Mobility,Patient/Family Education,Discharge Planning Discharge Recommendations OT Discharge Recommendations Home with Assistance Transportation Needs at Discharge Private Vehicle
--- NOTE | 2023-11-08 16:25 | PM.PN.1 ---
Subjective Subjective Interval history: Patient feeling much better today. Down to 2L NC. Exam Vital Signs (past 8 hours): - 11/08/23 08:45 11/08/23 08:56 11/08/23 09:09 Temperature Pulse Rate 78 78 Respiratory Rate 16 Blood Pressure 148/64 H 148/64 H Pulse Oximetry 97 96 Oxygen Delivery Method Nasal Cannula Oxygen Flow Rate 0 4 11/08/23 12:15 11/08/23 16:00 Temperature 98.4 F Pulse Rate 79 76 Respiratory Rate 18 18 Blood Pressure 141/60 H 151/57 H Pulse Oximetry 97 96 Oxygen Delivery Method Oxygen Flow Rate 2 2 Fraction of Inspired Oxygen 44 SaO2/FiO2 Ratio 206 Oxygen Delivery Method Nasal Cannula Oxygen Flow Rate 2 Const Other: in no distress on 2L O2 Resp Other: rales still present, no wheezes Cardio Other: RRR Skin Other: not cyanotic Extrem Other: bipedal edema Psych Other: lucid, appropriate mood Objective Labs 11/08/23 07:47 11/08/23 07:47 Labs: Laboratory Results - last 24 hr 11/08/23 07:47 WBC 5.8 RBC 3.01 L Hgb 10.0 L Hct 30.1 L MCV 100.0 MCH 33.2 MCHC 33.2 RDW 20.3 H Plt Count 144 L Neut % (Auto) 59.9 Lymph % (Auto) 19.7 L [place] % (Auto) 20.0 H Eos % (Auto) 0.1 L Baso % (Auto) 0.3 Neut # (Auto) 3500 Lymph # (Auto) 1200 [place] # (Auto) 1200 H Eos # (Auto) 0 Baso # (Auto) 0 RBC Morphology Not Reportable Anisocytosis 1+ H Sodium 138 Potassium 4.3 Chloride 107 Carbon Dioxide 25 BUN 49 H Creatinine 1.57 H Estimated GFR 33 L BUN/Creatinine Ratio 31.2 H Glucose 156 H Calcium 9.3 PFSH Medical History Major depressive disorder, single episode, mild COPD (chronic obstructive pulmonary disease) CKD stage 3 due to type 2 diabetes mellitus MIRIAN (obstructive sleep apnea) Osteoarthritis of right knee Right knee pain Ischiogluteal bursitis Diabetes mellitus with hyperglycemia, with long-term current use of insulin Paroxysmal A-fib Spinal stenosis, lumbar region with neurogenic claudication Knee osteoarthritis Sacrococcygeal disorders, not elsewhere classified Thyroid nodule Abnormal Pap smear of cervix (~1992) History of urinary incontinence (~1994) Kidney stones (~2001) Hemorrhoid (~1989) CPAP (continuous positive airway pressure) dependence (~1999) Asthma (~1989) Bulimia (~1959) Fracture (~1986) Chronic back pain (~1989) Carpal tunnel syndrome (~1991) Mumps (~1970) Measles (~1944) Chicken pox (~1945) Adrenal adenoma History of stent insertion of renal artery Breast cancer (~2016) Hyperlipidemia OAB (overactive bladder) Benign essential HTN CKD (chronic kidney disease) Diabetes mellitus type 2, insulin dependent (~1993) Surgical History Anesthesia S/P fusion of sacroiliac joint H/O umbilical hernia repair H/O bilateral mastectomy H/O: hysterectomy Hx of cholecystectomy Status post hysterectomy Family History Father History of heart disease Hypertension Mother Cancer Brother Hypertension Brother Hypertension Brother History of heart disease Hypertension Grandfather History of heart disease Social History household members: children Smoking Status: Former smoker alcohol intake: former Assessment & Plan Assessment & Plan narrative: # Acute on Chronic Hypoxemic Respiratory Failure - oxygen requirement up to 8 L, from usual 2L -now weaned to baseline 2L -2nd to CHF and PNA/COPD -continue abx, steroids and lasix as below # PNA, COPD Exacerbation, HFpEF exacerbation - Rocephin, bronchodilators, steroids - not septic - had difficulties with prescribed inhalers due to high copay, patient to speak with daughter who offered to help her pay for it. - diuresis with Lasix, net neg -1.7L will continue lasix for 1 more day # Metastatic lung cancer -followed by oncology at -currently on daily Ibrance, and patient notes her recent scans showed no progression of lung tumor -holding ibrance due to infection # Urinary Incontinence - Oxybutynin # DM2 - Insulin 70/30, SS, Glipizide # HTN -continue amlodipine, valsartan and labetalol # HLD -continue lipitor # depression -continue celexa # asthma -continue singulair Code status is DNR. DVT prophylaxis with lovenox Proxy is daughter Velma. I have reviewed home meds and used all available resources to reconcile the home meds. Dispo: Home on 11/08.
[2023-11-08] MEDS: INSULIN 70-30 KwikPen 100 UNIT/ML INSULN.PEN 40 UNIT SUBCUT (18:33)
--- NOTE | 2023-11-08 19:10 | P.DS_ITS ---
History of Present Illness History of Present Illness Chief complaint: trouble breathing, low oxy Narrative: From overnight provider: 83 y/o with PMH of breast cancer with lung metastases, on daily immunotherapy, chronic hypoxemic respiratory failure on 2L NC, paroxysmal A-fib, COPD, CKD, depression, DM, HTN, HLD, HFpEF, recent hospitalization for CHF and PNA, a month ago, presented to ED with severe dyspnea, cough desaturating in 70-ies and 80- ies on 2 L. Given Lasix, Solumedrol, Zithromax and Rocephin in the ED and admitted on 8 L of oxygen with another PNA and CHF exacerbation. Discharge Providers Provider Date of admission: 11/07/23 03:19 Discharge Date: 11/08/23 Primary care physician: Rody Mijares DO Consults: 11/07/23 04:23 Consult to Pastoral Services Routine Comment: wants to see [employer] hearing office 11/07/23 10:32 Consult to Occupational Therapy Evaluate & Treat Comment: Physician Instructions: Evaluate and treat Consult to Physical Therapy Evaluate & Treat Comment: Physician Instructions: Evaluate and Treat Discharge provider: Darius Darling DO Summary Hospital Course Discharge Diagnosis: # Acute on Chronic Hypoxemic Respiratory Failure - oxygen requirement up to 8 L, from usual 2L -now weaned to baseline 2L -2nd to CHF and PNA/COPD -received abx, steroids and lasix as below -discharged on po prednisone and levaquin # PNA, COPD Exacerbation, HFpEF exacerbation - Rocephin, bronchodilators, steroids - not septic - had difficulties with prescribed inhalers due to high copay, patient to speak with daughter who offered to help her pay for it. - diuresis with Lasix, net neg -1.7L -continue prednisone 40 to complete 5 days and levaquin to complete 10 days # Metastatic lung cancer -followed by oncology at -currently on daily Ibrance, and patient notes her recent scans showed no progression of lung tumor -holding ibrance due to infection # Urinary Incontinence - Oxybutynin # DM2 - Insulin 70/30, SS, Glipizide # HTN -continue amlodipine, valsartan and labetalol # HLD -continue lipitor # depression -continue celexa # asthma -continue singulair Hospital Course: Admitted for SOB and hypoxia. Required up to 6L NC and baseline is 2L. CXR showed possible PNA and pulm edema. Given IV abx, lasix and steroids as she was wheezy on exam. Improved quickly and was weaned to her normal 2L NC. Sent home on po prednisone for 3 more days and levaquin for 1 more week. Exam Vital Signs (past 8 hours): - 11/08/23 12:15 11/08/23 16:00 Temperature 98.4 F Pulse Rate 79 76 Respiratory Rate 18 18 Blood Pressure 141/60 H 151/57 H Pulse Oximetry 97 96 Oxygen Flow Rate 2 2 Fraction of Inspired Oxygen 44 SaO2/FiO2 Ratio 206 Oxygen Delivery Method Nasal Cannula Oxygen Flow Rate 2 Const Other: in no distress on 2L O2 Resp Other: rales still present, no wheezes Cardio Other: RRR Skin Other: not cyanotic Extrem Other: bipedal edema Psych Other: lucid, appropriate mood Objective Labs 11/08/23 07:47 11/08/23 07:47 Labs: Laboratory Results - last 24 hr 11/08/23 07:47 WBC 5.8 RBC 3.01 L Hgb 10.0 L Hct 30.1 L MCV 100.0 MCH 33.2 MCHC 33.2 RDW 20.3 H Plt Count 144 L Neut % (Auto) 59.9 Lymph % (Auto) 19.7 L [place] % (Auto) 20.0 H Eos % (Auto) 0.1 L Baso % (Auto) 0.3 Neut # (Auto) 3500 Lymph # (Auto) 1200 [place] # (Auto) 1200 H Eos # (Auto) 0 Baso # (Auto) 0 RBC Morphology Not Reportable Anisocytosis 1+ H Sodium 138 Potassium 4.3 Chloride 107 Carbon Dioxide 25 BUN 49 H Creatinine 1.57 H Estimated GFR 33 L BUN/Creatinine Ratio 31.2 H Glucose 156 H Calcium 9.3 PFSH Medical History Major depressive disorder, single episode, mild COPD (chronic obstructive pulmonary disease) CKD stage 3 due to type 2 diabetes mellitus MIRIAN (obstructive sleep apnea) Osteoarthritis of right knee Right knee pain Ischiogluteal bursitis Diabetes mellitus with hyperglycemia, with long-term current use of insulin Paroxysmal A-fib Spinal stenosis, lumbar region with neurogenic claudication Knee osteoarthritis Sacrococcygeal disorders, not elsewhere classified Thyroid nodule Abnormal Pap smear of cervix (~1992) History of urinary incontinence (~1994) Kidney stones (~2001) Hemorrhoid (~1989) CPAP (continuous positive airway pressure) dependence (~1999) Asthma (~1989) Bulimia (~1959) Fracture (~1986) Chronic back pain (~1989) Carpal tunnel syndrome (~1991) Mumps (~1970) Measles (~1944) Chicken pox (~1945) Adrenal adenoma History of stent insertion of renal artery Breast cancer (~2016) Hyperlipidemia OAB (overactive bladder) Benign essential HTN CKD (chronic kidney disease) Diabetes mellitus type 2, insulin dependent (~1993) Surgical History Anesthesia S/P fusion of sacroiliac joint H/O umbilical hernia repair H/O bilateral mastectomy H/O: hysterectomy Hx of cholecystectomy Status post hysterectomy Family History Father History of heart disease Hypertension Mother Cancer Brother Hypertension Brother Hypertension Brother History of heart disease Hypertension Grandfather History of heart disease Social History household members: children Smoking Status: Former smoker alcohol intake: former Discharge Plan Discharge Plan Patient Disposition: Home Provider Discharge Comment: Please finish 1 more week of oral antibiotics and 3 more days of prednisone. Discharge orders & Medications Prescriptions: New levofloxacin 750 mg tablet 750 mg PO DAILY 7 Days Qty: 7 0RF Rx Instructions: start on 11/08 prednisone 20 mg tablet 40 mg PO DAILY 3 Days Qty: 6 0RF Rx Instructions: start on 11/08 Continued oxybutynin chloride 5 mg tablet 5 mg PO BID Qty: 180 3RF amlodipine [Norvasc] 10 mg tablet 10 mg PO DAILY Qty: 90 3RF atorvastatin [Lipitor] 20 mg tablet 20 mg PO BEDTIME Qty: 90 3RF glipizide 5 mg tablet extended release 24hr 5 mg PO DAILY Qty: 90 3RF valsartan 320 mg tablet 320 mg PO DAILY Qty: 90 3RF Ibrance 125 mg tablet 125 mg PO DAILY Rx Instructions: administer on days 1 through 21 of a 28-day treatment cycle. 10/06 starts her 7 days off citalopram [Celexa] 10 mg tablet 10 mg PO DAILY Qty: 30 11RF tiotropium bromide [Spiriva with HandiHaler] 18 mcg capsule, w/inhalation device 1 cap inhalation DAILY Qty: 90 3RF Rx Instructions: puncture 1 cap using device; one dose = 2 inhalations 11/06 has not started using this yet letrozole 2.5 mg tablet 2.5 mg PO DAILY Qty: 90 3RF albuterol sulfate 90 mcg/actuation HFA aerosol inhaler 1 - 2 inh inhalation Q4-6H PRN (Reason: shortness of breath or wheezing) Qty: 8.5 11RF furosemide [Lasix] 20 mg tablet 20 mg PO DAILY Qty: 90 3RF Rx Instructions: at 1400 calcium carbonate-vitamin D3 600 mg-5 mcg (200 unit) Tablet 1 tab PO DAILY montelukast 10 mg tablet 10 mg PO BEDTIME labetalol 100 mg tablet 100 mg PO BID Novolin 70/30 U-100 Insulin 100 unit/mL (70-30) suspension 50 unit SUBCUT DAILY furosemide 40 mg tablet 40 mg PO DAILY Patient Comments: Pt states she takes when needed, holds when she has to go somewhere and does not want to have to urinate Rx Instructions: in the morning gabapentin 100 mg capsule 200 mg PO BID gabapentin 100 mg Capsule 100 mg PO PRN PRN (Reason: pain) Rx Instructions: takes at 1400 insulin NPH and regular human 100 unit/mL (70-30) Syringe 40 unit SUBCUT 1700 Follow up/Referrals: Rody Mijares DO [Primary Care Provider] - 2 Weeks Visit Report/Discharge Packet Stand Alone Forms: Patient Portal/API, Stroke Signs & Symptoms Discharge Data Primary Care Provider: Rody Mijares
--- NOTE | 2023-11-08 19:23 | PC.NURSE ---
Patient is A&OX4, VSS, afebrile. She is weaned to baseline 02 lnc This a.m. and toleratin 2 L well. She is SBA to BR and ambulating with steady gait. She is cleared for discharge home this evening as she is back to her baseline 02 requirements. She verbalizes understanding of discharge medications, and follow up plan. Her daughter arrives shortly after 7 p.m. to greens picker patient and unable to retrieve a couple of glipizide pills and bottle of calcium/vit D from pharmacy. Per daughter she will return later and pick these up, but they are not needed prior to discharge this evening. Patient is escorted via w/ch and with her home portable 02 tank an all of the rest of her belongings for discharge home in private vehicle with daughter this evening at 1915.
== END 2023-11-08 19:15 | disposition home health service (06) | DRG 193 ==
LOC: ED 03:16 → AC 03:21
PROVIDERS: Student in an Organized Health Care Education/Training Program; Admitting Provider Internal Medicine; Emergency Provider Emergency Medicine; PCP Family Medicine; Referring Provider Emergency Medicine; Visit Provider Internal Medicine
DX: J18.9 Pneumonia, unspecified organism (principal); I50.33 Acute on chronic diastolic (congestive) heart failure; J96.21 Acute and chronic respiratory failure with hypoxia; J44.1 Chronic obstructive pulmonary disease with (acute) exacerbation; C34.90 Malignant neoplasm of unspecified part of unspecified bronchus or lung; I13.0 Hypertensive heart and chronic kidney disease with heart failure and stage 1 through stage 4 chronic kidney disease, or unspecified chronic kidney disease; R32 Unspecified urinary incontinence; E11.9 Type 2 diabetes mellitus without complications; E78.5 Hyperlipidemia, unspecified; G47.33 Obstructive sleep apnea (adult) (pediatric); E11.22 Type 2 diabetes mellitus with diabetic chronic kidney disease; N18.9 Chronic kidney disease, unspecified; F32.A Depression, unspecified; Z66 Do not resuscitate; Z99.81 Dependence on supplemental oxygen; Z79.84 Long term (current) use of oral hypoglycemic drugs; Z87.891 Personal history of nicotine dependence; Z79.4 Long term (current) use of insulin
CPT/HCPCS: 36415; 36600; 71045; 80048; 80053; 82550; 82805; 82962; 83605; 83880; 84145; 84484; 85025; 85610; 87040; 87633; 93005; 93010; 94640; 94760; 94762; 96365; 96367; 96375; 97162; 97165; 97530; 97535; 99285; 99291; J0696; J1650; J1815; J1940; J2919

== ENCOUNTER → 2023-11-30 13:00 | Outpatient (CLI) | payer MEDICARE, OTHER, SELFPAY ==
[2023-10-03 14:51] VITALS: BMI 45.1
[2023-11-07 14:49] VITALS: BMI 45.3
[2023-11-11 10:00] VITALS: BMI 45.3
--- NOTE | 2023-12-15 11:01 | DIAB.MNT ---
Initial Diabetes Medical Nutrition Therapy Assessment Name: Francia Moeller (Pronounced 9ah Francia) Date: 11/30/23 Time: 105-150p Dx: Type II Diabetes Francia presents for initial virtual visit via [facility]. Last DM ed/RD visit in 09/2022. DM since 1993. Insulin just last few years. 3 days in a row that sugars ?crashed? Woke and ate oats and raisins, bg later day to 50 mg/dl. Then went to hospital Tuesday, middle of the night BG hypo there too. Again in [place] in the middle of the night. Symptoms of lows: sweat, feels heavy, foggy brain, difficulty getting up Treat: usually uses OJ or apple juice or mandarin oranges No lows this week Has new CGM. No day haul youth supervisor. Has Dexcom. Wants a day haul youth supervisor, RD has these in clinic. Will call for soon f/u appt to place CGM and give day haul youth supervisor. 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 Urinates in the night x 2-3 Daughter lives upstairs Anthropometrics: Ht: 63 Wt: 246# 10/2023 per EMR Self-Monitoring Blood Glucose: Less recently since getting back from recent [place] trip. Use to check FBG regularly. Was 120-130mg/dl previously. Diabetes Medications: 50u Am 40u PM Novolin 70/30 (takes prior to eating or just after eating) Glipizide 5mg Pertinent Labs: 09/2023 HgA1c: 8.3% GFR: 22 L Cr: 2.19 H Past Medical History: (Last Reviewed 12/06/23 @ 01:42 by Awais Felix MD) Abnormal Pap smear of cervix (~1992) Adrenal adenoma Rt. Observation Asthma (~1989) Benign essential HTN Breast cancer (~2016) Bulimia (~1959) Carpal tunnel syndrome (~1991) Chicken pox (~1945) Chronic back pain (~1989) CKD (chronic kidney disease) CKD stage 3 due to type 2 diabetes mellitus COPD (chronic obstructive pulmonary disease) CPAP (continuous positive airway pressure) dependence (~1999) Shallow breathing Diabetes mellitus type 2, insulin dependent (~1993) Diabetes mellitus with hyperglycemia, with long-term current use of insulin Fracture (~1986) Hemorrhoid (~1989) History of stent insertion of renal artery Rt. History of urinary incontinence (~1994) Hyperlipidemia Ischiogluteal bursitis Kidney stones (~2001) Knee osteoarthritis Major depressive disorder, single episode, mild Measles (~1944) Mumps (~1970) OAB (overactive bladder) MIRIAN (obstructive sleep apnea) Osteoarthritis of right knee Paroxysmal A-fib Right knee pain Sacrococcygeal disorders, not elsewhere classified Spinal stenosis, lumbar region with neurogenic claudication Thyroid nodule Nutrition Rx: Carbohydrates: Meal:30-45g Snack: 15-30g Protein: 70-90g per CKD T2DM Nutrition Diagnosis: - Food and nutrition related knowledge deficit r/t needing refresher on RUle 15 and protein recs aeb diet recall and pt report Intervention: This participant was very receptive. Provided appropriate educational handouts. Discussed the following topics: Completed intake assessment. Discussed barriers to care. Rule of 15 for tx of lows CKD MNT and protein recs Fluids per provider recs Pairing macronutrients SMBG strategies and CGM Created SMART goals for patient self-care and success. Goals: Add 7g protein to oats in the morning Keep glucose tabs by bedside Eat 3-4 glucose tabs for a BG <70 (under 50 eat 6-8 tabs) Start checking BG (HS reading or TID FBG, ac lunch and ac dinner) Follow-up: [facility] follow-up in 1-2 weeks for personal CGM placement Monalisa Orta RDN, PILAR Certified Diabetes Care and Dog Hair Clipper P: [phone] Thank you for this referral
== END ==
LOC: DIET 12-01 10:39
PROVIDERS: PCP Family Medicine; Referring Provider Family Medicine
DX: E11.9 Type 2 diabetes mellitus without complications (principal); Z79.4 Long term (current) use of insulin; Z79.84 Long term (current) use of oral hypoglycemic drugs; Z71.3 Dietary counseling and surveillance
CPT/HCPCS: 97802

== ENCOUNTER 2023-12-05 19:14 | Inpatient (IN) | payer MEDICARE, OTHER, SELFPAY ==
[2023-11-11 10:00] VITALS: BMI 45.3
[2023-12-05] VITALS (16 sets, daily range): BP systolic 154–203; BP diastolic 68–114; PULSE 77–90; RESP 18; TEMP 36.8; O2SAT 93–96; BMI 44.8
--- NOTE | 2023-12-05 20:12 | DI.RAD.S_ITS ---
PROCEDURE: XR CHEST 1V INDICATIONS: SOB TECHNIQUE: One view of the chest was acquired. COMPARISON: [facility], CR, XR CHEST 1V, 11/07/2023, 1:23. [facility], CR, XR CHEST 1V, 10/03/2023, 13:38. FINDINGS: Surgical changes and devices: None. Lungs and pleura: Low lung volumes. There is dense consolidation in the right perihilar region. Mild interstitial prominence. No drainable effusions. Mediastinum: Cardiomegaly Bones and chest wall: Unremarkable IMPRESSION: Dense consolidation in the right perihilar region suspicious for infection. Mildly prominent interstitium could represent additional infection versus edema. Consider future oncologic surveillance imaging given history of malignancy. Dictated by: Jayesh Morales M.D. on 12/05/2023 at 21:08 Approved by: Jayesh Morales M.D. on 12/05/2023 at 21:09
[2023-12-05 20:28] LABS: Alanine Aminotransferase 18 IU/L (<35); Albumin 4.6 g/dL (3.5-5.0); Albumin Globulin Ratio 1.6 (1.0-2.8); Alkaline Phosphatase 76 U/L (38-126); BUN Creatinine Ratio 28.6 (6-22); Bilirubin Total 0.9 mg/dL (0.2-1.3); Blood Urea Nitrogen 59 mg/dL (7-17); Calcium 8.7 mg/dL (8.4-10.2); Carbon Dioxide 21 mmol/L (22-32); Chloride 112 mmol/L (98-107); Estimated Glomerular Filt Rate 24 mL/min (>60); Globulin 2.9 g/dL (1.7-4.1); Glucose 222 mg/dL (80-110); Lipase 45 U/L (23-300); Sodium 140 mmol/L (137-145); Total Protein 7.5 g/dL (6.3-8.2)
[2023-12-05 20:30] LABS: Aspartate Aminotransferase 45 IU/L (14-36); HEMOLYSIS 133 (0-50)
[2023-12-05 20:31] LABS: Hematocrit 32.2 % (36-46); Hemoglobin 10.5 g/dL (12.0-16.0); Mean Corpuscular HGB Conc 32.7 % (30-36); Mean Corpuscular Hemoglobin 32.5 PG (26-34); Mean Corpuscular Volume 99.4 fL (80-100); Platelet Count 131 X10^3/uL (150-400); Red Blood Cell Count 3.24 X10^6/uL (4.0-5.2); Red Cell Distribution Width 20.5 % (11.6-14.8); White Blood Cell Count 3.3 X10^3/uL (4.5-11.0)
[2023-12-05 20:32] LABS: Add Manual Diff / Slide Review YES
--- NOTE | 2023-12-05 20:45 | ED.RECABL ---
HPI - Recheck/Abnormal Lab/Rx General Chief Complaint: Recheck/Abnormal Lab/Rx Stated Complaint: urinary issues sent by clip coater Time Seen by Provider: 12/05/23 19:51 Source: patient Mode of arrival: Wheelchair History of Present Illness HPI narrative: Patient is an 83-year-old female. Does have history of metastatic breast cancer. Is being followed by Oncology. Is getting treated for this. Also has a history of heart failure. Is on oxygen at 2 L at home at baseline. Stated that she has recently had several admissions to the hospital secondary to CHF and fluid overload. She is on Lasix on a daily basis. After her last admission to the hospital she had an increase to her Lasix to 80 mg in the morning and 40 mg at night. She was told by her primary doctor that if her symptoms (swelling and increased shortness of breath) do not improve at this dose that she could just decrease her dose back to 40 mg in the morning and 20 mg at night. She is done this within the past couple days. She would routine follow-up with her oncologist today. Had labs drawn. She was told that her kidney function was elevated. She feels like she is retaining fluid. She was becoming more short of breath with exertion. She is gained weight. She has not had to increase the amount of oxygen that she uses at home. She got a call from her clip coater today recommended that she come to the emergency department for evaluation. Related Data Home Medications Medication Instructions Recorded Confirmed palbociclib 125 mg tablet (Ibrance) 125 mg PO DAILY 01/31/23 11/07/23 calcium carbonate 600 mg-vitamin 1 tab PO DAILY 10/03/23 11/07/23 D3 5 mcg (200 unit) tablet insulin human U-100 NPH-regulr 50 unit SUBCUT DAILY 10/03/23 11/07/23 70-30 mix 100 unit/mL subcutaneous susp (Novolin 70/30 U-100 Insulin) labetalol 100 mg tablet 100 mg PO BID 10/03/23 11/07/23 montelukast 10 mg tablet 10 mg PO BEDTIME 10/03/23 11/07/23 furosemide 40 mg tablet 40 mg PO DAILY 11/07/23 11/07/23 gabapentin 100 mg capsule 100 mg PO PRN PRN pain 11/07/23 11/07/23 gabapentin 100 mg capsule 200 mg PO BID 11/07/23 11/07/23 insulin NPH-reg human insulin 100 40 unit SUBCUT 1700 11/07/23 11/07/23 unit/mL (70-30) subcutaneous syringe Previous Rx's Medication Instructions Recorded letrozole 2.5 mg tablet 2.5 mg PO DAILY #90 tabs 12/28/22 amlodipine 10 mg tablet (Norvasc) 10 mg PO DAILY #90 tabs 03/02/23 atorvastatin 20 mg tablet (Lipitor) 20 mg PO BEDTIME cholesterol #90 03/02/23 tabs glipizide 5 mg tablet, extended 5 mg PO DAILY diabetes #90 tabs 03/02/23 release 24 hr valsartan 320 mg tablet 320 mg PO DAILY #90 tabs 03/02/23 albuterol sulfate 90 mcg/actuation 1 - 2 inh inhalation Q4-6H PRN 05/06/23 aerosol inhaler shortness of breath or wheezing #8.5 grams citalopram 10 mg tablet (Celexa) 10 mg PO DAILY #30 tabs 08/22/23 furosemide 20 mg tablet (Lasix) 20 mg PO DAILY #90 tabs 10/11/23 oxybutynin chloride 5 mg tablet 5 mg PO BID #180 tabs 10/31/23 umeclidinium 62.5 mcg-vilanterol 1 ea inhalation DAILY #60 ea 11/11/23 25 mcg/actuation powdr for inhalation (Anoro Ellipta) Allergies Allergy/AdvReac Type Severity Reaction Status Date / Time Sulfa (Sulfonamide Allergy Unknown Verified 10/18/23 15:51 Antibiotics) [SULFA (SULFONAMIDE ANTIBIOTICS)] Review of Systems Review of Systems Narrative: See HPI Patient History Medical History Major depressive disorder, single episode, mild COPD (chronic obstructive pulmonary disease) CKD stage 3 due to type 2 diabetes mellitus MIRIAN (obstructive sleep apnea) Osteoarthritis of right knee Right knee pain Ischiogluteal bursitis Diabetes mellitus with hyperglycemia, with long-term current use of insulin Paroxysmal A-fib Spinal stenosis, lumbar region with neurogenic claudication Knee osteoarthritis Sacrococcygeal disorders, not elsewhere classified Thyroid nodule Abnormal Pap smear of cervix (~1992) History of urinary incontinence (~1994) Kidney stones (~2001) Hemorrhoid (~1989) CPAP (continuous positive airway pressure) dependence (~1999) Asthma (~1989) Bulimia (~1959) Fracture (~1986) Chronic back pain (~1989) Carpal tunnel syndrome (~1991) Mumps (~1970) Measles (~1944) Chicken pox (~1945) Adrenal adenoma History of stent insertion of renal artery Breast cancer (~2016) Hyperlipidemia OAB (overactive bladder) Benign essential HTN CKD (chronic kidney disease) Diabetes mellitus type 2, insulin dependent (~1993) Surgical History Anesthesia S/P fusion of sacroiliac joint H/O umbilical hernia repair H/O bilateral mastectomy H/O: hysterectomy Hx of cholecystectomy Status post hysterectomy Family History Father History of heart disease Hypertension Mother Cancer Brother Hypertension Brother Hypertension Brother History of heart disease Hypertension Grandfather History of heart disease Social History household members: children Smoking Status: Former smoker alcohol intake: former Smoking Status: Former smoker alcohol intake frequency: holidays/special occasions only Substance Use Type: does not use Exam Initial Vital Signs Initial Vital Signs: Vital Signs Temperature 98.3 F 12/05/23 19:52 Pulse Rate 84 12/05/23 19:52 Respiratory Rate 18 12/05/23 19:52 Blood Pressure 165/70 H 12/05/23 19:52 Pulse Oximetry 96 12/05/23 19:52 Oxygen Delivery Method Nasal Cannula 12/05/23 19:52 Oxygen Flow Rate 2 12/05/23 19:52 Const General: comfortable and No ill appearing HENMT Head: normal to inspection and normocephalic Resp Effort & Inspection: cough, labored and tachypneic Auscultation: crackles and rhonchi Cardio Rate: regular rate Rhythm: regular rhythm GI Inspection: distended Palpation: soft, No firm and No guarding Skin General: no rashes or lesions noted Neuro General: patient alert, patient awake, patient oriented x3 and moves all extremities Extrem General: No edema Course Orders Ordered: ED Orders 12/05/23 19:50 Complete Blood Count AUTO DIFF Stat Comprehensive Metabolic Panel Stat Lipase Stat 12/05/23 20:11 NT-proBNP (BNP-Adult 18+) Stat Troponin & CK Cardiac Panel Stat 12/05/23 20:12 XR chest 1V Stat 12/05/23 20:47 EKG-12 Lead Stat Acetaminophen (Acetaminophen 325 Mg Tablet) 650 mg PO Q6H PRN PRN Reason: Fever/Mild Pain (1-3) Furosemide (Furosemide 40 Mg/4 Ml Vial) 40 mg IV Q12HR EDMUNDO Heparin Sodium (Porcine) (Heparin 5,000 Unit/Ml Vial) 5,000 unit SUBCUT BID EDMUNDO Naloxone HCl (Naloxone 0.4 Mg/Ml Vial) 0.2 mg IV Q2MIN PRN PRN Reason: Opiate Reversal Discontinued Medications Furosemide 80 mg/ Sodium (Chloride) 58 mls @ 116 mls/hr IV NOW ONE Stop: 12/05/23 20:47 Last Infusion: 12/05/23 21:41 Dose: Infused Documented By: Admin: 12/05/23 21:04 Dose: 116 mls/hr Documented By: FRED Vital Signs Vital signs: Vital Signs - 8 hr 12/05/23 19:52 12/05/23 19:56 12/05/23 20:00 Temperature 98.3 F Pulse Rate 84 79 77 Respiratory Rate 18 Blood Pressure 165/70 H Pulse Oximetry 96 96 96 Oxygen Delivery Method Nasal Cannula Oxygen Flow Rate 2 12/05/23 20:30 12/05/23 20:31 12/05/23 20:31 Temperature Pulse Rate 82 82 Respiratory Rate Blood Pressure 179/74 H Pulse Oximetry 96 96 Oxygen Delivery Method Oxygen Flow Rate 12/05/23 21:00 12/05/23 21:01 12/05/23 21:01 Temperature Pulse Rate 82 82 Respiratory Rate 18 Blood Pressure 185/78 H Pulse Oximetry 96 96 Oxygen Delivery Method Oxygen Flow Rate 12/05/23 21:30 12/05/23 21:31 12/05/23 21:31 Temperature Pulse Rate 82 82 Respiratory Rate Blood Pressure 203/114 H Pulse Oximetry 94 94 Oxygen Delivery Method Oxygen Flow Rate 12/05/23 21:34 12/05/23 21:34 12/05/23 22:00 Temperature Pulse Rate 81 Respiratory Rate Blood Pressure 171/69 H 171/71 H Pulse Oximetry 95 Oxygen Delivery Method Oxygen Flow Rate 12/05/23 22:00 Temperature Pulse Rate 79 Respiratory Rate 18 Blood Pressure Pulse Oximetry 94 Oxygen Delivery Method Oxygen Flow Rate MDM - Recheck/Abnormal Lab/Rx Medical Records Attestation: I reviewed the patient's medical records. Lab Data Attestation: I reviewed the patient's lab results. 12/05/23 19:50 12/05/23 19:50 Labs: Lab Results 12/05/23 12/05/23 Range/Units 19:50 20:11 WBC 3.3 L (4.5-11.0) X10^3/uL RBC 3.24 L (4.0-5.2) X10^6/uL Hgb 10.5 L (12.0-16.0) g/dL Hct 32.2 L (36-46) % MCV 99.4 (80-100) fL MCH 32.5 (26-34) PG MCHC 32.7 (30-36) % RDW 20.5 H (11.6-14.8) % Plt Count 131 L (150-400) X10^3/uL Neut % (Auto) Not Reportable Lymph % (Auto) Not Reportable [place] % (Auto) Not Reportable Eos % (Auto) Not Reportable Baso % (Auto) Not Reportable Lymph # (Auto) Not Reportable [place] # (Auto) Not Reportable Baso # (Auto) Not Reportable Total Counted 100 Seg Neutrophils % 44.0 (38-70) % Lymphocytes % (Manual) 37.0 (25-45) % Monocytes % (Manual) 15.0 H (2-11) % Eosinophils % (Manual) 4.0 (2-4) % Neutrophils # (Manual) 1452 L (4740-3129) /uL RBC Morphology See below Anisocytosis 2+ H Sodium 140 (137-145) mmol/L Potassium 5.0 (3.4-5.1) mmol/L Chloride 112 H (98-107) mmol/L Carbon Dioxide 21 L (22-32) mmol/L BUN 59 H (7-17) mg/dL Creatinine 2.06 H (0.52-1.04) mg/dL Estimated GFR 24 L (>60) mL/min BUN/Creatinine Ratio 28.6 H (6-22) Glucose 222 H (80-110) mg/dL Calcium 8.7 (8.4-10.2) mg/dL Total Bilirubin 0.9 (0.2-1.3) mg/dL AST 45 H (14-36) IU/L ALT 18 (<35) IU/L Alkaline Phosphatase 76 (38-126) U/L Total Creatine Kinase 119 (30-135) U/L Troponin I < 0.012 (0.01-0.034) ng/mL NT-Pro-B Natriuret Pep 1420 H (<450) pg/mL Total Protein 7.5 (6.3-8.2) g/dL Albumin 4.6 (3.5-5.0) g/dL Globulin 2.9 (1.7-4.1) g/dL Albumin/Globulin Ratio 1.6 (1.0-2.8) Lipase 45 (23-300) U/L Imaging Data Chest x-ray: Radiologist's Impression: PROCEDURE: XR CHEST 1V INDICATIONS: SOB TECHNIQUE: One view of the chest was acquired. COMPARISON: [facility], CR, XR CHEST 1V, 11/07/2023, 1:23. [facility], CR, XR CHEST 1V, 10/03/2023, 13:38. FINDINGS: Surgical changes and devices: None. Lungs and pleura: Low lung volumes. There is dense consolidation in the right perihilar region. Mild interstitial prominence. No drainable effusions. Mediastinum: Cardiomegaly Bones and chest wall: Unremarkable IMPRESSION: Dense consolidation in the right perihilar region suspicious for infection. Mildly prominent interstitium could represent additional infection versus edema. Consider future oncologic surveillance imaging given history of malignancy ECG Data Attestation: I personally reviewed and interpreted this ECG as follows: Interpretation: Sinus rhythm Ventricular rate of 83 First-degree AV block ND interval 2 an 8 milliseconds Right bundle-branch block Left axis deviation Left anterior fascicular block QTC 500 MDM Narrative Medical decision making narrative: Bedside ultrasound shows that the distention in her abdomen is not ascites but more interstitial fluid. She does have crackles and is tachypneic and speaking in only 1-2 word sentences although she has not hypoxic on her baseline 2 L by nasal cannula. She was very minimal lower extremity swelling. Her creatinine today is 2.0 which is somewhat better than the 2.3 which was done at an outside facility earlier today. Patient was given Lasix here in the ER. I do feel that admission to the hospital for IV diuresis and potentially switching to a different diuretic based on her kidney function would be most beneficial to the patient. I discuss this with her and she agrees. I discuss the case with hospitalist on-call who will admit for further evaluation and treatment. Discharge Plan Departure Patient Disposition: Admitted as Observation Clinical Impression: CHF (congestive heart failure) Admit Date/Time: 12/05/23 22:31 Admit Provider: Awais Gil
[2023-12-05 20:58] LABS: Anisocytosis 2+; Neutrophils Absolute Manual 1452 /uL (3000-5900); Total Cells Counted 100
[2023-12-05] MEDS: FUROSEMIDE 80 MG in SODIUM CHLORIDE 0.9% 50 ML 116 MG IV (21:04)
[2023-12-05 21:12] LABS: Creatine Kinase 119 U/L (30-135)
[2023-12-05 21:25] LABS: NT-proBNP (BNP-Adult 18+) 1420 pg/mL (<450); Troponin I < 0.012 ng/mL (0.01-0.034)
[2023-12-06] VITALS (35 sets, daily range): BP systolic 115–189; BP diastolic 39–83; PULSE 70–88; RESP 16–20; TEMP 35.9–36.4; O2SAT 87–98; BMI 44.8
--- NOTE | 2023-12-06 01:36 | P.HP_ITS ---
History of Present Illness History of Present Illness Date Patient Seen: 12/05/23 Time Patient Seen: 23:50 Chief complaint: urinary issues sent by farmworker animal Narrative: 83 y/o with PMH of breast cancer with lung metastases, on immunotherapy, chronic hypoxemic respiratory failure on 2L NC, paroxysmal A-fib, COPD, CKD, depression, DM, HTN, HLD, HFpEF, recent hospitalization with respiratory failure due to CHF and PNA, sent to the ED by farmworker animal for Cr of 2 and after she could not achieve fluid balance with increased home Lasix. In the ED had 80 mg of Laix IVP. Placed in observation for HFpEF exacerbation. [facility] Medical History Major depressive disorder, single episode, mild COPD (chronic obstructive pulmonary disease) CKD stage 3 due to type 2 diabetes mellitus MIRIAN (obstructive sleep apnea) Osteoarthritis of right knee Right knee pain Ischiogluteal bursitis Diabetes mellitus with hyperglycemia, with long-term current use of insulin Paroxysmal A-fib Spinal stenosis, lumbar region with neurogenic claudication Knee osteoarthritis Sacrococcygeal disorders, not elsewhere classified Thyroid nodule Abnormal Pap smear of cervix (~1992) History of urinary incontinence (~1994) Kidney stones (~2001) Hemorrhoid (~1989) CPAP (continuous positive airway pressure) dependence (~1999) Asthma (~1989) Bulimia (~1959) Fracture (~1986) Chronic back pain (~1989) Carpal tunnel syndrome (~1991) Mumps (~1970) Measles (~194) Chicken pox (~1945) Adrenal adenoma History of stent insertion of renal artery Breast cancer (~2016) Hyperlipidemia OAB (overactive bladder) Benign essential HTN CKD (chronic kidney disease) Diabetes mellitus type 2, insulin dependent (~1993) Surgical History Anesthesia S/P fusion of sacroiliac joint H/O umbilical hernia repair H/O bilateral mastectomy H/O: hysterectomy Hx of cholecystectomy Status post hysterectomy Family History Father History of heart disease Hypertension Mother Cancer Brother Hypertension Brother Hypertension Brother History of heart disease Hypertension Grandfather History of heart disease Social History household members: children Smoking Status: Former smoker alcohol intake: former Meds Home Medications and Allergies Home Medications Medication Instructions Recorded Confirmed Type letrozole 2.5 mg tablet 2.5 mg PO DAILY #90 tabs 12/28/22 12/06/23 Rx palbociclib 125 mg tablet (Ibrance) 125 mg PO DAILY 01/31/23 12/06/23 History amlodipine 10 mg tablet (Norvasc) 10 mg PO DAILY #90 tabs 03/02/23 12/06/23 Rx atorvastatin 20 mg tablet (Lipitor) 20 mg PO BEDTIME cholesterol #90 03/02/23 12/06/23 Rx tabs glipizide 5 mg tablet, extended 5 mg PO DAILY diabetes #90 tabs 03/02/23 12/06/23 Rx release 24 hr valsartan 320 mg tablet 320 mg PO DAILY #90 tabs 03/02/23 12/06/23 Rx albuterol sulfate 90 mcg/actuation 1 - 2 inh inhalation Q4-6H PRN 05/06/23 12/06/23 Rx aerosol inhaler shortness of breath or wheezing #8.5 grams citalopram 10 mg tablet (Celexa) 10 mg PO DAILY #30 tabs 08/22/23 12/06/23 Rx calcium carbonate 600 mg-vitamin 1 tab PO DAILY 10/03/23 12/06/23 History D3 5 mcg (200 unit) tablet insulin human U-100 NPH-regulr 50 unit SUBCUT DAILY 10/03/23 12/06/23 History 70-30 mix 100 unit/mL subcutaneous susp (Novolin 70/30 U-100 Insulin) labetalol 100 mg tablet 100 mg PO BID 10/03/23 12/06/23 History montelukast 10 mg tablet 10 mg PO BEDTIME 10/03/23 12/06/23 History furosemide 20 mg tablet (Lasix) 20 mg PO DAILY #90 tabs 10/11/23 12/06/23 Rx oxybutynin chloride 5 mg tablet 5 mg PO BID #180 tabs 10/31/23 12/06/23 Rx furosemide 40 mg tablet 40 mg PO DAILY 11/07/23 12/06/23 History gabapentin 100 mg capsule 100 mg PO PRN PRN pain 11/07/23 12/06/23 History gabapentin 100 mg capsule 200 mg PO BID 11/07/23 12/06/23 History insulin NPH-reg human insulin 100 40 unit SUBCUT 1700 11/07/23 12/06/23 History unit/mL (70-30) subcutaneous syringe umeclidinium 62.5 mcg-vilanterol 1 ea inhalation DAILY #60 ea 11/11/23 12/06/23 Rx 25 mcg/actuation powdr for inhalation (Anoro Ellipta) umeclidinium 62.5 mcg-vilanterol 1 ea inhalation DAILY 12/06/23 12/06/23 History 25 mcg/actuation powdr for inhalation (Anoro Ellipta) Allergies Allergy/AdvReac Type Severity Reaction Status Date / Time Sulfa (Sulfonamide Allergy Unknown Verified 10/18/23 15:51 Antibiotics) [SULFA (SULFONAMIDE ANTIBIOTICS)] Review of Systems Constitutional Comments: w/o fever or chills gaining weight in the last 2 weeks Cardiovascular Comments: w/o chest pain or palpitations Respiratory Comments: chronic shortness of breath, on 2L of oxygen Episodic wheezing and cough Gastrointestinal Comments: not distended Musculoskeletal Comments: recent Rt !st MTJ gout Neurologic Comments: w/o deficits Psychiatric Comments: lucid, appropriate mood Exam Vital Signs (past 8 hours): - 12/05/23 19:52 12/05/23 19:56 12/05/23 20:00 Temperature 98.3 F Pulse Rate 84 79 77 Respiratory Rate 18 Blood Pressure 165/70 H Pulse Oximetry 96 96 96 Oxygen Delivery Method Nasal Cannula Oxygen Flow Rate 2 12/05/23 20:30 12/05/23 20:31 12/05/23 20:31 Temperature Pulse Rate 82 82 Respiratory Rate Blood Pressure 179/74 H Pulse Oximetry 96 96 Oxygen Delivery Method Oxygen Flow Rate 12/05/23 21:00 12/05/23 21:01 12/05/23 21:01 Temperature Pulse Rate 82 82 Respiratory Rate 18 Blood Pressure 185/78 H Pulse Oximetry 96 96 Oxygen Delivery Method Oxygen Flow Rate 12/05/23 21:30 12/05/23 21:31 12/05/23 21:31 Temperature Pulse Rate 82 82 Respiratory Rate Blood Pressure 203/114 H Pulse Oximetry 94 94 Oxygen Delivery Method Oxygen Flow Rate 12/05/23 21:34 12/05/23 21:34 12/05/23 22:00 Temperature Pulse Rate 81 Respiratory Rate Blood Pressure 171/69 H 171/71 H Pulse Oximetry 95 Oxygen Delivery Method Oxygen Flow Rate 12/05/23 22:00 12/05/23 22:48 Temperature Pulse Rate 79 86 Respiratory Rate 18 18 Blood Pressure 162/70 H Pulse Oximetry 94 93 Oxygen Delivery Method Nasal Cannula Oxygen Flow Rate 2 Oxygen Delivery Method Nasal Cannula Oxygen Flow Rate 2 Const Other: laying in bed in no distress HENMT Other: normocephalic Neck Other: w/o JVD Resp Other: w/o wheezing, normal respiratory effort at rest Cardio Other: RRR GI Other: w/o distension Neuro Other: w/o deficits Extrem Other: 3 + swelling b/l Psych Other: appropriate mood Objective Labs 12/05/23 19:50 12/05/23 19:50 Labs: Laboratory Results - last 24 hr 12/05/23 12/05/23 19:50 20:11 WBC 3.3 L RBC 3.24 L Hgb 10.5 L Hct 32.2 L MCV 99.4 MCH 32.5 MCHC 32.7 RDW 20.5 H Plt Count 131 L Neut % (Auto) Not Reportable Lymph % (Auto) Not Reportable [place] % (Auto) Not Reportable Eos % (Auto) Not Reportable Baso % (Auto) Not Reportable Lymph # (Auto) Not Reportable [place] # (Auto) Not Reportable Baso # (Auto) Not Reportable Total Counted 100 Seg Neutrophils % 44.0 Lymphocytes % (Manual) 37.0 Monocytes % (Manual) 15.0 H Eosinophils % (Manual) 4.0 Neutrophils # (Manual) 1452 L RBC Morphology See below Anisocytosis 2+ H Sodium 140 Potassium 5.0 Chloride 112 H Carbon Dioxide 21 L BUN 59 H Creatinine 2.06 H Estimated GFR 24 L BUN/Creatinine Ratio 28.6 H Glucose 222 H Calcium 8.7 Total Bilirubin 0.9 AST 45 H ALT 18 Alkaline Phosphatase 76 Total Creatine Kinase 119 Troponin I < 0.012 NT-Pro-B Natriuret Pep 1420 H Total Protein 7.5 Albumin 4.6 Globulin 2.9 Albumin/Globulin Ratio 1.6 Lipase 45 Assessment & Plan Assessment and plan (1) Acute on chronic diastolic (congestive) heart failure: Status: Acute (2) Anasarca: Status: Acute (3) COPD (chronic obstructive pulmonary disease): Qualifiers: COPD type: unspecified COPD Qualified Code(s): J44.9 - Chronic obstructive pulmonary disease, unspecified Status: Acute (4) CKD stage 3 due to type 2 diabetes mellitus: Status: Acute (5) Diabetes mellitus with hyperglycemia, with long-term current use of insulin: Qualifiers: Diabetes mellitus type: type 2 Qualified Code(s): E11.65 - Type 2 diabetes mellitus with hyperglycemia; Z79.4 - buttermaker (current) use of insulin Status: Acute (6) Paroxysmal A-fib: Status: Acute (7) CPAP (continuous positive airway pressure) dependence: Problem details: Shallow breathing Status: Acute (8) MIRIAN (obstructive sleep apnea): Status: Acute (9) Benign essential HTN: Status: Acute (10) OAB (overactive bladder): Status: Acute Assessment & Plan narrative: 1. Fluid Overload, Anasarca, exacerbated HFpEF - mismatch of intake and diuretic dose - at home from 20-60 mg of Lasix daily - w/o evidence of PNA, ACS - diuresis. Had 80 mg in ED, continuing with 40 mg iv bid 2. COPD, hypoxia, metastatic lung carcinoma - primary breast - diuresis with Lasix - bronchodilators, inhaled steroid 3. Metastatic Breast Cancer - followed by oncology, on immunoTx 4. HTN - Labetalol 5. DM - Insulin 70/30, SS, Glipizide Quality VTE Deep Vein Thrombosis/Pulmonary Embolism Present on Admission: No
--- NOTE | 2023-12-06 01:41 | PC.NURSE ---
Admission assessment completed in the ED prior to transfer to [facility]
[2023-12-06] MEDS: ACETAMINOPHEN 325 MG TABLET 650 MG PO ×3 (01:46→22:01)
[2023-12-06] MEDS: GABAPENTIN 100 MG CAPSULE 200 MG PO ×3 (02:11→20:58)
--- NOTE | 2023-12-06 06:13 | PC.NURSE ---
Pt using CPAP overnight with no issues, a/o x4, RR even and unlabored, NAD noted.
[2023-12-06 06:45] LABS: Add Manual Diff / Slide Review NO; Basophils Absolute Auto 100 /uL (0-100); Basophils Percent Auto 1.8 % (0-2); Eosinophils Absolute Auto 100 /uL (0-450); Eosinophils Percent Auto 3.9 % (2-4); Hematocrit 29.4 % (36-46); Hemoglobin 9.6 g/dL (12.0-16.0); Lymphocytes Absolute Auto 1100 /uL (1100-4500); Lymphocytes Percent Auto 39.5 % (25-40); Mean Corpuscular HGB Conc 32.6 % (30-36); Mean Corpuscular Hemoglobin 31.9 PG (26-34); Monocytes Absolute Auto 500 /uL (0-900); Monocytes Percent Auto 16.6 % (3-14); Neutrophils Absolute Auto 1100 /uL (1500-7000); Neutrophils Percent Auto 38.2 % (50-75); Platelet Count 106 X10^3/uL (150-400); Red Cell Distribution Width 20.6 % (11.6-14.8); White Blood Cell Count 2.9 X10^3/uL (4.5-11.0)
[2023-12-06 07:04] LABS: BUN Creatinine Ratio 24.2 (6-22); Blood Urea Nitrogen 52 mg/dL (7-17); Calcium 8.4 mg/dL (8.4-10.2); Carbon Dioxide 26 mmol/L (22-32); Chloride 110 mmol/L (98-107); Estimated Glomerular Filt Rate 23 mL/min (>60); Glucose 160 mg/dL (80-110); HEMOLYSIS < 15 (0-50); Potassium 3.8 mmol/L (3.4-5.1); Sodium 143 mmol/L (137-145)
[2023-12-06 07:13] LABS: NT-proBNP (BNP-Adult 18+) 1750 pg/mL (<450)
[2023-12-06 07:23] LABS: Anisocytosis 2+; Rouleaux 1+
[2023-12-06] MEDS: HEPARIN 5,000 UNIT/ML VIAL 5000 UNIT SUBCUT ×2 (08:10→20:58)
[2023-12-06] MEDS: ALBUTEROL 2.5 MG/3 ML NEB (ADULT) INH (08:11)
[2023-12-06] MEDS: FUROSEMIDE 40 MG/4 ML VIAL IV ×3 (08:13→21:18)
[2023-12-06] MEDS: AMLODIPINE 5 MG TABLET 10 MG PO (08:15)
[2023-12-06] MEDS: LABETALOL 100 MG TABLET PO ×2 (08:15→20:59)
[2023-12-06] MEDS: CITALOPRAM 10 MG TABLET PO (08:16)
[2023-12-06] MEDS: VALSARTAN 80 MG TABLET 320 MG PO (08:16)
[2023-12-06] MEDS: LETROZOLE 2.5 MG TABLET PO (08:17)
[2023-12-06] MEDS: INSULIN LISPRO 100 UNIT/ML 3ML VIAL SUBCUT ×3 (08:17→21:00)
[2023-12-06] MEDS: Umeclidinium-Vilanterol [Anoro Ellipta] 62.5-25 mcg/actuation 1 EACH INH (08:53)
--- NOTE | 2023-12-06 09:47 | PC.NURSE ---
scab to right great toe; pt states is from gout.
--- NOTE | 2023-12-06 10:40 | PC.NURSE ---
lung sounds clear and equal bilaterally. Pt reports having intermittent sciatica pain. Pt able to ambulate to bedside commode. [place] in place. GCS 15. Chronically on 2L per pt. Hx: COPD.
[2023-12-06] MEDS: INSULIN NPH/REG 70-30 100 UNIT/ML 10ML VIAL 40 UNIT SUBCUT ×2 (12:44→17:59)
--- NOTE | 2023-12-06 18:28 | PM.PN.1 ---
Subjective Subjective Interval history: 83 F admitted with presumed CHF and volume overload and elevated creatinine. She reports abdominal bloating and cough. She also reports somewhat diffuse edema, and slightly worse than normal breathing but is still on her usual 2 L of O2. She is being diuresed today. Creatinine stable at 2.15. This is up from 1.5 last month while admitted here. Exam Vital Signs (past 8 hours): - 12/06/23 10:30 12/06/23 10:39 12/06/23 11:20 Temperature 97.6 F Pulse Rate 72 70 70 Respiratory Rate 17 16 Blood Pressure 161/70 H 115/39 L Pulse Oximetry 95 95 Oxygen Flow Rate 2 12/06/23 15:12 Temperature 97.3 F L Pulse Rate 76 Respiratory Rate 18 Blood Pressure 124/41 L Pulse Oximetry 98 Oxygen Flow Rate 3 Oxygen Delivery Method CPAP Oxygen Flow Rate 3 Const Other: in no distress on 2L O2 Resp Other: rales still present, no wheezes Cardio Other: RRR Skin Other: not cyanotic Extrem Other: bipedal edema Psych Other: lucid, appropriate mood Objective Labs 12/06/23 06:22 12/06/23 06:22 Labs: Laboratory Results - last 24 hr 12/05/23 12/05/23 12/06/23 19:50 20:11 06:22 WBC 3.3 L 2.9 L RBC 3.24 L 3.00 L Hgb 10.5 L 9.6 L Hct 32.2 L 29.4 L MCV 99.4 98.0 MCH 32.5 31.9 MCHC 32.7 32.6 RDW 20.5 H 20.6 H Plt Count 131 L 106 L Neut % (Auto) Not Reportable 38.2 L Lymph % (Auto) Not Reportable 39.5 [place] % (Auto) Not Reportable 16.6 H Eos % (Auto) Not Reportable 3.9 Baso % (Auto) Not Reportable 1.8 Neut # (Auto) 1100 L Lymph # (Auto) Not Reportable 1100 [place] # (Auto) Not Reportable 500 Eos # (Auto) 100 Baso # (Auto) Not Reportable 100 Total Counted 100 Seg Neutrophils % 44.0 Lymphocytes % (Manual) 37.0 Monocytes % (Manual) 15.0 H Eosinophils % (Manual) 4.0 Neutrophils # (Manual) 1452 L RBC Morphology See below Not Reportable Anisocytosis 2+ H 2+ H Rouleaux 1+ H Sodium 140 143 Potassium 5.0 3.8 D Chloride 112 H 110 H Carbon Dioxide 21 L 26 BUN 59 H 52 H Creatinine 2.06 H 2.15 H Estimated GFR 24 L 23 L BUN/Creatinine Ratio 28.6 H 24.2 H Glucose 222 H 160 H Calcium 8.7 8.4 Total Bilirubin 0.9 AST 45 H ALT 18 Alkaline Phosphatase 76 Total Creatine Kinase 119 Troponin I < 0.012 NT-Pro-B Natriuret Pep 1420 H 1750 H Total Protein 7.5 Albumin 4.6 Globulin 2.9 Albumin/Globulin Ratio 1.6 Lipase 45 PFSH Medical History Major depressive disorder, single episode, mild COPD (chronic obstructive pulmonary disease) CKD stage 3 due to type 2 diabetes mellitus MIRIAN (obstructive sleep apnea) Osteoarthritis of right knee Right knee pain Ischiogluteal bursitis Diabetes mellitus with hyperglycemia, with long-term current use of insulin Paroxysmal A-fib Spinal stenosis, lumbar region with neurogenic claudication Knee osteoarthritis Sacrococcygeal disorders, not elsewhere classified Thyroid nodule Abnormal Pap smear of cervix (~1992) History of urinary incontinence (~1994) Kidney stones (~2001) Hemorrhoid (~1989) CPAP (continuous positive airway pressure) dependence (~1999) Asthma (~1989) Bulimia (~1959) Fracture (~1986) Chronic back pain (~1989) Carpal tunnel syndrome (~1991) Mumps (~1970) Measles (~194) Chicken pox (~1945) Adrenal adenoma History of stent insertion of renal artery Breast cancer (~2016) Hyperlipidemia OAB (overactive bladder) Benign essential HTN CKD (chronic kidney disease) Diabetes mellitus type 2, insulin dependent (~1993) Surgical History Anesthesia S/P fusion of sacroiliac joint H/O umbilical hernia repair H/O bilateral mastectomy H/O: hysterectomy Hx of cholecystectomy Status post hysterectomy Family History Father History of heart disease Hypertension Mother Cancer Brother Hypertension Brother Hypertension Brother History of heart disease Hypertension Grandfather History of heart disease Social History household members: children Smoking Status: Former smoker alcohol intake: former Assessment & Plan Assessment & Plan narrative: (1) Acute on chronic diastolic (congestive) heart failure: (2) COPD (chronic obstructive pulmonary disease) without exacerbation (3) HUNTER on CKD stage 3 due to type 2 diabetes mellitus: (4) Diabetes mellitus with hyperglycemia, with long-term current use of insulin: (5) Paroxysmal A-fib: (7) CPAP (continuous positive airway pressure) dependence: (8) MIRIAN (obstructive sleep apnea): (9) essential HTN: (10) OAB (overactive bladder): 1. Fluid Overload, Anasarca, acute on chronic HFpEF - suspect possible malabsorption with fluid overload. Unclear volume status currently and if HUNTER is related to excess diuretic or fluid overload. - will continue diuresis as suspect volume overload with close monitoring of renal function - daily chemistries ordered, continue furosemide 40 mg IV BID 2. COPD, chronic hypoxic respiratory failure, metastatic lung carcinoma - primary breast - diuresis with Lasix - continue home bronchodilators, inhaled steroid replaced for formulary alternatives. 3. Metastatic Breast Cancer - followed by oncology, on immunoTx 4. HTN - continue home labetalol, diuretic as noted above, and amlodipine. 5. DM - Insulin 70/30 continue BID, along with SS, Glipizide 6. HUNTER on CKD - as above unclear vollume status. Will continue diuresis with presumed volume overload for now and monitor closely. Code: Full, surrogate is patient's daughter. DVT: HSQ BID Dispo: likely discharge home in 1-3 days depending on volume status and renal function with diuresis. Quality VTE Deep Vein Thrombosis/Pulmonary Embolism Present on Admission: No
--- NOTE | 2023-12-06 19:01 | PC.NURSE ---
Patient arrived to room 217 this afternoon. She is oriented to room. She is A&OX4, on 2 L NC per baseline. Noted cough and SOB she reports she had excrutiating pain to R toe, feet from gout flare up that is resolved now. She denies pain. Tolerated meals well, purewick placed for incontinence. Call light in reach, admission completed, evaluated patient at bedside, ACHS BG, continuous monitoring.
[2023-12-06] MEDS: ATORVASTATIN 20 MG TABLET PO (20:58)
[2023-12-06] MEDS: MONTELUKAST 10 MG TABLET PO (20:59)
[2023-12-07] VITALS (10 sets, daily range): BP systolic 118–146; BP diastolic 48–56; PULSE 68–83; RESP 16–19; TEMP 36.2–36.7; O2SAT 95–97
[2023-12-07 05:36] LABS: Add Manual Diff / Slide Review NO; Basophils Absolute Auto 100 /uL (0-100); Basophils Percent Auto 2.1 % (0-2); Eosinophils Absolute Auto 100 /uL (0-450); Eosinophils Percent Auto 4.2 % (2-4); Hematocrit 29.4 % (36-46); Hemoglobin 9.7 g/dL (12.0-16.0); Lymphocytes Absolute Auto 1200 /uL (1100-4500); Lymphocytes Percent Auto 45.9 % (25-40); Mean Corpuscular HGB Conc 33.1 % (30-36); Mean Corpuscular Hemoglobin 32.2 PG (26-34); Mean Corpuscular Volume 97.2 fL (80-100); Monocytes Absolute Auto 500 /uL (0-900); Monocytes Percent Auto 16.9 % (3-14); Neutrophils Absolute Auto 800 /uL (1500-7000); Neutrophils Percent Auto 30.9 % (50-75); Platelet Count 98 X10^3/uL (150-400); Red Blood Cell Count 3.02 X10^6/uL (4.0-5.2); Red Cell Distribution Width 20.3 % (11.6-14.8); White Blood Cell Count 2.7 X10^3/uL (4.5-11.0)
[2023-12-07 06:14] LABS: Alanine Aminotransferase 13 IU/L (<35); Albumin 3.9 g/dL (3.5-5.0); Albumin Globulin Ratio 1.5 (1.0-2.8); Alkaline Phosphatase 53 U/L (38-126); Aspartate Aminotransferase 17 IU/L (14-36); BUN Creatinine Ratio 25.4 (6-22); Bilirubin Total 0.4 mg/dL (0.2-1.3); Blood Urea Nitrogen 57 mg/dL (7-17); Calcium 8.6 mg/dL (8.4-10.2); Carbon Dioxide 27 mmol/L (22-32); Chloride 108 mmol/L (98-107); Estimated Glomerular Filt Rate 22 mL/min (>60); Globulin 2.6 g/dL (1.7-4.1); Glucose 119 mg/dL (80-110); HEMOLYSIS < 15 (0-50); Magnesium 1.8 mg/dL (1.6-2.3); Potassium 3.9 mmol/L (3.4-5.1); Sodium 139 mmol/L (137-145); Total Protein 6.5 g/dL (6.3-8.2)
[2023-12-07 06:25] LABS: Anisocytosis 2+; Macrocytosis 1+; Platelet Estimate Decreased on smear
[2023-12-07] MEDS: INSULIN NPH/REG 70-30 100 UNIT/ML 10ML VIAL 40 UNIT SUBCUT ×2 (08:01→17:24)
[2023-12-07] MEDS: CITALOPRAM 10 MG TABLET PO (10:13)
[2023-12-07] MEDS: AMLODIPINE 5 MG TABLET 10 MG PO (10:13)
[2023-12-07] MEDS: LABETALOL 100 MG TABLET PO ×2 (10:14→21:16)
[2023-12-07] MEDS: GABAPENTIN 100 MG CAPSULE 200 MG PO ×2 (10:14→21:16)
[2023-12-07] MEDS: HEPARIN 5,000 UNIT/ML VIAL 5000 UNIT SUBCUT ×2 (10:14→21:17)
[2023-12-07] MEDS: OXYBUTYNIN 5 MG TABLET PO ×2 (10:23→21:16)
[2023-12-07] MEDS: LETROZOLE 2.5 MG TABLET PO (10:23)
[2023-12-07] MEDS: VALSARTAN 80 MG TABLET 320 MG PO (10:25)
[2023-12-07] MEDS: Umeclidinium-Vilanterol [Anoro Ellipta] 62.5-25 mcg/actuation 1 EACH INH (10:35)
--- NOTE | 2023-12-07 11:47 | CM.DANOTE ---
Initial DCP Assessment Visit Note Reviewed EMR and team rounds for status updates. Met with pt at bedside to introduce self and role, pt was found to be alert/oriented, sitting upright in the recliner, able to express needs/preferences for discharge home. Pt resides modified independently in her dtr's home in [place]. She is planning to relocate to [place] this summer to live w/her oldest dtr once she finds an Oncologist she can transfer her care to. Her local dtr can transport her back home once she is medically stable for d/c home. Payor: Medicare PCP: Dr. Mijares Pt is a 83 year-old F with a PMH of metastatic breast cancer to the lungs, CHF, COPD, and CKD on 2LO2 home oxygen at baseline. She had a recent hospitalization on 11/06-11/08/23 for CHF/fluid overload, and returns again with same concerns, although this time she also has high kidney function in lab results. Pt shared that she does feel as though she is retaining fluid, is getting worsening SOB with exertion. Pt was then admitted to the floor for monitoring of kidney function and diuresis. DCP will continue to follow and assist with any evolving d/c needs/resources. Discharge Planning/Care Management Advanced directive, confirm from FAMILY Start: 12/06/23 01:25 Freq: Q24H Status: Active Protocol: Document 12/06/23 01:25 MW (Rec: 12/06/23 01:25 MW [id number]) Advance Directive, confirm on record Time 01:25 Person contacted pt Copy received No Document 12/07/23 01:25 AGW (Rec: 12/07/23 02:41 AGW [id number]) Advance Directive, confirm on record Time 01:25 Person contacted pt Copy received No Time 20:30 Person contacted patient Copy received No CM Discharge Assessment Start: 12/07/23 11:31 Freq: Status: Active Protocol: Document 12/07/23 11:31 DPL (Rec: 12/07/23 11:47 DPL [id number]) Discharge Planning Assessment Assigned Set Up / Operator JAMIE Garcia Advance Directives? Yes Advance Directives on File No: Dtr will bring in copy of POLST History Provided By Patient,Medical Record Has Patient been admitted in last 30 Yes days? Comment 11/06-11/08/23, same issues Prior Living Arrangements House Household Members children Type of transporation used prior to Relies on Others admit Independent with ADL's No: modified independent Is patient alert and oriented? Yes Needs Assistance With Home Chores / Shopping Caregiver for Another No Community Services used prior to Oxygen Therapy admission: DME Already Rented / Owned Oxygen Comment Has her own four wheel walker Comment No anticipated d/c needs identified at this time. Barriers to Discharge No Discharge Plan Home Transportation Arrangement Daughter Referrals Initiated None needed Whiteboard Updated in Patient Room with Yes name and ext. # of Set Up / Operator Review Status In Process Please Provide Date Initial DC 12/07/23 Assessment Was Performed
[2023-12-07] MEDS: INSULIN LISPRO 100 UNIT/ML 3ML VIAL SUBCUT ×2 (12:10→21:18)
--- NOTE | 2023-12-07 14:47 | PM.PN.1 ---
Subjective Subjective Interval history: 83 F admitted with presumed CHF and volume overload and elevated creatinine. She continues to deny complaints though cr. trended in the wrong direction minimally today. Diuresis was stopped this morning. Exam Vital Signs (past 8 hours): - 12/07/23 07:00 12/07/23 08:00 12/07/23 10:14 Temperature 97.1 F L Pulse Rate 68 68 Respiratory Rate 16 Blood Pressure 140/54 L 140/54 L Pulse Oximetry 96 Oxygen Delivery Method Nasal Cannula Oxygen Flow Rate 2 12/07/23 12:00 Temperature 97.5 F L Pulse Rate 72 Respiratory Rate 16 Blood Pressure 146/48 H Pulse Oximetry 97 Oxygen Delivery Method Oxygen Flow Rate 2 Oxygen Delivery Method Nasal Cannula Oxygen Flow Rate 2 Narrative Exam Narrative: GEN: no acute distress, obese, on supp O2 HEENT: moist mucous membranes, PERRL NECK: trachea midline, no JVD CV: regular rate and rhythm, no murmurs PULM: fine scattered crackles ABD: soft, nontender, distended with likely ventral hernia present, no organomegaly EXT: warm and well perfused with 1+ edema to knees NEURO: awake, alert, oriented, no focal deficits Objective Labs 12/07/23 05:25 12/07/23 05:25 Labs: Laboratory Results - last 24 hr 12/07/23 05:25 WBC 2.7 L RBC 3.02 L Hgb 9.7 L Hct 29.4 L MCV 97.2 MCH 32.2 MCHC 33.1 RDW 20.3 H Plt Count 98 L Neut % (Auto) 30.9 L Lymph % (Auto) 45.9 H [place] % (Auto) 16.9 H Eos % (Auto) 4.2 H Baso % (Auto) 2.1 H Neut # (Auto) 800 L Lymph # (Auto) 1200 [place] # (Auto) 500 Eos # (Auto) 100 Baso # (Auto) 100 Platelet Estimate Decreased on smear RBC Morphology See below Anisocytosis 2+ H Macrocytosis 1+ H Sodium 139 Potassium 3.9 Chloride 108 H Carbon Dioxide 27 BUN 57 H Creatinine 2.24 H Estimated GFR 22 L BUN/Creatinine Ratio 25.4 H Glucose 119 H Calcium 8.6 Magnesium 1.8 Total Bilirubin 0.4 AST 17 ALT 13 Alkaline Phosphatase 53 Total Protein 6.5 Albumin 3.9 Globulin 2.6 Albumin/Globulin Ratio 1.5 PFSH Medical History Major depressive disorder, single episode, mild COPD (chronic obstructive pulmonary disease) CKD stage 3 due to type 2 diabetes mellitus MIRIAN (obstructive sleep apnea) Osteoarthritis of right knee Right knee pain Ischiogluteal bursitis Diabetes mellitus with hyperglycemia, with long-term current use of insulin Paroxysmal A-fib Spinal stenosis, lumbar region with neurogenic claudication Knee osteoarthritis Sacrococcygeal disorders, not elsewhere classified Thyroid nodule Abnormal Pap smear of cervix (~1992) History of urinary incontinence (~1994) Kidney stones (~2001) Hemorrhoid (~1989) CPAP (continuous positive airway pressure) dependence (~1999) Asthma (~1989) Bulimia (~1959) Fracture (~1986) Chronic back pain (~1989) Carpal tunnel syndrome (~1991) Mumps (~1970) Measles (~1944) Chicken pox (~1945) Adrenal adenoma History of stent insertion of renal artery Breast cancer (~2016) Hyperlipidemia OAB (overactive bladder) Benign essential HTN CKD (chronic kidney disease) Diabetes mellitus type 2, insulin dependent (~1993) Surgical History Anesthesia S/P fusion of sacroiliac joint H/O umbilical hernia repair H/O bilateral mastectomy H/O: hysterectomy Hx of cholecystectomy Status post hysterectomy Family History Father History of heart disease Hypertension Mother Cancer Brother Hypertension Brother Hypertension Brother History of heart disease Hypertension Grandfather History of heart disease Social History household members: children Smoking Status: Former smoker alcohol intake: former Assessment & Plan Assessment & Plan narrative: (1) Acute on chronic diastolic (congestive) heart failure: (2) COPD (chronic obstructive pulmonary disease) without exacerbation (3) HUNTER on CKD stage 3 due to type 2 diabetes mellitus: (4) Diabetes mellitus with hyperglycemia, with long-term current use of insulin: (5) Paroxysmal A-fib: (7) CPAP (continuous positive airway pressure) dependence: (8) MIRIAN (obstructive sleep apnea): (9) essential HTN: (10) OAB (overactive bladder): 1. Fluid Overload, Anasarca, acute on chronic HFpEF - suspect possible malabsorption with fluid overload. Unclear volume status currently and if HUNTER is related to excess diuretic or fluid overload. - started with diuresis as suspected volume overload with close monitoring of renal function, but trended up initially. Will hold diuresis today and monitor. - daily chemistries ordered 2. COPD, chronic hypoxic respiratory failure, metastatic lung carcinoma - primary breast - diuresis with Lasix - continue home bronchodilators, inhaled steroid replaced for formulary alternatives. 3. Metastatic Breast Cancer - followed by oncology, on immunoTx 4. HTN - continue home labetalol, diuretic as noted above, and amlodipine. 5. DM - Insulin 70/30 continue BID, along with SS, Glipizide 6. HUNTER on CKD - as above unclear vollume status. - held diuresis today. If not improving will perform renal ultrasound, repeat TTE to see if any change with regards to her EF. Code: Full, surrogate is patient's daughter. DVT: HSQ BID Dispo: likely discharge home in 1-3 days depending on volume status and renal function with diuresis. Quality VTE Deep Vein Thrombosis/Pulmonary Embolism Present on Admission: No
[2023-12-07] MEDS: GABAPENTIN 100 MG CAPSULE PO (15:39)
[2023-12-07] MEDS: MONTELUKAST 10 MG TABLET PO (21:16)
[2023-12-07] MEDS: ATORVASTATIN 20 MG TABLET PO (21:16)
[2023-12-07] MEDS: ACETAMINOPHEN 325 MG TABLET 650 MG PO (21:56)
[2023-12-08 01:00] VITALS: BP 140/44; PULSE 73; RESP 17; TEMP 36.4; O2SAT 94
[2023-12-08] MEDS: ACETAMINOPHEN 325 MG TABLET 650 MG PO ×2 (02:18→08:36)
[2023-12-08 05:00] VITALS: BP 130/52; PULSE 64; RESP 18; TEMP 36.7; O2SAT 94
[2023-12-08 05:17] LABS: Add Manual Diff / Slide Review NO; Basophils Absolute Auto 100 /uL (0-100); Eosinophils Absolute Auto 100 /uL (0-450); Eosinophils Percent Auto 3.6 % (2-4); Hematocrit 29.3 % (36-46); Hemoglobin 9.7 g/dL (12.0-16.0); Lymphocytes Absolute Auto 1300 /uL (1100-4500); Lymphocytes Percent Auto 47.7 % (25-40); Mean Corpuscular HGB Conc 33.3 % (30-36); Mean Corpuscular Hemoglobin 32.7 PG (26-34); Mean Corpuscular Volume 98.2 fL (80-100); Monocytes Absolute Auto 500 /uL (0-900); Monocytes Percent Auto 17.1 % (3-14); Neutrophils Absolute Auto 800 /uL (1500-7000); Neutrophils Percent Auto 29.6 % (50-75); Platelet Count 94 X10^3/uL (150-400); Red Blood Cell Count 2.98 X10^6/uL (4.0-5.2); Red Cell Distribution Width 20.6 % (11.6-14.8); White Blood Cell Count 2.6 X10^3/uL (4.5-11.0)
[2023-12-08 05:26] LABS: Alanine Aminotransferase 12 IU/L (<35); Albumin 3.7 g/dL (3.5-5.0); Albumin Globulin Ratio 1.5 (1.0-2.8); Alkaline Phosphatase 57 U/L (38-126); Aspartate Aminotransferase 18 IU/L (14-36); BUN Creatinine Ratio 27.6 (6-22); Bilirubin Total 0.4 mg/dL (0.2-1.3); Blood Urea Nitrogen 60 mg/dL (7-17); Calcium 9.1 mg/dL (8.4-10.2); Carbon Dioxide 27 mmol/L (22-32); Chloride 107 mmol/L (98-107); Estimated Glomerular Filt Rate 22 mL/min (>60); Globulin 2.5 g/dL (1.7-4.1); Glucose 166 mg/dL (80-110); HEMOLYSIS < 15 (0-50); Magnesium 2.1 mg/dL (1.6-2.3); Potassium 4.5 mmol/L (3.4-5.1); Sodium 138 mmol/L (137-145); Total Protein 6.2 g/dL (6.3-8.2)
[2023-12-08 05:43] LABS: Anisocytosis 2+; Macrocytosis 1+; Platelet Estimate Decreased on smear
[2023-12-08 07:00] VITALS: O2SAT 95
[2023-12-08] MEDS: INSULIN NPH/REG 70-30 100 UNIT/ML 10ML VIAL 40 UNIT SUBCUT (08:32)
[2023-12-08] MEDS: INSULIN LISPRO 100 UNIT/ML 3ML VIAL SUBCUT (08:33)
[2023-12-08 08:54] VITALS: BP 142/58; PULSE 68; RESP 17; O2SAT 95
[2023-12-08] MEDS: LETROZOLE 2.5 MG TABLET PO (09:04)
[2023-12-08] MEDS: OXYBUTYNIN 5 MG TABLET PO (09:04)
[2023-12-08] MEDS: AMLODIPINE 5 MG TABLET 10 MG PO (09:04)
[2023-12-08] MEDS: GABAPENTIN 100 MG CAPSULE 200 MG PO (09:05)
[2023-12-08] MEDS: LABETALOL 100 MG TABLET PO (09:05)
[2023-12-08] MEDS: VALSARTAN 80 MG TABLET 320 MG PO (09:05)
[2023-12-08] MEDS: HEPARIN 5,000 UNIT/ML VIAL 5000 UNIT SUBCUT (09:07)
[2023-12-08] MEDS: CITALOPRAM 10 MG TABLET PO (09:08)
[2023-12-08 09:21] VITALS: PULSE 76; RESP 16; O2SAT 95
[2023-12-08] MEDS: UMECLIDINIUM VILANTEROL 1 EACH INH (09:21)
--- NOTE | 2023-12-08 10:59 | P.DS_ITS ---
History of Present Illness History of Present Illness Date Patient Seen: 12/08/23 Time Patient Seen: 10:59 Chief complaint: urinary issues sent by rotary lithographic press operator Narrative: Per admitting provider, 83 y/o with PMH of breast cancer with lung metastases, on immunotherapy, chronic hypoxemic respiratory failure on 2L NC, paroxysmal A-fib, COPD, CKD, depression, DM, HTN, HLD, HFpEF, recent hospitalization with respiratory failure due to CHF and PNA, sent to the ED by rotary lithographic press operator for Cr of 2 and after she could not achieve fluid balance with increased home Lasix. In the ED had 80 mg of Laix IVP. Placed in observation for HFpEF exacerbation. Discharge Providers Provider Date of admission: 12/07/23 10:05 Discharge Date: 12/08/23 Primary care physician: Rody Mijares DO Discharge provider: Julian Shen DO Summary Hospital Course Discharge Diagnosis: 1. Fluid Overload, Anasarca, possible acute on chronic HFpEF 2. COPD, chronic hypoxic respiratory failure, metastatic lung carcinoma - primary breast 3. Metastatic Breast Cancer 4. HTN 5. DM 6. HUNTER on CKD Hospital Course: This is an 83 year old female who was sent from her rotary lithographic press operator office for concern for HUNTER. Previous hospitalization showed her nacho of creatinine around 1.6. At the rotary lithographic press operator's office cr was reported to be 2.3. Here it did not move from 2.1 - 2.2 during her stay. Initially the presumption was that she was volume overloaded given presenting mild diffuse edema / anasarca. She was diuresed with IV furosemide which made her Cr only trend up slightly to 2.24. Her clinical volume status did improve with improvement in upper extremity edema, not much change in her minimal lower extremity edema. Diuresis was held and her cr improved to 2.17. The patient was asymptomatic throughout her entire stay. Previous TTE in 09/2023 showed an normal EF with probable diastolic dysfunction. She was not more short of breath compared to baseline. It is not entirely clear what the patient's volume status is currently, but she is likely dry based on the above course. Given her lack of symptoms, as well as the expectation that improvement in renal function could take some time to notice, she was discharged home with advising that if she should become short of breath while holding diuretics she can resume her previous furosemide at that point. She has a tele-health visit with her primary care provider tomorrow. I recommend a repeat BMP early next week to trend her renal function. I have held her diuretic at this time with the above precautions. Per patient there was discussion about possibly changing to torsemide in the near future, but at this time would not likely start until renal function improves. Should her renal function remain stable over the next week, consider starting her torsemide at that time and have outpatient follow up with nephrology. Time Spent with Patient Time spent: Greater than 30 minutes Exam Vital Signs (past 8 hours): - 12/08/23 05:00 12/08/23 07:00 12/08/23 08:54 Temperature 98.1 F Pulse Rate 64 68 Respiratory Rate 18 17 Blood Pressure 130/52 L 142/58 H Pulse Oximetry 94 95 95 Oxygen Delivery Method Nasal Cannula Oxygen Flow Rate 2 2 0 12/08/23 09:21 Temperature Pulse Rate 76 Respiratory Rate 16 Blood Pressure Pulse Oximetry 95 Oxygen Delivery Method Nasal Cannula Oxygen Flow Rate 2 Fraction of Inspired Oxygen 32 SaO2/FiO2 Ratio 303 Oxygen Delivery Method Nasal Cannula Oxygen Flow Rate 2 Narrative Exam Narrative: GEN: no acute distress, obese, on supp O2 HEENT: moist mucous membranes, PERRL NECK: trachea midline, no JVD CV: regular rate and rhythm, no murmurs PULM: fine scattered crackles ABD: soft, nontender, distended with likely ventral hernia present, no organomegaly EXT: warm and well perfused with trace edema NEURO: awake, alert, oriented, no focal deficits Objective Labs 12/08/23 04:51 12/08/23 04:51 Labs: Laboratory Results - last 24 hr 12/08/23 04:51 WBC 2.6 L RBC 2.98 L Hgb 9.7 L Hct 29.3 L MCV 98.2 MCH 32.7 MCHC 33.3 RDW 20.6 H Plt Count 94 L Neut % (Auto) 29.6 L Lymph % (Auto) 47.7 H [place] % (Auto) 17.1 H Eos % (Auto) 3.6 Baso % (Auto) 2.0 Neut # (Auto) 800 L Lymph # (Auto) 1300 [place] # (Auto) 500 Eos # (Auto) 100 Baso # (Auto) 100 Platelet Estimate Decreased on smear RBC Morphology See below Anisocytosis 2+ H Macrocytosis 1+ H Sodium 138 Potassium 4.5 Chloride 107 Carbon Dioxide 27 BUN 60 H Creatinine 2.17 H Estimated GFR 22 L BUN/Creatinine Ratio 27.6 H Glucose 166 H Calcium 9.1 Magnesium 2.1 Total Bilirubin 0.4 AST 18 ALT 12 Alkaline Phosphatase 57 Total Protein 6.2 L Albumin 3.7 Globulin 2.5 Albumin/Globulin Ratio 1.5 [facility] Medical History Major depressive disorder, single episode, mild COPD (chronic obstructive pulmonary disease) CKD stage 3 due to type 2 diabetes mellitus MIRIAN (obstructive sleep apnea) Osteoarthritis of right knee Right knee pain Ischiogluteal bursitis Diabetes mellitus with hyperglycemia, with long-term current use of insulin Paroxysmal A-fib Spinal stenosis, lumbar region with neurogenic claudication Knee osteoarthritis Sacrococcygeal disorders, not elsewhere classified Thyroid nodule Abnormal Pap smear of cervix (~1992) History of urinary incontinence (~1994) Kidney stones (~2001) Hemorrhoid (~1989) CPAP (continuous positive airway pressure) dependence (~1999) Asthma (~1989) Bulimia (~1959) Fracture (~1986) Chronic back pain (~1989) Carpal tunnel syndrome (~1991) Mumps (~1970) Measles (~1944) Chicken pox (~1945) Adrenal adenoma History of stent insertion of renal artery Breast cancer (~2016) Hyperlipidemia OAB (overactive bladder) Benign essential HTN CKD (chronic kidney disease) Diabetes mellitus type 2, insulin dependent (~1993) Surgical History Anesthesia S/P fusion of sacroiliac joint H/O umbilical hernia repair H/O bilateral mastectomy H/O: hysterectomy Hx of cholecystectomy Status post hysterectomy Family History Father History of heart disease Hypertension Mother Cancer Brother Hypertension Brother Hypertension Brother History of heart disease Hypertension Grandfather History of heart disease Social History household members: children Smoking Status: Former smoker alcohol intake: former Discharge Plan Discharge Plan Patient Disposition: Home Provider Discharge Comment: You were admitted to the hospital with an acute kidney injury. This may not be acute and may represent chronic kidney disease though this is not entirely clear. Your renal function did not change much in the hospital, though did worsen slightly when removing fluid with the diuretic you take. I recommended holding your diuretic over the weekend, then resuming at the preference of your PCP or rotary lithographic press operator next week. I would check another blood draw next week as well to make sure renal function is improving. If you become short of breath or notice leg swelling, you can resume previous dosing of furosemide. Discharge orders & Medications Prescriptions: Continued oxybutynin chloride 5 mg tablet 5 mg PO BID Qty: 180 3RF amlodipine [Norvasc] 10 mg tablet 10 mg PO DAILY Qty: 90 3RF atorvastatin [Lipitor] 20 mg tablet 20 mg PO BEDTIME Qty: 90 3RF glipizide 5 mg tablet extended release 24hr 5 mg PO DAILY Qty: 90 3RF valsartan 320 mg tablet 320 mg PO DAILY Qty: 90 3RF Ibrance 125 mg tablet 125 mg PO DAILY Rx Instructions: administer on days 1 through 21 of a 28-day treatment cycle. 10/06 starts her 7 days off citalopram [Celexa] 10 mg tablet 10 mg PO DAILY Qty: 30 11RF Anoro Ellipta 62.5-25 mcg/actuation blister with device 1 ea inhalation DAILY Qty: 60 11RF letrozole 2.5 mg tablet 2.5 mg PO DAILY Qty: 90 3RF albuterol sulfate 90 mcg/actuation HFA aerosol inhaler 1 - 2 inh inhalation Q4-6H PRN (Reason: shortness of breath or wheezing) Qty: 8.5 11RF calcium carbonate-vitamin D3 600 mg-5 mcg (200 unit) Tablet 1 tab PO DAILY montelukast 10 mg tablet 10 mg PO BEDTIME labetalol 100 mg tablet 100 mg PO BID Novolin 70/30 U-100 Insulin 100 unit/mL (70-30) suspension 50 unit SUBCUT DAILY gabapentin 100 mg capsule 200 mg PO BID gabapentin 100 mg Capsule 100 mg PO PRN PRN (Reason: pain) Rx Instructions: takes at 1400 insulin NPH and regular human 100 unit/mL (70-30) Syringe 40 unit SUBCUT BID Anoro Ellipta 62.5-25 mcg/actuation blister with device 1 ea inhalation DAILY Discontinued furosemide [Lasix] 20 mg tablet 20 mg PO DAILY Qty: 90 3RF Rx Instructions: at 1400 furosemide 40 mg tablet 40 mg PO DAILY Patient Comments: Pt states she takes when needed, holds when she has to go somewhere and does not want to have to urinate Rx Instructions: in the morning Medication counseling provided by Pharmacist: Yes Pharmacist Comment: Counseled by pharmacy associate, Jayna Mendoza Follow up/Referrals: Rody Mijares DO [Primary Care Provider] - Diet/Activity/Treatments Diet: Diet as Tolerated and Low-sodium Activity: As tolerated. Visit Report/Discharge Packet Instructions: DI for Heart Failure Stand Alone Forms: Patient Portal/API, Stroke Signs & Symptoms Discharge Data Primary Care Provider: Rody Mijares Quality VTE Deep Vein Thrombosis/Pulmonary Embolism Present on Admission: No
--- NOTE | 2023-12-08 12:54 | CM.DPNOTE ---
DC Note Discharge home today w/assist from daughter as needed. Close outpatient follow up recommended. No needs from this CM team identified. Transport via daughter. JW
--- NOTE | 2023-12-08 14:22 | PC.NURSE ---
Patient is A&Ox4, VSS afebrile on 2 LNC. Patient is independent to the bathroom. MD at bedside this a.m. clearing patient for discharge home. She verbalizes understanding of medication changes, follow up plan of care, and worsening s/sx. She is escorted by w/ch to private vehicle with daughter for discharge home this afternoon at 1235 with all of her belongings including CPAP, and portable 02 machine.
== END 2023-12-08 12:35 | disposition home or self-care (01) | DRG 291 ==
LOC: ED 19:51 → AC 22:31
PROVIDERS: Internal Medicine; Admitting Provider Internal Medicine; Emergency Provider Emergency Medicine; PCP Family Medicine; Referring Provider Emergency Medicine; Visit Provider Internal Medicine
DX: I13.0 Hypertensive heart and chronic kidney disease with heart failure and stage 1 through stage 4 chronic kidney disease, or unspecified chronic kidney disease (principal); I50.33 Acute on chronic diastolic (congestive) heart failure; J96.11 Chronic respiratory failure with hypoxia; C78.00 Secondary malignant neoplasm of unspecified lung; N18.30 Chronic kidney disease, stage 3 unspecified; E11.22 Type 2 diabetes mellitus with diabetic chronic kidney disease; J44.9 Chronic obstructive pulmonary disease, unspecified; E11.65 Type 2 diabetes mellitus with hyperglycemia; I48.0 Paroxysmal atrial fibrillation; G47.33 Obstructive sleep apnea (adult) (pediatric); C50.912 Malignant neoplasm of unspecified site of left female breast; Z79.84 Long term (current) use of oral hypoglycemic drugs; Z79.4 Long term (current) use of insulin; Z99.81 Dependence on supplemental oxygen; Z87.891 Personal history of nicotine dependence
CPT/HCPCS: 36415; 71045; 80048; 80053; 82550; 82962; 83690; 83735; 83880; 84484; 85007; 85025; 93005; 93010; 94760; 96365; 99285; G0378; J1644; J1815; J1940; J7613

== ENCOUNTER → 2023-12-15 09:45 | Outpatient (CLI) | payer MEDICARE, OTHER, SELFPAY ==
[2023-12-06 01:18] VITALS: BMI 44.8
--- NOTE | 2023-12-15 11:10 | DIAB.FU ---
Diabetes Education Assessment: Personal CGM Placement Name: Francia Moeller (Pronounced 9ah Francia) Date: 12/15/23 Time: [id number] Dx: Type II Diabetes Accompanied by daughter, Velma. Brought G6 sensor and transmitter. Wanted roll shop supervisor, however has a compatible phone and would like to try acacia instead. Francia plans to move to [place] by the end of December to be with other daughter. Has procedure next week (PET Scan). May need to remove G6 sensor for this. Discussed calling Dexcom for replacement. Past Medical History: (Last Reviewed 12/06/23 @ 01:42 by Awais Felix MD) Abnormal Pap smear of cervix (~1992) Adrenal adenoma Rt. Observation Asthma (~1989) Benign essential HTN Breast cancer (~2016) Bulimia (~1959) Carpal tunnel syndrome (~1991) Chicken pox (~1945) Chronic back pain (~1989) CKD (chronic kidney disease) CKD stage 3 due to type 2 diabetes mellitus COPD (chronic obstructive pulmonary disease) CPAP (continuous positive airway pressure) dependence (~1999) Shallow breathing Diabetes mellitus type 2, insulin dependent (~1993) Diabetes mellitus with hyperglycemia, with long-term current use of insulin Fracture (~1986) Hemorrhoid (~1989) History of stent insertion of renal artery Rt. History of urinary incontinence (~1994) Hyperlipidemia Ischiogluteal bursitis Kidney stones (~2001) Knee osteoarthritis Major depressive disorder, single episode, mild Measles (~1944) Mumps (~1970) OAB (overactive bladder) MIRIAN (obstructive sleep apnea) Osteoarthritis of right knee Paroxysmal A-fib Right knee pain Sacrococcygeal disorders, not elsewhere classified Spinal stenosis, lumbar region with neurogenic claudication Thyroid nodule Intervention: This participant was very receptive. Provided appropriate educational handouts. Discussed the following topics: Reviewed precautions, indications/contraindications and when to finger stick Discussed use of G6 via acacia, ie blood glucose display, graph, and trend arrows Reviewed how to self place sensor and transmitter Provided Dexcom resources for support Instructed her on self placement of CGM Set alerts for hypo and hyperglycemia Discussed connecting with clinic and daughter for glucose monitoring Goals: Wear for 10 days Contact Dexcom for replacement prn Follow-up: [facility] follow-up in 2-3 weeks Monalisa Orta RDN, PILAR Certified Diabetes Care and Electronics Specialist P: [phone] Thank you for this referral
== END ==
PROVIDERS: PCP Family Medicine; Referring Provider Family Medicine
DX: E11.9 Type 2 diabetes mellitus without complications (principal); Z71.3 Dietary counseling and surveillance; Z79.84 Long term (current) use of oral hypoglycemic drugs
CPT/HCPCS: 95249

== ENCOUNTER → 2024-01-05 12:07 | Outpatient (CLI) | payer MEDICARE, OTHER, SELFPAY ==
[2023-12-06 01:18] VITALS: BMI 44.8
[2024-01-05 12:39] LABS: Hematocrit 30.4 % (36-46); Hemoglobin 10.2 g/dL (12.0-16.0); Mean Corpuscular HGB Conc 33.5 % (30-36); Mean Corpuscular Hemoglobin 33.2 PG (26-34); Mean Corpuscular Volume 98.9 fL (80-100); Platelet Count 101 X10^3/uL (150-400); Red Blood Cell Count 3.08 X10^6/uL (4.0-5.2); Red Cell Distribution Width 20.3 % (11.6-14.8); White Blood Cell Count 3.4 X10^3/uL (4.5-11.0)
[2024-01-05 12:41] LABS: Add Manual Diff / Slide Review YES
[2024-01-05 12:47] LABS: BUN Creatinine Ratio 27.1 (6-22); Blood Urea Nitrogen 77 mg/dL (7-17); Calcium 9.4 mg/dL (8.4-10.2); Carbon Dioxide 24 mmol/L (22-32); Chloride 109 mmol/L (98-107); Estimated Glomerular Filt Rate 16 mL/min (>60); Glucose 232 mg/dL (80-110); HEMOLYSIS < 15 (0-50); Potassium 4.7 mmol/L (3.4-5.1); Sodium 141 mmol/L (137-145)
[2024-01-05 12:52] LABS: Anisocytosis 3+; Neutrophils Absolute Manual 1394 /uL (3000-5900); Nucleated Red Blood Cells 1 #/Diff; Total Cells Counted 100
== END ==
PROVIDERS: PCP Family Medicine; Referring Provider Nuclear Medicine Nuclear Cardiology; Visit Provider Internal Medicine Nephrology
DX: D70.9 Neutropenia, unspecified (principal)
CPT/HCPCS: 36415; 80048; 85007; 85025